=== PATIENT | male | born 1960 | race Caucasian/White ===

== ENCOUNTER 2017-03-19 20:15 | Emergency (ER) | payer OTHER ==
[2017-03-19 20:35] VITALS: RESP 20
[2017-03-19] MEDS ORDERED: KETOROLAC 60 MG/2 ML VIAL IM STA (20:54)
--- NOTE | 2017-03-19 21:03 | ED ---
Back Pain HPI - General Chief Complaint: Back Pain/Injury Stated Complaint: back pain Time Seen by Provider: 03/19/17 20:36 Source: patient, RN notes reviewed Limitations: no limitations - History of Present Illness Initial Comments: Patient is a 57-year-old male presents emergency room for evaluation of back pain. Patient states that having back pain for the past 6 months. Patient states while working today he moved to the side and felt a pop in his upper back on the right side. Patient also states he began feeling a shooting pain going down his right lower back and into his right leg. Patient does states she 's had pain similar to this before. Patient states she was told to sciatica. Patient states he's never had a upper back pain before. Patient states he is having constant pain that would not subside. Patient denies taking any Tylenol or Motrin for pain. Patient denies fecal or urinary incontinence. Patient denies any paresthesias. Patient denies saddle anesthesia. - Related Data Previous Rx's Medication Instructions Recorded Ibuprofen 600 mg PO Q6HR PRN #20 tablet 03/19/17 predniSONE 50 mg PO DAILY #5 tab 03/19/17 Allergies Allergy/AdvReac Type Severity Reaction Status Date / Time cyclobenzaprine HCl Allergy Rash/Hives Verified 03/19/17 21:00 [From Flexeril] Review of Systems ROS Statement: Those systems with pertinent positive or pertinent negative responses have been documented in the HPI. ROS Other: All systems not noted in ROS Statement are negative. Past Medical History Past Medical History: Liver Disease Additional Past Medical History / Comment(s): Hep C, chronic back pain History of Any Multi-Drug Resistant Organisms: None Reported Past Surgical History: Orthopedic Surgery Additional Past Surgical History / Comment(s): RIGHT LEG/ANKLE SURGERY, Past Anesthesia/Blood Transfusion Reactions: No Reported Reaction Past Psychological History: ADD/ADHD Additional Psychological History / Comment(s): NO ADDERAL SINCE . Smoking Status: Current every day smoker Past Alcohol Use History: None Reported Additional Past Alcohol Use History / Comment(s): No current use of ETOH since 2008. Past Drug Use History: None Reported Additional Drug Use History / Comment(s): Last use of street drugs 2 weeks ago. - Past Family History Mother Family Medical History: Cancer Additional Family Medical History / Comment(s): COLON CANCER. Sister(s) Family Medical History: Cancer Additional Family Medical History / Comment(s): COLON, BREAST General Exam - General Exam Comments Initial Comments: Sitting on exam bed, no acute distress. Limitations: no limitations General appearance: alert, in no apparent distress Head exam: Present: atraumatic, normocephalic, normal inspection Eye exam: Present: normal appearance ENT exam: Present: normal exam Neck exam: Present: normal inspection Respiratory exam: Absent: respiratory distress Back exam: Present: normal inspection, vertebral tenderness (Tenderness on palpating the thoracic spine and lumbosacral spine) Neurological exam: Present: alert, oriented X3, CN II-XII intact Psychiatric exam: Present: normal affect, normal mood Skin exam: Present: warm, dry, intact, normal color. Absent: rash Course Vital Signs 03/19/17 03/19/17 20:32 21:35 Temperature 98.5 F 98.0 F Pulse Rate 70 78 Respiratory 20 20 Rate Blood Pressure 184/86 124/77 O2 Sat by Pulse 97 98 Oximetry Medical Decision Making - Medical Decision Making Patient is a 57-year-old male presents emergency room for evaluation of back pain. Thoracic x-ray shows no acute findings. Lumbosacral spine x-ray: Moderate spondylosis at L4-5. No change compared to old exam. No fracture. Patient be placed on ibuprofen and prednisone and advised to follow-up with primary care provider. Patient has no neuro deficits. Patient states he understands everything that was discussed with him. Return parameters discussed. Case discussed with Dr. Suarez. - Radiology Data Radiology results: report reviewed, image reviewed Disposition Clinical Impression: Osteoarthritis of lumbar spine, Upper back strain Disposition: HOME SELF-CARE Condition: Good Instructions: Osteoarthritis (ED), Lumbar Radiculopathy (ED) Additional Instructions: Take medications as needed. Apply warm moist heat. Please follow up with primary care provider in 1-2 days. If any new symptom arises or symptoms worsen , return to ER as soon as possible. Prescriptions: Ibuprofen 600 mg PO Q6HR PRN #20 tablet PRN Reason: Pain predniSONE 50 mg PO DAILY #5 tab Referrals: Sky Manzano MD [Primary Care Provider] - 1-2 days Time of Disposition: 21:22
--- NOTE | 2017-03-19 21:14 | XR ---
EXAMINATION TYPE: XR lumbosacral spine min 4V DATE OF EXAM: 03/19/2017 9:09 PM COMPARISON: 08/06/2014 HISTORY: Back pain TECHNIQUE: 5 views FINDINGS: Lumbar vertebra have normal alignment. There is narrowing at L4-5 disc space. The other dis c spaces are fairly normal. There is no compression fracture. Sacroiliac joints are normal. IMPRESSION: Moderate spondylosis at L4-5. No change compared to old exam. No fracture.
--- NOTE | 2017-03-19 21:15 | XR ---
EXAMINATION TYPE: XR thoracic spine complete DATE OF EXAM: 03/19/2017 9:09 PM COMPARISON: 08/28/2014 HISTORY: Back pain TECHNIQUE: 3 views FINDINGS: Vertebra have fairly normal spacing and alignment. Posterior elements are intact. There is no paraspinal mass. There is no sign of compression fracture. IMPRESSION: Negative thoracic spine exam. No change.
[2017-03-19 21:38] VITALS: BP 124/77; PULSE 78; TEMP 98
== END 2017-03-19 21:37 | disposition home or self-care (01) ==
LOC: EC 20:15
DX: S29.012A Strain of muscle and tendon of back wall of thorax, initial encounter (principal); M47.896 Other spondylosis, lumbar region; F17.200 Nicotine dependence, unspecified, uncomplicated; Z88.8 Allergy status to other drugs, medicaments and biological substances; X50.1XXA Overexertion from prolonged static or awkward postures, initial encounter; Y93.89 Activity, other specified
CPT/HCPCS: 99283; 96372; 72072; 72110; J1885

== ENCOUNTER 2018-03-17 13:50 | Emergency (ER) | payer OTHER ==
[2018-03-17 14:05] VITALS: TEMP 98.1
[2018-03-17 15:01] LABS: Basophils % (A) 1 %; Eosinophils # (A) 0.2 k/uL (0-0.7); Eosinophils % (A) 4 %; HCT 41.6 % (39.0-53.0); HGB 14.2 gm/dL (13.0-17.5); Lymphocytes # (A) 1.3 k/uL (1.0-4.8); Lymphocytes % (A) 24 %; MCH 30.4 pg (25.0-35.0); MCV 89.5 fL (80.0-100.0); Mean Platelet Volume 7.2; Monocytes # (A) 0.3 k/uL (0-1.0); Monocytes % (A) 6 %; Neutrophils # (A) 3.3 k/uL (1.3-7.7); Neutrophils % (A) 64 %; Platelet Count 197 k/uL (150-450); RBC 4.65 m/uL (4.30-5.90); RDW 13.2 % (11.5-15.5); WBC 5.2 k/uL (3.8-10.6)
[2018-03-17 15:02] LABS: Appearance,Urine Clear (Clear); Bilirubin,Urine Negative (Negative); Blood,Urine Negative (Negative); Color,Urine Yellow; Glucose,Urine (UA) Negative (Negative); Ketones,Urine Negative (Negative); Leukocyte Esterase,Urine Negative (Negative); Nitrite,Urine Negative (Negative); Protein,Urine Negative (Negative); Specific Gravity,Urine 1.019 (1.001-1.035)
[2018-03-17 15:09] LABS: ALT 64 U/L (21-72); AST 53 U/L (17-59); Albumin 4.1 g/dL (3.5-5.0); Alkaline Phosphatase 73 U/L (38-126); Amylase 35 U/L (30-110); Anion Gap 13 mmol/L; Blood Urea Nitrogen 13 mg/dL (9-20); Calcium 9.3 mg/dL (8.4-10.2); Carbon Dioxide 30 mmol/L (22-30); Chloride 102 mmol/L (98-107); Glucose 110 mg/dL (74-99); Lipase 70 U/L (23-300); Sodium 145 mmol/L (137-145); Total Bilirubin 0.4 mg/dL (0.2-1.3); Total Protein 6.7 g/dL (6.3-8.2)
--- NOTE | 2018-03-17 19:00 | XR ---
EXAMINATION TYPE: XR KUB DATE OF EXAM: 03/17/2018 COMPARISON: 09/27/2014 HISTORY: Right lower quadrant pain and constipation TECHNIQUE: 2 views FINDINGS: The bowel gas pattern is normal. There is no sign of intestinal obstruction or pneumoperito neum. Fecal pattern is normal. There is no evidence of a mass. Lung bases are clear. There are no pat hologic calcifications over the kidneys. IMPRESSION: Nonacute abdomen. No adverse change.
[2018-03-17] MEDS ORDERED: MAGNESIUM CITRATE 296 ML BOTTLE PO ONE (19:22)
[2018-03-17] MEDS ORDERED: DOCUSATE 100 MG CAP PO STA (19:24)
--- NOTE | 2018-03-17 19:24 | ED ---
Abdominal Pain HPI - General Chief Complaint: Abdominal Pain Stated Complaint: abdominal pain/vomiting Time Seen by Provider: 03/17/18 17:08 Source: patient, RN notes reviewed, old records reviewed Mode of arrival: ambulatory Limitations: no limitations - History of Present Illness Initial Comments: 58-year-old male presents emergency department today chief complaint of lower abdominal pain for the past 5 days. He states is also had a bowel movement. Patient reports that he has had no fevers or chills. His family is concerned man other concerning signs or symptoms like a kidney stone or appendicitis. Patient states that he is having no blood in his stools. Have some vomiting earlier in the weekend but that has subsided. - Related Data Home Medications Medication Instructions Recorded Confirmed Methadone HCl [Methadone Intensol] 80 mg PO DAILY 03/17/18 03/17/18 Previous Rx's Medication Instructions Recorded Docusate [Colace] 100 mg PO DAILY #20 capsule 03/17/18 Allergies Allergy/AdvReac Type Severity Reaction Status Date / Time cyclobenzaprine HCl Allergy Rash/Hives Verified 03/17/18 18:35 [From Flexeril] Review of Systems ROS Statement: Those systems with pertinent positive or pertinent negative responses have been documented in the HPI. ROS Other: All systems not noted in ROS Statement are negative. 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 Sister(s) Family Medical History: Cancer Additional Family Medical History / Comment(s): COLON, BREAST General Exam - General Exam Comments Initial Comments: All. 58-year-old male. Resting comfortably in bed. No acute distress. Limitations: no limitations General appearance: alert, in no apparent distress Head exam: Present: atraumatic, normocephalic, normal inspection Eye exam: Present: normal appearance, PERRL, EOMI. Absent: scleral icterus, conjunctival injection, periorbital swelling ENT exam: Present: normal exam, mucous membranes moist Neck exam: Present: normal inspection. Absent: tenderness, meningismus, lymphadenopathy Respiratory exam: Present: normal lung sounds bilaterally. Absent: respiratory distress, wheezes, rales, rhonchi, stridor Cardiovascular Exam: Present: regular rate, normal rhythm, normal heart sounds. Absent: systolic murmur, diastolic murmur, rubs, gallop, clicks GI/Abdominal exam: Present: soft, normal bowel sounds. Absent: distended, tenderness, guarding, rebound, rigid Extremities exam: Present: normal inspection, full ROM, normal capillary refill. Absent: tenderness, pedal edema, joint swelling, calf tenderness Back exam: Present: normal inspection Psychiatric exam: Present: normal affect, normal mood Skin exam: Present: warm, dry, intact, normal color. Absent: rash Course Vital Signs 03/17/18 03/17/18 03/17/18 14:00 18:44 20:00 Temperature 98.1 F Pulse Rate 55 L 55 L 97 Respiratory 18 18 16 Rate Blood Pressure 179/75 190/80 157/79 O2 Sat by Pulse 98 97 98 Oximetry Medical Decision Making - Medical Decision Making 58-year-old male presents emergency department today chief complaint of lower abdominal pain for the past 5 days. He states is also had a bowel movement. Patient reports that he has had no fevers or chills. Pt labs are unremarkable. No significant tendernesss, normal bowel sounds. No pulsitile mass. Patient KUB shows non obstructive gas pattern. Discussed with normal labs patient pain is related to constipation. Discussed follow up and will place patient on stool softners and give Mag Citrate. Discussed return parameters. - Lab Data Result diagrams: 03/17/18 14:50 03/17/18 14:50 Lab Results 03/17/18 03/17/18 03/17/18 Range/Units 14:50 14:50 14:50 WBC 5.2 (3.8-10.6) k/uL RBC 4.65 (4.30-5.90) m/uL Hgb 14.2 (13.0-17.5) gm/dL Hct 41.6 (39.0-53.0) % MCV 89.5 (80.0-100.0) fL MCH 30.4 (25.0-35.0) pg MCHC 34.0 (31.0-37.0) g/dL RDW 13.2 (11.5-15.5) % Plt Count 197 (150-450) k/uL Neutrophils % 64 % Lymphocytes % 24 % Monocytes % 6 % Eosinophils % 4 % Basophils % 1 % Neutrophils # 3.3 (1.3-7.7) k/uL Lymphocytes # 1.3 (1.0-4.8) k/uL Monocytes # 0.3 (0-1.0) k/uL Eosinophils # 0.2 (0-0.7) k/uL Basophils # 0.0 (0-0.2) k/uL Sodium 145 (137-145) mmol/L Potassium 4.0 (3.5-5.1) mmol/L Chloride 102 (98-107) mmol/L Carbon Dioxide 30 (22-30) mmol/L Anion Gap 13 mmol/L BUN 13 (9-20) mg/dL Creatinine 0.80 (0.66-1.25) mg/dL Est GFR (CKD-EPI)AfAm >90 (>60 ml/min/1.73 sqM) Est GFR (CKD-EPI)NonAf >90 (>60 ml/min/1.73 sqM) Glucose 110 H (74-99) mg/dL Calcium 9.3 (8.4-10.2) mg/dL Total Bilirubin 0.4 (0.2-1.3) mg/dL AST 53 (17-59) U/L ALT 64 (21-72) U/L Alkaline Phosphatase 73 (38-126) U/L Total Protein 6.7 (6.3-8.2) g/dL Albumin 4.1 (3.5-5.0) g/dL Amylase 35 (30-110) U/L Lipase 70 (23-300) U/L Urine Color Yellow Urine Appearance Clear (Clear) Urine pH 6.0 (5.0-8.0) Ur Specific [place] 1.019 (1.001-1.035) Urine Protein Negative (Negative) Urine Glucose (UA) Negative (Negative) Urine Ketones Negative (Negative) Urine Blood Negative (Negative) Urine Nitrite Negative (Negative) Urine Bilirubin Negative (Negative) Urine Urobilinogen 4.0 (<2.0) mg/dL Ur Leukocyte Esterase Negative (Negative) - Radiology Data Radiology results: report reviewed Non obstructive BG pattern. Disposition Clinical Impression: Constipation Disposition: HOME SELF-CARE Condition: Good Instructions: Constipation (ED) Additional Instructions: Patient advised to follow-up with primary care provider. Return to the emergency department if any alarming signs or symptoms occur. Prescriptions: Docusate [Colace] 100 mg PO DAILY #20 capsule Is patient prescribed a controlled substance at d/c from ED?: No If prescribed controlled substance>3 days was MAPS reviewed?: No When asked, does pt state using other controlled substances?: No Referrals: Sky Manzano MD [Primary Care Provider] - 1-2 days Time of Disposition: 19:22
[2018-03-17 20:10] VITALS: BP 157/79; PULSE 97; RESP 16
== END 2018-03-17 20:16 | disposition home or self-care (01) ==
LOC: EC 13:50
DX: K59.00 Constipation, unspecified (principal); F17.200 Nicotine dependence, unspecified, uncomplicated; Z79.891 Long term (current) use of opiate analgesic; Z88.8 Allergy status to other drugs, medicaments and biological substances
CPT/HCPCS: 36415; 74018; 80053; 81003; 82150; 83690; 85025; 99284

== ENCOUNTER → 2018-11-18 | Outpatient (CLI) | payer OTHER ==
--- NOTE | 2018-11-18 10:27 | XR ---
EXAMINATION TYPE: XR wrist complete RT DATE OF EXAM: 11/18/2018 CLINICAL HISTORY: Metacarpal swelling per order. Pain for 5 to 6 months with 2 prior sprain injury's and repetitive work injury per patient. TECHNIQUE: Frontal, lateral, scaphoid, and oblique images of the right wrist are obtained. COMPARISON: None FINDINGS: There is no acute fracture/dislocation evident in the right wrist. Marked radiocarpal join t space loss is present with near otet-lj-liec formation and joint space sclerosis. No suspicious wid ening of scapholunate space is seen. Slight angulation on lateral view makes evaluation suboptimal. T he overlying soft tissue appears unremarkable. IMPRESSION: As above.
== END ==
LOC: RADXRMAIN 09:42
PROVIDERS: ATTEND Family Medicine
DX: R22.0 Localized swelling, mass and lump, head (principal)

== ENCOUNTER 2019-07-07 15:23 | Emergency (ER) | payer OTHER ==
[2019-07-07 15:39] VITALS: TEMP 98.3
[2019-07-07] MEDS ORDERED: SODIUM CHLORIDE 0.9% 1,000 ML IV STA ×2 (15:58)
[2019-07-07] MEDS ORDERED: THIAMINE 100 MG/ML 2 ML VIAL IM STA (15:58)
[2019-07-07] MEDS ORDERED: SODIUM CHLORIDE 0.9% 1,000 ML with MVI, ADULT NO.4 WITH VIT K 10 ML, THIAMINE 100 MG, F... IV ONE ×4 (16:01)
--- NOTE | 2019-07-07 16:11 | ED ---
General Adult HPI - General Chief complaint: Alcohol Stated complaint: Alcohol withdrawal Time Seen by Provider: 07/07/19 15:37 Source: patient, RN notes reviewed, old records reviewed Mode of arrival: ambulatory Limitations: no limitations - History of Present Illness Initial comments: 5-year-old male presents today for evaluation with chief complaint of alcohol intoxication and concerns for withdrawal. Patient reports that [facility] was [facility] He was there for methadone treatment and alcohol treatment. Patient reports that after he was discharged yesterday he returned using heroin and to use yesterday and resume drinking today. Patient states that he lives with his son. Patient reported to his son that he is having some chest pain today and son decided to call EMS. QRS emergency department extremely intoxicated. He states he did not have any chest pain at this time. Patient reports he has no suicidal homicidal ideations. Patient states she is concerned he is going to start to go through withdrawal. - Related Data Home Medications Medication Instructions Recorded Confirmed Diclofenac Sodium [Voltaren] 75 mg PO BID 07/07/19 07/07/19 Gabapentin [Neurontin] 300 mg PO BID 07/07/19 07/07/19 Montelukast Sodium [Singulair] 10 mg PO DAILY 07/07/19 07/07/19 busPIRone HCL 5 mg PO BID 07/07/19 07/07/19 Previous Rx's Medication Instructions Recorded chlordiazePOXIDE HCl [Librium] 10 mg PO QID 3 Days #12 capsule 07/07/19 Allergies Allergy/AdvReac Type Severity Reaction Status Date / Time cyclobenzaprine HCl Allergy Rash/Hives Verified 07/07/19 16:02 [From Flexeril] Review of Systems ROS Statement: Those systems with pertinent positive or pertinent negative responses have been documented in the HPI. ROS Other: All systems not noted in ROS Statement are negative. 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 Sister(s) Family Medical History: Cancer Additional Family Medical History / Comment(s): COLON, BREAST General Exam - General Exam Comments Initial Comments: Intoxicated 59-year-old male. Patient appears in no significant distress. Limitations: no limitations General appearance: alert, in no apparent distress Head exam: Present: atraumatic, normocephalic, normal inspection Eye exam: Present: normal appearance, PERRL, EOMI. Absent: scleral icterus, conjunctival injection, periorbital swelling ENT exam: Present: normal exam, mucous membranes moist Neck exam: Present: normal inspection. Absent: tenderness, meningismus, lymphadenopathy Respiratory exam: Present: normal lung sounds bilaterally. Absent: respiratory distress, wheezes, rales, rhonchi, stridor Cardiovascular Exam: Present: regular rate, normal rhythm, normal heart sounds. Absent: systolic murmur, diastolic murmur, rubs, gallop, clicks GI/Abdominal exam: Present: soft, normal bowel sounds. Absent: distended, tenderness, guarding, rebound, rigid Extremities exam: Present: normal inspection, full ROM, normal capillary refill. Absent: tenderness, pedal edema, joint swelling, calf tenderness Back exam: Present: normal inspection Course Vital Signs 07/07/19 07/07/19 07/07/19 15:32 17:26 17:30 Temperature 98.3 F Pulse Rate 84 76 74 Respiratory 18 16 16 Rate Blood Pressure 108/76 131/76 131/76 O2 Sat by Pulse 98 93 L 92 L Oximetry 07/07/19 07/07/19 07/07/19 18:00 18:30 19:00 Temperature Pulse Rate 75 79 Respiratory 13 17 Rate Blood Pressure 123/70 123/73 107/61 O2 Sat by Pulse Oximetry 07/07/19 19:18 Temperature Pulse Rate 79 Respiratory 17 Rate Blood Pressure 107/61 O2 Sat by Pulse Oximetry Medical Decision Making - Medical Decision Making She is a 5-year-old male presents emergency department today which went all contact Patient. He reported to his son that he has also chest pain and son called EMS brought the Patient in for evaluation. Patient at this time states he has no chest pain. EKG was reviewed and normal. Troponin test is negative in all of her lab work was reviewed and unremarkable. I'll call level is significantly elevated to 77. Patient was given IV fluids and banana bag. On reevaluation is resting comfortably in bed eating a sandwich. He states he has no further chest pain or any other complaints at this time. He states he preferred to be discharged home. I discussed we do not admit for alcohol withdrawal at this time and he can be discharged with outpatient referrals again and we'll discharge the Patient with a short course of Librium to help for withdrawal symptoms. He will did recently have a stay [facility] and was discharged 2 days ago. Patient is discharged in stable condition with his son. Discussed appropriate follow-up. - Lab Data Result diagrams: 07/07/19 16:10 07/07/19 16:10 Lab Results 07/07/19 07/07/19 07/07/19 Range/Units 16:10 16:10 16:10 WBC 5.5 (3.8-10.6) k/uL RBC 4.16 L (4.30-5.90) m/uL Hgb 12.9 L (13.0-17.5) gm/dL Hct 38.8 L (39.0-53.0) % MCV 93.2 (80.0-100.0) fL MCH 31.1 (25.0-35.0) pg MCHC 33.3 (31.0-37.0) g/dL RDW 13.3 (11.5-15.5) % Plt Count 236 (150-450) k/uL Neutrophils % 61 % Lymphocytes % 26 % Monocytes % 5 % Eosinophils % 5 % Basophils % 1 % Neutrophils # 3.4 (1.3-7.7) k/uL Lymphocytes # 1.5 (1.0-4.8) k/uL Monocytes # 0.3 (0-1.0) k/uL Eosinophils # 0.3 (0-0.7) k/uL Basophils # 0.0 (0-0.2) k/uL PT 9.5 (9.0-12.0) sec INR 0.9 (<1.2) APTT 26.0 (22.0-30.0) sec Sodium 148 H (137-145) mmol/L Potassium 3.7 (3.5-5.1) mmol/L Chloride 111 H (98-107) mmol/L Carbon Dioxide 28 (22-30) mmol/L Anion Gap 9 mmol/L BUN 18 (9-20) mg/dL Creatinine 0.88 (0.66-1.25) mg/dL Est GFR (CKD-EPI)AfAm >90 (>60 ml/min/1.73 sqM) Est GFR (CKD-EPI)NonAf >90 (>60 ml/min/1.73 sqM) Glucose 89 (74-99) mg/dL Calcium 8.8 (8.4-10.2) mg/dL Magnesium 2.3 (1.6-2.3) mg/dL Total Bilirubin 0.2 (0.2-1.3) mg/dL AST 39 (17-59) U/L ALT 40 (21-72) U/L Alkaline Phosphatase 66 (38-126) U/L Troponin I (0.000-0.034) ng/mL Total Protein 6.7 (6.3-8.2) g/dL Albumin 4.1 (3.5-5.0) g/dL Amylase 47 (30-110) U/L Lipase 193 (23-300) U/L Urine Color Urine Appearance (Clear) Urine pH (5.0-8.0) Ur Specific [place] (1.001-1.035) Urine Protein (Negative) Urine Glucose (UA) (Negative) Urine Ketones (Negative) Urine Blood (Negative) Urine Nitrite (Negative) Urine Bilirubin (Negative) Urine Urobilinogen (<2.0) mg/dL Ur Leukocyte Esterase (Negative) Urine Opiates Screen (NotDetected) Ur Oxycodone Screen (NotDetected) Urine Methadone Screen (NotDetected) Ur Propoxyphene Screen (NotDetected) Ur Barbiturates Screen (NotDetected) U Tricyclic Antidepress (NotDetected) Ur Phencyclidine Scrn (NotDetected) Ur Amphetamines Screen (NotDetected) U Methamphetamines Scrn (NotDetected) U Benzodiazepines Scrn (NotDetected) Urine Cocaine Screen (NotDetected) U Marijuana (THC) Screen (NotDetected) Serum Alcohol 277 H* mg/dL 07/07/19 07/07/19 Range/Units 16:10 18:13 WBC (3.8-10.6) k/uL RBC (4.30-5.90) m/uL Hgb (13.0-17.5) gm/dL Hct (39.0-53.0) % MCV (80.0-100.0) fL MCH (25.0-35.0) pg MCHC (31.0-37.0) g/dL RDW (11.5-15.5) % Plt Count (150-450) k/uL Neutrophils % % Lymphocytes % % Monocytes % % Eosinophils % % Basophils % % Neutrophils # (1.3-7.7) k/uL Lymphocytes # (1.0-4.8) k/uL Monocytes # (0-1.0) k/uL Eosinophils # (0-0.7) k/uL Basophils # (0-0.2) k/uL PT (9.0-12.0) sec INR (<1.2) APTT (22.0-30.0) sec Sodium (137-145) mmol/L Potassium (3.5-5.1) mmol/L Chloride (98-107) mmol/L Carbon Dioxide (22-30) mmol/L Anion Gap mmol/L BUN (9-20) mg/dL Creatinine (0.66-1.25) mg/dL Est GFR (CKD-EPI)AfAm (>60 ml/min/1.73 sqM) Est GFR (CKD-EPI)NonAf (>60 ml/min/1.73 sqM) Glucose (74-99) mg/dL Calcium (8.4-10.2) mg/dL Magnesium (1.6-2.3) mg/dL Total Bilirubin (0.2-1.3) mg/dL AST (17-59) U/L ALT (21-72) U/L Alkaline Phosphatase (38-126) U/L Troponin I <0.012 (0.000-0.034) ng/mL Total Protein (6.3-8.2) g/dL Albumin (3.5-5.0) g/dL Amylase (30-110) U/L Lipase (23-300) U/L Urine Color Light Yellow Urine Appearance Clear (Clear) Urine pH 6.5 (5.0-8.0) Ur Specific [place] 1.008 (1.001-1.035) Urine Protein Negative (Negative) Urine Glucose (UA) Negative (Negative) Urine Ketones Negative (Negative) Urine Blood Negative (Negative) Urine Nitrite Negative (Negative) Urine Bilirubin Negative (Negative) Urine Urobilinogen <2.0 (<2.0) mg/dL Ur Leukocyte Esterase Negative (Negative) Urine Opiates Screen Not Detected (NotDetected) Ur Oxycodone Screen Not Detected (NotDetected) Urine Methadone Screen Detected H (NotDetected) Ur Propoxyphene Screen Not Detected (NotDetected) Ur Barbiturates Screen Not Detected (NotDetected) U Tricyclic Antidepress Not Detected (NotDetected) Ur Phencyclidine Scrn Not Detected (NotDetected) Ur Amphetamines Screen Not Detected (NotDetected) U Methamphetamines Scrn Not Detected (NotDetected) U Benzodiazepines Scrn Not Detected (NotDetected) Urine Cocaine Screen Not Detected (NotDetected) U Marijuana (THC) Screen Not Detected (NotDetected) Serum Alcohol mg/dL 07/07/19 16:51 EKG performed at 1605 shows normal sinus rhythm normal EKG. Ventricular rate of 74 bpm. Was 152 ms. QRS duration is 104 ms. QT QTc is 380/4:30 milliseconds. Disposition Clinical Impression: Alcohol abuse, Alcohol intoxication, Methadone misuse Disposition: HOME SELF-CARE Condition: Good Instructions (If sedation given, give patient instructions): Alcohol Withdrawal (ED) Additional Instructions: Please use medication as discussed. Please follow up with family doctor if symptoms have not improved over the next two days. Please return to the emergency room if your symptoms increase or worsen or for any other concerns. Prescriptions: chlordiazePOXIDE HCl [Librium] 10 mg PO QID 3 Days #12 capsule Is patient prescribed a controlled substance at d/c from ED?: No Referrals: Sky Manzano MD [Primary Care Provider] - 1-2 days Time of Disposition: 20:04
[2019-07-07 16:19] LABS: Basophils % (A) 1 %; Eosinophils # (A) 0.3 k/uL (0-0.7); Eosinophils % (A) 5 %; HCT 38.8 % (39.0-53.0); HGB 12.9 gm/dL (13.0-17.5); Lymphocytes # (A) 1.5 k/uL (1.0-4.8); Lymphocytes % (A) 26 %; MCH 31.1 pg (25.0-35.0); MCHC 33.3 g/dL (31.0-37.0); MCV 93.2 fL (80.0-100.0); Mean Platelet Volume 6.5; Monocytes # (A) 0.3 k/uL (0-1.0); Monocytes % (A) 5 %; Neutrophils # (A) 3.4 k/uL (1.3-7.7); Neutrophils % (A) 61 %; Platelet Count 236 k/uL (150-450); RBC 4.16 m/uL (4.30-5.90); RDW 13.3 % (11.5-15.5); WBC 5.5 k/uL (3.8-10.6)
[2019-07-07 16:28] LABS: INR 0.9 (<1.2); Prothrombin Time 9.5 sec (9.0-12.0)
[2019-07-07 16:29] LABS: ALT 40 U/L (21-72); AST 39 U/L (17-59); African American GFR (CKD) >90 (>60 ml/min/1.73 sqM); Albumin 4.1 g/dL (3.5-5.0); Alkaline Phosphatase 66 U/L (38-126); Amylase 47 U/L (30-110); Anion Gap 9 mmol/L; Blood Urea Nitrogen 18 mg/dL (9-20); Calcium 8.8 mg/dL (8.4-10.2); Carbon Dioxide 28 mmol/L (22-30); Chloride 111 mmol/L (98-107); Glucose 89 mg/dL (74-99); Magnesium 2.3 mg/dL (1.6-2.3); Potassium 3.7 mmol/L (3.5-5.1); Sodium 148 mmol/L (137-145); Total Bilirubin 0.2 mg/dL (0.2-1.3); Total Protein 6.7 g/dL (6.3-8.2)
[2019-07-07 16:38] LABS: Alcohol 277 mg/dL
[2019-07-07 18:41] LABS: Appearance,Urine Clear (Clear); Color,Urine Light Yellow; Glucose,Urine (UA) Negative (Negative); Ketones,Urine Negative (Negative); PH, Urine 6.5 (5.0-8.0); Protein,Urine Negative (Negative); Specific Gravity,Urine 1.008 (1.001-1.035)
[2019-07-07 18:42] LABS: Bilirubin,Urine Negative (Negative); Blood,Urine Negative (Negative); Leukocyte Esterase,Urine Negative (Negative); Nitrite,Urine Negative (Negative); Urobilinogen,Urine <2.0 mg/dL (<2.0)
[2019-07-07 18:52] LABS: Amphetamine Screen,Urine Not Detected (NotDetected); Barbiturate Screen,Urine Not Detected (NotDetected); Benzodiazepines Screen,Urine Not Detected (NotDetected); Cocaine Screen,Urine Not Detected (NotDetected); Methadone Screen, Urine Detected (NotDetected); Opiate Screen,Urine Not Detected (NotDetected); Oxycodone Screen, Urine Not Detected (NotDetected); Phencyclidine Screen,Urine Not Detected (NotDetected); Tricyclic Antidepressant,Urine Not Detected (NotDetected); Urn Cannabinoid Scrn Not Detected (NotDetected)
--- NOTE | 2019-07-07 18:53 | XR ---
EXAMINATION: XR chest 2V DATE AND TIME: 07/07/2019 6:03 PM CLINICAL INDICATION: PHH; Chest Pain TECHNIQUE: Departmental protocol COMPARISON: 08/28/2014 FINDINGS: The lungs are clear. The pleural spaces are negative. The cardiac silhouette is not enlarged. The remainder of the mediastinal silhouette is unremarkable. The skeletal structures and soft tissues are negative for acute findings. IMPRESSION: NO ACUTE PROCESS.
[2019-07-07 20:12] VITALS: BP 132/87; PULSE 72; RESP 16
== END 2019-07-07 20:14 | disposition home or self-care (01) ==
LOC: EC 15:23
DX: F10.239 Alcohol dependence with withdrawal, unspecified (principal); F10.229 Alcohol dependence with intoxication, unspecified; F11.90 Opioid use, unspecified, uncomplicated; R07.9 Chest pain, unspecified; F17.200 Nicotine dependence, unspecified, uncomplicated; G89.29 Other chronic pain; M54.9 Dorsalgia, unspecified; Z79.1 Long term (current) use of non-steroidal anti-inflammatories (NSAID); Z79.899 Other long term (current) drug therapy; Z88.8 Allergy status to other drugs, medicaments and biological substances; Z53.9 Procedure and treatment not carried out, unspecified reason
CPT/HCPCS: 36415; 93005; 80053; 82150; 83690; 83735; 84484; 85025; 85610; 85730; 81003; 80306; 80320; 71046; 99285; 96365; 96366 ×3; J3411

== ENCOUNTER 2019-07-09 17:51 | Inpatient (IN) | payer OTHER ==
[2019-07-09] MEDS ORDERED: SODIUM CHLORIDE 0.9% 1,000 ML IV STA (18:12)
--- NOTE | 2019-07-09 18:16 | ED ---
General Adult HPI - General Chief complaint: Alcohol Stated complaint: Detox, chest pain Time Seen by Provider: 07/09/19 18:02 Source: patient, family Mode of arrival: ambulatory Limitations: no limitations - History of Present Illness Initial comments: 59-year-old male patient with past medical history significant for polysubstance abuse, hepatitis C, presents to the emergency department today for evaluation of chest pain and withdrawal symptoms. Patient states that he recently left [facility] facility where he was detoxing from heroin and alcohol. Patient states that he has been drinking today. States he's been having chest pain since last evening. States the pain is intermittent. He does have shortness of breath, nausea, and sweats with this. States he is also having diarrhea and abdominal discomfort. He denies any fevers. Denies any hematochezia, melena, hematemesis. Patient was seen and evaluated in this department 2 days ago for similar symptoms. He was given a prescription of Librium, states he has not started this yet. Patient denies any recent rash, shortness breath, chest pain, constipation, back pain, numbness, tingling, dizziness, weakness, hematuria, dysuria, urinary urgency, urinary frequency, headache, visual changes, or any other complaints. - Related Data Home Medications Medication Instructions Recorded Confirmed Diclofenac Sodium [Voltaren] 75 mg PO BID 07/07/19 07/07/19 Gabapentin [Neurontin] 300 mg PO BID 07/07/19 07/07/19 Montelukast Sodium [Singulair] 10 mg PO DAILY 07/07/19 07/07/19 busPIRone HCL 5 mg PO BID 07/07/19 07/07/19 Previous Rx's Medication Instructions Recorded chlordiazePOXIDE HCl [Librium] 10 mg PO QID 3 Days #12 capsule 07/07/19 Allergies Allergy/AdvReac Type Severity Reaction Status Date / Time cyclobenzaprine HCl Allergy Rash/Hives Verified 07/09/19 17:56 [From Flexeril] Review of Systems ROS Statement: Those systems with pertinent positive or pertinent negative responses have been documented in the HPI. ROS Other: All systems not noted in ROS Statement are negative. Past Medical History Past Medical History: Liver Disease Additional Past Medical History / Comment(s): Hep C, chronic back pain, pt reported using heroin (pt has been clean for 1.5 yrs/ on methadone) History of Any Multi-Drug Resistant Organisms: None Reported Past Surgical History: Orthopedic Surgery Additional Past Surgical History / Comment(s): RIGHT LEG/ANKLE SURGERY, Past Anesthesia/Blood Transfusion Reactions: No Reported Reaction Past Psychological History: ADD/ADHD Smoking Status: Current every day smoker Past Alcohol Use History: None Reported, Daily, Heavy Past Drug Use History: Heroin, Opiates - Past Family History Mother Family Medical History: Cancer Additional Family Medical History / Comment(s): COLON CANCER. Sister(s) Family Medical History: Cancer Additional Family Medical History / Comment(s): COLON, BREAST General Exam Limitations: no limitations General appearance: alert, in no apparent distress, other (Physical well- developed, well-nourished adult male patient in no acute distress. He is obviously intoxicated. Vital signs upon presentation are temperature 97.8F, pulse 96, respirations 22, blood pressure 153/97, pulse ox 96% on room air.) Eye exam: Present: normal appearance, PERRL, EOMI. Absent: scleral icterus, conjunctival injection, periorbital swelling ENT exam: Present: normal exam, normal oropharynx, mucous membranes moist Respiratory exam: Present: normal lung sounds bilaterally. Absent: respiratory distress, wheezes, rales, rhonchi, stridor Cardiovascular Exam: Present: regular rate, normal rhythm, normal heart sounds. Absent: systolic murmur, diastolic murmur, rubs, gallop, clicks GI/Abdominal exam: Present: soft, tenderness (Generalized), normal bowel sounds. Absent: distended, guarding, rebound, rigid Neurological exam: Present: alert, oriented X3, CN II-XII intact Psychiatric exam: Present: normal affect, normal mood Skin exam: Present: warm, dry, intact, normal color. Absent: rash Course Vital Signs 07/09/19 07/09/19 17:54 20:26 Temperature 97.8 F 97.6 F Pulse Rate 96 81 Respiratory 22 18 Rate Blood Pressure 153/97 130/87 O2 Sat by Pulse 96 100 Oximetry EKG Findings - EKG Comments: EKG Findings:: EKG obtained at 1838 shows normal sinus rhythm with a ventricular rate of 89, [place] interval 146, QRS duration 104, QT 352, QTc 428. No evidence of ST elevation or depression. Medical Decision Making - Medical Decision Making 59-year-old male patient presents to the emergency department today for evaluation of chest pain and withdrawal symptoms. Patient states he is withdraw ing from methadone and alcohol. Physical examination is unremarkable. Labs reviewed and did reveal increased sodium chloride. Elevate they did alcohol level at 362. Chest x-ray shows no acute cardiopulmonary process. EKG is unremarkable. Patient does not have transportation home. He'll be admitted to the hospital for alcohol intoxication, we will perform serial troponin to rule out cardiac event. Patient verbalizes understanding and agrees this plan. - Lab Data Result diagrams: 07/09/19 18:50 07/09/19 18:50 Lab Results 07/09/19 07/09/19 07/09/19 Range/Units 18:50 18:50 18:50 WBC 7.0 (3.8-10.6) k/uL RBC 4.55 (4.30-5.90) m/uL Hgb 14.5 (13.0-17.5) gm/dL Hct 42.5 (39.0-53.0) % MCV 93.3 (80.0-100.0) fL MCH 31.8 (25.0-35.0) pg MCHC 34.1 (31.0-37.0) g/dL RDW 13.2 (11.5-15.5) % Plt Count 286 (150-450) k/uL Neutrophils % 63 % Lymphocytes % 28 % Monocytes % 5 % Eosinophils % 2 % Basophils % 1 % Neutrophils # 4.4 (1.3-7.7) k/uL Lymphocytes # 1.9 (1.0-4.8) k/uL Monocytes # 0.3 (0-1.0) k/uL Eosinophils # 0.1 (0-0.7) k/uL Basophils # 0.1 (0-0.2) k/uL PT 9.7 (9.0-12.0) sec INR 0.9 (<1.2) APTT 25.3 (22.0-30.0) sec Sodium 150 H (137-145) mmol/L Potassium 3.7 (3.5-5.1) mmol/L Chloride 113 H (98-107) mmol/L Carbon Dioxide 28 (22-30) mmol/L Anion Gap 9 mmol/L BUN 12 (9-20) mg/dL Creatinine 0.65 L (0.66-1.25) mg/dL Est GFR (CKD-EPI)AfAm >90 (>60 ml/min/1.73 sqM) Est GFR (CKD-EPI)NonAf >90 (>60 ml/min/1.73 sqM) Glucose 104 H (74-99) mg/dL Calcium 8.8 (8.4-10.2) mg/dL Magnesium 2.1 (1.6-2.3) mg/dL Total Bilirubin 0.1 L (0.2-1.3) mg/dL AST 33 (17-59) U/L ALT 28 (21-72) U/L Alkaline Phosphatase 68 (38-126) U/L Troponin I (0.000-0.034) ng/mL Total Protein 6.8 (6.3-8.2) g/dL Albumin 4.1 (3.5-5.0) g/dL Lipase 87 (23-300) U/L Serum Alcohol 363 H* mg/dL 07/09/19 Range/Units 18:50 WBC (3.8-10.6) k/uL RBC (4.30-5.90) m/uL Hgb (13.0-17.5) gm/dL Hct (39.0-53.0) % MCV (80.0-100.0) fL MCH (25.0-35.0) pg MCHC (31.0-37.0) g/dL RDW (11.5-15.5) % Plt Count (150-450) k/uL Neutrophils % % Lymphocytes % % Monocytes % % Eosinophils % % Basophils % % Neutrophils # (1.3-7.7) k/uL Lymphocytes # (1.0-4.8) k/uL Monocytes # (0-1.0) k/uL Eosinophils # (0-0.7) k/uL Basophils # (0-0.2) k/uL PT (9.0-12.0) sec INR (<1.2) APTT (22.0-30.0) sec Sodium (137-145) mmol/L Potassium (3.5-5.1) mmol/L Chloride (98-107) mmol/L Carbon Dioxide (22-30) mmol/L Anion Gap mmol/L BUN (9-20) mg/dL Creatinine (0.66-1.25) mg/dL Est GFR (CKD-EPI)AfAm (>60 ml/min/1.73 sqM) Est GFR (CKD-EPI)NonAf (>60 ml/min/1.73 sqM) Glucose (74-99) mg/dL Calcium (8.4-10.2) mg/dL Magnesium (1.6-2.3) mg/dL Total Bilirubin (0.2-1.3) mg/dL AST (17-59) U/L ALT (21-72) U/L Alkaline Phosphatase (38-126) U/L Troponin I <0.012 (0.000-0.034) ng/mL Total Protein (6.3-8.2) g/dL Albumin (3.5-5.0) g/dL Lipase (23-300) U/L Serum Alcohol mg/dL - Radiology Data Radiology results: report reviewed, image reviewed Two-view x-ray of the chest is obtained. Report is reviewed in its entirety. Impression by Dr. Christine shows no active cardiopulmonary disease. No change. Disposition Clinical Impression: Alcohol intoxication, Chest pain Disposition: ADMITTED IP TO THIS [facility] Condition: Serious Referrals: Sky Manzano MD [Primary Care Provider] - 1-2 days Decision to Admit Reason: Admit from EC Decision Date: 07/09/19 Decision Time: 20:29
[2019-07-09] MEDS ORDERED: FAMOTIDINE 20 MG/2 ML VIAL IV STA (18:41)
[2019-07-09] MEDS ORDERED: ONDANSETRON 4 MG/2 ML VIAL IVP STA (18:41)
[2019-07-09 19:10] LABS: Basophils # (A) 0.1 k/uL (0-0.2); Basophils % (A) 1 %; Eosinophils # (A) 0.1 k/uL (0-0.7); Eosinophils % (A) 2 %; HCT 42.5 % (39.0-53.0); HGB 14.5 gm/dL (13.0-17.5); Lymphocytes # (A) 1.9 k/uL (1.0-4.8); Lymphocytes % (A) 28 %; MCH 31.8 pg (25.0-35.0); MCHC 34.1 g/dL (31.0-37.0); MCV 93.3 fL (80.0-100.0); Mean Platelet Volume 6.4; Monocytes # (A) 0.3 k/uL (0-1.0); Monocytes % (A) 5 %; Neutrophils # (A) 4.4 k/uL (1.3-7.7); Neutrophils % (A) 63 %; Platelet Count 286 k/uL (150-450); RBC 4.55 m/uL (4.30-5.90); RDW 13.2 % (11.5-15.5)
[2019-07-09 19:16] LABS: ALT 28 U/L (21-72); AST 33 U/L (17-59); African American GFR (CKD) >90 (>60 ml/min/1.73 sqM); Albumin 4.1 g/dL (3.5-5.0); Alkaline Phosphatase 68 U/L (38-126); Anion Gap 9 mmol/L; Blood Urea Nitrogen 12 mg/dL (9-20); Calcium 8.8 mg/dL (8.4-10.2); Carbon Dioxide 28 mmol/L (22-30); Chloride 113 mmol/L (98-107); Glucose 104 mg/dL (74-99); INR 0.9 (<1.2); Magnesium 2.1 mg/dL (1.6-2.3); Partial Thromboplastin Time 25.3 sec (22.0-30.0); Potassium 3.7 mmol/L (3.5-5.1); Prothrombin Time 9.7 sec (9.0-12.0); Sodium 150 mmol/L (137-145); Total Bilirubin 0.1 mg/dL (0.2-1.3); Total Protein 6.8 g/dL (6.3-8.2)
[2019-07-09 19:40] LABS: Alcohol 363 mg/dL
--- NOTE | 2019-07-09 19:45 | XR ---
EXAMINATION TYPE: XR chest 2V DATE OF EXAM: 07/09/2019 COMPARISON: 07/07/2019 HISTORY: Chest pain TECHNIQUE: Frontal and lateral views of the chest are obtained. FINDINGS: Heart and mediastinum are normal. Lungs are clear. Diaphragm is normal. Bony thorax is int act. There is old healed right clavicle fracture. IMPRESSION: No active cardiopulmonary disease. No change.
[2019-07-09] MEDS ORDERED: ONDANSETRON 4 MG/2 ML VIAL IVP PRN (20:26)
[2019-07-09] MEDS ORDERED: NALOXONE 0.4 MG/ML 1 ML VIAL IV PRN (20:26)
[2019-07-09 20:28] VITALS: RESP 18
[2019-07-09] MEDS ORDERED: SODIUM CHLORIDE 0.9% 1,000 ML with MVI, ADULT NO.4 WITH VIT K 10 ML, THIAMINE 100 MG, F... IV ONE ×4 (20:28)
[2019-07-09] MEDS ORDERED: LORazepam 2 MG/ML INJ IV PRN (20:28)
[2019-07-09] MEDS ORDERED: THIAMINE 100 MG/ML 2 ML VIAL IM STA (20:28)
[2019-07-09] MEDS: LORazepam 2 MG/ML INJ IV PRN ×2 (21:38→22:55)
[2019-07-09] MEDS: THIAMINE 100 MG TAB PO SCH (21:39)
[2019-07-09 22:03] VITALS: BMI 23.6
[2019-07-09] MEDS: NICOTINE 21MG/24HR PATCH TRANSDERM SCH (22:22)
[2019-07-10] MEDS: LORazepam 2 MG/ML INJ IV PRN ×8 (01:09→23:51)
[2019-07-10] MEDS: THIAMINE 100 MG TAB PO SCH (08:11)
[2019-07-10] MEDS: NICOTINE 21MG/24HR PATCH TRANSDERM SCH (08:11)
[2019-07-10] MEDS ORDERED: SODIUM CHLORIDE 0.9% 1,000 ML with MVI, ADULT NO.4 WITH VIT K 10 ML, THIAMINE 100 MG, F... IV ONE ×8 (15:42→15:45)
[2019-07-10] MEDS: PANTOPRAZOLE 40 MG/10 ML VIAL IVP SCH (18:11)
[2019-07-10] MEDS: 1: MVI, ADULT NO.4 WITH VIT K 10 ML, THIAMINE 100 MG, FOLIC ACID 1 MG in SODIUM CHLORIDE IV SCH ×8 (18:34)
--- NOTE | 2019-07-10 19:32 | HP ---
HISTORY AND PHYSICAL [id number] white male with polysubstance abuse, hepatitis C. States he he stopped his methadone mg a day 5 days ago, which he takes for heroin and alcohol withdrawal. He went back to drinking alcohol heavily since then. He came in with an alcohol level of 352. He has large amount of tremors and constipation. No chest pain or shortness of breath. No headaches or other visual complaints. HOME MEDICATIONS: Home medications include: 1. Neurontin. 2. Voltaren. 3. Singulair. 4. BuSpar. ALLERGIES: CYCLOBENZAPRINE. REVIEW OF SYSTEMS: Fourteen-point review of systems negative except for mentioned in HPI. PAST MEDICAL HISTORY: 1. Liver disease. 2. Hepatitis C. 3. Chronic back pain. 4. Right leg ankle surgery. 5. ADD. 6. Current everyday smoker. 7. Heavy alcohol. 8. Heroin and opiate abuse. FAMILY HISTORY: Mother with colon cancer. PHYSICAL EXAMINATION: Vital signs are stable. Afebrile. Temperature 97.8, pulse 81 to 96, respiratory rate 18 to 22, blood pressure 130s to 150s over 80s to 70s. Oxygen 96% to 98% on room air CARDIOVASCULAR: S1, S2. LUNGS: Clear. GI: Soft. NEUROLOGIC: Moderate amount of tremor. PSYCH: Fair mood and affect. EKG shows sinus rhythm. ASSESSMENT: 1. Acute withdrawal from methadone and alcohol with alcohol intoxication. CIWA protocol. Await psychiatric opinion. 2. Polysubstance abuse. RECOMMENDATIONS: medications. Follow up in the next 24-48 hours. Continue on CIWA protocol. MMODL / IJN: [id number] /
[2019-07-11] MEDS: LORazepam 2 MG/ML INJ IV PRN ×2 (05:01→08:12)
[2019-07-11 06:57] LABS: Basophils % (A) 1 %; Eosinophils # (A) 0.1 k/uL (0-0.7); Eosinophils % (A) 2 %; HCT 40.1 % (39.0-53.0); HGB 13.8 gm/dL (13.0-17.5); Lymphocytes # (A) 1.1 k/uL (1.0-4.8); Lymphocytes % (A) 16 %; MCH 31.7 pg (25.0-35.0); MCHC 34.5 g/dL (31.0-37.0); MCV 92.1 fL (80.0-100.0); Monocytes # (A) 0.4 k/uL (0-1.0); Monocytes % (A) 6 %; Neutrophils % (A) 74 %; Platelet Count 247 k/uL (150-450); RBC 4.35 m/uL (4.30-5.90); RDW 14.5 % (11.5-15.5); WBC 6.8 k/uL (3.8-10.6)
[2019-07-11 07:02] LABS: ALT 34 U/L (21-72); AST 35 U/L (17-59); African American GFR (CKD) >90 (>60 ml/min/1.73 sqM); Albumin 3.7 g/dL (3.5-5.0); Alkaline Phosphatase 79 U/L (38-126); Anion Gap 6 mmol/L; Blood Urea Nitrogen 10 mg/dL (9-20); Carbon Dioxide 28 mmol/L (22-30); Chloride 104 mmol/L (98-107); Glucose 103 mg/dL (74-99); Potassium 3.5 mmol/L (3.5-5.1); Sodium 138 mmol/L (137-145); Total Bilirubin 1.1 mg/dL (0.2-1.3); Total Protein 6.2 g/dL (6.3-8.2)
[2019-07-11] MEDS: NICOTINE 21MG/24HR PATCH TRANSDERM SCH (08:12)
[2019-07-11] MEDS: PANTOPRAZOLE 40 MG/10 ML VIAL IVP SCH (08:12)
[2019-07-11 09:14] VITALS: BP 161/78; PULSE 58; TEMP 98.7
== END 2019-07-11 09:57 | disposition left against medical advice (07) | DRG 894 ==
LOC: EC 17:51 → 1SOBS 20:27 → OBSVTOIN 07-10 09:49
PROVIDERS: ADMIT Family Medicine; ATTEND Family Medicine
DX: F10.129 Alcohol abuse with intoxication, unspecified (principal); F11.23 Opioid dependence with withdrawal; F17.200 Nicotine dependence, unspecified, uncomplicated; F90.9 Attention-deficit hyperactivity disorder, unspecified type; K59.00 Constipation, unspecified; Y90.8 Blood alcohol level of 240 mg/100 ml or more; Z80.0 Family history of malignant neoplasm of digestive organs; Z80.3 Family history of malignant neoplasm of breast
CPT/HCPCS: 36415; 71046; 80053; 80320; 83690; 83735; 84484; 85025; 85610; 85730; 93005; 96361; 96372; 96374; 96375; 99285

== ENCOUNTER 2019-07-12 22:59 | Emergency (ER) | payer OTHER ==
[2019-07-12 23:12] VITALS: TEMP 97.8
[2019-07-13] MEDS ORDERED: IBUPROFEN 400 MG TAB PO STA (01:01)
[2019-07-13 01:18] VITALS: RESP 18
--- NOTE | 2019-07-13 03:31 | ED ---
Alcohol HPI - General Chief Complaint: Alcohol Stated Complaint: mental health Time Seen by Provider: 07/12/19 23:17 Source: patient, EMS Mode of arrival: EMS Limitations: no limitations - History of Present Illness Initial Comments: Patient is a 59-year-old male presenting to the emergency department with a chief complaint of going through withdrawals. Patient reports he was at [facility] for methadone withdrawal. Patient reports she has been on methadone for about 10 years. Patient reports after the left [facility] he has been withdrawing. Patient reports he has been drinking intermittently over the past week. Patient reports he was admitted twice for possible chest pains this week. Prior to coming to the ED patient reports drinking about 5-6 shots of liquor. Patient reports that he feels "sick" and is requesting Ativan. Patient reports nausea but no vomiting. Patient also reports that he is undergoing delirium tremens. Patient reports that he shaking even though he is visibly not. Patient denies taking medication to alleviate the symptoms. Patient denies suicidal thoughts or ideations. - Related Data Home Medications Medication Instructions Recorded Confirmed Diclofenac Sodium [Voltaren] 75 mg PO BID 07/07/19 07/12/19 Gabapentin [Neurontin] 300 mg PO BID 07/07/19 07/12/19 Montelukast Sodium [Singulair] 10 mg PO DAILY 07/07/19 07/12/19 busPIRone HCL 5 mg PO BID 07/07/19 07/12/19 Previous Rx's Medication Instructions Recorded chlordiazePOXIDE HCl [Librium] 10 mg PO QID 3 Days #12 capsule 07/07/19 Allergies Allergy/AdvReac Type Severity Reaction Status Date / Time cyclobenzaprine HCl Allergy Rash/Hives Verified 07/12/19 23:35 [From Flexeril] Review of Systems ROS Statement: Those systems with pertinent positive or pertinent negative responses have been documented in the HPI. ROS Other: All systems not noted in ROS Statement are negative. Past Medical History Past Medical History: Liver Disease Additional Past Medical History / Comment(s): Hep C, chronic back pain, pt reported using heroin (pt has been clean for 1.5 yrs/ on methadone) methadone withdrawal History of Any Multi-Drug Resistant Organisms: None Reported Past Surgical History: Orthopedic Surgery Additional Past Surgical History / Comment(s): RIGHT LEG/ANKLE SURGERY, Past Anesthesia/Blood Transfusion Reactions: No Reported Reaction Past Psychological History: ADD/ADHD, Anxiety Smoking Status: Current every day smoker Past Alcohol Use History: Heavy Past Drug Use History: None Reported - Past Family History Mother Family Medical History: Cancer Additional Family Medical History / Comment(s): COLON CANCER. Sister(s) Family Medical History: Cancer Additional Family Medical History / Comment(s): COLON, BREAST General Exam Limitations: no limitations General appearance: alert, in no apparent distress, appears intoxicated Head exam: Present: atraumatic, normocephalic, normal inspection Eye exam: Present: normal appearance, PERRL, EOMI Pupils: Present: normal accommodation ENT exam: Present: normal exam, mucous membranes moist, normal external ear exam Neck exam: Present: normal inspection, full ROM Respiratory exam: Present: normal lung sounds bilaterally Cardiovascular Exam: Present: regular rate, normal rhythm, normal heart sounds Extremities exam: Present: normal inspection, full ROM, normal capillary refill Back exam: Present: normal inspection, full ROM Neurological exam: Present: alert, oriented X3 Psychiatric exam: Present: normal affect, normal mood Skin exam: Present: warm, intact, normal color Course Vital Signs 07/12/19 07/13/19 07/13/19 23:06 00:42 01:17 Temperature 97.8 F Pulse Rate 90 80 Respiratory 18 19 18 Rate Blood Pressure 121/79 131/80 131/77 O2 Sat by Pulse 98 98 99 Oximetry Medical Decision Making - Medical Decision Making patient is a 59-year-old male presenting to emergency Department with a chief complaint of methadone withdrawal. On arrival patient had a BAT of 0.171. Patient denies nausea vomiting diarrhea. Patient reports that he shaking but visibly no tremors were noted. Physical examination is unremarkable. Patient was given Tylenol for possible back pain. On reevaluation patient states that he was hungry and thirsty. Patient given food and drinks. Patient has no suicidal thoughts or ideations. After 5 hours from admission. Patient has below THE limit and will be discharged at this time. Patient will be given instructions and contact information to seek help for methadone withdrawal. Strict return parameters were thoroughly discussed with patient was understanding and agreeable. Case discussed with physician. Disposition Clinical Impression: Alcohol intoxication Disposition: HOME SELF-CARE Condition: Stable Instructions (If sedation given, give patient instructions): Alcohol Intoxication (ED) Additional Instructions: Please avoid drinking alcohol. Please contact rehab facilities for methadone withdrawal. Please return to emergency department if symptoms worsen. Is patient prescribed a controlled substance at d/c from ED?: No Referrals: Sky Manzano MD [Primary Care Provider] - 1-2 days Time of Disposition: 04:39
[2019-07-13 04:36] VITALS: BP 165/90; PULSE 90
== END 2019-07-13 05:04 | disposition home or self-care (01) ==
LOC: EC 22:59
DX: F10.129 Alcohol abuse with intoxication, unspecified (principal); F11.23 Opioid dependence with withdrawal; G89.29 Other chronic pain; F41.9 Anxiety disorder, unspecified; F17.200 Nicotine dependence, unspecified, uncomplicated; Z88.8 Allergy status to other drugs, medicaments and biological substances; Z79.1 Long term (current) use of non-steroidal anti-inflammatories (NSAID); Z79.899 Other long term (current) drug therapy
CPT/HCPCS: 82075; 99285

== ENCOUNTER 2019-08-15 00:15 | Emergency (ER) | payer OTHER ==
--- NOTE | 2019-08-15 01:02 | ED ---
Alcohol HPI - General Source: patient, EMS Mode of arrival: EMS Limitations: no limitations <Sonal Bull - Last Filed: 08/15/19 03:53> <Dev King - Last Filed: 08/15/19 11:09> - General Chief Complaint: Alcohol Stated Complaint: etoh Time Seen by Provider: 08/15/19 00:22 - History of Present Illness Initial Comments: 5-year-old male with history of alcohol abuse presented [facility] for chief complaint of medical intoxication, depression. Patient states that his son is currently at [facility] for liver failure and is on the vent. This caused him to have increased depression and patient to drink heavily tonight. Patient denies any suicidal or homicidal ideation. Patient is acutely intoxicated upon arrival in the emergency department. Patient has no other complaints. Patient denies any recent fever, chills, shortness of breath, chest pain, back pain, abdominal pain, nausea or vomiting, numbness or tingling, dysuria or hematuria, constipation or diarrhea, headaches or visual changes, or any other complaints. (Sonal Bull) - Related Data Home Medications Medication Instructions Recorded Confirmed No Known Home Medications 08/15/19 08/15/19 Allergies Allergy/AdvReac Type Severity Reaction Status Date / Time cyclobenzaprine HCl Allergy Rash/Hives Verified 08/15/19 08:56 [From Flexeril] Review of Systems ROS Other: All systems not noted in ROS Statement are negative. <Sonal Bull - Last Filed: 08/15/19 03:53> ROS Other: All systems not noted in ROS Statement are negative. <Dev King - Last Filed: 08/15/19 11:09> ROS Statement: Those systems with pertinent positive or pertinent negative responses have been documented in the HPI. Past Medical History Past Medical History: Liver Disease Additional Past Medical History / Comment(s): Hep C, chronic back pain, pt reported using heroin (pt has been clean for 1.5 yrs/ on methadone) methadone withdrawal History of Any Multi-Drug Resistant Organisms: None Reported Past Surgical History: Orthopedic Surgery Additional Past Surgical History / Comment(s): RIGHT LEG/ANKLE SURGERY, Past Anesthesia/Blood Transfusion Reactions: No Reported Reaction Past Psychological History: ADD/ADHD, Anxiety Smoking Status: Current every day smoker Past Alcohol Use History: Heavy Past Drug Use History: Heroin, Prescription Drug Abuse - Past Family History Mother Family Medical History: Cancer Additional Family Medical History / Comment(s): COLON CANCER. Sister(s) Family Medical History: Cancer Additional Family Medical History / Comment(s): COLON, BREAST <Sonal Bull - Last Filed: 08/15/19 03:53> General Exam Limitations: no limitations <Sonal Bull - Last Filed: 08/15/19 03:53> - General Exam Comments Initial Comments: General: The patient is awake and alert Eye: +3mm pupils are equal, round and reactive to light, extra-ocular movements are intact. No nystagmus. There is normal conjunctiva bilaterally. No signs of icterus. Ears, nose, mouth and throat: There are moist mucous membranes and no oral lesions. Neck: The neck is supple, there is no tenderness or JVD. Cardiovascular: There is a regular rate and rhythm. No murmur, rub or gallop is appreciated. Respiratory: Lungs are clear to auscultation, respirations are non-labored, breath sounds are equal. No wheezes, stridor, rales, or rhonchi. Gastrointestinal: Soft, non-distended, non-tender abdomen without masses or organomegaly noted. There is no rebound or guarding present. Musculoskeletal: Normal ROM, no tenderness. Strength 5/5. Sensation intact. Pulses equal bilaterally 2+. Neurological: A&O x 3. CN II-XII intact grossly, There are no obvious motor or sensory deficits. Coordination appears grossly intact. Speech is normal. Skin: Skin is warm and dry and no rashes or lesions are noted. Psychiatric: Cooperative (Sonal Bull) Course <Sonal Bull - Last Filed: 08/15/19 03:53> <eDv King - Last Filed: 08/15/19 11:09> Vital Signs 08/15/19 08/15/19 00:25 08:22 Temperature 98.8 F 99.0 F Pulse Rate 97 105 H Respiratory 18 16 Rate Blood Pressure 117/77 139/95 O2 Sat by Pulse 98 96 Oximetry - Reevaluation(s) Reevaluation #1: Case signed out to Dr. Baltazar-patient currently sleeping 08/15/19 03:53 (Sonal Bull) Reevaluation #2: 08/15/19 11:07 The patient was endorsed me at our shift change pending sobriety. Patient at time sobriety was recently was awake alert oriented 3 without any distress he denies any suicidal thoughts or ideation at this time. He is very cognizant of his surroundings. He will be discharged further workup is indicated at this time. I did personally evaluate the patient with a [id number] exam. (Dev King) Medical Decision Making - Lab Data Result diagrams: 08/15/19 00:33 08/15/19 00:33 <Sonal Bull - Last Filed: 08/15/19 03:53> - Lab Data Result diagrams: 08/15/19 00:33 08/15/19 00:33 <Dev King - Last Filed: 08/15/19 11:09> - Medical Decision Making Patient presented for depression and alcohol intoxication. Patient placed on ETOH withdrawal protocols. Patient has no other complaints. Will be evaluated by EPS when sober at 933AM. Medically cleared. (Sonal Bull) - Lab Data Lab Results 08/15/19 08/15/19 08/15/19 Range/Units 00:33 00:33 00:33 WBC 7.2 (3.8-10.6) k/uL RBC 4.31 (4.30-5.90) m/uL Hgb 14.1 (13.0-17.5) gm/dL Hct 40.7 (39.0-53.0) % MCV 94.5 (80.0-100.0) fL MCH 32.6 (25.0-35.0) pg MCHC 34.5 (31.0-37.0) g/dL RDW 13.3 (11.5-15.5) % Plt Count 289 (150-450) k/uL Neutrophils % 66 % Lymphocytes % 23 % Monocytes % 5 % Eosinophils % 3 % Basophils % 1 % Neutrophils # 4.7 (1.3-7.7) k/uL Lymphocytes # 1.7 (1.0-4.8) k/uL Monocytes # 0.3 (0-1.0) k/uL Eosinophils # 0.2 (0-0.7) k/uL Basophils # 0.1 (0-0.2) k/uL Sodium 144 (137-145) mmol/L Potassium 4.1 (3.5-5.1) mmol/L Chloride 109 H (98-107) mmol/L Carbon Dioxide 25 (22-30) mmol/L Anion Gap 10 mmol/L BUN 15 (9-20) mg/dL Creatinine 1.07 (0.66-1.25) mg/dL Est GFR (CKD-EPI)AfAm 88 (>60 ml/min/1.73 sqM) Est GFR (CKD-EPI)NonAf 76 (>60 ml/min/1.73 sqM) Glucose 118 H (74-99) mg/dL Calcium 9.0 (8.4-10.2) mg/dL Magnesium 2.4 H (1.6-2.3) mg/dL Total Bilirubin 0.2 (0.2-1.3) mg/dL AST 25 (17-59) U/L ALT 28 (21-72) U/L Alkaline Phosphatase 58 (38-126) U/L Total Protein 6.8 (6.3-8.2) g/dL Albumin 4.2 (3.5-5.0) g/dL Urine Opiates Screen (NotDetected) Ur Oxycodone Screen (NotDetected) Urine Methadone Screen (NotDetected) Ur Propoxyphene Screen (NotDetected) Ur Barbiturates Screen (NotDetected) U Tricyclic Antidepress (NotDetected) Ur Phencyclidine Scrn (NotDetected) Ur Amphetamines Screen (NotDetected) U Methamphetamines Scrn (NotDetected) U Benzodiazepines Scrn (NotDetected) Urine Cocaine Screen (NotDetected) U Marijuana (THC) Screen (NotDetected) Serum Alcohol 253 H* mg/dL 08/15/19 Range/Units 08:16 WBC (3.8-10.6) k/uL RBC (4.30-5.90) m/uL Hgb (13.0-17.5) gm/dL Hct (39.0-53.0) % MCV (80.0-100.0) fL MCH (25.0-35.0) pg MCHC (31.0-37.0) g/dL RDW (11.5-15.5) % Plt Count (150-450) k/uL Neutrophils % % Lymphocytes % % Monocytes % % Eosinophils % % Basophils % % Neutrophils # (1.3-7.7) k/uL Lymphocytes # (1.0-4.8) k/uL Monocytes # (0-1.0) k/uL Eosinophils # (0-0.7) k/uL Basophils # (0-0.2) k/uL Sodium (137-145) mmol/L Potassium (3.5-5.1) mmol/L Chloride (98-107) mmol/L Carbon Dioxide (22-30) mmol/L Anion Gap mmol/L BUN (9-20) mg/dL Creatinine (0.66-1.25) mg/dL Est GFR (CKD-EPI)AfAm (>60 ml/min/1.73 sqM) Est GFR (CKD-EPI)NonAf (>60 ml/min/1.73 sqM) Glucose (74-99) mg/dL Calcium (8.4-10.2) mg/dL Magnesium (1.6-2.3) mg/dL Total Bilirubin (0.2-1.3) mg/dL AST (17-59) U/L ALT (21-72) U/L Alkaline Phosphatase (38-126) U/L Total Protein (6.3-8.2) g/dL Albumin (3.5-5.0) g/dL Urine Opiates Screen Detected H (NotDetected) Ur Oxycodone Screen Not Detected (NotDetected) Urine Methadone Screen Not Detected (NotDetected) Ur Propoxyphene Screen Not Detected (NotDetected) Ur Barbiturates Screen Not Detected (NotDetected) U Tricyclic Antidepress Not Detected (NotDetected) Ur Phencyclidine Scrn Not Detected (NotDetected) Ur Amphetamines Screen Not Detected (NotDetected) U Methamphetamines Scrn Not Detected (NotDetected) U Benzodiazepines Scrn Detected H (NotDetected) Urine Cocaine Screen Not Detected (NotDetected) U Marijuana (THC) Screen Not Detected (NotDetected) Serum Alcohol mg/dL Disposition <Sonal Bull - Last Filed: 08/15/19 03:53> Is patient prescribed a controlled substance at d/c from ED?: No <Dev King - Last Filed: 08/15/19 11:09> Clinical Impression: Alcoholic intoxication, Adjustment disorder Disposition: HOME SELF-CARE Condition: Good Instructions (If sedation given, give patient instructions): Alcohol Intoxication (ED), Mood Disorders (ED) Referrals: Sky Manzano MD [Primary Care Provider] - 1-2 days
[2019-08-15] MEDS ORDERED: SODIUM CHLORIDE 0.9% 500 ML 500 ML IV STA (01:13)
[2019-08-15] MEDS ORDERED: LORazepam 2 MG/ML INJ IV STA (01:13)
[2019-08-15] MEDS ORDERED: ONDANSETRON 4 MG/2 ML VIAL IVP STA (01:14)
[2019-08-15] MEDS ORDERED: THIAMINE 100 MG/ML 2 ML VIAL IM STA (01:16)
[2019-08-15] MEDS ORDERED: LORazepam 2 MG/ML INJ IV PRN ×3 (01:16)
[2019-08-15 01:28] LABS: Basophils # (A) 0.1 k/uL (0-0.2); Basophils % (A) 1 %; Eosinophils # (A) 0.2 k/uL (0-0.7); Eosinophils % (A) 3 %; HCT 40.7 % (39.0-53.0); HGB 14.1 gm/dL (13.0-17.5); Lymphocytes # (A) 1.7 k/uL (1.0-4.8); Lymphocytes % (A) 23 %; MCH 32.6 pg (25.0-35.0); MCHC 34.5 g/dL (31.0-37.0); MCV 94.5 fL (80.0-100.0); Mean Platelet Volume 5.8; Monocytes # (A) 0.3 k/uL (0-1.0); Monocytes % (A) 5 %; Neutrophils # (A) 4.7 k/uL (1.3-7.7); Neutrophils % (A) 66 %; Platelet Count 289 k/uL (150-450); RBC 4.31 m/uL (4.30-5.90); RDW 13.3 % (11.5-15.5); WBC 7.2 k/uL (3.8-10.6)
[2019-08-15 01:42] LABS: Magnesium 2.4 mg/dL (1.6-2.3)
[2019-08-15 03:45] LABS: Albumin 4.2 g/dL (3.5-5.0); Potassium 4.1 mmol/L (3.5-5.1); Total Bilirubin 0.2 mg/dL (0.2-1.3); Total Protein 6.8 g/dL (6.3-8.2)
[2019-08-15 08:24] VITALS: TEMP 99
[2019-08-15] MEDS ORDERED: ACETAMINOPHEN TAB 325 MG TAB PO STA (08:33)
[2019-08-15 09:08] LABS: Amphetamine Screen,Urine Not Detected (NotDetected); Barbiturate Screen,Urine Not Detected (NotDetected); Benzodiazepines Screen,Urine Detected (NotDetected); Cocaine Screen,Urine Not Detected (NotDetected); Methadone Screen, Urine Not Detected (NotDetected); Opiate Screen,Urine Detected (NotDetected); Oxycodone Screen, Urine Not Detected (NotDetected); Phencyclidine Screen,Urine Not Detected (NotDetected); Tricyclic Antidepressant,Urine Not Detected (NotDetected); Urn Cannabinoid Scrn Not Detected (NotDetected)
[2019-08-15 11:15] VITALS: BP 140/88; PULSE 99; RESP 18
[2019-08-15] MEDS ORDERED: THIAMINE 100 MG TAB PO SCH (17:30)
== END 2019-08-15 11:12 | disposition home or self-care (01) ==
LOC: EC 00:15
DX: F10.129 Alcohol abuse with intoxication, unspecified (principal); F43.21 Adjustment disorder with depressed mood; K70.40 Alcoholic hepatic failure without coma; F17.200 Nicotine dependence, unspecified, uncomplicated; Z88.8 Allergy status to other drugs, medicaments and biological substances; Y90.8 Blood alcohol level of 240 mg/100 ml or more
CPT/HCPCS: 99284; 96374; 96375; 96376 ×2; 96372; 82075; 36415; 80053; 83735; 85025; 80306; G0480; J2060; J3411; J2405; 80320

== ENCOUNTER 2019-08-15 14:05 | Emergency (ER) | payer OTHER ==
[2019-08-15 14:10] VITALS: RESP 18
[2019-08-15] MEDS ORDERED: ZIPRASIDONE 20 MG VIAL IM STA (14:32)
[2019-08-15] MEDS ORDERED: LORazepam 2 MG/ML INJ IM STA (14:32)
[2019-08-15 15:02] LABS: Basophils # (A) 0.1 k/uL (0-0.2); Basophils % (A) 1 %; Eosinophils # (A) 0.1 k/uL (0-0.7); Eosinophils % (A) 2 %; HCT 42.6 % (39.0-53.0); HGB 14.3 gm/dL (13.0-17.5); Lymphocytes # (A) 1.1 k/uL (1.0-4.8); Lymphocytes % (A) 13 %; MCHC 33.6 g/dL (31.0-37.0); MCV 95.2 fL (80.0-100.0); Mean Platelet Volume 5.8; Monocytes # (A) 0.4 k/uL (0-1.0); Monocytes % (A) 4 %; Neutrophils # (A) 7.1 k/uL (1.3-7.7); Neutrophils % (A) 80 %; Platelet Count 215 k/uL (150-450); RBC 4.48 m/uL (4.30-5.90); RDW 13.4 % (11.5-15.5); WBC 8.9 k/uL (3.8-10.6)
[2019-08-15 15:14] LABS: Alcohol 249 mg/dL
--- NOTE | 2019-08-15 16:51 | ED ---
Alcohol HPI - General Source: patient, EMS, RN notes reviewed Mode of arrival: EMS Limitations: no limitations - History of Present Illness MD Complaint: alcohol intoxication <Dev King - Last Filed: 08/15/19 18:03> <Fernando Suarez - Last Filed: 08/16/19 01:42> - General Chief Complaint: Alcohol Stated Complaint: ETOH Time Seen by Provider: 08/15/19 14:05 - History of Present Illness Initial Comments: Is a 5-year-old male with a history of alcohol abuse who was discharged earlier today for this facility who went home and apparently drank a bottle of alcohol. He is back now for evaluation. He was combative and confrontational his family and with police. No trauma reported no fevers chills nausea vomiting sweats or other symptoms. (Dev King) - Related Data Home Medications Medication Instructions Recorded Confirmed No Known Home Medications 08/15/19 08/15/19 Allergies Allergy/AdvReac Type Severity Reaction Status Date / Time cyclobenzaprine HCl Allergy Rash/Hives Verified 08/15/19 14:10 [From Flexeril] Review of Systems ROS Other: All systems not noted in ROS Statement are negative. <Dev King - Last Filed: 08/15/19 18:03> ROS Other: All systems not noted in ROS Statement are negative. <Fernando Suarez - Last Filed: 08/16/19 01:42> ROS Statement: Those systems with pertinent positive or pertinent negative responses have been documented in the HPI. Past Medical History Past Medical History: Liver Disease Additional Past Medical History / Comment(s): Hep C, chronic back pain, pt reported using heroin (pt has been clean for 1.5 yrs/ on methadone) methadone withdrawal History of Any Multi-Drug Resistant Organisms: None Reported Past Surgical History: Orthopedic Surgery Additional Past Surgical History / Comment(s): RIGHT LEG/ANKLE SURGERY, Past Anesthesia/Blood Transfusion Reactions: No Reported Reaction Past Psychological History: ADD/ADHD, Anxiety Smoking Status: Current every day smoker Past Alcohol Use History: Abuse, Daily, Heavy Past Drug Use History: Heroin, Prescription Drug Abuse - Past Family History Mother Family Medical History: Cancer Additional Family Medical History / Comment(s): COLON CANCER. Sister(s) Family Medical History: Cancer Additional Family Medical History / Comment(s): COLON, BREAST <Dev Kign - Last Filed: 08/15/19 18:03> General Exam Limitations: no limitations General appearance: alert, in no apparent distress Head exam: Present: atraumatic, normocephalic, normal inspection Eye exam: Present: normal appearance, PERRL, EOMI. Absent: scleral icterus, conjunctival injection, periorbital swelling ENT exam: Present: normal exam, mucous membranes moist Neck exam: Present: normal inspection, full ROM, other (Stridor or bruits). Absent: tenderness, meningismus, lymphadenopathy Respiratory exam: Present: normal lung sounds bilaterally. Absent: respiratory distress, wheezes, rales, rhonchi, stridor Cardiovascular Exam: Present: normal rhythm, tachycardia, normal heart sounds. Absent: systolic murmur, diastolic murmur, rubs, gallop, clicks GI/Abdominal exam: Present: soft, normal bowel sounds. Absent: distended, tenderness, guarding, rebound, rigid Extremities exam: Present: normal inspection, full ROM, normal capillary refill. Absent: tenderness, pedal edema, joint swelling, calf tenderness Back exam: Present: normal inspection Neurological exam: Present: alert, oriented X3, CN II-XII intact Psychiatric exam: Present: normal affect, normal mood Skin exam: Present: warm, dry, intact, normal color. Absent: rash <Dev King - Last Filed: 08/15/19 18:03> - General Exam Comments Initial Comments: Is a well-developed well-nourished awake alert though somewhat lethargic male who does smell of alcohol conjoiners on his breath (Dev King) Course <Dev King - Last Filed: 08/15/19 18:03> Vital Signs 08/15/19 08/15/19 14:06 16:00 Temperature 98.2 F 98.2 F Pulse Rate 106 H 106 H Respiratory 18 18 Rate Blood Pressure 116/93 116/93 O2 Sat by Pulse 98 98 Oximetry - Reevaluation(s) Reevaluation #1: 08/15/19 18:03 The patient's care is endorsed Dr. Suarez at our shift change (Dev King) Medical Decision Making - Lab Data Result diagrams: 08/15/19 14:37 <Dev King - Last Filed: 08/15/19 18:03> - Lab Data Result diagrams: 08/15/19 14:37 <Fernando Suarez - Last Filed: 08/16/19 01:42> - Medical Decision Making Decision making; this is an endorsement from Dr. Jean Paul King. this is a 59-year-old male who presented to the emergency room intoxicated and stating he is suicidal. Patient is resting. Patient will be cleared at 12:30 AM for psychiatric evaluation. Dr. Suarez Patient rested until evaluated by psychiatric nurse. She discussed the case with on-call psychiatrist. Patient is denying any suicidal thoughts or intentions. Patient was encouraged to follow-up with AA or outside help. Including [facility]. Patient wants to go home. Clear to go home by psychiatrist. Diagnosis chronic alcohol abuse. (Fernando Suarez) - Lab Data Lab Results 08/15/19 08/15/19 Range/Units 14:37 14:37 WBC 8.9 (3.8-10.6) k/uL RBC 4.48 (4.30-5.90) m/uL Hgb 14.3 (13.0-17.5) gm/dL Hct 42.6 (39.0-53.0) % MCV 95.2 (80.0-100.0) fL MCH 32.0 (25.0-35.0) pg MCHC 33.6 (31.0-37.0) g/dL RDW 13.4 (11.5-15.5) % Plt Count 215 (150-450) k/uL Neutrophils % 80 % Lymphocytes % 13 % Monocytes % 4 % Eosinophils % 2 % Basophils % 1 % Neutrophils # 7.1 (1.3-7.7) k/uL Lymphocytes # 1.1 (1.0-4.8) k/uL Monocytes # 0.4 (0-1.0) k/uL Eosinophils # 0.1 (0-0.7) k/uL Basophils # 0.1 (0-0.2) k/uL Lipase 113 (23-300) U/L Serum Alcohol 249 H* mg/dL Disposition <Dev King - Last Filed: 08/15/19 18:03> Is patient prescribed a controlled substance at d/c from ED?: No Time of Disposition: 01:42 <Fernando Suarez - Last Filed: 08/16/19 01:42> Clinical Impression: Alcoholic intoxication Disposition: HOME SELF-CARE Condition: Fair Instructions (If sedation given, give patient instructions): Alcohol Intoxication (ED) Additional Instructions: Stop alcohol use. Follow-up with family doctor. Consider rehab programs as needed. Consider Alcoholics Anonymous. Return emergency room as needed. Referrals: Sky Manzano MD [Primary Care Provider] - 1-2 days
[2019-08-16 01:56] VITALS: BP 116/78; PULSE 88; TEMP 98.6
== END 2019-08-16 02:01 | disposition home or self-care (01) ==
LOC: EC 14:05
DX: F10.129 Alcohol abuse with intoxication, unspecified (principal); F17.200 Nicotine dependence, unspecified, uncomplicated; F11.23 Opioid dependence with withdrawal; Z88.8 Allergy status to other drugs, medicaments and biological substances
CPT/HCPCS: 99284 ×3; 96372 ×4; 96376; 82075; 96374; 96375; 36415; 80053; 83690; 83735; 85025; 80306; G0480; J2060; J3411; J2405; J3486; 80320

== ENCOUNTER 2019-08-30 15:49 | Emergency (ER) | payer OTHER ==
[2019-08-30 16:00] VITALS: BP 136/87; RESP 18; TEMP 97.6
--- NOTE | 2019-08-30 16:34 | ED ---
Fall HPI - General Chief Complaint: Fall Stated Complaint: Rib pain Time Seen by Provider: 08/30/19 16:01 Source: patient, EMS Mode of arrival: EMS - History of Present Illness Initial Comments: patient is 59-year-old male with history of substance and alcohol abuse is presenting to the emergency room with a chief complaint of left rib pain and testicular swelling. Patient reports that several days ago he was "play boxing"while intoxicated and was possibly hit on the left flank region which is currently causing pain. Patient reports the pain is exacerbated with full inspi ration, left and right rotation. Patient is concerned for rib fracture. Patient is also complaining of testicular swelling that he noticed 3 days ago. Patient denies any testicular pain or any penile discharge. Patient denies any trauma to the testicles. Patient is not concerned for STDs. Patient denies any erythema of the scrotum. - Related Data Home Medications Medication Instructions Recorded Confirmed No Known Home Medications 08/15/19 08/15/19 Allergies Allergy/AdvReac Type Severity Reaction Status Date / Time cyclobenzaprine HCl Allergy Rash/Hives Verified 08/15/19 14:10 [From Flexeril] Review of Systems ROS Statement: Those systems with pertinent positive or pertinent negative responses have been documented in the HPI. ROS Other: All systems not noted in ROS Statement are negative. Past Medical History Past Medical History: Liver Disease Additional Past Medical History / Comment(s): Hep C, chronic back pain, heroin user History of Any Multi-Drug Resistant Organisms: None Reported Past Surgical History: Orthopedic Surgery Additional Past Surgical History / Comment(s): RIGHT LEG/ANKLE SURGERY, Past Anesthesia/Blood Transfusion Reactions: No Reported Reaction Past Psychological History: ADD/ADHD, Anxiety Smoking Status: Current every day smoker Past Alcohol Use History: Abuse, Daily, Heavy Past Drug Use History: Heroin, Prescription Drug Abuse - Past Family History Mother Family Medical History: Cancer Additional Family Medical History / Comment(s): COLON CANCER. Sister(s) Family Medical History: Cancer Additional Family Medical History / Comment(s): COLON, BREAST General Exam Limitations: altered mental status General appearance: alert, in no apparent distress Head exam: Present: atraumatic, normocephalic, normal inspection Eye exam: Present: normal appearance Pupils: Present: normal accommodation ENT exam: Present: normal exam, mucous membranes moist, normal external ear exam Neck exam: Present: normal inspection, full ROM Respiratory exam: Present: normal lung sounds bilaterally Cardiovascular Exam: Present: regular rate, normal rhythm, normal heart sounds GI/Abdominal exam: Present: soft, tenderness (Left flank tenderness) exam: Present: normal inspection, scrotal swelling. Absent: testicular tenderness, urethral discharge, vertical testicular lie, circumcision Extremities exam: Present: normal inspection, full ROM Back exam: Present: normal inspection, full ROM Neurological exam: Present: alert, oriented X3 Psychiatric exam: Present: normal affect, normal mood Skin exam: Present: warm, intact, normal color Course Vital Signs 08/30/19 08/30/19 08/30/19 15:51 17:26 18:06 Temperature 97.6 F 97.6 F Pulse Rate 81 87 87 Respiratory 18 18 18 Rate Blood Pressure 136/87 136/87 136/87 O2 Sat by Pulse 94 L 94 L 94 L Oximetry Medical Decision Making - Medical Decision Making Patient is 59-year-old male with history of alcohol and substance abuse prese nting to emergency Department with a chief complaint of scrotal swelling and rib pain. Physical examination is indicative of a focal pain along the mid axillary line in the left flank region. There is no ecchymosis, abrasions or any signs of trauma in the region. X-rays indicative of a nondisplaced rib fracture of the left seventh rib. Patient given incentive spirometer .Physical examination of the scrotum is negative for any discharge, erythema or tenderness. Ultrasound of the scrotum is indicative of a larger hydrocele on the right testicle versus a small one on the left testicle. Patient advised to follow-up with urology for further treatment. Patient doesn't have any testicular te nderness or penile symptoms at this time. No signs of epididymitis. Strict return parameters were thoroughly discussed the patient was understanding and agreeable. Patient advised to avoid alcohol and drugs. Case discussed with physician. - Lab Data Result diagrams: 08/30/19 17:30 08/30/19 17:30 Lab Results 08/30/19 08/30/19 08/30/19 Range/Units 16:44 17:30 17:30 WBC 5.4 (3.8-10.6) k/uL RBC 4.69 (4.30-5.90) m/uL Hgb 15.1 (13.0-17.5) gm/dL Hct 44.8 (39.0-53.0) % MCV 95.7 (80.0-100.0) fL MCH 32.1 (25.0-35.0) pg MCHC 33.6 (31.0-37.0) g/dL RDW 13.3 (11.5-15.5) % Plt Count 295 (150-450) k/uL Sodium 149 H (137-145) mmol/L Potassium 4.5 (3.5-5.1) mmol/L Chloride 114 H (98-107) mmol/L Carbon Dioxide 28 (22-30) mmol/L Anion Gap 7 mmol/L BUN 7 L (9-20) mg/dL Creatinine 0.79 (0.66-1.25) mg/dL Est GFR (CKD-EPI)AfAm >90 (>60 ml/min/1.73 sqM) Est GFR (CKD-EPI)NonAf >90 (>60 ml/min/1.73 sqM) Glucose 108 H (74-99) mg/dL Calcium 9.3 (8.4-10.2) mg/dL Total Bilirubin 0.4 (0.2-1.3) mg/dL AST 35 (17-59) U/L ALT 35 (21-72) U/L Alkaline Phosphatase 66 (38-126) U/L Total Protein 7.5 (6.3-8.2) g/dL Albumin 4.5 (3.5-5.0) g/dL Urine Color Colorless Urine Appearance Clear (Clear) Urine pH 5.5 (5.0-8.0) Ur Specific [place] 1.002 (1.001-1.035) Urine Protein Negative (Negative) Urine Glucose (UA) Negative (Negative) Urine Ketones Negative (Negative) Urine Blood Negative (Negative) Urine Nitrite Negative (Negative) Urine Bilirubin Negative (Negative) Urine Urobilinogen <2.0 (<2.0) mg/dL Ur Leukocyte Esterase Negative (Negative) Disposition Clinical Impression: Rib fracture, Hydrocele in adult Disposition: HOME SELF-CARE Condition: Stable Instructions (If sedation given, give patient instructions): Rib Fracture (ED) Additional Instructions: Please follow with the urologist. Please use incentive spirometer. Alternate between Tylenol and ibuprofen for pain control. Please return to emergency department symptoms worsen. Is patient prescribed a controlled substance at d/c from ED?: No Referrals: Sky Manzano MD [Primary Care Provider] - 1-2 days Kem Raya MD [STAFF PHYSICIAN] - 1-2 days Time of Disposition: 18:01
[2019-08-30 16:47] LABS: Appearance,Urine Clear (Clear); Bilirubin,Urine Negative (Negative); Blood,Urine Negative (Negative); Color,Urine Colorless; Glucose,Urine (UA) Negative (Negative); Ketones,Urine Negative (Negative); Leukocyte Esterase,Urine Negative (Negative); Nitrite,Urine Negative (Negative); PH, Urine 5.5 (5.0-8.0); Protein,Urine Negative (Negative); Specific Gravity,Urine 1.002 (1.001-1.035); Urobilinogen,Urine <2.0 mg/dL (<2.0)
--- NOTE | 2019-08-30 17:18 | US ---
EXAMINATION TYPE: US scrotum with doppler. Grayscale and color Doppler Duplex imaging performed of darius tilley scrotum. DATE OF EXAM: 08/30/2019 COMPARISON: NONE CLINICAL HISTORY: testicular swelling. EXAM MEASUREMENTS: TESTICLES: Right Testicle: 4.1 x 2.5 x 3.7 cm Left Testicle: 5.2 x 2.1 x 2.7 cm EPIDIDYMIS HEAD: Right Epididymis: 1.0 x 0.6 cm Left Epididymis: 1.0 x 0.8 cm Doppler performed to assess for testicular vascularity; good bilateral color flow and waveforms are s een. There is no evidence of testicular torsion. Presence of hydroceles: There is a 6.7 x 2.1 x 5.5 cm septated fluid collection around right testicl e. Small amount of fluid around left testicle. IMPRESSION: There is no evidence of testicular torsion or mass. There is septated moderate size right -sided hydrocele. Minimal left-sided hydrocele.
--- NOTE | 2019-08-30 17:21 | XR ---
EXAMINATION TYPE: XR ribs LT w pa chest xray DATE OF EXAM: 08/30/2019 COMPARISON: Chest x-ray 08/28/2014 HISTORY: Left-sided rib pain TECHNIQUE: 5 views heart and mediastinum appear normal. There is no pleural effusion or pneumothorax. Left lung is clear of infiltrate. There is minimal deformity of the lateral left seventh rib. IMPRESSION: No cardiopulmonary disease. Possible nondisplaced fracture left seventh rib. This could b e an old fracture.
[2019-08-30 17:27] VITALS: PULSE 87
[2019-08-30 17:44] LABS: HCT 44.8 % (39.0-53.0); HGB 15.1 gm/dL (13.0-17.5); MCH 32.1 pg (25.0-35.0); MCHC 33.6 g/dL (31.0-37.0); MCV 95.7 fL (80.0-100.0); Mean Platelet Volume 5.5; Platelet Count 295 k/uL (150-450); RBC 4.69 m/uL (4.30-5.90); RDW 13.3 % (11.5-15.5); WBC 5.4 k/uL (3.8-10.6)
[2019-08-30 17:52] LABS: ALT 35 U/L (21-72); AST 35 U/L (17-59); African American GFR (CKD) >90 (>60 ml/min/1.73 sqM); Albumin 4.5 g/dL (3.5-5.0); Alkaline Phosphatase 66 U/L (38-126); Anion Gap 7 mmol/L; Blood Urea Nitrogen 7 mg/dL (9-20); Calcium 9.3 mg/dL (8.4-10.2); Carbon Dioxide 28 mmol/L (22-30); Chloride 114 mmol/L (98-107); Glucose 108 mg/dL (74-99); Potassium 4.5 mmol/L (3.5-5.1); Sodium 149 mmol/L (137-145); Total Bilirubin 0.4 mg/dL (0.2-1.3); Total Protein 7.5 g/dL (6.3-8.2)
== END 2019-08-30 18:07 | disposition home or self-care (01) ==
LOC: EC 15:49
DX: S22.32XA Fracture of one rib, left side, initial encounter for closed fracture (principal); N43.3 Hydrocele, unspecified; F10.129 Alcohol abuse with intoxication, unspecified; F11.10 Opioid abuse, uncomplicated; B18.2 Chronic viral hepatitis C; F17.200 Nicotine dependence, unspecified, uncomplicated; Z88.8 Allergy status to other drugs, medicaments and biological substances; W22.8XXA Striking against or struck by other objects, initial encounter; Y93.71 Activity, boxing; Y92.009 Unspecified place in unspecified non-institutional (private) residence as the place of occurrence of the external cause
CPT/HCPCS: 36415; 76870; 80053; 81003; 85027; 93975; 99284

== ENCOUNTER 2019-09-18 16:38 | Inpatient (IN) | payer MEDICAID, OTHER ==
--- NOTE | 2019-09-18 16:56 | ED ---
Psych HPI - General Source: patient, EMS, RN notes reviewed, old records reviewed Mode of arrival: EMS - History of Present Illness MD Complaint: suicidal ideation, feels depressed -: unknown Associated Psychiatric Symptoms: depression, suicidal ideation History of same: Yes Quality: constant Improves With: none Worsens With: none Context: recent alcohol abuse, recent drug abuse Associated Symptoms: denies other symptoms Treatments Prior to Arrival: placed on mental health hold If Self Harm: admits thoughts of self harm <Saji Hilton - Last Filed: 09/18/19 16:57> <Keny Baltazar - Last Filed: 09/19/19 04:25> - General Chief Complaint: Psychiatric Symptoms Stated Complaint: Mental health Time Seen by Provider: 09/18/19 16:39 - History of Present Illness Initial Comments: This is a 5-year-old male the ER for evaluation, patient's visibly intoxicated and distraught. Conscious and difficult time with father. patient himself is also a substance abuser lifelong heroin and opiate abuser currently on methadone as well as alcoholic. he also has hepatitis c. patient states his son is in the hospital is severely ill thinks he may benefit his bed which is given them significant pause for thought. patient is now depressed and suicidal (Saji Hilton) - Related Data Home Medications Medication Instructions Recorded Confirmed No Known Home Medications 08/15/19 09/18/19 Allergies Allergy/AdvReac Type Severity Reaction Status Date / Time cyclobenzaprine HCl Allergy Rash/Hives Verified 09/18/19 21:10 [From Flexeril] Review of Systems ROS Other: All systems not noted in ROS Statement are negative. <Saji Hilton - Last Filed: 09/18/19 16:57> ROS Other: All systems not noted in ROS Statement are negative. <Keny Baltazar - Last Filed: 09/19/19 04:25> ROS Statement: Those systems with pertinent positive or pertinent negative responses have been documented in the HPI. Past Medical History Past Medical History: Liver Disease Additional Past Medical History / Comment(s): Hep C, chronic back pain, heroin user History of Any Multi-Drug Resistant Organisms: None Reported Past Surgical History: Orthopedic Surgery Additional Past Surgical History / Comment(s): RIGHT LEG/ANKLE SURGERY, Past Anesthesia/Blood Transfusion Reactions: No Reported Reaction Past Psychological History: ADD/ADHD, Anxiety Smoking Status: Current every day smoker Past Alcohol Use History: Abuse, Daily, Heavy Past Drug Use History: Heroin, Prescription Drug Abuse - Past Family History Mother Family Medical History: Cancer Additional Family Medical History / Comment(s): COLON CANCER. Sister(s) Family Medical History: Cancer Additional Family Medical History / Comment(s): COLON, BREAST <Saji Hilton - Last Filed: 09/18/19 16:57> General Exam Limitations: no limitations General appearance: alert, in no apparent distress Head exam: Present: atraumatic, normocephalic, normal inspection Eye exam: Present: normal appearance, PERRL, EOMI. Absent: scleral icterus, conjunctival injection, periorbital swelling ENT exam: Present: normal exam, mucous membranes moist Neck exam: Present: normal inspection. Absent: tenderness, meningismus, lymphadenopathy Respiratory exam: Present: normal lung sounds bilaterally. Absent: respiratory distress, wheezes, rales, rhonchi, stridor Cardiovascular Exam: Present: regular rate, normal rhythm, normal heart sounds. Absent: systolic murmur, diastolic murmur, rubs, gallop, clicks GI/Abdominal exam: Present: soft, normal bowel sounds. Absent: distended, tenderness, guarding, rebound, rigid Extremities exam: Present: normal inspection, full ROM, normal capillary refill. Absent: tenderness, pedal edema, joint swelling, calf tenderness Back exam: Present: normal inspection Neurological exam: Present: alert, oriented X3, CN II-XII intact Psychiatric exam: Present: normal affect, normal mood Skin exam: Present: warm, dry, intact, normal color. Absent: rash <Saji Hilton - Last Filed: 09/18/19 16:57> Course <Saji Hilton - Last Filed: 09/18/19 16:57> Vital Signs 09/18/19 16:43 Temperature 98.0 F Pulse Rate 90 Respiratory 18 Rate Blood Pressure 132/80 O2 Sat by Pulse 96 Oximetry - Reevaluation(s) Reevaluation #1: 09/18/19 16:58 Medical record is reviewed and patient is currently intoxicated (Saji Hilton) Medical Decision Making - Lab Data Lab Results 09/18/19 Range/Units 23:50 Urine Opiates Screen Not Detected (NotDetected) Ur Oxycodone Screen Not Detected (NotDetected) Urine Methadone Screen Not Detected (NotDetected) Ur Propoxyphene Screen Not Detected (NotDetected) Ur Barbiturates Screen Not Detected (NotDetected) U Tricyclic Antidepress Not Detected (NotDetected) Ur Phencyclidine Scrn Not Detected (NotDetected) Ur Amphetamines Screen Not Detected (NotDetected) U Methamphetamines Scrn Not Detected (NotDetected) U Benzodiazepines Scrn Not Detected (NotDetected) Urine Cocaine Screen Not Detected (NotDetected) U Marijuana (THC) Screen Not Detected (NotDetected) Disposition <Saji Hilton - Last Filed: 09/18/19 16:57> Is patient prescribed a controlled substance at d/c from ED?: No <Keny Baltazar - Last Filed: 09/19/19 04:25> Clinical Impression: Mood disorder, Suicidal ideation Disposition: ADMITTED IP TO THIS HOSP Condition: Fair Referrals: Sky Manzano MD [Primary Care Provider] - 1-2 days
[2019-09-18] MEDS ORDERED: NICOTINE 21MG/24HR PATCH TRANSDERM STA (19:53)
[2019-09-18] MEDS ORDERED: LORazepam 1 MG TAB PO STA (22:19)
[2019-09-19 00:35] LABS: Amphetamine Screen,Urine Not Detected (NotDetected); Barbiturate Screen,Urine Not Detected (NotDetected); Benzodiazepines Screen,Urine Not Detected (NotDetected); Cocaine Screen,Urine Not Detected (NotDetected); Methadone Screen, Urine Not Detected (NotDetected); Opiate Screen,Urine Not Detected (NotDetected); Oxycodone Screen, Urine Not Detected (NotDetected); Phencyclidine Screen,Urine Not Detected (NotDetected); Tricyclic Antidepressant,Urine Not Detected (NotDetected); Urn Cannabinoid Scrn Not Detected (NotDetected)
[2019-09-19] MEDS ORDERED: LORazepam 1 MG TAB PO STA ×2 (04:01→15:14)
[2019-09-19] MEDS ORDERED: ZIPRASIDONE 20 MG VIAL IM PRN (05:16)
[2019-09-19] MEDS ORDERED: MAGNESIUM HYDROXIDE 2,400 MG/10 ML CUP PO PRN (05:16)
[2019-09-19] MEDS ORDERED: MAG HYDROX/AL HYDROX/SIMETH 30 ML CUP PO PRN (05:16)
[2019-09-19] MEDS ORDERED: LORazepam 1 MG TAB PO PRN (05:16)
[2019-09-19] MEDS ORDERED: LORazepam 2 MG/ML INJ IM PRN ×2 (05:23)
[2019-09-19] MEDS: ACETAMINOPHEN TAB 325 MG TAB PO PRN ×2 (05:28→12:19)
[2019-09-19 05:46] VITALS: RESP 20; TEMP 97.7; BMI 24.3
[2019-09-19] MEDS: LORazepam 1 MG TAB PO PRN ×2 (07:21→12:19)
[2019-09-19 07:41] LABS: Basophils % (A) 0 %; Eosinophils # (A) 0.2 k/uL (0-0.7); Eosinophils % (A) 3 %; HCT 38.7 % (39.0-53.0); HGB 13.5 gm/dL (13.0-17.5); Lymphocytes # (A) 1.2 k/uL (1.0-4.8); Lymphocytes % (A) 18 %; MCH 33.1 pg (25.0-35.0); MCV 94.4 fL (80.0-100.0); Mean Platelet Volume 5.5; Monocytes # (A) 0.3 k/uL (0-1.0); Monocytes % (A) 5 %; Neutrophils # (A) 4.8 k/uL (1.3-7.7); Neutrophils % (A) 72 %; Platelet Count 297 k/uL (150-450); WBC 6.6 k/uL (3.8-10.6)
[2019-09-19 07:59] LABS: ALT 37 U/L (21-72); AST 35 U/L (17-59); African American GFR (CKD) >90 (>60 ml/min/1.73 sqM); Albumin 3.9 g/dL (3.5-5.0); Alkaline Phosphatase 61 U/L (38-126); Anion Gap 8 mmol/L; Bilirubin, Delta 0.1 mg/dL (0.0-0.2); Bilirubin,Unconjugated 0.3 mg/dL (0.0-1.1); Blood Urea Nitrogen 21 mg/dL (9-20); Carbon Dioxide 27 mmol/L (22-30); Chloride 104 mmol/L (98-107); Cholesterol 143 mg/dL (<200); Glucose 99 mg/dL (74-99); HDL Cholesterol 90 mg/dL (40-60); LDL Cholesterol,Calculated 29 mg/dL (0-99); Non-African American GFR(CKD) 79 (>60 ml/min/1.73 sqM); Potassium 4.6 mmol/L (3.5-5.1); Sodium 139 mmol/L (137-145); Total Bilirubin 0.4 mg/dL (0.2-1.3); Total Protein 6.5 g/dL (6.3-8.2); Triglycerides 119 mg/dL (<150)
[2019-09-19] MEDS ORDERED: NICOTINE 14MG/24HR PATCH TRANSDERM SCH (09:00)
[2019-09-19] MEDS ORDERED: PNEUMOCOCCAL VACC-PNEUMOVAX 23 25 MCG/0.5 ML VIAL IM ONE (09:00)
[2019-09-19] MEDS ORDERED: INFLUENZA VACCINE (6 MOS+) 60 MCG/0.5 ML SYRINGE IM ONE (09:00)
[2019-09-19 11:13] LABS: Appearance,Urine Clear (Clear); Bilirubin,Urine Negative (Negative); Blood,Urine Negative (Negative); Color,Urine Light Yellow; Glucose,Urine (UA) Negative (Negative); Ketones,Urine Negative (Negative); Leukocyte Esterase,Urine Negative (Negative); Nitrite,Urine Negative (Negative); Protein,Urine Negative (Negative); Specific Gravity,Urine 1.009 (1.001-1.035); Urobilinogen,Urine <2.0 mg/dL (<2.0)
[2019-09-19] MEDS ORDERED: SERTRALINE 25 MG TAB PO SCH (14:30)
--- NOTE | 2019-09-19 14:34 | P.CN ---
Psychiatric Consult - . Consult date: 09/19/19 Consult:: 09/19/19 14:27 IDENTIFYING DATA: 59-year-old single male patient HPI: Patient admitted to the inpatient psychiatric unit [facility] with concern of depression and thoughts of suicide. Patient states he had a friend that is known for 45 years 3 days ago. He also states that 7 weeks ago his son went in the hospital with liver failure and is still in the hospital. This is a quite a bit of depression and anxiety. He says is been depressed for the past couple of months and feeling depressed just about daily. Says been self-medicating with alcohol, drinking every day about a fifth and a half of vodka. He been drinking every day for about a few months. He does admit to having had some thoughts of suicide, relays his thoughts have been on and off but is never acted on it. He states that the Ativan is helping with his withdrawals. He is still getting some withdrawal symptoms of shakiness, feeling cold and hot, stomachaches and headaches. PAST PSYCHIATRIC HISTORY: Patient has one previous admission to [facility] for he says he was admitted to get off the street and to help facilitate his admission to [facility]. He has never had any suicide attempts. He never been on medication for depression/anxiety. He is not currently seeing a counselor or psychiatrist. PMH: Hepatitis C ALLERGIES: Cyclobenzaprine MEDICATIONS: Tylenol when necessary, Maalox when necessary, Ativan when necessary, milk of magnesia when necessary, Habitrol patch, Zoloft, Geodon when necessary CHEMICAL DEPENDENCY HISTORY: Patient states that he was on methadone for approximately 10 years for history of opioid he was last on it 1-1/2-2 months ago. He says he is been on rehab 4 times to try to get off methadone. Recently he has been using alcohol every day for the past couple of months he had had about a 10 year break from alcohol but started drinking in February. No other current drug use. FAMILY PSYCHIATRIC HISTORY: Denies FAMILY CHEMICAL DEPENDENCY HISTORY: Not known at this time SOCIAL HISTORY: He currently lives in his dad's basement. He has one child who is in the hospital. He has never been , no current relationship. 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 MENTAL STATUS EXAM: She is alert and cooperative with the interview. His speech is fluent, not rapid or pressured. Thought processes are organized. His mood is described as "when I'm not withdrawing, okay." He denies any current thoughts of harm to self or others. He denies any hallucinations. Cognitively appears to be grossly intact. I do not note any significant memory disturbance or disorientation. Insight is adequate, judgment shows evidence of recent impairment. STRENGTHS/WEAKNESSES: Strengthsseeking treatment; weaknessescoping skills, substance use INTELLECTUAL FUNCTIONING: Average IMPRESSIONS: Unspecified depressive disorder; unspecified anxiety disorder; rule out major depressive disorder recurrent; alcohol use disorder; history of opioid use disorder PLAN: Patient will be admitted to the inpatient psychiatric unit [facility] on a voluntary basis. Baseline laboratory workup has been on the patient and medical consultation is ordered. He'll participate in group and activity therapies. He is currently on Ativan for alcohol withdrawal. We'll continue to monitor his vital signs. We will initiate Zoloft 25 mg daily to help with depression and anxiety. We'll monitor for any side effects and monitor his ongoing response to treatment. monitor regarding any suicidal ideations and he is on SP 15 minute precautions. We will look into any support systems. Estimated length of stay is 3-5 days. Prognosis is guarded.
[2019-09-19] MEDS ORDERED: cloNIDine HCL 0.1 MG TAB PO PRN (14:38)
[2019-09-19] MEDS ORDERED: ONDANSETRON 4 MG TAB PO PRN ×2 (14:45→14:47)
[2019-09-19 14:47] LABS: Hemoglobin A1C 4.8 % (4.0-6.0)
[2019-09-19 16:52] VITALS: BP 177/102; PULSE 97
== END 2019-09-19 17:48 | disposition short-term general hospital (02) | DRG 881 ==
LOC: EC 16:38 → 3MHU 09-19 04:24
PROVIDERS: ADMIT Psychiatry & Neurology Psychiatry; ATTEND Psychiatry & Neurology Psychiatry
DX: F32.9 Major depressive disorder, single episode, unspecified (principal); R45.851 Suicidal ideations; F10.239 Alcohol dependence with withdrawal, unspecified; B19.20 Unspecified viral hepatitis C without hepatic coma; F11.10 Opioid abuse, uncomplicated; F17.210 Nicotine dependence, cigarettes, uncomplicated; Z80.0 Family history of malignant neoplasm of digestive organs
CPT/HCPCS: 80053; 80061; 80306; 81003; 82075; 82248; 83036; 84443; 85025; 90686; 90732; 99285

== ENCOUNTER 2019-09-19 17:30 | Inpatient (IN) | payer OTHER ==
[2019-09-19] MEDS ORDERED: LORazepam 2 MG/ML INJ IV PRN (18:15)
[2019-09-19] MEDS ORDERED: ONDANSETRON 4 MG/2 ML VIAL IVP PRN (18:17)
[2019-09-19 18:41] VITALS: BMI 21.2
[2019-09-19] MEDS: cloNIDine HCL 0.1 MG TAB PO PRN (18:53)
[2019-09-19] MEDS: THIAMINE 100 MG TAB PO SCH (18:53)
[2019-09-19] MEDS: LORazepam 2 MG/ML INJ IV PRN ×2 (19:13→23:10)
--- NOTE | 2019-09-19 22:14 | HP ---
HISTORY AND PHYSICAL HISTORY OF PRESENT ILLNESS: 59-year-old white male states he has been drinking 2 pints of 100% vodka and whiskey daily. Stopped drinking 44 hours ago, came in the hospital for suicidal ideations and mood swings. He has been placed on Geodon by psychiatry due to worsening tremors and hypertension acceleration, withdrawal symptoms. We transferred him out of the psych unit to the regular medical floor. He is on no medications at home. PAST MEDICAL HISTORY: Past medical history is significant for significant alcohol use and smoking. REVIEW OF SYMPTOMS: Review of systems positive for tremors and tachycardia and hypertension. Temp 98, pulse 80s, respiratory 18-20, blood pressure 175-156/83 to 96, O2 is 94% on room air. CARDIOVASCULAR S1, S2. LUNGS clear. NEUROLOGIC: He has mild tremors of the extremities x4. PSYCH: Flat mood and affect. GI soft. ASSESSMENT AND PLAN: 1. Alcohol dependence. 2. Alcohol withdrawal. 3. Impending delirium tremens. 4. CIWA protocol was given. 5. Hypertension acceleration, continue with Catapres. 6. Depression. Psychiatry will be reconsulted for transfer back to the [facility] in a couple of days. MMODL / IJN: [id number] /
[2019-09-20] MEDS: LORazepam 2 MG/ML INJ IV PRN ×8 (01:17→22:24)
[2019-09-20 06:37] LABS: Basophils # (A) 0.1 k/uL (0-0.2); Basophils % (A) 1 %; Eosinophils # (A) 0.2 k/uL (0-0.7); Eosinophils % (A) 2 %; HGB 13.6 gm/dL (13.0-17.5); Lymphocytes # (A) 0.7 k/uL (1.0-4.8); Lymphocytes % (A) 10 %; MCH 33.2 pg (25.0-35.0); MCHC 34.9 g/dL (31.0-37.0); Mean Platelet Volume 6.3; Monocytes # (A) 0.3 k/uL (0-1.0); Monocytes % (A) 5 %; Neutrophils # (A) 5.4 k/uL (1.3-7.7); Neutrophils % (A) 81 %; Platelet Count 236 k/uL (150-450); RDW 12.9 % (11.5-15.5); WBC 6.7 k/uL (3.8-10.6)
[2019-09-20 06:51] LABS: ALT 33 U/L (21-72); AST 28 U/L (17-59); African American GFR (CKD) >90 (>60 ml/min/1.73 sqM); Albumin 3.6 g/dL (3.5-5.0); Alkaline Phosphatase 71 U/L (38-126); Anion Gap 4 mmol/L; Blood Urea Nitrogen 16 mg/dL (9-20); Calcium 8.8 mg/dL (8.4-10.2); Carbon Dioxide 30 mmol/L (22-30); Chloride 105 mmol/L (98-107); Glucose 98 mg/dL (74-99); Non-African American GFR(CKD) >90 (>60 ml/min/1.73 sqM); Sodium 139 mmol/L (137-145); Total Bilirubin 0.8 mg/dL (0.2-1.3); Total Protein 6.2 g/dL (6.3-8.2)
[2019-09-20] MEDS: THIAMINE 100 MG TAB PO SCH ×2 (07:49→16:22)
[2019-09-20] MEDS: cloNIDine HCL 0.1 MG TAB PO PRN ×2 (08:14→19:52)
--- NOTE | 2019-09-20 13:09 | P.HP ---
Psychiatric H&P - . H&P Date: 09/20/19 History & Physical: Allergies Allergy/AdvReac Type Severity Reaction Status Date / Time cyclobenzaprine HCl Allergy Rash/Hives Verified 09/19/19 05:39 [From Flexeril] Vital Signs Temp 97.6 F 09/20/19 07:55 Pulse 82 09/20/19 11:49 Resp 20 09/20/19 11:49 BP 137/91 09/20/19 11:49 Pulse Ox 98 09/20/19 11:49 Intake & Output 09/19/19 09/20/19 09/20/19 18:59 06:59 18:59 Weight 63.503 kg 72 kg Other: # Voids 0 0 Laboratory Last Values WBC 6.7 k/uL (3.8-10.6) 09/20/19 05:42 RBC 4.10 m/uL (4.30-5.90) L 09/20/19 05:42 Hgb 13.6 gm/dL (13.0-17.5) 09/20/19 05:42 Hct 39.0 % (39.0-53.0) 09/20/19 05:42 MCV 95.0 fL (80.0-100.0) 09/20/19 05:42 MCH 33.2 pg (25.0-35.0) 09/20/19 05:42 MCHC 34.9 g/dL (31.0-37.0) 09/20/19 05:42 RDW 12.9 % (11.5-15.5) 09/20/19 05:42 Plt Count 236 k/uL (150-450) 09/20/19 05:42 Neutrophils % 81 % 09/20/19 05:42 Lymphocytes % 10 % 09/20/19 05:42 Monocytes % 5 % 09/20/19 05:42 Eosinophils % 2 % 09/20/19 05:42 Basophils % 1 % 09/20/19 05:42 Neutrophils # 5.4 k/uL (1.3-7.7) 09/20/19 05:42 Lymphocytes # 0.7 k/uL (1.0-4.8) L 09/20/19 05:42 Monocytes # 0.3 k/uL (0-1.0) 09/20/19 05:42 Eosinophils # 0.2 k/uL (0-0.7) 09/20/19 05:42 Basophils # 0.1 k/uL (0-0.2) 09/20/19 05:42 Sodium 139 mmol/L (137-145) 09/20/19 05:42 Potassium 4.0 mmol/L (3.5-5.1) 09/20/19 05:42 Chloride 105 mmol/L (98-107) 09/20/19 05:42 Carbon Dioxide 30 mmol/L (22-30) 09/20/19 05:42 Anion Gap 4 mmol/L 09/20/19 05:42 BUN 16 mg/dL (9-20) 09/20/19 05:42 Creatinine 0.88 mg/dL (0.66-1.25) 09/20/19 05:42 Est GFR (CKD-EPI)AfAm >90 (>60 ml/min/1.73 sqM) 09/20/19 05:42 Est GFR (CKD-EPI)NonAf >90 (>60 ml/min/1.73 sqM) 09/20/19 05:42 Glucose 98 mg/dL (74-99) 09/20/19 05:42 Calcium 8.8 mg/dL (8.4-10.2) 09/20/19 05:42 Magnesium 1.9 mg/dL (1.6-2.3) 09/19/19 21:34 Total Bilirubin 0.8 mg/dL (0.2-1.3) 09/20/19 05:42 AST 28 U/L (17-59) 09/20/19 05:42 ALT 33 U/L (21-72) 09/20/19 05:42 Alkaline Phosphatase 71 U/L (38-126) 09/20/19 05:42 Total Protein 6.2 g/dL (6.3-8.2) L 09/20/19 05:42 Albumin 3.6 g/dL (3.5-5.0) 09/20/19 05:42 09/20/19 13:01 IDENTIFYING DATA: 59-year-old male patient HPI: Patient seen in psychiatric consultation on the medical floor. He was transferred to medical floor from the inpatient psychiatric unit yesterday with worsening alcohol withdrawal. He had been admitted to the inpatient psychiatric unit with concerns of depression and thoughts of suicide. Recent stressors of a friend of his passing away and his son being in the hospital. Today when I approached him. He was sleeping and he was woken up with the aid of staff. He reports that he is feeling a little sleepy, relays he still having some alcohol withdrawal. His mood currently appears improved and he denies any current thoughts of suicide. PAST PSYCHIATRIC HISTORY: Patient had one previous admission to [facility] for inpatient psychiatry. No history of suicide attempts. No history of medication treatment for depression and anxiety. He was started on Zoloft 25 mg daily yesterday. PMH: Hepatitis C ALLERGIES: Cyclobenzaprine MEDICATIONS: Catapres when necessary, Ativan when necessary, Zofran when necessary, vitamin B1 CHEMICAL DEPENDENCY HISTORY: Was on methadone for approximately 10 years for opioid use, last use was 1-1/2-2 months ago. He was in rehab 4 times to get off of methadone. He has been using alcohol daily for the past couple months, he went 10 years without alcohol and then started drinking again in February of this year. FAMILY PSYCHIATRIC HISTORY: Has denied FAMILY CHEMICAL DEPENDENCY HISTORY:None Known at this time SOCIAL HISTORY: Currently lives in his father . Has one child who is in the hospital. He's never been . MENTAL STATUS EXAM: He is initially sleeping, wakes up with the assistance of staff. He is alert and cooperative upon awakening. His mood appears improved and he denies any current thoughts of suicide. He does not show any agitation. No active evidence of psychosis. IMPRESSIONS: Unspecified depressive disorder, unspecified anxiety disorder, alcohol use disorder, history of opioid use disorder PLAN: Upon medical stabilization and clearance we will plan on transferring back to the inpatient psychiatric unit for stabilization of depression and monitoring regarding any suicidal ideations. Would look at reinitiation of Zoloft once he is medically stabilized.
[2019-09-20] MEDS: NICOTINE 14MG/24HR PATCH TRANSDERM SCH (16:22)
--- NOTE | 2019-09-20 21:01 | PN ---
PROGRESS NOTE 59-year-old white male. Alcohol withdrawal. Has more active shakes today. Vital signs appear to be stable. He is on Ativan and Catapres, Habitrol patch, Zofran for nausea. CARDIOVASCULAR: S1, S2. Lungs clear. GI soft. Integument no rash. Neurologic he has [id number] tremor. ASSESSMENT: 1. Alcohol withdrawal. 2. Depression. 3. Alcohol dependence. 4. Hypertension acceleration. Continue on Catapres p.r.n. for hypertension. Ativan p.r.n. for CIWA protocol. He has had got a sitter in the bedroom at this time in the patient room at this time until psychiatry takes him back to the psych [facility]. MMODL / IJN: [id number] /
[2019-09-21] MEDS: LORazepam 2 MG/ML INJ IV PRN ×5 (02:02→18:00)
[2019-09-21] MEDS: THIAMINE 100 MG TAB PO SCH ×2 (06:21→18:00)
[2019-09-21] MEDS: NICOTINE 14MG/24HR PATCH TRANSDERM SCH (09:13)
[2019-09-21] MEDS ORDERED: ACETAMINOPHEN TAB 325 MG TAB PO PRN (10:51)
[2019-09-21] MEDS ORDERED: PANTOPRAZOLE 40 MG/10 ML VIAL IVP SCH (11:15)
--- NOTE | 2019-09-21 11:30 | P.DS ---
Providers Date of admission: 09/19/19 17:54 Expected date of discharge: 09/21/19 Attending physician: Sky Manzano Consults: 09/19/19 18:17 Consult Physician Routine Consulting Provider: Sky Ventura Reason/Comments: suicide Do you want consulting provider notified?: Already Contacted Placement Type Exists?: Yes Primary care physician: Sky Manzano Hospital Course: Final Diagnoses: -alcohol dependence with DTs, improved -Suicidal -Depression -Anxiety -Accelerated hypertension -History of heroin, cocaine abuse -Recently weaned off of methadone. Hospital course is a 59-year-old gentleman, alcohol dependent, suicidal and multiple other medical issues. Suicide precautions maintained. Evaluated by psychiatry and patient is scheduled for transfer back to the psych unit, today, in a stable condition with guarded prognosis. PHYSICAL EXAM: GENERAL: Alert and oriented 3, no acute distress CARDIOVASCULAR: S1, S2 regular.. No murmur RESPIRATION: Breath sounds diminished in the bases. ABDOMEN: Soft, nontender . No guarding. no masses palpable. Bowel sounds heard. NERVOUS SYSTEM: Minimal tremors .No focal deficits. The impression and plan of care has been dictated as directed. : I performed a history and examination of this patient, discussed the same with the dictator. I agree with the dictator's note ,documented as a scribe. Any additional findings or plans will be noted. Patient Condition at Discharge: Stable Plan - Discharge Summary Discharge Rx Participant: Yes New Discharge Prescriptions: New cloNIDine HCL [Catapres] 0.1 mg PO TID PRN tab PRN Reason: Blood Pressure - High Folic Acid 1 mg PO DAILY #1 tablet Nicotine 14Mg/24Hr Patch [Habitrol] 1 patch TRANSDERM DAILY patch Multivitamins, Thera [Multivitamin (formulary)] 1 tab PO DAILY #1 tablet Acetaminophen Tab [Tylenol] 650 mg PO Q6HR PRN tab PRN Reason: Fever And/ Or Pain Thiamine [Vitamin B-1] 100 mg PO BID-W/MEALS tab LORazepam [Ativan] 1 mg PO TID PRN #1 tab PRN Reason: Anxiety Pantoprazole Sodium [Protonix] 40 mg PO DAILY #1 tablet.dr Discharge Medication List Acetaminophen Tab [Tylenol] 650 mg PO Q6HR PRN tab 09/21/19 [Rx] Folic Acid 1 mg PO DAILY #1 tablet 09/21/19 [Rx] LORazepam [Ativan] 1 mg PO TID PRN #1 tab 09/21/19 [Rx] Multivitamins, Thera [Multivitamin (formulary)] 1 tab PO DAILY #1 tablet 09/21/19 [Rx] Nicotine 14Mg/24Hr Patch [Habitrol] 1 patch TRANSDERM DAILY patch 09/21/19 [Rx] Pantoprazole Sodium [Protonix] 40 mg PO DAILY #1 tablet. 09/21/19 [Rx] Thiamine [Vitamin B-1] 100 mg PO BID-W/MEALS tab 09/21/19 [Rx] cloNIDine HCL [Catapres] 0.1 mg PO TID PRN tab 09/21/19 [Rx] Follow up Appointment(s)/Referral(s): Sky Manzano MD [Primary Care Provider] - 3 Days (after dc from [facility]) Richard Garcia DO [Doctor of Osteopathic Medicine] - 1-2 Days Activity/Diet/Wound Care/Special Instructions: To [facility] Discharge Disposition: TRANSFER TO PSYCH HOSP/UNIT
[2019-09-21] MEDS: cloNIDine HCL 0.1 MG TAB PO PRN (16:17)
[2019-09-22] MEDS: THIAMINE 100 MG TAB PO SCH (06:20)
[2019-09-22] MEDS ORDERED: PANTOPRAZOLE 40 MG TABLET PO SCH (09:00)
[2019-09-22] MEDS: NICOTINE 14MG/24HR PATCH TRANSDERM SCH (10:14)
[2019-09-22 10:21] VITALS: RESP 16; TEMP 98.2
[2019-09-22] MEDS: LORazepam 2 MG/ML INJ IV PRN ×2 (10:21→14:27)
[2019-09-22] MEDS: cloNIDine HCL 0.1 MG TAB PO PRN (12:06)
--- NOTE | 2019-09-22 13:01 | P.PN ---
Progress Note - Text Progress Note Date: 09/22/19 I reviewed the medical record and interviewed the patient. He is a 45-year-old male who has a history of alcohol and opiate use disorder. He presented to emergency room with complaints of depression and suicidal ideation. He attributes the worsening depression to the of her friend and the worsening health of his son. His son was admitted to the [facility] for both liver and kidney failure secondary to chronic alcohol use. He was drinking 1-2/5 of vodka daily since he relapsed to alcohol about 1-2 months ago. He is also used heroin "once or twice" since he was discharged from the methadone treatment program at [place] in 03 July. He was transferred to medicine service because she developed signs suggestive of severe alcohol withdrawal symptoms. He described minimal to moderate alcohol withdrawal symptoms. However, he continues to feel depressed, helpless and hopeless. He feels persistently depressed and describes several symptoms of depressive disorder including impaired sleep, anhedonia, persistent feelings of guilt, impaired concentration and decreased appetite. He remains distressed about his son and is relapsed to alcohol and heroin. He denied experiencing suicidal ideation, intent or plan but described persistent wishes. He is not currently involved in either outpatient mental health or substance use treatment. He presented as a thin, anxious and distressed appearing elderly male who is laying in bed. He made a contact and attended to the interview he was slightly tremulous but able concentrate and attend to the interview. He had a distressed facial expression. He showed psychomotor retardation but no abnormal movements. His speech was spontaneous with decreased rate, rhythm and volume. His affect was depressed and not reactive. He denied suicidal ideation but expressed wishes. He express depressive cognitions such as hopelessness, helplessness and worthlessness. He did not express ideas reference, paranoid ideation or delusions. His thinking was concrete but his associations were coherent and logical. He denied hallucinations did not appear to responding to internal stimuli. Impression: Alcohol use disorder severe, alcohol withdrawal, opiate use disorder severe, depressive disorder, rule out major depressive disorder Recommendation: Transfer back to psychiatric unit once medically stable.
[2019-09-22 13:57] VITALS: BP 128/75; PULSE 88
== END 2019-09-22 15:09 | DRG 897 ==
LOC: 3SCARD 17:54
PROVIDERS: ADMIT Family Medicine; ATTEND Family Medicine
DX: F10.231 Alcohol dependence with withdrawal delirium (principal); R45.851 Suicidal ideations; F11.90 Opioid use, unspecified, uncomplicated; F32.9 Major depressive disorder, single episode, unspecified; F41.9 Anxiety disorder, unspecified; I10 Essential (primary) hypertension; B19.20 Unspecified viral hepatitis C without hepatic coma
CPT/HCPCS: 80053; 83735; 85025

== ENCOUNTER 2019-09-22 14:50 | Inpatient (IN) | payer MEDICAID, OTHER ==
[2019-09-22] MEDS ORDERED: MAGNESIUM HYDROXIDE 2,400 MG/10 ML CUP PO PRN (16:15)
[2019-09-22] MEDS ORDERED: ACETAMINOPHEN TAB 325 MG TAB PO PRN (16:15)
[2019-09-22] MEDS ORDERED: MAG HYDROX/AL HYDROX/SIMETH 30 ML CUP PO PRN (16:15)
[2019-09-22] MEDS ORDERED: LORazepam 2 MG/ML INJ IM PRN (16:18)
[2019-09-22] MEDS: LORazepam 1 MG TAB PO PRN (22:49)
[2019-09-23] MEDS: LORazepam 1 MG TAB PO PRN ×2 (07:26→21:13)
[2019-09-23] MEDS: MULTIVITAMINS, THERA 1 EACH TAB PO SCH (08:36)
[2019-09-23] MEDS: FOLIC ACID 1 MG TAB PO SCH (08:36)
[2019-09-23] MEDS: NICOTINE 14MG/24HR PATCH TRANSDERM SCH (08:36)
[2019-09-23] MEDS: PANTOPRAZOLE 40 MG TABLET PO SCH (08:36)
[2019-09-23 08:42] LABS: Basophils # (A) 0.1 k/uL (0-0.2); Basophils % (A) 1 %; Eosinophils # (A) 0.2 k/uL (0-0.7); Eosinophils % (A) 3 %; HCT 46.5 % (39.0-53.0); HGB 15.9 gm/dL (13.0-17.5); Lymphocytes # (A) 1.1 k/uL (1.0-4.8); Lymphocytes % (A) 17 %; MCH 32.1 pg (25.0-35.0); MCHC 34.1 g/dL (31.0-37.0); MCV 94.2 fL (80.0-100.0); Monocytes # (A) 0.3 k/uL (0-1.0); Monocytes % (A) 5 %; Neutrophils # (A) 4.4 k/uL (1.3-7.7); Neutrophils % (A) 73 %; Platelet Count 305 k/uL (150-450); RBC 4.93 m/uL (4.30-5.90); RDW 12.9 % (11.5-15.5); WBC 6.1 k/uL (3.8-10.6)
[2019-09-23 09:00] LABS: ALT 42 U/L (21-72); AST 31 U/L (17-59); African American GFR (CKD) >90 (>60 ml/min/1.73 sqM); Albumin 4.5 g/dL (3.5-5.0); Alkaline Phosphatase 82 U/L (38-126); Anion Gap 8 mmol/L; Blood Urea Nitrogen 16 mg/dL (9-20); Calcium 9.8 mg/dL (8.4-10.2); Carbon Dioxide 29 mmol/L (22-30); Chloride 103 mmol/L (98-107); Cholesterol 179 mg/dL (<200); Glucose 100 mg/dL (74-99); HDL Cholesterol 92 mg/dL (40-60); LDL Cholesterol,Calculated 63 mg/dL (0-99); Non-African American GFR(CKD) 87 (>60 ml/min/1.73 sqM); Potassium 4.8 mmol/L (3.5-5.1); Sodium 140 mmol/L (137-145); Total Bilirubin 0.8 mg/dL (0.2-1.3); Total Protein 7.5 g/dL (6.3-8.2); Triglycerides 122 mg/dL (<150)
[2019-09-23] MEDS: SERTRALINE 50 MG TAB PO SCH (10:12)
[2019-09-23] MEDS: busPIRone HCl 5 MG TAB PO SCH ×3 (10:12→21:13)
--- NOTE | 2019-09-23 13:06 | P.HP ---
Psychiatric H&P - . H&P Date: 09/23/19 History & Physical: IDENTIFYING DATA: The patient is a single 59-year-old male who initially presented to emergency room acutely intoxicated from alcohol and complaining of depression and suicidal ideation. He was admitted to the psychiatric unit then transferred from medicine due to signs and symptoms of severe alcohol withdrawal. I evaluated him on the medical unit. He complained of continued depression and feelings of hopelessness and helplessness. We recommended transfer back to the psychiatric unit to initiate psychiatric treatment. HISTORY OF PRESENT ILLNESS: He has long history of opiate and alcohol use disorder. He has been in the methadone treatment program at [facility] for about 10 years. His usual doses 100 mg per day. In April he stated that he was offered a job in [place] and thought that he had arranged with the [facility] program to transfer his care to a methadone program in [place]. However, the program in [place] did not receive documents from [facility] and was apparently unable to reach the [facility] program to confirm his treatment. They prescribed only 20mg and he went into opiate withdrawal. He remained in [place] for about 3 weeks then return to [place]. When he presented to [facility] to resume methadone, he was started on 30 mg that was gradually titrated to 70 mg daily. He expressed frustration by his experience and impulsively decided to taper out of the program. He reduced his dose by 10 mg per day and left the program at 30 mg per day. After leaving the program he experienced opiate withdrawal symptoms that he attempted to treat with alcohol. He states he was drinking anywhere from 10-20 shots of vodka per day. He complained of feelings of depression, hopelessness and helplessness. He also complained of anxiety and restlessness that has not abated since he stopped methadone. He denied experiencing nausea or vomiting, rhinorrhea, sweating, diarrhea or fever consistent with acute opiate withdrawal. He has since diffi culty falling and staying asleep and experiences mild muscle aches. He attributes his depression to the of his best friend and the prolonged hospitalization of his son. His son was admitted to [facility] 7 weeks ago for alcohol induced liver failure and kidney failure. He has medical decision over his son and is in frequent contact with his son's treatment team. He describes symptoms of depression including low energy, guilt, poor sleep, poor appetite and difficulty concentrating. These symptoms have worsened since he stopped methadone. He described persistent anxiety that fluctuates in intensity. He denied experiencing periods of anxiety consistent with panic attacks. He denied obsessions or compulsions. He denied experiencing such psychotic symptoms and hallucinations, delusions or thought disturbances. PAST PSYCHIATRIC HISTORY: He had one brief psychiatric hospitalization at [facility] earlier this year prior prior to his most recent admission to [facility].. PAST MEDICAL HISTORY: hepatitis C. ALLERGIES: Cyclobenzaprine. SUBSTANCE USE HISTORY: He began using drugs when he was 14 years old. He began abusing Tylenol with Codeine when he was in her 20s and gradually transitioned to heroin. He has been drinking since adolescence and has been in multiple substance abuse treatment programs for both alcohol and opiate use. As mentioned above, he has been in the methadone program at [facility] for approximately 10 years. The highest dose prescribed with 100 mg per day. At one point during treatment he was allowed take home doses of methadone but lost the privilege because of his alcohol use problems. FAMILY PSYCHIATRIC/SUBSTANCE USE HISTORY: He described a significant history of alcohol use problems in his family involving his sister, mother, uncle and grandparents. 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 SOCIAL HISTORY: His born and raised in the [place] to an intact family. He has 3 sisters. He was never but has one child out of wedlock. The mother relinquished custody when the child was 2 years old. He is currently unemployed. He lives in the basement of his family's home. MENTAL STATUS EXAM: He presented as a thin casually groomed, short statured 15-year-old male who looked his stated age. He made eye contact and attended to the interview. He had no distinguishing features or prominent physical abnormalities. He had a anxious facial expression. He was alert and oriented to person, place and time. He showed psychomotor retardation but no abnormal appearance. He was not shaking or tremulous. His speech was spontaneous with decreased rate and volume. His affect was depressed and anxious but stable and appropriate. He described wishes but denied suicidal ideation or homicidal ideation. He expressed feelings of hopelessness, helplessness and worthlessness. He ruminated about his son and his persistent opiate use problems. He did not express ideas reference, paranoid ideation, magical ideation or delusions. His thinking was abstract but associations were coherent and logical. He denied hallucinations and did not appear to responding to internal stimuli. Global impression of intellect is average. He is aware of his substance abuse problems and need for continued treatment. STRENGTHS: Stable housing, awareness of substance use problems and need for treatment, relatively good health. WEAKNESSES: Chronic opiate use disorder, chronic alcohol use disorder, lack of income, recent interpersonal losses. IMPRESSION: He is a 59-year-old single male with long history of alcohol and opiate use disorder. [facility] ac[facility] and complaining of depression and suicidal ideation. He developed moderately severe alcohol withdrawal symptoms that resulted in a transfer to the medical unit. Once stable he was transferred back to the psychiatric unit. He complains of persistent anxiety and opiate craving since he left the methadone treatment program at [facility]. He feels depressed, hopeless and helpless. He has thoughts of but denies suicidal intent or plan. With recent stressors included the of close friend and the prolonged medical hospitalization his son. He should best be treated inpatient basis with combination of psychopharmacology and multimodal therapy. PRINCIPLE DIAGNOSIS: Mood disorder unspecified, opiate use disorder severe, alcohol use disorder severe, opiate withdrawal, alcohol withdrawal, rule out major depressive disorder RECOMMENDATION: Admitted to the psychiatric unit. Safety precautions. Consult medicine for initial physical Center medical history. deli worker completed initial psychosocial assessment. Ativan 1 mg by mouth/IM 3 times a day when necessary for anxiety or agitation. Geodon 20 mg IM twice a day for agitation or aggression. Begin Zoloft 50 mg daily for treatment of anxiety and depression and titrated according to clinical response and tolerance. Begin BuSpar 5 mg by mouth 3 times a day for treatment of anxiety. Avoid chronic dosing of benzodiazepines. Encourage participation in therapeutic groups and activities. Evaluate clinical status response to treatment daily basis. He would benefit from continued substance abuse treatment. Allergies Allergy/AdvReac Type Severity Reaction Status Date / Time cyclobenzaprine HCl Allergy Rash/Hives Verified 09/22/19 17:11 [From Flexeril] Vital Signs Temp 97.7 F 09/23/19 06:37 Pulse 70 09/23/19 06:37 Resp 16 09/23/19 06:37 BP 149/86 09/23/19 06:37 Pulse Ox 96 09/22/19 13:10 Intake & Output 09/22/19 09/23/19 09/23/19 18:59 06:59 18:59 Weight 70.845 kg Laboratory Last Values WBC 6.1 k/uL (3.8-10.6) 09/23/19 08:18 RBC 4.93 m/uL (4.30-5.90) 09/23/19 08:18 Hgb 15.9 gm/dL (13.0-17.5) 09/23/19 08:18 Hct 46.5 % (39.0-53.0) 09/23/19 08:18 MCV 94.2 fL (80.0-100.0) 09/23/19 08:18 MCH 32.1 pg (25.0-35.0) 09/23/19 08:18 MCHC 34.1 g/dL (31.0-37.0) 09/23/19 08:18 RDW 12.9 % (11.5-15.5) 09/23/19 08:18 Plt Count 305 k/uL (150-450) 09/23/19 08:18 Neutrophils % 73 % 09/23/19 08:18 Lymphocytes % 17 % 09/23/19 08:18 Monocytes % 5 % 09/23/19 08:18 Eosinophils % 3 % 09/23/19 08:18 Basophils % 1 % 09/23/19 08:18 Neutrophils # 4.4 k/uL (1.3-7.7) 09/23/19 08:18 Lymphocytes # 1.1 k/uL (1.0-4.8) 09/23/19 08:18 Monocytes # 0.3 k/uL (0-1.0) 09/23/19 08:18 Eosinophils # 0.2 k/uL (0-0.7) 09/23/19 08:18 Basophils # 0.1 k/uL (0-0.2) 09/23/19 08:18 Sodium 140 mmol/L (137-145) 09/23/19 08:18 Potassium 4.8 mmol/L (3.5-5.1) 09/23/19 08:18 Chloride 103 mmol/L (98-107) 09/23/19 08:18 Carbon Dioxide 29 mmol/L (22-30) 09/23/19 08:18 Anion Gap 8 mmol/L 09/23/19 08:18 BUN 16 mg/dL (9-20) 09/23/19 08:18 Creatinine 0.95 mg/dL (0.66-1.25) 09/23/19 08:18 Est GFR (CKD-EPI)AfAm >90 (>60 ml/min/1.73 sqM) 09/23/19 08:18 Est GFR (CKD-EPI)NonAf 87 (>60 ml/min/1.73 sqM) 09/23/19 08:18 Glucose 100 mg/dL (74-99) H 09/23/19 08:18 Calcium 9.8 mg/dL (8.4-10.2) 09/23/19 08:18 Total Bilirubin 0.8 mg/dL (0.2-1.3) 09/23/19 08:18 AST 31 U/L (17-59) 09/23/19 08:18 ALT 42 U/L (21-72) 09/23/19 08:18 Alkaline Phosphatase 82 U/L (38-126) 09/23/19 08:18 Total Protein 7.5 g/dL (6.3-8.2) 09/23/19 08:18 Albumin 4.5 g/dL (3.5-5.0) 09/23/19 08:18 Triglycerides 122 mg/dL (<150) 09/23/19 08:18 Cholesterol 179 mg/dL (<200) 09/23/19 08:18 LDL Cholesterol, Calc 63 mg/dL (0-99) 09/23/19 08:18 HDL Cholesterol 92 mg/dL (40-60) H 09/23/19 08:18 09/23/19 09:21 09/23/19 12:59
[2019-09-23 19:25] LABS: Hemoglobin A1C 4.7 % (4.0-6.0)
[2019-09-24] MEDS: busPIRone HCl 5 MG TAB PO SCH ×3 (07:59→21:36)
[2019-09-24] MEDS: FOLIC ACID 1 MG TAB PO SCH (07:59)
[2019-09-24] MEDS: NICOTINE 14MG/24HR PATCH TRANSDERM SCH (07:59)
[2019-09-24] MEDS: PANTOPRAZOLE 40 MG TABLET PO SCH (07:59)
[2019-09-24] MEDS: MULTIVITAMINS, THERA 1 EACH TAB PO SCH (07:59)
[2019-09-24] MEDS: SERTRALINE 50 MG TAB PO SCH (08:01)
[2019-09-24] MEDS: LORazepam 1 MG TAB PO PRN ×2 (08:03→21:36)
[2019-09-24] MEDS ORDERED: LORATADINE 10 MG TAB PO PRN (08:56)
--- NOTE | 2019-09-24 09:25 | P.PN ---
Progress Note - Text Progress Note Date: 09/24/19 Clinical Problems: Mood disorder unspecified, opiate use disorder severe, alcohol use disorder severe, opiate withdrawal, alcohol withdrawal, rule out major depressive disorder Interim history: I reviewed the medical record and interviewed the patient. He complained of opiate craving but denied opiate withdrawal symptoms such as nausea, vomiting, sweating, diarrhea or myalgias. He experiences continued mild anxiety and complained of insomnia. He requested a "sleep medication". He inquired about buprenorphine substitution. I gave him a list of buprenorphine prescribers from the [facility] website. He also requested a prescription for Claritin for seasonal ALLERGY symptoms He feels "somewhat" depressed but denied thoughts of or suicide. He denied experiencing hallucinations expressed no delusional thoughts. Mental status exam: He presented as a thin casually groomed, short statured 59-year-old male who looked his stated age. He made eye contact and attended to the interview. He had no distinguishing features or prominent physical abnormalities. He had a blunted facial expression. He was alert and oriented to person, place and time. He showed psychomotor retardation but no abnormal appearance. He was not shaking or tremulous. His speech was spontaneo us with decreased rate and volume. His affect was depressed. He denied wishes, suicidal ideation or homicidal ideation. He denied feeling hopelessness, helplessness and worthlessness. He did not express ideas reference, paranoid ideation, magical ideation or delusions. His thinking was abstract but associations were coherent and logical. He denied hallucinations and did not appear to responding to internal stimuli. Assessment: He has minimal symptoms of opiate withdrawal and no signs or symptoms of alcohol withdrawal. He would benefit from outpatient treatment with buprenorphine. Plan: Continue inpatient hospitalization. Continue Zoloft 50 mg daily and BuSpar 5 mg 3 times a day. Begin trazodone 100 mg at bedtime for sleep and Claritin 5 mg by mouth every 12 hours when necessary for seasonal ALLERGIC symptoms. Continue safety precautions. Encourage continued participation in therapeutic groups and activities. Evaluate clinical status response to treatment daily basis.
[2019-09-24] MEDS: traZODone HCL 100 MG TAB PO SCH (21:36)
[2019-09-25] MEDS: NICOTINE 14MG/24HR PATCH TRANSDERM SCH (07:50)
[2019-09-25] MEDS: FOLIC ACID 1 MG TAB PO SCH (07:51)
[2019-09-25] MEDS: busPIRone HCl 5 MG TAB PO SCH ×3 (07:51→21:09)
[2019-09-25] MEDS: PANTOPRAZOLE 40 MG TABLET PO SCH (07:51)
[2019-09-25] MEDS: MULTIVITAMINS, THERA 1 EACH TAB PO SCH (07:51)
[2019-09-25] MEDS: LORazepam 1 MG TAB PO PRN (07:51)
[2019-09-25] MEDS: SERTRALINE 50 MG TAB PO SCH (07:51)
--- NOTE | 2019-09-25 10:39 | P.PN ---
Progress Note - Text Progress Note Date: 09/25/19 Clinical Problems: Mood disorder unspecified, opiate use disorder severe, alcohol use disorder severe, opiate withdrawal, alcohol withdrawal, rule out major depressive disorder Interim history: I reviewed the medical record and interviewed the patient. He denied problems or concerns. He stated that he is feeling "much better" today. He denied having thoughts of or suicide. I reviewed the record and noticed that he is taking the Ativan on a regular basis. I again explained that I will not be discharging him with a prescription for Ativan and recommended to decrease the dose to half a milligram twice a day when necessary. He slept 6 hours last night. He is not attempting therapeutic groups or activities. Mental status exam: He presented as a thin casually groomed, unshaven 59-year-old male who looked his stated age. He made eye contact and attended to the interview. He had no distinguishing features or prominent physical abnormalities. He had a blunted facial expression. He was alert and oriented to person, place and time. He showed psychomotor retardation but no abnormal appearance. He was not shaking or tremulous. His speech was spontaneous with decreased rate and volume. His affect was depressed. He denied wishes, suicidal ideation or homicidal ideation. He denied feeling hopelessness, helplessness and worthlessness. He did not express ideas reference, paranoid ideation, magical ideation or delusions. His thinking was abstract but associations were coherent and logical. He denied hallucinations and did not appear to responding to internal stimuli. Assessment: He has minimal symptoms of opiate withdrawal and no signs or sy mptoms of alcohol withdrawal. He has mild depressive symptoms uncomplicated by psychosis or suicidality. He would benefit from outpatient treatment with buprenorphine. Plan: Continue inpatient hospitalization. Plan to discharge on 09/28/2019 Continue Zoloft 50 mg daily,BuSpar 5 mg 3 times a day and trazodone 100 mg at bedtime for sleep. Decrease when necessary Ativan to 0.5 mg twice a day. C ontinue safety precautions. Encourage continued participation in therapeutic groups and activities. Evaluate clinical status response to treatment daily basis.
[2019-09-25] MEDS: traZODone HCL 100 MG TAB PO SCH (21:09)
[2019-09-25] MEDS: LORazepam 0.5 MG TAB PO PRN (21:09)
[2019-09-26] MEDS: FOLIC ACID 1 MG TAB PO SCH (08:11)
[2019-09-26] MEDS: LORazepam 0.5 MG TAB PO PRN ×2 (08:11→20:19)
[2019-09-26] MEDS: SERTRALINE 50 MG TAB PO SCH (08:11)
[2019-09-26] MEDS: MULTIVITAMINS, THERA 1 EACH TAB PO SCH (08:11)
[2019-09-26] MEDS: PANTOPRAZOLE 40 MG TABLET PO SCH (08:11)
[2019-09-26] MEDS: NICOTINE 14MG/24HR PATCH TRANSDERM SCH (08:11)
[2019-09-26] MEDS: busPIRone HCl 5 MG TAB PO SCH ×3 (08:11→20:17)
--- NOTE | 2019-09-26 13:49 | P.PN ---
Progress Note - Text Progress Note Date: 09/26/19 This is a psychiatric progress note is a cross coverage for Dr. Ventura Chief complaint: "Feeling much better today " Subjective: The patient has been seen today as follow-up, chart reviewed, case discussed with the treatment team. Patient slept about 6 hours last night. Patient has been going to groups and other unit activities. Patient reports fair appetite. Patient reports feeling stable emotionally, and he denies feeling depressed, hopeless, or suicidal. He denies any severe mood swings, irritable mood, severe agitation, or homicidal ideation. He minimizes withdrawal symptoms and reports no shaking, night sweats, or stomach upset. The patient is compliant with his medications and denies any adverse reactions. The patient denies any manic symptoms including sustained period of time with elevated or irritable mood, impulsive or irrational behavior, inflated self- esteem, or absence need to sleep due to increases goal-directed activities. The patient denies any auditory or visual hallucinations. Also the patient denies any paranoid ideation. Objective: Vitals has been reviewed. Mental status examination; Appearance: The patient appears stated age, adequately groomed and dressed, no specific features. Gait/posture: Normal gait, Normal arm swinging: No abnormal movements. Attitude and behavior: engaged, cooperative, eye contact. Motor activity: Normal psychomotor activity Speech: Normal rate, tone. Mood: Anxious Affect: Constricted Thought form: goal-directed, linear, coherent. Thought content: Non-delusional, denies suicidal thoughts, denies homicidal thoughts, denies intentions or plans. Perception: Denies any auditory or visual hallucinations Attention: No impairment. Patient was able to repeat serial 5. Orientation: Patient patient was fully oriented to time place person and situation. Insight: Patient has fair insight about his psychiatric disorder. Judgment: Patient has fair judgment about his psychiatric treatment. Assessment and diagnosis: Patient reports a stabilization of his mood and his psychiatric symptoms. He reports feeling ready for discharge and shared with me that a discharge plan on Saturday was discussed with him. Unspecified mood disorder. Opioid use disorder, severe. Alcohol use disorder severe. Opioid withdrawal, resolving. Alcohol withdrawal, resolved. Rule out major depressive disorder. Plan: Continue inpatient level of care for further stabilization on medications and discharge planning. Continue treatment of disorder, and substance use disorders Precautions: Continue 15 minutes check for safety. Consider medical consultation if any acute medical issues arise. Provide the patient individual, group therapy, substance use disorder counseling to give better insight and learn coping skills. Medications: Zoloft 50 mg daily for depression and anxiety. BuSpar 5 mA 3 times a day for depression and anxiety. Trazodone 100 mg at bedtime for depression and anxiety and to help with insomnia. Continue Ativan 0.5 mg twice a day as needed for anxiety. Discharge patient to OUTPATIENT services upon a stabilization
[2019-09-26] MEDS: traZODone HCL 100 MG TAB PO SCH (20:17)
[2019-09-27] MEDS: FOLIC ACID 1 MG TAB PO SCH (08:20)
[2019-09-27] MEDS: MULTIVITAMINS, THERA 1 EACH TAB PO SCH (08:20)
[2019-09-27] MEDS: busPIRone HCl 5 MG TAB PO SCH ×3 (08:20→20:54)
[2019-09-27] MEDS: PANTOPRAZOLE 40 MG TABLET PO SCH (08:20)
[2019-09-27] MEDS: NICOTINE 14MG/24HR PATCH TRANSDERM SCH (08:20)
[2019-09-27] MEDS: SERTRALINE 50 MG TAB PO SCH (08:20)
[2019-09-27] MEDS: LORazepam 0.5 MG TAB PO PRN ×2 (08:21→20:55)
--- NOTE | 2019-09-27 10:54 | P.PN ---
Progress Note - Text Progress Note Date: 09/27/19 This is a psychiatric progress note is a cross coverage for Dr. Ventura Chief complaint: "I'm feeling very good " Subjective: The patient has been seen today as follow-up, chart reviewed, case discussed with the treatment team. Patient reports good sleep and as per chart his lips 7 hours last night. Patient continued to feel stable emotionally and he denies feeling depressed, hopeless, or suicide. He denies any mood swings, irritability, agitation, or anger problems. He denies any homicidal ideation. Patient denies any auditory or visual hallucinations, paranoid ideation, and no delusions could be elicited. He denies any manic symptoms. Patient continued his psychiatric medications and denies any side effects. Patient reports as per discussion with his primary psychiatrist that he will be discharged tomorrow. Objective: Vitals has been reviewed. Mental status examination; Appearance: The patient appears stated age, adequately groomed and dressed, no specific features. Gait/posture: Normal gait, Normal arm swinging: No abnormal movements. Attitude and behavior: engaged, cooperative, eye contact. Motor activity: Normal psychomotor activity Speech: Normal rate, tone. Mood: "Good" Affect: Constricted Thought form: goal-directed, linear, coherent. Thought content: Non-delusional, denies suicidal thoughts, denies homicidal thoughts, denies intentions or plans. Perception: Denies any auditory or visual hallucinations Attention: No impairment. Patient was able to repeat serial 5. Orientation: Patient patient was fully oriented to time place person and situation. Insight: Patient has fair insight about his psychiatric disorder. Judgment: Patient has fair judgment about his psychiatric treatment. Assessment and diagnosis: Patient continued to report stabilization of his mood and his psychiatric symptoms and he is ready for discharge. Unspecified mood disorder. Opioid use disorder, severe. Alcohol use disorder severe. Opioid withdrawal, resolving. Alcohol withdrawal, resolved. Rule out major depressive disorder. Plan: Continue inpatient level of care for further stabilization on medications and discharge planning. Continue treatment of disorder, and substance use disorders Precautions: Continue 15 minutes check for safety. Consider medical consultation if any acute medical issues arise. Provide the patient individual, group therapy, substance use disorder counseling to give better insight and learn coping skills. Medications: Zoloft 50 mg daily for depression and anxiety. BuSpar 5 mA 3 times a day for depression and anxiety. Trazodone 100 mg at bedtime for depression and anxiety and to help with insomnia. Continue Ativan 0.5 mg twice a day as needed for anxiety. Discharge patient to OUTPATIENT services upon a stabilization
[2019-09-27 13:25] LABS: Appearance,Urine Clear (Clear); Bilirubin,Urine Negative (Negative); Blood,Urine Negative (Negative); Color,Urine Yellow; Glucose,Urine (UA) Negative (Negative); Ketones,Urine Negative (Negative); Leukocyte Esterase,Urine Negative (Negative); Nitrite,Urine Negative (Negative); PH, Urine 5.5 (5.0-8.0); Protein,Urine Negative (Negative); Specific Gravity,Urine 1.016 (1.001-1.035); Urobilinogen,Urine <2.0 mg/dL (<2.0)
[2019-09-27] MEDS: traZODone HCL 100 MG TAB PO SCH (20:54)
[2019-09-28 06:42] VITALS: BP 150/75; PULSE 75; RESP 18; TEMP 98
[2019-09-28] MEDS: NICOTINE 14MG/24HR PATCH TRANSDERM SCH (08:14)
[2019-09-28] MEDS: FOLIC ACID 1 MG TAB PO SCH (08:15)
[2019-09-28] MEDS: busPIRone HCl 5 MG TAB PO SCH (08:15)
[2019-09-28] MEDS: PANTOPRAZOLE 40 MG TABLET PO SCH (08:15)
[2019-09-28] MEDS: SERTRALINE 50 MG TAB PO SCH (08:15)
[2019-09-28] MEDS: MULTIVITAMINS, THERA 1 EACH TAB PO SCH (08:15)
[2019-09-28] MEDS: LORazepam 0.5 MG TAB PO PRN (08:19)
--- NOTE | 2019-09-29 14:31 | P.DS ---
Providers Date of admission: 09/22/19 15:06 Attending physician: Sky Ventura MD Consults: 09/22/19 16:15 Consult Physician Routine Consulting Provider: Sky Manzano Consult Reason/Comments: H&P and medical and HTN Do you want consulting provider notified?: Yes Primary care physician: Sky Manzano - Discharge Diagnosis(es) (1) Alcohol use disorder, severe, dependence Status: Resolved Priority: High (2) Opioid use disorder, severe, dependence Status: Chronic Priority: High (3) Opioid withdrawal Status: Resolved Priority: Medium (4) Alcohol withdrawal Status: Resolved Priority: High (5) Mood disorder Status: Chronic Priority: Low Hospital Course: He is a 59-year-old male who has history of an opiate use disorder. He presented to the emergency room acutely intoxicated from alcohol. In complaining of depression and suicidal ideation. He was initially admitted to the medicine unit for the management of severe alcohol withdrawal and transferred to the psychiatric unit when he is medically stable. He complained of experiencing severe opiate withdrawal symptoms after he left the methadone treatment program at [facility]. He abruptly decided to leave the program and quickly tapered from his maintenance dose of 70 mg per day. He alleges that he began drinking alcohol up to 10-20 shots of vodka per day for relief of the opiate withdrawal symptoms. He complained of feeling hopeless, helpless and having thoughts of suicide after he stopped methadone and experienced severe opiate withdrawal symptoms. We admitted him to the psychiatric unit under care of this editorial writer. Provided a biopsychosocial assessment. We consulted medicine for initial physical exam and medical history. jewelry bench worker completed initial psychosocial assessment. We treated his complaints depression and anxiety with Zoloft 50 mg daily and BuSpar 5 mg by mouth 3 times a day. He received 100 mg of trazodone at bedtime for insomnia. His mood and anxiety quickly improved. He expresses interest in Suboxone and we provided him a list of Suboxone providers in the [place] area. After speaking with the social psychologist he agreed to referral to [facility] where he will be able to talk with the psychiatrist about Suboxone. At time of discharge, he presented as a casually groomed 5-year-old male who was pleasant on approach. He made eye contact and attended to interview. He had a bright facial expression. He was alert and oriented to person, place and time. He showed no abnormality of psychomotor activity. His speech was spontaneous with normal rate, rhythm and volume. His affect was bright, stable and appropriate. He denied suicidal ideation and wishes. He denied homicidal ideation. He denied feeling hopeless, helpless or worthless. He did not express ideas reference, paranoid ideation or delusional thoughts. His thinking was abstract and associations were coherent and logical. Plan - Discharge Summary New Discharge Prescriptions: New busPIRone HCl [Buspar] 5 mg PO TID 30 Days #90 tab Loratadine [Claritin] 5 mg PO Q12HR PRN 15 Days #30 tab PRN Reason: Allergy Symptoms traZODone HCL [Desyrel] 100 mg PO HS 30 Days #30 tab Sertraline [Zoloft] 50 mg PO DAILY 30 Days #30 tab Continue Folic Acid 1 mg PO DAILY #30 tablet Nicotine 14Mg/24Hr Patch [Habitrol] 1 patch TRANSDERM DAILY #30 patch Multivitamins, Thera [Multivitamin (formulary)] 1 tab PO DAILY #30 tablet Pantoprazole Sodium [Protonix] 40 mg PO DAILY #30 tablet. Thiamine [Vitamin B-1] 100 mg PO DAILY #30 tablet Discharge Medication List Folic Acid 1 mg PO DAILY #30 tablet 09/22/19 [Rx] Multivitamins, Thera [Multivitamin (formulary)] 1 tab PO DAILY #30 tablet 09/22/19 [Rx] Nicotine 14Mg/24Hr Patch [Habitrol] 1 patch TRANSDERM DAILY #30 patch 09/22/19 [Rx] Pantoprazole Sodium [Protonix] 40 mg PO DAILY #30 tablet. 09/22/19 [Rx] Thiamine [Vitamin B-1] 100 mg PO DAILY #30 tablet 09/22/19 [Rx] Loratadine [Claritin] 5 mg PO Q12HR PRN 15 Days #30 tab 09/28/19 [Rx] Sertraline [Zoloft] 50 mg PO DAILY 30 Days #30 tab 09/28/19 [Rx] busPIRone HCl [Buspar] 5 mg PO TID 30 Days #90 tab 09/28/19 [Rx] traZODone HCL [Desyrel] 100 mg PO HS 30 Days #30 tab 09/28/19 [Rx] Follow up Appointment(s)/Referral(s): [facility] [Outside] - 09/29/19 10:00 am (Appointment w/ Jadon) [facility] [NON-STAFF] - 1 Week Patient Instructions/Handouts: Mood Disorders (DC), Abuse of Alcohol (DC), Suicide Prevention (DC) Activity/Diet/Wound Care/Special Instructions: Activity and diet as tolerated. Avoid the use of street drugs and alcohol. Take all medications as prescribed. When you are in need of refills on your medications please contact your medical provider and/or outpatient psychiatrist to have this done. Please go to scheduled outpatient appointment for aftercare treatment. If symptoms return or become worse, call the crisis line at and/or go to the nearest emergency room for evaluation. Discharge Disposition: HOME SELF-CARE
== END 2019-09-28 10:02 | disposition home or self-care (01) | DRG 881 ==
LOC: 3MHU 15:06
PROVIDERS: ADMIT Psychiatry & Neurology Psychiatry; ATTEND Psychiatry & Neurology Psychiatry
DX: F32.9 Major depressive disorder, single episode, unspecified (principal); R45.851 Suicidal ideations; F10.239 Alcohol dependence with withdrawal, unspecified; F11.23 Opioid dependence with withdrawal; F41.9 Anxiety disorder, unspecified; G47.00 Insomnia, unspecified; I10 Essential (primary) hypertension; J30.2 Other seasonal allergic rhinitis; Z79.899 Other long term (current) drug therapy; Z56.0 Unemployment, unspecified; Z81.1 Family history of alcohol abuse and dependence; Z88.8 Allergy status to other drugs, medicaments and biological substances; F10.229 Alcohol dependence with intoxication, unspecified
CPT/HCPCS: 80053; 80061; 81003; 83036; 84443; 85025

== ENCOUNTER 2019-10-06 01:50 | Emergency (ER) | payer OTHER ==
--- NOTE | 2019-10-06 01:53 | ED ---
Psych HPI <Farhana Stokes - Last Filed: 10/06/19 03:57> <Leigh Farnsworth - Last Filed: 10/06/19 23:43> - General Stated Complaint: mental health Time Seen by Provider: 10/06/19 01:52 - History of Present Illness Initial Comments: Antonio is a 59-year-old male with extensive psychiatric and substance abuse history, patient is a chronic alcoholic. Patient is brought to the emergency department today by ambulance for alcohol intoxication and suicidal thoughts. Patient reports he was released from psychiatric facility a week and a half or 2 weeks ago. He states that he stopped taking his medications because he wanted to drink and uses heroin did not want to mix medications. Patient states that he wants to . He states he wakes up every morning and is upset that he woke up he wishes he would've in his sleep. Patient states that he wants to kill himself. (Farhana Stokes) - Related Data Previous Rx's Medication Instructions Recorded Folic Acid 1 mg PO DAILY #30 tablet 09/22/19 Multivitamins, Thera [Multivitamin 1 tab PO DAILY #30 tablet 09/22/19 (formulary)] Nicotine 14Mg/24Hr Patch [Habitrol] 1 patch TRANSDERM DAILY #30 patch 09/22/19 Pantoprazole Sodium [Protonix] 40 mg PO DAILY #30 tablet. 09/22/19 Thiamine [Vitamin B-1] 100 mg PO DAILY #30 tablet 09/22/19 Loratadine [Claritin] 5 mg PO Q12HR PRN 15 Days #30 tab 09/28/19 Sertraline [Zoloft] 50 mg PO DAILY 30 Days #30 tab 09/28/19 busPIRone HCl [Buspar] 5 mg PO TID 30 Days #90 tab 09/28/19 traZODone HCL [Desyrel] 100 mg PO HS 30 Days #30 tab 09/28/19 Allergies Allergy/AdvReac Type Severity Reaction Status Date / Time cyclobenzaprine HCl Allergy Rash/Hives Verified 10/06/19 08:04 [From Flexeril] Review of Systems ROS Other: All systems not noted in ROS Statement are negative. <Farhana Stokes - Last Filed: 10/06/19 03:57> ROS Other: All systems not noted in ROS Statement are negative. <DajaLeigh Keyur - Last Filed: 10/06/19 23:43> ROS Statement: Those systems with pertinent positive or pertinent negative responses have been documented in the HPI. Past Medical History Past Medical History: Liver Disease Additional Past Medical History / Comment(s): Hep C, chronic back pain, heroin user. History of Any Multi-Drug Resistant Organisms: None Reported Past Surgical History: Orthopedic Surgery Additional Past Surgical History / Comment(s): RIGHT LEG/ANKLE SURGERY, Ronny in right leg and ankle. Past Anesthesia/Blood Transfusion Reactions: No Reported Reaction Past Psychological History: ADD/ADHD, Anxiety, Depression Additional Psychological History / Comment(s): NO ADDERAL SINCE . Smoking Status: Current every day smoker Past Alcohol Use History: Abuse, Daily, Heavy Additional Past Alcohol Use History / Comment(s): Patient drinks a more than a 5th of alcohol a day. Past Drug Use History: None Reported Additional Drug Use History / Comment(s): Patient has not used street drugs in a "long time". - Past Family History Mother Family Medical History: Cancer Additional Family Medical History / Comment(s): COLON CANCER. Sister(s) Family Medical History: Cancer Additional Family Medical History / Comment(s): COLON, BREAST <Farhana Stokes P - Last Filed: 10/06/19 03:57> General Exam <Farhana Stokes - Last Filed: 10/06/19 03:57> - General Exam Comments Initial Comments: Physical Exam GENERAL: Poor personal hygiene, appears older than stated age strong odor of alcohol HENT: Normocephalic, Atraumatic. EYES: PERRL, EOMI PULMONARY: Unlabored respirations. CARDIOVASCULAR: RRR Warm and well perfused extremities ABDOMEN: Non-distended SKIN: No rashes or bruising : Deferred NEUROLOGIC: Alert and oriented MUSCULOSKELETAL: Moving all extremities with no apparent injury PSYCHIATRIC: Depressed, suicidal (Farhana Stokes) Course Vital Signs 10/06/19 10/06/19 10/06/19 02:00 09:00 10:00 Temperature 97.6 F 97.6 F Pulse Rate 62 65 Respiratory 16 18 Rate Blood Pressure 143/85 140/80 O2 Sat by Pulse 96 97 97 Oximetry 10/06/19 10/06/19 10/06/19 11:00 12:00 13:00 Temperature Pulse Rate Respiratory Rate Blood Pressure O2 Sat by Pulse 97 97 97 Oximetry 10/06/19 16:27 Temperature Pulse Rate 88 Respiratory 22 Rate Blood Pressure 138/78 O2 Sat by Pulse 98 Oximetry Medical Decision Making - Lab Data Result diagrams: 10/06/19 03:00 10/06/19 03:00 <Farhana Stokes - Last Filed: 10/06/19 03:57> - Lab Data Result diagrams: 10/06/19 03:00 10/06/19 03:00 <Leigh Farnsworth - Last Filed: 10/06/19 23:43> - Medical Decision Making The patient was seen and evaluated upon arrival history is obtained from the patient EMS This is a 59-year-old alcoholic gentleman who admits to being intoxicated this evening, patient having suicidal thoughts denies any specific plan at this time. He does report that he spends drinking to excess and using heroin hoping that he dies. At this time patient's alcohol is elevated at 235, labs were obtained, salicylate acetaminophen levels are not elevated, CBC and CMP are unremarkable Patient will be medically cleared for evaluation by psychiatry upon sobriety (Farhana Stokes) Patient evaluated by psychatry once sober. Denies SI, HI or hallucinations. He does make a safety plan. He does request to go home and feel improved at this time. He is instructed to return to the ED for any new or worsening symptoms. abtain from alcohol. Patient agreed, was requested a dose of Ativan prior to discharge. He has some mild intention tremor but no signs of impending DTs. He was given 1 mg PO and dischaged with resources. (Leigh Farnsworth) - Lab Data Lab Results 10/06/19 10/06/19 10/06/19 Range/Units 03:00 03:00 03:00 WBC 6.2 (3.8-10.6) k/uL RBC 4.23 L (4.30-5.90) m/uL Hgb 13.6 (13.0-17.5) gm/dL Hct 40.1 (39.0-53.0) % MCV 94.9 (80.0-100.0) fL MCH 32.1 (25.0-35.0) pg MCHC 33.8 (31.0-37.0) g/dL RDW 13.3 (11.5-15.5) % Plt Count 268 (150-450) k/uL Neutrophils % 56 % Lymphocytes % 35 % Monocytes % 3 % Eosinophils % 4 % Basophils % 1 % Neutrophils # 3.5 (1.3-7.7) k/uL Lymphocytes # 2.1 (1.0-4.8) k/uL Monocytes # 0.2 (0-1.0) k/uL Eosinophils # 0.2 (0-0.7) k/uL Basophils # 0.0 (0-0.2) k/uL Sodium 145 (137-145) mmol/L Potassium 3.8 (3.5-5.1) mmol/L Chloride 109 H (98-107) mmol/L Carbon Dioxide 26 (22-30) mmol/L Anion Gap 10 mmol/L BUN 13 (9-20) mg/dL Creatinine 0.77 (0.66-1.25) mg/dL Est GFR (CKD-EPI)AfAm >90 (>60 ml/min/1.73 sqM) Est GFR (CKD-EPI)NonAf >90 (>60 ml/min/1.73 sqM) Glucose 95 (74-99) mg/dL Calcium 8.7 (8.4-10.2) mg/dL Total Bilirubin 0.3 (0.2-1.3) mg/dL AST 44 (17-59) U/L ALT 41 (21-72) U/L Alkaline Phosphatase 66 (38-126) U/L Total Protein 6.7 (6.3-8.2) g/dL Albumin 4.1 (3.5-5.0) g/dL Salicylates <1.0 mg/dL Urine Opiates Screen Not Detected (NotDetected) Ur Oxycodone Screen Not Detected (NotDetected) Urine Methadone Screen Not Detected (NotDetected) Ur Propoxyphene Screen Not Detected (NotDetected) Acetaminophen <10.0 ug/mL Ur Barbiturates Screen Not Detected (NotDetected) U Tricyclic Antidepress Not Detected (NotDetected) Ur Phencyclidine Scrn Not Detected (NotDetected) Ur Amphetamines Screen Not Detected (NotDetected) U Methamphetamines Scrn Not Detected (NotDetected) U Benzodiazepines Scrn Not Detected (NotDetected) Urine Cocaine Screen Not Detected (NotDetected) U Marijuana (THC) Screen Not Detected (NotDetected) Serum Alcohol 235 H* mg/dL Disposition <Farhana Stokes - Last Filed: 10/06/19 03:57> Is patient prescribed a controlled substance at d/c from ED?: No Time of Disposition: 15:59 <Leigh Farnsworth - Last Filed: 10/06/19 23:43> Clinical Impression: Alcohol withdrawal syndrome, Alcoholic intoxication, Depression Disposition: HOME SELF-CARE Condition: Stable Instructions (If sedation given, give patient instructions): Alcohol Intoxication (ED) Additional Instructions: Please follow-up with primary care doctor in 2-4 days. Return to the emergency room if you have any new or worsening symptoms. Please stop drinking alcohol. Referrals: Sky Manzano MD [Primary Care Provider] - 1-2 days
[2019-10-06 02:33] VITALS: TEMP 97.6
[2019-10-06 03:17] LABS: Basophils % (A) 1 %; Eosinophils # (A) 0.2 k/uL (0-0.7); Eosinophils % (A) 4 %; HCT 40.1 % (39.0-53.0); HGB 13.6 gm/dL (13.0-17.5); Lymphocytes # (A) 2.1 k/uL (1.0-4.8); Lymphocytes % (A) 35 %; MCH 32.1 pg (25.0-35.0); MCHC 33.8 g/dL (31.0-37.0); MCV 94.9 fL (80.0-100.0); Mean Platelet Volume 7.7; Monocytes # (A) 0.2 k/uL (0-1.0); Monocytes % (A) 3 %; Neutrophils # (A) 3.5 k/uL (1.3-7.7); Neutrophils % (A) 56 %; Platelet Count 268 k/uL (150-450); RBC 4.23 m/uL (4.30-5.90); RDW 13.3 % (11.5-15.5); WBC 6.2 k/uL (3.8-10.6)
[2019-10-06 03:28] LABS: ALT 41 U/L (21-72); AST 44 U/L (17-59); Acetaminophen <10.0 ug/mL; African American GFR (CKD) >90 (>60 ml/min/1.73 sqM); Albumin 4.1 g/dL (3.5-5.0); Alkaline Phosphatase 66 U/L (38-126); Amphetamine Screen,Urine Not Detected (NotDetected); Anion Gap 10 mmol/L; Barbiturate Screen,Urine Not Detected (NotDetected); Benzodiazepines Screen,Urine Not Detected (NotDetected); Blood Urea Nitrogen 13 mg/dL (9-20); Calcium 8.7 mg/dL (8.4-10.2); Carbon Dioxide 26 mmol/L (22-30); Chloride 109 mmol/L (98-107); Cocaine Screen,Urine Not Detected (NotDetected); Glucose 95 mg/dL (74-99); Methadone Screen, Urine Not Detected (NotDetected); Non-African American GFR(CKD) >90 (>60 ml/min/1.73 sqM); Opiate Screen,Urine Not Detected (NotDetected); Oxycodone Screen, Urine Not Detected (NotDetected); Phencyclidine Screen,Urine Not Detected (NotDetected); Potassium 3.8 mmol/L (3.5-5.1); Salicylate <1.0 mg/dL; Sodium 145 mmol/L (137-145); Total Bilirubin 0.3 mg/dL (0.2-1.3); Total Protein 6.7 g/dL (6.3-8.2); Tricyclic Antidepressant,Urine Not Detected (NotDetected); Urn Cannabinoid Scrn Not Detected (NotDetected)
[2019-10-06 03:35] LABS: Alcohol 235 mg/dL
[2019-10-06] MEDS ORDERED: LORazepam 1 MG TAB PO STA (15:57)
[2019-10-06 16:29] VITALS: BP 138/78; PULSE 88; RESP 22
== END 2019-10-06 16:27 | disposition home or self-care (01) ==
LOC: EC 01:50
DX: F10.239 Alcohol dependence with withdrawal, unspecified (principal); Y90.7 Blood alcohol level of 200-239 mg/100 ml; F10.229 Alcohol dependence with intoxication, unspecified; R45.851 Suicidal ideations; B19.20 Unspecified viral hepatitis C without hepatic coma; G89.29 Other chronic pain; R25.1 Tremor, unspecified; Z88.8 Allergy status to other drugs, medicaments and biological substances
CPT/HCPCS: 82075; 36415; 80053; 85025; 80306; 83520; 99285; G0480 ×2; 80320; 80329

== ENCOUNTER 2019-11-25 04:19 | Emergency (ER) | payer OTHER ==
[2019-11-25 04:28] VITALS: RESP 18; TEMP 98
--- NOTE | 2019-11-25 05:02 | ED ---
Psych HPI <Dev King - Last Filed: 11/25/19 16:38> - General Source: patient Mode of arrival: ambulatory <Farhana Stokes - Last Filed: 11/26/19 04:47> - General Chief Complaint: Psychiatric Symptoms Stated Complaint: Suicidal Time Seen by Provider: 11/25/19 04:48 - History of Present Illness Initial Comments: Antonio is a 59-year-old gentleman with a history of alcohol abuse who presents to the ER today for evaluation of depression and alcohol intoxication. On arrival the patient is heavily intoxicated after admittedly drinking excessive amounts of alcohol. Patient reports he feels like he wants to . (Farhana Stokes) - Related Data Previous Rx's Medication Instructions Recorded Folic Acid 1 mg PO DAILY #30 tablet 09/22/19 Multivitamins, Thera [Multivitamin 1 tab PO DAILY #30 tablet 09/22/19 (formulary)] Nicotine 14Mg/24Hr Patch [Habitrol] 1 patch TRANSDERM DAILY #30 patch 09/22/19 Pantoprazole Sodium [Protonix] 40 mg PO DAILY #30 tablet.dr 09/22/19 Thiamine [Vitamin B-1] 100 mg PO DAILY #30 tablet 09/22/19 Loratadine [Claritin] 5 mg PO Q12HR PRN 15 Days #30 tab 09/28/19 Sertraline [Zoloft] 50 mg PO DAILY 30 Days #30 tab 09/28/19 busPIRone HCl [Buspar] 5 mg PO TID 30 Days #90 tab 09/28/19 traZODone HCL [Desyrel] 100 mg PO HS 30 Days #30 tab 09/28/19 Allergies Allergy/AdvReac Type Severity Reaction Status Date / Time cyclobenzaprine HCl Allergy Rash/Hives Verified 11/25/19 08:36 [From Flexeril] Review of Systems ROS Other: All systems not noted in ROS Statement are negative. <Dev King - Last Filed: 11/25/19 16:38> ROS Other: All systems not noted in ROS Statement are negative. <Farhana Stokes - Last Filed: 11/26/19 04:47> ROS Statement: Those systems with pertinent positive or pertinent negative responses have been documented in the HPI. Past Medical History Past Medical History: Liver Disease Additional Past Medical History / Comment(s): Hep C, chronic back pain, heroin user last was this past saturday, ETOH History of Any Multi-Drug Resistant Organisms: None Reported Past Surgical History: Orthopedic Surgery Additional Past Surgical History / Comment(s): RIGHT LEG/ANKLE SURGERY, Ronny in right leg and ankle. Past Anesthesia/Blood Transfusion Reactions: No Reported Reaction Past Psychological History: ADD/ADHD, Anxiety, Depression Smoking Status: Current every day smoker Past Alcohol Use History: Abuse, Daily, Heavy Past Drug Use History: None Reported - Past Family History Mother Family Medical History: Cancer Additional Family Medical History / Comment(s): COLON CANCER. Sister(s) Family Medical History: Cancer Additional Family Medical History / Comment(s): COLON, BREAST <Farhana Stokes - Last Filed: 11/26/19 04:47> General Exam Limitations: no limitations <Farhana Stokes - Last Filed: 11/26/19 04:47> - General Exam Comments Initial Comments: Physical Exam GENERAL: Patient is well-developed and well-nourished. Patient is nontoxic and well-hydrated and is in no distress. HENT: Normocephalic, Atraumatic. EYES: PERRL, EOMI PULMONARY: Unlabored respirations. CARDIOVASCULAR: RRR Warm and well perfused extremities ABDOMEN: Non-distended SKIN: No rashes or bruising : Deferred NEUROLOGIC: Alert and oriented Normal speech Normal gait MUSCULOSKELETAL: Moving all extremities with no apparent injury PSYCHIATRIC: Suicidal ideation (Farhana Stokes) Course Vital Signs 11/25/19 11/25/19 11/25/19 04:24 11:40 16:41 Temperature 98 F Pulse Rate 88 78 75 Respiratory 18 18 18 Rate Blood Pressure 127/78 150/81 148/78 O2 Sat by Pulse 96 98 98 Oximetry Medical Decision Making - Lab Data Result diagrams: 11/25/19 05:05 11/25/19 05:05 <Dev King - Last Filed: 11/25/19 16:38> - Lab Data Result diagrams: 11/25/19 05:05 11/25/19 05:05 <Farhana Stokes - Last Filed: 11/26/19 04:47> - Medical Decision Making The patient came in with alcohol intoxication was feeling depressed and suicidal he is resting comfortably throughout the day and is sobered up. He currently is not suicidal he will be discharged. He is not currently wrist himself. (Dev King) The patient was seen and evaluated, history is obtained from the patient who is heavily intoxicated and reports he wants to . The patient's significantly elevated alcohol level we will plan to place him in observation unit until sober. Psychiatry will be consult at. This plan was discussed with patient's primary care physician Dr. Manzano who agrees. (Farhana Stokes) - Lab Data Lab Results 11/25/19 11/25/19 11/25/19 Range/Units 04:44 05:05 05:05 WBC 6.4 (3.8-10.6) k/uL RBC 4.91 (4.30-5.90) m/uL Hgb 15.4 (13.0-17.5) gm/dL Hct 46.8 (39.0-53.0) % MCV 95.2 (80.0-100.0) fL MCH 31.3 (25.0-35.0) pg MCHC 32.8 (31.0-37.0) g/dL RDW 13.1 (11.5-15.5) % Plt Count 339 (150-450) k/uL Neutrophils % 58 % Lymphocytes % 28 % Monocytes % 6 % Eosinophils % 3 % Basophils % 3 % Neutrophils # 3.7 (1.3-7.7) k/uL Lymphocytes # 1.8 (1.0-4.8) k/uL Monocytes # 0.4 (0-1.0) k/uL Eosinophils # 0.2 (0-0.7) k/uL Basophils # 0.2 (0-0.2) k/uL Sodium 148 H (137-145) mmol/L Potassium 4.5 (3.5-5.1) mmol/L Chloride 114 H (98-107) mmol/L Carbon Dioxide 22 (22-30) mmol/L Anion Gap 12 mmol/L BUN 14 (9-20) mg/dL Creatinine 0.63 L (0.66-1.25) mg/dL Est GFR (CKD-EPI)AfAm >90 (>60 ml/min/1.73 sqM) Est GFR (CKD-EPI)NonAf >90 (>60 ml/min/1.73 sqM) Glucose 88 (74-99) mg/dL Calcium 8.7 (8.4-10.2) mg/dL Total Bilirubin 0.7 (0.2-1.3) mg/dL AST 45 (17-59) U/L ALT 31 (4-49) U/L Alkaline Phosphatase 62 (38-126) U/L Total Protein 7.6 (6.3-8.2) g/dL Albumin 4.6 (3.5-5.0) g/dL Urine Opiates Screen Not Detected (NotDetected) Ur Oxycodone Screen Not Detected (NotDetected) Urine Methadone Screen Not Detected (NotDetected) Ur Propoxyphene Screen Not Detected (NotDetected) Ur Barbiturates Screen Not Detected (NotDetected) U Tricyclic Antidepress Not Detected (NotDetected) Ur Phencyclidine Scrn Not Detected (NotDetected) Ur Amphetamines Screen Not Detected (NotDetected) U Methamphetamines Scrn Not Detected (NotDetected) U Benzodiazepines Scrn Not Detected (NotDetected) Urine Cocaine Screen Not Detected (NotDetected) U Marijuana (THC) Screen Not Detected (NotDetected) Serum Alcohol 274 H* mg/dL Disposition Is patient prescribed a controlled substance at d/c from ED?: No <Dev King - Last Filed: 11/25/19 16:38> Is patient prescribed a controlled substance at d/c from ED?: No <Farhana Stokes - Last Filed: 11/26/19 04:47> Clinical Impression: Alcohol intoxication, Adjustment reaction of adult life Disposition: HOME SELF-CARE Condition: Good Instructions (If sedation given, give patient instructions): Mood Disorders (ED), Alcohol Intoxication (ED) Referrals: Sky Manzano MD [Primary Care Provider] - 1-2 days
[2019-11-25 05:05] LABS: Amphetamine Screen,Urine Not Detected (NotDetected); Barbiturate Screen,Urine Not Detected (NotDetected); Benzodiazepines Screen,Urine Not Detected (NotDetected); Cocaine Screen,Urine Not Detected (NotDetected); Methadone Screen, Urine Not Detected (NotDetected); Opiate Screen,Urine Not Detected (NotDetected); Phencyclidine Screen,Urine Not Detected (NotDetected); Tricyclic Antidepressant,Urine Not Detected (NotDetected); Urn Cannabinoid Scrn Not Detected (NotDetected)
[2019-11-25 05:06] LABS: Oxycodone Screen, Urine Not Detected (NotDetected)
[2019-11-25 05:30] LABS: Basophils # (A) 0.2 k/uL (0-0.2); Basophils % (A) 3 %; Eosinophils # (A) 0.2 k/uL (0-0.7); Eosinophils % (A) 3 %; HCT 46.8 % (39.0-53.0); HGB 15.4 gm/dL (13.0-17.5); Lymphocytes # (A) 1.8 k/uL (1.0-4.8); Lymphocytes % (A) 28 %; MCH 31.3 pg (25.0-35.0); MCHC 32.8 g/dL (31.0-37.0); MCV 95.2 fL (80.0-100.0); Mean Platelet Volume 7.9; Monocytes # (A) 0.4 k/uL (0-1.0); Monocytes % (A) 6 %; Neutrophils # (A) 3.7 k/uL (1.3-7.7); Neutrophils % (A) 58 %; Platelet Count 339 k/uL (150-450); RBC 4.91 m/uL (4.30-5.90); RDW 13.1 % (11.5-15.5); WBC 6.4 k/uL (3.8-10.6)
[2019-11-25 05:34] LABS: ALT 31 U/L (4-49); AST 45 U/L (17-59); African American GFR (CKD) >90 (>60 ml/min/1.73 sqM); Albumin 4.6 g/dL (3.5-5.0); Alkaline Phosphatase 62 U/L (38-126); Anion Gap 12 mmol/L; Blood Urea Nitrogen 14 mg/dL (9-20); Calcium 8.7 mg/dL (8.4-10.2); Carbon Dioxide 22 mmol/L (22-30); Chloride 114 mmol/L (98-107); Glucose 88 mg/dL (74-99); Non-African American GFR(CKD) >90 (>60 ml/min/1.73 sqM); Potassium 4.5 mmol/L (3.5-5.1); Sodium 148 mmol/L (137-145); Total Bilirubin 0.7 mg/dL (0.2-1.3); Total Protein 7.6 g/dL (6.3-8.2)
[2019-11-25 05:46] LABS: Alcohol 274 mg/dL
[2019-11-25] MEDS ORDERED: NALOXONE 0.4 MG/ML 1 ML VIAL IV PRN (07:53)
[2019-11-25] MEDS ORDERED: LORazepam 2 MG/ML INJ IV STA (11:34)
[2019-11-25 16:47] VITALS: BP 148/78; PULSE 75
== END 2019-11-25 16:41 | disposition home or self-care (01) ==
LOC: EC 04:19
DX: F10.129 Alcohol abuse with intoxication, unspecified (principal); F43.20 Adjustment disorder, unspecified; F32.9 Major depressive disorder, single episode, unspecified; R45.851 Suicidal ideations; F17.200 Nicotine dependence, unspecified, uncomplicated; Z88.8 Allergy status to other drugs, medicaments and biological substances; Y90.9 Presence of alcohol in blood, level not specified
CPT/HCPCS: 82075; 36415; 80053; 85025; 80306; 99285; 96374; G0480; J2060; 80320

== ENCOUNTER 2019-11-30 21:17 | Inpatient (IN) | payer OTHER ==
--- NOTE | 2019-11-30 21:54 | ED ---
Psych HPI <Keny Baltazar - Last Filed: 12/01/19 05:17> - General Source: patient, police, RN notes reviewed, old records reviewed Mode of arrival: ambulatory - History of Present Illness MD Complaint: suicidal ideation, feels depressed -: month(s) Associated Psychiatric Symptoms: depression, suicidal ideation History of same: Yes Quality: intermittent, getting worse Improves With: none Worsens With: alcohol Context: recent alcohol abuse Associated Symptoms: denies other symptoms Treatments Prior to Arrival: placed on mental health hold <Saji Hilton - Last Filed: 12/01/19 16:41> - General Chief Complaint: Psychiatric Symptoms Stated Complaint: ETOH Time Seen by Provider: 11/30/19 21:32 - History of Present Illness Initial Comments: This is a 5-year-old male DF for evaluation. Patient is a for evaluation regarding not feeling good, weakness, alcohol intoxication patient admits to increased alcohol use today feeling depressed and suicidal he is having significant stress in his life including the illness of his son. Patient denies any other drugs/alcohol today (Saji Hilton) - Related Data Home Medications Medication Instructions Recorded Confirmed Metoprolol Tartrate 25 mg PO BID 11/30/19 11/30/19 Allergies Allergy/AdvReac Type Severity Reaction Status Date / Time cyclobenzaprine HCl Allergy Rash/Hives Verified 11/30/19 23:28 [From Flexeril] Review of Systems ROS Other: All systems not noted in ROS Statement are negative. <Keny Baltazar - Last Filed: 12/01/19 05:17> ROS Other: All systems not noted in ROS Statement are negative. <Saji Hilton - Last Filed: 12/01/19 16:41> ROS Statement: Those systems with pertinent positive or pertinent negative responses have been documented in the HPI. Past Medical History Past Medical History: Liver Disease Additional Past Medical History / Comment(s): Hep C, chronic back pain, heroin user last was this past saturday, ETOH History of Any Multi-Drug Resistant Organisms: None Reported Past Surgical History: Orthopedic Surgery Additional Past Surgical History / Comment(s): RIGHT LEG/ANKLE SURGERY, Ronny in right leg and ankle. Past Anesthesia/Blood Transfusion Reactions: No Reported Reaction Past Psychological History: ADD/ADHD, Anxiety, Depression Smoking Status: Current every day smoker Past Alcohol Use History: Abuse, Daily, Heavy Past Drug Use History: None Reported - Past Family History Mother Family Medical History: Cancer Additional Family Medical History / Comment(s): COLON CANCER. Sister(s) Family Medical History: Cancer Additional Family Medical History / Comment(s): COLON, BREAST <Saji Hilton - Last Filed: 12/01/19 16:41> General Exam Limitations: no limitations General appearance: alert, in no apparent distress Head exam: Present: atraumatic, normocephalic, normal inspection Eye exam: Present: normal appearance, PERRL, EOMI. Absent: scleral icterus, conjunctival injection, periorbital swelling ENT exam: Present: normal exam, mucous membranes moist Neck exam: Present: normal inspection. Absent: tenderness, meningismus, lymphadenopathy Respiratory exam: Present: normal lung sounds bilaterally. Absent: respiratory distress, wheezes, rales, rhonchi, stridor Cardiovascular Exam: Present: regular rate, normal rhythm, normal heart sounds. Absent: systolic murmur, diastolic murmur, rubs, gallop, clicks GI/Abdominal exam: Present: soft, normal bowel sounds. Absent: distended, tenderness, guarding, rebound, rigid Extremities exam: Present: normal inspection, full ROM, normal capillary refill. Absent: tenderness, pedal edema, joint swelling, calf tenderness Back exam: Present: normal inspection Neurological exam: Present: alert, oriented X3, CN II-XII intact Psychiatric exam: Present: normal affect, normal mood Skin exam: Present: warm, dry, intact, normal color. Absent: rash <Saji Hilton - Last Filed: 12/01/19 16:41> Course <Saji Hilton - Last Filed: 12/01/19 16:41> Vital Signs 11/30/19 12/01/19 21:19 02:00 Temperature 97.9 F 98 F Pulse Rate 69 78 Respiratory 18 18 Rate Blood Pressure 89/60 153/83 O2 Sat by Pulse 98 97 Oximetry - Reevaluation(s) Reevaluation #1: 11/30/19 21:53 medical records is reviewed (Saji Hilton) Medical Decision Making - Lab Data Result diagrams: 12/01/19 12:46 12/01/19 12:46 <Saji Hilton Last Filed: 12/01/19 16:41> - Medical Decision Making 59 male to the ER alcohol intoxication and depression. Patient was medically clear for psychiatric evaluation patient will be admitted for psychiatric evaluation and treatment (Saji Hilton) Disposition Is patient prescribed a controlled substance at d/c from ED?: No <Keny Baltazar - Last Filed: 12/01/19 05:17> Is patient prescribed a controlled substance at d/c from ED?: No <Saji Hilton - Last Filed: 12/01/19 16:41> Clinical Impression: Mood disorder, Alcohol withdrawal, Suicidal ideation, Alcohol intoxication, Depression Disposition: ADMITTED IP TO THIS HOSP Condition: Fair
[2019-12-01] MEDS ORDERED: LORazepam 1 MG TAB PO STA (02:34)
[2019-12-01] MEDS ORDERED: NALOXONE 0.4 MG/ML 1 ML VIAL IV PRN (05:13)
[2019-12-01] MEDS ORDERED: THIAMINE 100 MG/ML 2 ML VIAL IM STA (05:17)
[2019-12-01] MEDS ORDERED: LORazepam 2 MG/ML INJ IV PRN ×2 (05:17)
[2019-12-01] MEDS: SODIUM CHLORIDE 0.9% 1,000 ML IV SCH ×2 (07:38→20:24)
[2019-12-01] MEDS: METOPROLOL TARTRATE 25 MG TAB PO SCH ×2 (07:38→20:41)
[2019-12-01] MEDS: LORazepam 2 MG/ML INJ IV PRN ×4 (07:46→17:23)
[2019-12-01] MEDS: NICOTINE 7MG/24HR PATCH TRANSDERM SCH (12:43)
--- NOTE | 2019-12-01 12:53 | P.HPIM ---
History of Present Illness 59-year-old male was admitted to medical floor for management of alcohol withdrawal. Patient actually came to ER with depression and possible suicidal ideation although he denied any suicidal ideations to my eye to the psychiatric rest and psychiatrist valid the patient and discontinuing sitter. Patient last drinkwas on Saturday but again patient said she is not sure patient is not a reliable historian patient was using crack cocaine patient used to use IV drugs in the past to smoke. Patient denied any complaints at this time. During his previous hospitalization to psychiatric floor there was a concern about alcohol withdrawal and the patient has to be transferred to medical floor because of which are the psychiatrist has concerns of having these alcohol withdrawals again because of which will monitor him overnight if he doesn't have any significant alcohol withdrawals patient will be transferred to psychiatric floor tomorrow. Patient has been binge drinking quit alcohol started drinking about a week ago didn't support one and half pint of alcohol a day. As mentioned above patient is not a very reliable historian because of his memory issues from chronic alcoholism as well as psychiatric issues Review of Systems REVIEW OF SYSTEMS: CONSTITUTIONAL: No fever, no malaise, no fatigue. HEENT: No recent visual problems or hearing problems. Denied any sore throat. CARDIOVASCULAR: No chest pain, orthopnea, PND, no palpitations, no syncope. PULMONARY: No shortness of breath, no cough, no hemoptysis. GASTROINTESTINAL: No diarrhea, no nausea, no vomiting, no abdominal pain. NEUROLOGICAL: No headaches, no weakness, no numbness. HEMATOLOGICAL: Denies any bleeding or petechiae. GENITOURINARY: Denies any burning micturition, frequency, or urgency. MUSCULOSKELETAL/RHEUMATOLOGICAL: Denies any joint pain, swelling, or any muscle pain. ENDOCRINE: Denies any polyuria or polydipsia. The rest of the 14-point review of systems is negative. Past Medical History Past Medical History: Liver Disease Additional Past Medical History / Comment(s): Hep C, chronic back pain, heroin user last was this past saturday11-27-19, ETOH History of Any Multi-Drug Resistant Organisms: None Reported Past Surgical History: Orthopedic Surgery Additional Past Surgical History / Comment(s): RIGHT LEG/ANKLE SURGERY, Ronny in right leg and ankle. Past Anesthesia/Blood Transfusion Reactions: No Reported Reaction Past Psychological History: ADD/ADHD, Anxiety, Depression Additional Psychological History / Comment(s): NO ADDERAL SINCE . Smoking Status: Current every day smoker Past Alcohol Use History: Abuse, Daily, Heavy Additional Past Alcohol Use History / Comment(s): Patient drinks a more than a 5th of alcohol a day. Past Drug Use History: None Reported Additional Drug Use History / Comment(s): Patient has not used street drugs in a "long time". - Past Family History Mother Family Medical History: Cancer Additional Family Medical History / Comment(s): COLON CANCER. Sister(s) Family Medical History: Cancer Additional Family Medical History / Comment(s): COLON, BREAST Medications and Allergies Home Medications Medication Instructions Recorded Confirmed Type Metoprolol Tartrate 25 mg PO BID 11/30/19 11/30/19 History Allergies Allergy/AdvReac Type Severity Reaction Status Date / Time cyclobenzaprine HCl Allergy Rash/Hives Verified 11/30/19 23:28 [From Flexeril] Physical Exam Vitals: Vital Signs Temp Pulse Pulse Resp BP BP Pulse Ox 12/01/19 07:00 98.4 F 90 16 165/89 95 12/01/19 06:17 98.6 F 92 155/87 94 L 12/01/19 02:00 98 F 78 18 153/83 97 11/30/19 21:19 97.9 F 69 18 89/60 98 Intake and Output 11/30/19 12/01/19 12/01/19 22:59 06:59 14:59 Intake Total 600 Balance 600 Intake: IV 600 Sodium Chloride 0.9% 1, 600 000 ml @ 75 mls/hr IV . [id number] [facility] Rx#:[id number] Other: Weight 72.575 kg 72.575 kg PHYSICAL EXAMINATION: GENERAL: The patient is alert and oriented x3, not in any acute distress. Well developed, well nourished. HEENT: Pupils are round and equally reacting to light. EOMI. No scleral icterus. No conjunctival pallor. Normocephalic, atraumatic. No pharyngeal erythema. No thyromegaly. CARDIOVASCULAR: S1 and S2 present. No murmurs, rubs, or gallops. PULMONARY: Chest is clear to auscultation, no wheezing or crackles. ABDOMEN: Soft, nontender, nondistended, normoactive bowel sounds. No palpable organomegaly. MUSCULOSKELETAL: No joint swelling or deformity. EXTREMITIES: No cyanosis, clubbing, or pedal edema. NEUROLOGICAL: Gross neurological examination did not reveal any focal deficits. SKIN: No rashes. Thrombosis Risk Factor Assmnt - Choose All That Apply Each Factor Represents 1 point: Age 41-60 years Thrombosis Risk Factor Assessment Total Risk Factor Score: 1 Thrombosis Risk Factor Assessment Level: Low Risk Assessment and Plan Plan: -alcohol withdrawal: Patient will be monitored will be treated accordingly will follow CIWA protocol and Ativan for withdrawal -alcohol abuse: Counseling was provided -crack cocaine use counseling was provided since he had history ofIV drug use a , I will obtain acute hepatitis panel and do not see any hepatitis C testing available from his previous hospitalizations. -Hypertension: Continue with metoprolol -G GI prophylaxis with Protonix Hypertensive depression : Transferred to psychiatric floor most probably tomorrow if he doesn't have any withdrawals
[2019-12-01 13:06] LABS: Basophils # (A) 0.1 k/uL (0-0.2); Basophils % (A) 1 %; Eosinophils # (A) 0.2 k/uL (0-0.7); Eosinophils % (A) 2 %; HCT 40.8 % (39.0-53.0); HGB 13.4 gm/dL (13.0-17.5); Lymphocytes # (A) 1.4 k/uL (1.0-4.8); Lymphocytes % (A) 14 %; MCH 31.3 pg (25.0-35.0); MCHC 32.9 g/dL (31.0-37.0); Mean Platelet Volume 7.7; Monocytes # (A) 0.4 k/uL (0-1.0); Monocytes % (A) 4 %; Neutrophils # (A) 7.7 k/uL (1.3-7.7); Neutrophils % (A) 78 %; Platelet Count 247 k/uL (150-450); RBC 4.29 m/uL (4.30-5.90); RDW 12.8 % (11.5-15.5)
[2019-12-01 13:17] LABS: ALT 26 U/L (4-49); AST 36 U/L (17-59); African American GFR (CKD) >90 (>60 ml/min/1.73 sqM); Albumin 3.9 g/dL (3.5-5.0); Alkaline Phosphatase 59 U/L (38-126); Anion Gap 5 mmol/L; Blood Urea Nitrogen 20 mg/dL (9-20); Calcium 8.6 mg/dL (8.4-10.2); Carbon Dioxide 29 mmol/L (22-30); Chloride 102 mmol/L (98-107); Glucose 99 mg/dL (74-99); Non-African American GFR(CKD) >90 (>60 ml/min/1.73 sqM); Sodium 136 mmol/L (137-145); Total Bilirubin 0.8 mg/dL (0.2-1.3); Total Protein 6.4 g/dL (6.3-8.2)
--- NOTE | 2019-12-01 14:30 | P.CN ---
Psychiatric Consult - . Consult date: 12/01/19 Consult:: IDENTIFYING DATA: He is a 59-year-old male who has history of an alcohol use disorder. He presented to the ED on 11/30/19 compliant that he was "not feeling good, week and feeling depressed and experiencing suicidal thoughts . The EPS nurse evaluated him yesterday and recommended medical admission with a history of complicated withdrawal. The hospitalist submitted a consult after he was admitted to the medical floor. HISTORY OF PRESENT ILLNESS: I reviewed the medical record, interviewed the patient and spoke to the hospitalist. He is known to psychiatry service from his admission last year. He was initially admitted August with depression, suicidal ideation and history of alcohol use disorder. He experienced worsening tremors, withdrawal symptoms and accelerated hypertension and we transferred him to the medical unit for treatment of impending DTs. After he was medically stabilized she was transferred back to the psychiatric unit and discharged on 09/29/2019 with the diagnoses of alcohol use disorder severe, opiate use disorder severe, opiate withdrawal, alcohol withdrawal, and a mood disorder secondary to alcohol and opiate use disorder. He alleged that he followed through with weekly therapy sessions at [facility]. However he relapsed to alcohol and was on a "5 day sanon" prior to his presentation to the ED. He was drinking approximately 1/2 gallon of vodka per day. He presented to the ED because to experience increasing depression and thoughts of suicide. He again talked about the stress of being the medical decision-maker for his terminally ill son. He was also briefly responsible for caring to his other sons and one daughter. He perseverated about his distress over his son, his alcohol use and his "need to talk to somebody" when he becomes distress. He described mild withdrawal symptoms including tremor, insomnia, nausea and anxiety. He was not tachycardia(pulse 90), agitated or experience visual, tactile or auditory. hallucinations. PAST PSYCHIATRIC HISTORY: Other than the 2 admissions to our unit in 2019 he was admitted briefly to [facility] in 2018. PAST MEDICAL HISTORY: Hepatitis C. ALLERGIES: Cyclobenzaprine. SUBSTANCE USE HISTORY: He began using drugs when he was 14 years old. He began abusing Tylenol with Codeine when he was in her 20s and gradually transitioned to heroin. He has been drinking since adolescence and has been in multiple substance abuse treatment programs for both alcohol and opiate use. As mentioned above, he has been in the methadone program at [facility] for approximately 10 years. The highest dose prescribed with 100 mg per day. At one point during treatment he was allowed take home doses of methadone but lost the privilege because of his alcohol use problems. FAMILY PSYCHIATRIC/SUBSTANCE USE HISTORY: He described a significant history of alcohol use problems in his family involving his sister, mother, uncle and grandparents. SOCIAL HISTORY: His born and raised in the [place] to an intact family. He has 3 sisters. He was never but has one child out of wedlock. The mother relinquished custody when the child was 2 years old. He is currently unemployed. He lives in the basement of his family's home. 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 He made eye contact and attended to the interview. He had no distinguishing features or prominent physical abnormalities. He had a anxious facial expression. He was alert and oriented to person, place and time. He showed psychomotor retardation but no abnormal appearance. He was not shaking or tremulous. His speech was spontaneous with decreased rate and volume. His affect was depressed and anxious but stable and appropriate. He described wishes but denied suicidal ideation or homicidal ideation. He expressed feelings of hopelessness, helplessness and worthlessness. He ruminated about his son and his persistent opiate use problems. He did not express ideas reference, paranoid ideation, magical ideation or delusions. His thinking was abstract but associations were coherent and logical. He denied hallucinations and did not appear to responding to internal stimuli. Global impression of intellect is average. He is aware of his substance abuse problems and need for continued treatment. IMPRESSIONS: Alcohol withdrawal, rule out alcohol withdrawal delirium, alcohol use disorder severe, opiate use disorder severe, lack of income PLAN: Discontinue the one-to-one sitter. Transfer to the psychiatric unit when medically stable. 12/01/19 14:04 12/01/19 14:28
[2019-12-01] MEDS: THIAMINE 100 MG TAB PO SCH (17:19)
[2019-12-01 19:18] LABS: Hepatitis A Antibody IgM Non-Reactive (Non-Reactive); Hepatitis B Core IgM Non-Reactive (Non-Reactive); Hepatitis B Surface Antigen Non-Reactive (Non-Reactive); Hepatitis C IgG Antibody Reactive (Non-Reactive)
[2019-12-01] MEDS: FAMOTIDINE 20 MG TAB PO SCH (20:40)
[2019-12-02] MEDS: LORazepam 2 MG/ML INJ IV PRN ×5 (01:57→22:37)
[2019-12-02] MEDS: SODIUM CHLORIDE 0.9% 1,000 ML IV SCH ×2 (02:02→21:11)
[2019-12-02] MEDS: NICOTINE 7MG/24HR PATCH TRANSDERM SCH (09:27)
[2019-12-02] MEDS: METOPROLOL TARTRATE 25 MG TAB PO SCH ×2 (09:27→19:39)
[2019-12-02] MEDS: THIAMINE 100 MG TAB PO SCH ×2 (09:27→16:10)
[2019-12-02] MEDS: FAMOTIDINE 20 MG TAB PO SCH ×2 (09:27→19:39)
--- NOTE | 2019-12-02 16:11 | P.PN ---
Subjective Progress Note Date: 12/02/19 Principal diagnosis: 59-year-old male was admitted to medical floor for management of alcohol withdrawal. Patient actually came to ER with depression and possible suicidal ideation although he denied any suicidal ideations to my eye to the psychiatric rest and psychiatrist valid the patient and discontinuing sitter. Patient last drinkwas on Saturday but again patient said she is not sure patient is not a reliable historian patient was using crack cocaine patient used to use IV drugs in the past to smoke. Patient denied any complaints at this time. During his previous hospitalization to psychiatric floor there was a concern about alcohol withdrawal and the patient has to be transferred to medical floor because of which are the psychiatrist has concerns of having these alcohol withdrawals again because of which will monitor him overnight if he doesn't have any signifi cant alcohol withdrawals patient will be transferred to psychiatric floor tomorrow. Patient has been binge drinking quit alcohol started drinking about a week ago didn't support one and half pint of alcohol a day. As mentioned above patient is not a very reliable historian because of his memory issues from chronic alcoholism as well as psychiatric issues 12/02/2019 Patient is lying in bed and continues to have some mild nausea with shaking and unsteady gait today. Patient is maintained on CIWA and requiring Ativan. Patient was seen and evaluated by psychiatry and will be going to the inpatient psychiatric unit once stabilized and medically cleared. Patient currently denies any suicidal ideation or thoughts of harming himself or others. Patient denies any chest pain, shortness of breath, or palpitations. Patient is afebrile. Patient denies any vomiting but is having occasional nausea and not much of an appetite at this time. Will continue to monitor closely. Objective - Vital Signs Vital signs: Vital Signs Temp 97.9 F 12/02/19 15:00 Pulse 66 12/02/19 15:00 Resp 16 12/02/19 15:00 BP 176/89 12/02/19 15:00 Pulse Ox 95 12/02/19 15:00 Intake & Output 12/01/19 12/02/19 12/02/19 18:59 06:59 18:59 Intake Total 600 Balance 600 Weight 72.575 kg Intake: IV 600 Sodium Chloride 0.9% 1, 600 000 ml @ 75 mls/hr IV . [id number] [facility] Rx#:[id number] Other: # Voids 1 - Exam GENERAL: The patient is alert and oriented x3, not in any acute distress. Well developed, well nourished. HEENT: Pupils are round and equally reacting to light. EOMI. No scleral icterus. No conjunctival pallor. Normocephalic, atraumatic. No pharyngeal erythema. No thyromegaly. CARDIOVASCULAR: S1 and S2 present. No murmurs, rubs, or gallops. PULMONARY: Chest is clear to auscultation, no wheezing or crackles. ABDOMEN: Soft, nontender, nondistended, normoactive bowel sounds. No palpable organomegaly. MUSCULOSKELETAL: No joint swelling or deformity. EXTREMITIES: No cyanosis, clubbing, or pedal edema. NEUROLOGICAL: Gross neurological examination did not reveal any focal deficits. SKIN: No rashes. - Labs CBC & Chem 7: 12/01/19 12:46 12/01/19 12:46 Labs: Abnormal Lab Results - Last 24 Hours (Table) 12/01/19 Range/Units 12:46 Hep C IgG Ab Reactive H (Non-Reactive) Assessment and Plan Assessment: -alcohol withdrawal: Patient will be monitored will be treated accordingly will follow CIWA protocol and Ativan for withdrawal. -alcohol abuse: Counseling was provided -crack cocaine use counseling was provided since he had history of IV drug use. Hepatitis C IgG positive -Hypertension: Continue with metoprolol -GI prophylaxis with Protonix -depression: Patient seen and evaluated by psychiatry and will be discharged to inpatient psych once medically cleared. Plan: Recommend to maintain CIWA at this time and monitor closely for alcohol withdrawal. Encourage the patient to increase oral intake as tolerated and increase activity as tolerated. Will continue to monitor closely. Sitter was discontinued as patient is not suicidal at this time. Further recommendations to follow. Possible discharge in the a.m. to inpatient psychiatric facility.
[2019-12-03] MEDS: LORazepam 2 MG/ML INJ IV PRN ×4 (02:26→10:08)
[2019-12-03] MEDS: FAMOTIDINE 20 MG TAB PO SCH ×2 (09:32→21:26)
[2019-12-03] MEDS: THIAMINE 100 MG TAB PO SCH ×2 (09:34→17:01)
[2019-12-03] MEDS: NICOTINE 7MG/24HR PATCH TRANSDERM SCH (09:34)
[2019-12-03] MEDS: METOPROLOL TARTRATE 25 MG TAB PO SCH ×2 (09:34→21:26)
[2019-12-03] MEDS ORDERED: LORazepam 1 MG TAB PO PRN (12:59)
--- NOTE | 2019-12-03 13:54 | P.CON ---
Consult Note - . Consult date: 12/03/19 Assessment/Plan:: Clinical Problems: Alcohol withdrawal, alcohol use disorder severe, unspecified depressive disorder, rule out alcohol abuse depressive disorder, rule out major depressive disorder Interim history: Due to medical record and interviewed the patient. He remains on medicine unit for management of acute alcohol withdrawal. He complains of alcohol withdrawal symptoms including nausea, vomiting, diarrhea, sweating and tremulousness. He has light and sound sensitivity but denied experiencing auditory or visual hallucinations. He is not had a alcohol withdrawal seizure and denied periods of confusion suggestive of delirium. His CIWA scores have ranged from 0-9 indicating minimal to moderate alcohol withdrawal symptoms. He received 1 mg of Ativan IV yesterday and this morning. Mental status exam: He presented as a thin somewhat disheveled appearing elderly man who was pleasant on approach. He insists that we keep the lights off during the interview. He was laying curled in a position on his bed. He made eye contact and appeared to attend to the interview. He had a slight tremor but was not restless. His speech was spontaneous with decreased volume and rhythm. His affect was depressed. He expressed feelings of hopelessness, helplessness and worthlessness.. He denied suicidal ideation without intent or plan. He did not express ideas reference, paranoid ideation or delusional thoughts. His thinking was concrete but his associations are coherent and goal directed. He denied hallucinations and did not appear to be responding to internal stimuli. Assessment: He has minimal to moderate alcohol withdrawal symptoms uncomplicated by delirium or seizures. Plan: Transfer to the psychiatric unit when medically stable.
[2019-12-03] MEDS: chlordiazePOXIDE 25 MG CAP PO SCH ×2 (14:34→21:26)
--- NOTE | 2019-12-03 15:49 | P.PN ---
Subjective Progress Note Date: 12/03/19 Principal diagnosis: 59-year-old male was admitted to medical floor for management of alcohol withdrawal. Patient actually came to ER with depression and possible suicidal ideation although he denied any suicidal ideations to my eye to the psychiatric rest and psychiatrist valid the patient and discontinuing sitter. Patient last drinkwas on Saturday but again patient said she is not sure patient is not a reliable historian patient was using crack cocaine patient used to use IV drugs in the past to smoke. Patient denied any complaints at this time. During his previous hospitalization to psychiatric floor there was a concern about alcohol withdrawal and the patient has to be transferred to medical floor because of which are the psychiatrist has concerns of having these alcohol withdrawals again because of which will monitor him overnight if he doesn't have any signifi cant alcohol withdrawals patient will be transferred to psychiatric floor tomorrow. Patient has been binge drinking quit alcohol started drinking about a week ago didn't support one and half pint of alcohol a day. As mentioned above patient is not a very reliable historian because of his memory issues from chronic alcoholism as well as psychiatric issues 12/02/2019 Patient is lying in bed and continues to have some mild nausea with shaking and unsteady gait today. Patient is maintained on CIWA and requiring Ativan. Patient was seen and evaluated by psychiatry and will be going to the inpatient psychiatric unit once stabilized and medically cleared. Patient currently denies any suicidal ideation or thoughts of harming himself or others. Patient denies any chest pain, shortness of breath, or palpitations. Patient is afebrile. Patient denies any vomiting but is having occasional nausea and not much of an appetite at this time. Will continue to monitor closely. 12/03/2019 In follow-up today patient states that he continues to have some mild shaking and no reports of nausea at this time. Ativan is being discontinued and Librium will be ordered. Patient is having some mild back pain and Toradol will be ordered. Patient being followed by psychiatry and will be going to inpatient psych possibly tomorrow. Patient denies any suicidal ideation at this time. No reports of chest pain or palpitations. Patient is afebrile. No reports of nausea or vomiting and is tolerating diet. Objective - Vital Signs Vital signs: Vital Signs Temp 98.2 F 12/03/19 08:29 Pulse 82 12/03/19 08:29 Resp 16 12/03/19 11:49 BP 154/81 12/03/19 09:30 Pulse Ox 96 12/03/19 01:08 Intake & Output 12/02/19 12/03/19 12/03/19 18:59 06:59 18:59 Intake Total 400 Balance 400 Intake: Oral 400 Other: Voiding Method Toilet Toilet Urinal Urinal # Voids 1 2 2 - Exam GENERAL: The patient is alert and oriented x3, not in any acute distress. Well developed, well nourished. HEENT: Pupils are round and equally reacting to light. EOMI. No scleral icterus. No conjunctival pallor. Normocephalic, atraumatic. No pharyngeal erythema. No thyromegaly. CARDIOVASCULAR: S1 and S2 present. No murmurs, rubs, or gallops. PULMONARY: Chest is clear to auscultation, no wheezing or crackles. ABDOMEN: Soft, nontender, nondistended, normoactive bowel sounds. No palpable organomegaly. MUSCULOSKELETAL: No joint swelling or deformity. EXTREMITIES: No cyanosis, clubbing, or pedal edema. NEUROLOGICAL: Gross neurological examination did not reveal any focal deficits. SKIN: No rashes. - Labs CBC & Chem 7: 12/01/19 12:46 12/01/19 12:46 Assessment and Plan Assessment: -alcohol withdrawal: Will continue to monitor for signs of withdrawal. Mild shaking at times noted. Librium is being started. -alcohol abuse: Counseling was provided -crack cocaine use counseling was provided since he had history of IV drug use. Hepatitis C IgG positive -Hypertension: Continue with metoprolol -GI prophylaxis with Protonix -depression: psychiatry following and will be discharged to inpatient psych tomorrow. Plan: Recommend to monitor closely for alcohol withdrawal. Librium is being ordered. Ativan discontinued. Encourage the patient to increase oral intake as john erated and increase activity as tolerated. Will continue to monitor closely. Psychiatry following. Further recommendations to follow. Probable discharge in the a.m. to inpatient psychiatric facility if a bed is available.
[2019-12-03] MEDS: KETOROLAC 30 MG/ML 1 ML VIAL IVP SCH ×2 (17:01→23:11)
[2019-12-03] MEDS: SODIUM CHLORIDE 0.9% 1,000 ML IV SCH ×2 (19:36→23:11)
[2019-12-04] MEDS: KETOROLAC 30 MG/ML 1 ML VIAL IVP SCH (05:14)
[2019-12-04 07:29] VITALS: BP 162/94; PULSE 97; RESP 15; TEMP 97.5
[2019-12-04] MEDS: FAMOTIDINE 20 MG TAB PO SCH (08:52)
[2019-12-04] MEDS: METOPROLOL TARTRATE 25 MG TAB PO SCH (08:52)
[2019-12-04] MEDS: NICOTINE 7MG/24HR PATCH TRANSDERM SCH (08:52)
[2019-12-04] MEDS: THIAMINE 100 MG TAB PO SCH (08:53)
[2019-12-04] MEDS: chlordiazePOXIDE 25 MG CAP PO SCH (08:53)
== END 2019-12-04 12:39 | DRG 897 ==
LOC: EC 21:17 → 4SSUR 12-01 05:17
PROVIDERS: ADMIT Hospitalist; ATTEND Hospitalist
DX: F10.239 Alcohol dependence with withdrawal, unspecified (principal); F17.200 Nicotine dependence, unspecified, uncomplicated; F32.9 Major depressive disorder, single episode, unspecified; F41.9 Anxiety disorder, unspecified; F90.9 Attention-deficit hyperactivity disorder, unspecified type; F14.90 Cocaine use, unspecified, uncomplicated; B19.20 Unspecified viral hepatitis C without hepatic coma; I10 Essential (primary) hypertension; Z79.899 Other long term (current) drug therapy; Z80.0 Family history of malignant neoplasm of digestive organs; Z98.890 Other specified postprocedural states; Z80.3 Family history of malignant neoplasm of breast; Z88.8 Allergy status to other drugs, medicaments and biological substances
CPT/HCPCS: 80053; 80074; 82075; 85025; 99285

== ENCOUNTER 2019-12-04 12:51 | Inpatient (IN) | payer MEDICAID ==
[2019-12-04] MEDS ORDERED: MAGNESIUM HYDROXIDE 2,400 MG/10 ML CUP PO PRN (12:54)
[2019-12-04] MEDS ORDERED: MAG HYDROX/AL HYDROX/SIMETH 30 ML CUP PO PRN (12:54)
[2019-12-04] MEDS ORDERED: ZIPRASIDONE 20 MG VIAL IM PRN (12:54)
[2019-12-04] MEDS: LORazepam 1 MG TAB PO PRN ×2 (14:04→21:06)
--- NOTE | 2019-12-04 14:40 | P.HP ---
Psychiatric H&P - . H&P Date: 12/04/19 History & Physical: Allergies Allergy/AdvReac Type Severity Reaction Status Date / Time cyclobenzaprine HCl Allergy Rash/Hives Verified 11/30/19 23:28 From Flexeril Vital Signs Temp 97.5 F L 12/04/19 13:28 Pulse 71 12/04/19 13:28 Resp 18 12/04/19 13:28 BP 161/81 12/04/19 13:28 Pulse Ox 98 12/04/19 13:28 Intake & Output 12/03/19 12/04/19 12/04/19 18:59 06:59 18:59 Weight 72.57 kg 12/04/19 14:12 IDENTIFYING DATA: Patient is a 59-year-old male with a chronic history of alcohol use disorder. HISTORY OF PRESENT ILLNESS: Patient presented to the hospital on 11/30/19 with the compliant that he was feeling unwell was experienced weakness, and depressed with suicidal thoughts. The EPS nurse evaluated him yesterday and recommended medical admission with a history of complicated withdrawal. The hospitalist submitted a consult after he was admitted to the medical floor. He is known to psychiatry service from his admission last year 4 alcohol and opioid use along with depression . He experienced worsening tremors, withdrawal symptoms and accelerated hypertension and we transferred him to the medical unit for treatment of impending DTs at that time in August when he was last admitted. Patient states that he followed through with weekly therapy sessions at [facility]. However he relapsed to alcohol and was on a "5 day sanon" prior to his presentation to the ED. He was drinking approxima a fifth of vodka per day. He presented to the ED because to experience increasing depression and thoughts of suicide. Patient spoke about dealing with stressors at home and using alcohol as an "escape" from his stressors and states that his son has been experiencing multiple medical problems and was on dialysis. He perseverated about his distress over his son, his alcohol use and stated that he was in rehab "all summer". At this time patient describes mild withdrawal symptoms including mild shaking in his hands however denies any other symptoms and denies any seizures or any auditory hallucinations. Vital signs are reviewed. Patient admits to occasional heroin use starting approximately $20 at a time. At this time patient denies any tiffani tory or visual hallucinations and does not endorse any paranoia or delusions. He denies any suicidal or homicidal ideations intent or plan. Patient admits to prominent anxiety during the day. PAST PSYCHIATRIC HISTORY: Other than the 2 admissions to our unit in 2019 he was admitted briefly to [facility] in 2018. PAST MEDICAL HISTORY: Hepatitis C. ALLERGIES: As per EMR SUBSTANCE USE HISTORY: He began using drugs when he was 14 years old. He began abusing Tylenol with Codeine when he was in her 20s and gradually transitioned to heroin. He has been drinking since adolescence and has been in multiple substance abuse treatment programs for both alcohol and opiate use. As mentioned above, he has been in the methadone program at [facility] for approximately 10 years. The highest dose prescribed with 100 mg per day. At one point during treatment he was allowed take home doses of methadone but lost the privilege because of his alcohol use problems. FAMILY PSYCHIATRIC/SUBSTANCE USE HISTORY: He described a significant history of alcohol use problems in his family involving his sister, mother, uncle and grandparents. SOCIAL HISTORY: [place] intact family. He has 3 sisters. He was never but has one child out of wedlock. The mother relinquished custody when the child was 1 years old. He is currently unemployed. He lives in the basement of his family's home. 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 She is dressed in hospital gown unshaven. He was alert and oriented to person, place and time. He showed no psychomotor retardation but no abnormal appearance. He had mild shaking In his hands bilaterally. . His speech was spontaneous with decreased rate and volume. His affect was depressed and anxious but stable and appropriate. He denied suicidal ideation or homicidal ideation. He did not express ideas reference, paranoid ideation, magical ideation or delusions. His thinking was abstract but associations were coherent and logical. He denied hallucinations and did not appear to responding to internal stimuli. Intellect is average. Patient's strength is that he is resilient, weaknesses that he has poor coping skills and is impulsive. IMPRESSIONS: Depressive disorder unspecified, rule out secondary to substance use Anxiety disorder unspecified. Alcohol use disorder severe Opiate use disorder Nicotine dependence PLAN: -Patient is admitted under voluntary status to [facility] for stabilization of psychiatric symptoms and safety. Patient signed adult voluntary form and medication consent and is placed in patient's chart. -Medications : Will start patient on Effexor 37.5 mg daily for mood/anxiety, trazodone 100 mg daily at bedtime for insomnia/mood. Will also start BuSpar 10 mg twice a day for anxiety. -Ativan and Geodon PRN for agitation/aggression -Started thiamine, MVM for etoh use -CIWA protocol with Ativan PRN for ETOH withdrawal. Vital signs reviewed. -Patient was counselled on substance abuse and desired to cut back on use. We'll continue speaking with patient about different options for substance use disorder as at this time patient is declining rehab. -Patient was informed of the risks, benefits and side effects of the medication and patient verbally consented to taking the medications. Patient signed med consent form and was placed in chart. -Internal Medicine consult to perform medical evaluation and physical. -NRT - nicotine patch -SW on board for discharge planning. Encourage patient to participate in groups to work on coping skills. 12/04/19 14:29
--- NOTE | 2019-12-04 14:41 | P.DS ---
Providers Date of admission: 12/04/19 13:15 Expected date of discharge: 12/04/19 Attending physician: Silvestre Morin MD Consults: 12/04/19 12:54 Consult Physician Routine Consulting Provider: Sky Manzano Consult Reason/Comments: medical management Do you want consulting provider notified?: Yes Primary care physician: [facility] Course: Final diagnosis Alcohol withdrawal Alcohol abuse Chronic cocaine use Hepatitis C Hypertension GI prophylaxis Depression Discharge disposition Patient is being discharged in stable condition with guarded prognosis to the inpatient psychiatric unit. Total time taken is 35 minutes History of present illness This is a 59-year-old male who was recently admitted for alcohol withdrawal and was being closely monitored. Was maintained on the CIWA protocol. Upon admission patient had reports of depression with possible suicidal ideation and was evaluated and seen by psychiatrist. Psychiatry recommended inpatient admission once medically stable. Today patient is medically stable and clear for discharge to the inpatient psychiatric facility. Denies any chest pain, shortness of breath, or palpitations. Patient is afebrile. Patient denies any nausea or vomiting and is tolerating diet. On exam vital signs are stable. Cardio S1, S2 are present. Respiratory shows clear to auscultation. Abdomen is soft and nontender. Nervous system shows no focal deficits. Please refer to medication reconciliation sheet for a list of medications. Patient Condition at Discharge: Stable Plan - Discharge Summary Discharge Rx Participant: No New Discharge Prescriptions: No Action Metoprolol Tartrate 25 mg PO BID Nicotine 7Mg/24Hr Patch [Habitrol] 1 patch TRANSDERM DAILY patch chlordiazePOXIDE HCl [Librium] 25 mg PO TID PRN #12 cap PRN Reason: Alcohol Withdrawal Famotidine [Pepcid] 20 mg PO BID tab Thiamine [Vitamin B-1] 100 mg PO BID-W/MEALS 30 Days #60 tab Discharge Medication List Metoprolol Tartrate 25 mg PO BID 11/30/19 [History] Famotidine [Pepcid] 20 mg PO BID tab 12/04/19 [Rx] Nicotine 7Mg/24Hr Patch [Habitrol] 1 patch TRANSDERM DAILY patch 12/04/19 [Rx] Thiamine [Vitamin B-1] 100 mg PO BID-W/MEALS 30 Days #60 tab 12/04/19 [Rx] chlordiazePOXIDE HCl [Librium] 25 mg PO TID PRN #12 cap 12/04/19 [Rx]
[2019-12-04] MEDS: MULTIVITAMINS, THERA 1 EACH TAB PO SCH (17:07)
[2019-12-04] MEDS: busPIRone HCl 10 MG TAB PO SCH ×2 (17:07→21:06)
[2019-12-04] MEDS: FOLIC ACID 1 MG TAB PO SCH (17:08)
[2019-12-04] MEDS: ACETAMINOPHEN TAB 325 MG TAB PO PRN ×2 (17:08→18:09)
[2019-12-04] MEDS: FAMOTIDINE 20 MG TAB PO SCH (21:02)
[2019-12-04] MEDS: traZODone HCL 100 MG TAB PO SCH (21:02)
[2019-12-04] MEDS: THIAMINE 100 MG TAB PO SCH (21:02)
[2019-12-05] MEDS: MULTIVITAMINS, THERA 1 EACH TAB PO SCH (08:20)
[2019-12-05] MEDS: NICOTINE 7MG/24HR PATCH TRANSDERM SCH (08:20)
[2019-12-05] MEDS: THIAMINE 100 MG TAB PO SCH ×2 (08:21→20:52)
[2019-12-05] MEDS: FAMOTIDINE 20 MG TAB PO SCH ×2 (08:21→20:52)
[2019-12-05] MEDS: busPIRone HCl 10 MG TAB PO SCH ×2 (08:21→20:52)
[2019-12-05] MEDS: METOPROLOL TARTRATE 25 MG TAB PO SCH (08:21)
[2019-12-05] MEDS: VENLAFAXINE HCL 37.5 MG TAB PO SCH (08:21)
[2019-12-05] MEDS: FOLIC ACID 1 MG TAB PO SCH (08:21)
[2019-12-05] MEDS: LORazepam 1 MG TAB PO PRN ×3 (08:23→22:31)
[2019-12-05 09:25] LABS: Cholesterol 173 mg/dL (<200); HDL Cholesterol 67 mg/dL (40-60); LDL Cholesterol,Calculated 79 mg/dL (0-99); Triglycerides 137 mg/dL (<150)
--- NOTE | 2019-12-05 14:23 | P.PN ---
Progress Note - Text Progress Note Date: 12/05/19 Clinical Problems: Unspecified depressive disorder, rule out alcohol induced mood disorder, alcohol use disorder severe, opiate use disorder, tobacco use Interim history: I reviewed the medical record and interviewed the patient. He is transferred from medicine unit yesterday where he was treated for acute alcohol withdrawal uncomplicated by delirium or seizures. He currently has "mild" alcohol withdrawal symptoms such as a slight tremor, anxiety but no agitation, sweating or tactile, auditory or visual disturbances. She denied feeling depressed or having thoughts of or suicide. He denied side effects to his current medications. He attended one therapeutic groups since admission and slept 6 hours last night. Mental status exam: He presented as a pale appearing 59-year-old male who was resting comfortably in his room. He made eye contact and attended to the interview. He had a fine hand tremor. Speech was spontaneous with normal rate and rhythm. His affect was blunted but stable and appropriate. He denied suicidal ideation, wishes or homicidal ideation. He denied feeling hopeless, helpless or worthless. He did not express ideas reference, paranoid ideation or delusions. His thinking was concrete. Associations were coherent and logical. He denied hallucinations and did not appear to be responding to internal stimuli. Assessment: He has minimal signs or symptoms of alcohol withdrawal. He is slightly anxious but denying current depression or suicidal ideation. Plan: Continue current treatment plan. Continue [facility] monitoring of alcohol withdrawal symptoms. Continue BuSpar 10 mg grams twice a day, Habitrol, this will 100 mg at bedtime and Effexor 37.5 mg daily. 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
[2019-12-05] MEDS: LORATADINE 10 MG TAB PO PRN (14:53)
[2019-12-05] MEDS: MENTHOL (NICE) LOZENGE MUCOUS MEM PRN ×2 (15:22→22:30)
[2019-12-05] MEDS: ACETAMINOPHEN TAB 325 MG TAB PO PRN (19:00)
[2019-12-05 19:48] LABS: Hemoglobin A1C 4.9 % (4.0-6.0)
[2019-12-05] MEDS: traZODone HCL 100 MG TAB PO SCH (21:30)
--- NOTE | 2019-12-05 23:01 | P.CON ---
Consult Note - . Consult date: 12/05/19 Assessment/Plan:: Reason for consult -medical evaluation . Mr. Rosado is a 59-year-old male with a past medical history of hypertension, hepatitis C, alcohol abuse who is currently in the psychiatric unit for depression and suicidal thoughts. Patient was recently admitted to the hospital for alcohol intoxication and withdrawal. At the time of admission patient was having delirium tremens and his blood pressure was high so he was in the medical unit. He was maintained on CIWA protocol and his symptoms resolved after which he was transferred to the psychiatric unit. Today the patient states that he is doing okay. He mentions that he quit alcohol on and off but the recent episode of intoxication was because he was worried about his 33-year-old son who has liver and kidney failure and is at [facility]. Patient denies having any active complaints. He denies having any chest pain or palpitations. No cough or difficulty breathing. No abdominal pain nausea vomiting or diarrhea. No dysuria or hematuria. REVIEW OF SYSTEMS: NEURO:No c/o weakness of the extremties, No facial droop, No speech abnormalities. VASCULAR: no edema HEMATOLOGIC: No history of easy bleeding and bruising . No recent infections . RESPIRATORY: No cough, No SOB, No chest discomfort. IMMUNE: No infections INTEGUMENT: no rashes OPHTHALMOLOGIC: No blurry vision and no eye discharge : No dysuria or hematuria CARDIAC: No chest pain , shortness of breath , paroxysmal nocturnal dyspnea MUSCULOSKELETAL : No Aches or pains in the joints or muscles. GI: No abdominal pain, Nausea or vomiting. No constipation or diarrhea. 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 Past Anesthesia/Blood Transfusion Reactions: No Reported Reaction Smoking Status: Current every day smoker - Past Family History Mother Family Medical History: Cancer Additional Family Medical History / Comment(s): COLON CANCER. Sister(s) Family Medical History: Cancer Additional Family Medical History / Comment(s): COLON, BREAST Medications and Allergies Home Medications Medication Instructions Recorded Confirmed Type Metoprolol Tartrate 25 mg PO BID 11/30/19 12/04/19 History Famotidine [Pepcid] 20 mg PO BID tab 12/04/19 12/04/19 Rx Nicotine 7Mg/24Hr Patch [Habitrol] 1 patch TRANSDERM DAILY patch 12/04/19 12/04/19 Rx Thiamine [Vitamin B-1] 100 mg PO BID-W/MEALS 30 Days #60 12/04/19 12/04/19 Rx tab chlordiazePOXIDE HCl [Librium] 25 mg PO TID PRN #12 cap 12/04/19 12/04/19 Rx Allergies Allergy/AdvReac Type Severity Reaction Status Date / Time cyclobenzaprine HCl Allergy Rash/Hives Verified 12/04/19 15:22 [From Flexeril] Physical Exam Vitals: Vital Signs Temp Pulse Resp BP 12/05/19 15:20 66 187/84 12/05/19 08:20 99 133/75 12/05/19 06:28 97.9 F 83 16 143/79 GEN. APPEARANCE: alert, in no apparent distress HEENT - no pallor, no icterus, No JVD or Thyromegaly. RESPIRATORY EXAM: normal lung sounds bilaterally. No wheezes or crackles CARDIOVASCULAR EXAM: regular rate, normal rhythm, normal heart sounds. GI/ABDOMINAL EXAM: soft, normal bowel sounds. EXTREMITIES EXAM: no pedal edema, joint swelling, calf tendernes NEUROLOGICAL EXAM: alert, oriented X3, no focal deficits SKIN EXAM: warm, dry, intact, normal color. Absent: rash Results Labs: Abnormal Lab Results - Last 24 Hours (Table) 12/05/19 Range/Units 08:18 HDL Cholesterol 67 H (40-60) mg/dL Thrombosis Risk Factor Assmnt - Choose All That Apply Any of the Below Risk Factors Present?: No Other Risk Factors: No Other congenital or acquired thrombophilia - If yes, enter type in comment: No Thrombosis Risk Factor Assessment Level: Very Low Risk ASSESSMENT Depressive disorder Alcohol abuse Crack cocaine use Hepatitis C Hypertension PLAN: Management of depression as per psychiatric. Patient's blood pressure is being maintained on Lopressor. Follow-up with GI for hepatitis C management as outpatient. We will follow the patient on a as needed basis. Thank you for the consult.
[2019-12-06] MEDS: FAMOTIDINE 20 MG TAB PO SCH ×2 (08:45→21:36)
[2019-12-06] MEDS: NICOTINE 7MG/24HR PATCH TRANSDERM SCH (08:45)
[2019-12-06] MEDS: busPIRone HCl 10 MG TAB PO SCH ×2 (08:45→21:36)
[2019-12-06] MEDS: VENLAFAXINE HCL 37.5 MG TAB PO SCH (08:46)
[2019-12-06] MEDS: FOLIC ACID 1 MG TAB PO SCH (08:46)
[2019-12-06] MEDS: THIAMINE 100 MG TAB PO SCH ×2 (08:46→21:36)
[2019-12-06] MEDS: MULTIVITAMINS, THERA 1 EACH TAB PO SCH (08:46)
[2019-12-06] MEDS: LORazepam 1 MG TAB PO PRN ×3 (08:46→22:50)
[2019-12-06] MEDS: METOPROLOL TARTRATE 25 MG TAB PO SCH (08:46)
[2019-12-06] MEDS: ACETAMINOPHEN TAB 325 MG TAB PO PRN (08:47)
[2019-12-06] MEDS: MENTHOL (NICE) LOZENGE MUCOUS MEM PRN (09:04)
[2019-12-06] MEDS: LORATADINE 10 MG TAB PO PRN (09:04)
--- NOTE | 2019-12-06 16:08 | P.PN ---
Progress Note - Text Progress Note Date: 12/06/19 Clinical Problems: Unspecified depressive disorder, rule out alcohol induced mood disorder, alcohol use disorder, opiate use disorder, tobacco use Interim history: I reviewed the medical record and interviewed the patient. He denied feeling depressed or having thoughts of or suicide. He feels more upbeat because his son is recovering. He is no longer on a respirator, he is eating for himself, walking and is able to communicate. After his last discharge he was unable to start Suboxone because his blood pressure was uncontrolled with diastolic of 200. He has a another appointment scheduled with Dr. Pope to be evaluated to begin Suboxone. He is hopeful because he only drinks when he is unable to obtain heroin or other opiates. He denied alcohol withdrawal symptoms. Note that he developed abdominal distress and diarrhea with Zoloft. He is denying side effects to current dose of Effexor. Mental status exam: He presented as a thin and pale appearing 5-year-old male who looked his stated age. He is pleasant and cooperative. He is able to attend to the interview. He reported a bright facial expression. He denied suicidal or homicidal ideation. His thinking was organized, coherent and goal directed. Assessment: He is much improved from admission Plan: Consider discharge on 12/07/2019. Continue current treatment and treatment plan.
[2019-12-06] MEDS: traZODone HCL 100 MG TAB PO SCH (21:37)
[2019-12-07] MEDS: busPIRone HCl 10 MG TAB PO SCH ×2 (08:33→21:45)
[2019-12-07] MEDS: NICOTINE 7MG/24HR PATCH TRANSDERM SCH (08:33)
[2019-12-07] MEDS: FOLIC ACID 1 MG TAB PO SCH (08:34)
[2019-12-07] MEDS: VENLAFAXINE HCL 37.5 MG TAB PO SCH (08:34)
[2019-12-07] MEDS: THIAMINE 100 MG TAB PO SCH ×2 (08:34→21:45)
[2019-12-07] MEDS: FAMOTIDINE 20 MG TAB PO SCH ×2 (08:34→21:45)
[2019-12-07] MEDS: MULTIVITAMINS, THERA 1 EACH TAB PO SCH (08:34)
[2019-12-07] MEDS: METOPROLOL TARTRATE 25 MG TAB PO SCH (08:34)
[2019-12-07] MEDS: LORATADINE 10 MG TAB PO PRN ×2 (08:34→21:44)
[2019-12-07] MEDS: LORazepam 1 MG TAB PO PRN (08:35)
[2019-12-07] MEDS ORDERED: cloNIDine 0.2 MG/24HR PATCH TRANSDERM SCH (12:15)
--- NOTE | 2019-12-07 14:11 | PN ---
PROGRESS NOTE DATE OF SERVICE: 12/07/2019 CHIEF COMPLAINT: The patient was depressed, he had suicide thoughts. He was initially admitted to the Medical Floor due to complications relating to alcohol withdrawal. INTERVAL HISTORY: The patient has been doing fair. He had a quiet evening last night. He has been attending groups. He functions appropriately in groups. Staff noted, as example, that he appeared attentive, concrete, high energy and appropriate. Noted that other than one CIWA score of 7 at 7:00 pm on the , his CIWA scores have been essentially zero. On the other hand, he has had elevated systolic blood pressure with his vital signs this morning at 6:42 am including BP 162/84, pulse 69 and regular, temp 98.8, respirations 18, oxygen saturation 96. It is noted that yesterday he received Ativan 1 mg at 8:46 am, 1 mg at 4:06 pm and 1 mg at 10:50 pm. This morning he received 1 mg at 8:35 am. The patient continues on Effexor and BuSpar. He appears to tolerate his medications well. MENTAL STATUS: Patient gave fairly good eye contact. Psychomotor activity was somewhat restless. He answered questions with brief responses. His thoughts were clear, coherent, and goal directed. His affect was anxious. His mood somewhat down. He voiced no thoughts of harm to self or others. He appeared somewhat distressed. There was no indication of thought disorder. Cognition was clear. ASSESSMENT: I will continue the current diagnosis and treatment plan. We will continue to engage the patient in individual and group therapeutic activities. I will continue psychotropic medications the same including Effexor 37.5 mg a day, BuSpar 10 mg twice a day, Trazodone 100 mg at bedtime. It is noted that his CIWA scores have been negligible. I will reduce his Ativan to 0.5 mg 3 times a day p.r.n. I will start the patient on Catapres 0.2 mg patch for continued signs of alcohol withdrawal, primarily elevated systolic blood pressure. The patient is out of the time period for risk for developing delirium tremens. He has not shown high risk signs including diaphoresis and elevated temperature. However, this morning at 6 in the morning, his temperature was up to 98.8 and does need to be monitored. I will have vital signs done three times a day. We will continue to focus on stabilization and discharge planning. MMODL / IJN: [id number] /
[2019-12-07] MEDS: LORazepam 0.5 MG TAB PO PRN ×2 (14:29→22:20)
[2019-12-07] MEDS: ACETAMINOPHEN TAB 325 MG TAB PO PRN (16:47)
[2019-12-07] MEDS: traZODone HCL 100 MG TAB PO SCH (21:45)
[2019-12-08] MEDS: METOPROLOL TARTRATE 25 MG TAB PO SCH (08:28)
[2019-12-08] MEDS: NICOTINE 7MG/24HR PATCH TRANSDERM SCH (08:28)
[2019-12-08] MEDS: MULTIVITAMINS, THERA 1 EACH TAB PO SCH (08:28)
[2019-12-08] MEDS: FOLIC ACID 1 MG TAB PO SCH (08:28)
[2019-12-08] MEDS: FAMOTIDINE 20 MG TAB PO SCH ×2 (08:29→21:08)
[2019-12-08] MEDS: THIAMINE 100 MG TAB PO SCH ×2 (08:29→21:08)
[2019-12-08] MEDS: VENLAFAXINE HCL 37.5 MG TAB PO SCH (08:29)
[2019-12-08] MEDS: busPIRone HCl 10 MG TAB PO SCH ×2 (08:29→21:08)
[2019-12-08] MEDS: LORazepam 0.5 MG TAB PO PRN ×3 (08:32→21:10)
[2019-12-08] MEDS: LORATADINE 10 MG TAB PO PRN (08:32)
--- NOTE | 2019-12-08 10:22 | PN ---
PROGRESS NOTE DATE OF SERVICE: 12/08/2019. CHIEF COMPLAINT: The patient was depressed, he had suicide thoughts. He was initially admitted to the medical floor due to complications related to alcohol withdrawal. INTERVAL HISTORY: Patient has been doing fair. He had a quiet evening last night. He comes out on the unit. He will interact some with others, though he tends to have a quiet manner. He has been attending groups and shows appropriate interactions there. He slept fairly well last night. Today he has been up, he comes out in the day area. His mood is fair. He is focused on discharge. It is noted that his vital signs have been somewhat unstable. He had a blood pressure last evening of 186/99. His pressures have been fluctuating, though most of the time his systolic pressure is elevated to 150 or above. Yesterday at 6:42 am in the morning, his temperature had gone up to 98.8, but since then, it has stabilized. His last vital sign readings at 0700 this morning included BP 149/75, pulse 75 and regular, temperature 98.5, respirations 16, oxygen saturation 99. Patient tolerates his psychotropic medications. Patient indicated today that his recent drinking pattern has been about 2 times a week. He says that overall he drinks intermittently, though not on a daily basis. He says he may go up to 2 weeks without drinking. He seemed to indicate that a twice a week drinking pattern would have been common for him at least over the last month or 2. I discussed with the patient that would be a drinking pattern that would put him at risk for DTs or seizures in withdrawal. The patient indicates that he has not had any past issues with withdrawal related DTs or seizures. He also has tolerated the initiation of Catapres patch in addition to his Lopressor. MENTAL STATUS EXAM: Patient gave fairly good eye contact. Psychomotor activity was slowed. Speech was monotone. He answered questions with brief responses. His thoughts were clear. His affect was blunted, his mood reserved. He did not seem to be significantly distressed. There was no indication of thought disorder. Cognition was clear. ASSESSMENT: I will continue the current diagnosis and treatment plan. I had an extensive discussion with the patient regarding risks for serious withdrawal issues. Discussed with the patient that I would aim for a discharge tomorrow with their needing to monitor vital signs, especially for another day to see that he is showing some stabilization. We talked about getting him in for outpatient followup ALVERTO on discharge to continue to monitor for early withdrawal issues and also to address issues of hypertension. We will focus on stabilization and discharge planning. KANE / BETIN: [id number] /
[2019-12-08] MEDS: traZODone HCL 100 MG TAB PO SCH (21:09)
[2019-12-09 06:25] VITALS: RESP 15; TEMP 98.2
[2019-12-09] MEDS: NICOTINE 7MG/24HR PATCH TRANSDERM SCH (08:19)
[2019-12-09] MEDS: busPIRone HCl 10 MG TAB PO SCH (08:20)
[2019-12-09] MEDS: METOPROLOL TARTRATE 25 MG TAB PO SCH (08:20)
[2019-12-09] MEDS: FOLIC ACID 1 MG TAB PO SCH (08:20)
[2019-12-09] MEDS: THIAMINE 100 MG TAB PO SCH (08:20)
[2019-12-09] MEDS: MULTIVITAMINS, THERA 1 EACH TAB PO SCH (08:20)
[2019-12-09] MEDS: FAMOTIDINE 20 MG TAB PO SCH (08:20)
[2019-12-09] MEDS: VENLAFAXINE HCL 37.5 MG TAB PO SCH (08:20)
[2019-12-09] MEDS: LORATADINE 10 MG TAB PO PRN (08:21)
[2019-12-09] MEDS: LORazepam 0.5 MG TAB PO PRN (08:21)
[2019-12-09 09:14] VITALS: BP 130/64; PULSE 75
--- NOTE | 2019-12-09 11:15 | P.DS ---
Providers Date of admission: 12/04/19 13:15 Expected date of discharge: 12/09/19 Attending physician: Silvestre Morin MD Consults: 12/04/19 12:54 Consult Physician Routine Consulting Provider: Sky Manzano Consult Reason/Comments: medical management Do you want consulting provider notified?: Yes Primary care physician: Sky Manzano - Discharge Diagnosis(es) (1) Major depressive disorder, recurrent, unspecified Current Visit: Yes Status: Acute Priority: High (2) Alcohol dependence Current Visit: Yes Status: Acute Priority: High (3) History of opioid abuse Current Visit: Yes Status: Acute Priority: Medium (4) Anxiety disorder, unspecified Current Visit: Yes Status: Acute Priority: Medium (5) Nicotine dependence Current Visit: Yes Status: Acute Priority: Low Hospital Course: Admission HPI: Patient is a 59-year-old male with a chronic history of alcohol use disorder. Patient presented to the hospital on 11/30/19 with the compliant that he was feeling unwell was experienced weakness, and depressed with suicidal thoughts. The EPS nurse evaluated him yesterday and recommended medical admission with a history of complicated withdrawal. The hospitalist submitted a consult after he was admitted to the medical floor. He is known to psychiatry service from his admission last year 4 alcohol and opioid use along with depression . He experienced worsening tremors, withdrawal symptoms and accelerated hypertension and we transferred him to the medical unit for t reatment of impending DTs at that time in August when he was last admitted. Patient states that he followed through with weekly therapy sessions at [facility] [place]. However he relapsed to alcohol and was on a "5 day sanon" prior to his presentation to the ED. He was drinking approxima a fifth of vodka per day. He presented to the ED because to experience increasing depression and thoughts of suicide. Patient spoke about dealing with stressors at home and using alcohol as an "escape" from his stressors and states that his son has been experiencing multiple medical problems and was on dialysis. He perseverated about his distress over his son, his alcohol use and stated that he was in rehab "all summer". At this time patient describes mild withdrawal symptoms including mild shaking in his hands however denies any other symptoms and denies any seizures or any auditory hallucinations. Vital signs are reviewed. Patient admits to occasional heroin use starting approximately $20 at a time. At this time patient denies any auditory or visual hallucinations and does not endorse any paranoia or delusions. He denies any suicidal or homicidal ideations intent or plan. Patient admits to prominent anxiety during the day. Hospital course: Upon admission to the unit patient was initially depressed and withdrawing from alcohol. Patient was however directable and agreeable to commence treatment. Patient got along well with other patients on the unit and followed unit protocol. Patient was compliant with the medications and denied any side effects throughout hospital course. Patient was started on Effexor 37.5 mg daily for mood/anxiety. Patient was also started on BuSpar and titrated up to a dose of 15 mg twice a day for anxiety. Patient was also started on trazodone and titrated up to a dose of 100 mg daily at bedtime for insomnia/mood. Patient was placed on CIWA for alcohol withdrawal and given Ativan when necessary for signs and symptoms of withdrawal. Patient had elevated blood pressure and was started on antihypertensives and also a GI consult was placed for hepatitis who recommended that patient follow up as an outpatient once he is stable for hepatitis treatment. Patient spoke of his stressors and engaged in therapy both group and individual. Patient was also seen by medical team for history and physical exam. Throughout the course of the hospitalization patient gradually improved with regards to mood, anxiety, withdrawal symptoms, sleep and became future oriented with improved insight and judgment. On the day of discharge patient denied any suicidal or homicidal ideations intent or plan denied any auditory or visual hallucinations. Patient endorsed wanting to live for his health and his son. Patient denied any paranoia and did not endorse any delusions. Patient does have a significant history of substance abuse and was counseled on abstaining from all substances including alcohol and marijuana. Patient was offered inpatient rehab for substance abuse however patient declined at this time as he needs to take care of his son who is in the hospital. Patient was agreeable to follow up with [facility] for outpatient substance abuse treatment including AA meetings/groups and also see a provider for Suboxone. Patient was also counseled on the medications and need for regular compliance and was encouraged to follow-up with their outpatient appointment for mental health and also for primary care. Prior to discharge a family meeting will be arranged by social media analyst to answer any questions and ensure safety upon discharge. Mental status exam: General Appearance: Patient appears to be stated age is alert, directable and cooperative. Patient is in no acute distress and has fair hygiene and grooming Behavior: Patient is calmly seated without any agitated behavior. Speech: Patient's speech is fluent and nonpressured. Mood/Affect: Patient reports their mood is "better", affect is congruent and euthymic. Suicidality/Homicidality: Patient denies having any suicidal or homicidal ideation intent or plan. Perceptions: Patient denies any auditory or visual hallucinations. Though content/process: There is no evidence of any delusional thought content and thought process is linear and goal-directed. More future oriented. Memory and concentration: AOX3, grossly intact for the purposes of this session. Can spell "WORLD" backwards correctly. Judgment and insight: improved with guarded prognosis. Impression: Depressive disorder unspecified rule out substance-induced depressive disorder Alcohol dependence History of opioid abuse Anxiety disorder unspecified Nicotine dependence Plan: -Continue with discharge today as patient has improved and stabilized psychiatrically and is not currently an imminent threat to himself and/or others. -Continue medications: Effexor 37.5 mg daily for mood/anxiety, BuSpar 15 mg twice a day for anxiety, trazodone 100 mg daily at bedtime for sleep/mood. -Patient was counseled on the need for medication compliance and appropriate follow-up at mental health and also primary care for medical issues. Patient verbalized understanding and agreed. -Social work to arrange for and conduct family meeting to ensure safety upon discharge and answer any questions/concerns. Social work also to arrange for patients follow up appointments with [facility] for psychiatric care along with follow up with primary care provider. Patient was advised to follow-up with GI doctor for treatment of his hepatitis. -Patient counseled on abstaining from recreational drugs and marijuana and alcohol. Was informed/educated on the adverse effects on their physical and mental health. Patient verbally agreed and understood. Patient was offered substance abuse treatment however declined at this time. Patient claimed that he would like to do AA meetings in the community and groups/treatment at [facility] for substance abuse. Patient also will be given a list of providers for Suboxone treatment. -Patient was instructed to return to the hospital or seek immediate medical care if their psychiatric or medical symptoms do worsen or reoccur. Allergies Allergy/AdvReac Type Severity Reaction Status Date / Time cyclobenzaprine HCl Allergy Rash/Hives Verified 02/07/20 15:22 [From Flexeril] Laboratory Results Estimated Ave Glu mg/dL 94 12/05/19 08:18 Hemoglobin A1c 4.9 % (4.0-6.0) 12/05/19 08:18 Triglycerides 137 mg/dL (<150) 12/05/19 08:18 Cholesterol 173 mg/dL (<200) 12/05/19 08:18 LDL Cholesterol, Calc 79 mg/dL (0-99) 12/05/19 08:18 HDL Cholesterol 67 mg/dL (40-60) H 12/05/19 08:18 Vital Signs Temp 98.2 F 12/09/19 05:52 Pulse 75 12/09/19 08:15 Resp 15 12/09/19 05:52 BP 130/64 12/09/19 08:15 Pulse Ox 97 12/07/19 18:56 Patient Condition at Discharge: Stable Plan - Discharge Summary Discharge Rx Participant: No New Discharge Prescriptions: New busPIRone HCL [Buspar] 15 mg PO BID 28 Days tab Loratadine [Claritin] 5 mg PO Q12HR PRN tab PRN Reason: Allergy Symptoms traZODone HCL [Desyrel] 100 mg PO HS 28 Days tab Venlafaxine HCl [Effexor] 37.5 mg PO DAILY 28 Days tab Folic Acid 1 mg PO DAILY 28 Days tab Nicotine 7Mg/24Hr Patch [Habitrol] 1 patch TRANSDERM DAILY 14 Days patch Metoprolol Tartrate [Lopressor] 25 mg PO DAILY 28 Days tab Multivitamins, Thera [Multivitamin (formulary)] 1 each PO DAILY 28 Days tab Famotidine [Pepcid] 20 mg PO BID 28 Days tab Acetaminophen Tab [Tylenol] 650 mg PO Q4HR PRN tab PRN Reason: Pain/Discomfort Thiamine [Vitamin B-1] 100 mg PO BID 28 Days tab Discontinued Metoprolol Tartrate 25 mg PO BID Nicotine 7Mg/24Hr Patch [Habitrol] 1 patch TRANSDERM DAILY patch chlordiazePOXIDE HCl [Librium] 25 mg PO TID PRN #12 cap PRN Reason: Alcohol Withdrawal Famotidine [Pepcid] 20 mg PO BID tab Thiamine [Vitamin B-1] 100 mg PO BID-W/MEALS 30 Days #60 tab Discharge Medication List Acetaminophen Tab [Tylenol] 650 mg PO Q4HR PRN tab 12/09/19 [Rx] Famotidine [Pepcid] 20 mg PO BID 28 Days tab 12/09/19 [Rx] Folic Acid 1 mg PO DAILY 28 Days tab 12/09/19 [Rx] Loratadine [Claritin] 5 mg PO Q12HR PRN tab 12/09/19 [Rx] Metoprolol Tartrate [Lopressor] 25 mg PO DAILY 28 Days tab 12/09/19 [Rx] Multivitamins, Thera [Multivitamin (formulary)] 1 each PO DAILY 28 Days tab 12/09/19 [Rx] Nicotine 7Mg/24Hr Patch [Habitrol] 1 patch TRANSDERM DAILY 14 Days patch 12/09/19 [Rx] Thiamine [Vitamin B-1] 100 mg PO BID 28 Days tab 12/09/19 [Rx] Venlafaxine HCl [Effexor] 37.5 mg PO DAILY 28 Days tab 12/09/19 [Rx] busPIRone HCL [Buspar] 15 mg PO BID 28 Days tab 12/09/19 [Rx] traZODone HCL [Desyrel] 100 mg PO HS 28 Days tab 12/09/19 [Rx] Activity/Diet/Wound Care/Special Instructions: Activity and diet as tolerated. Avoid the use of street drugs and alcohol. Take all medications as prescribed. When you are in need of refills on your medications please contact your medical provider and/or outpatient psychiatrist to have this done. Please go to scheduled outpatient appointment for aftercare treatment. If symptoms return or become worse, call the crisis line at and/or go to the nearest emergency room for evaluation. Discharge Disposition: HOME SELF-CARE
[2019-12-09] MEDS ORDERED: busPIRone HCl 5 MG TAB PO SCH (21:00)
== END 2019-12-09 13:30 | disposition home or self-care (01) | DRG 885 ==
LOC: 3MHU 13:15
PROVIDERS: ADMIT Psychiatry & Neurology Psychiatry; ATTEND Psychiatry & Neurology Psychiatry
DX: F33.9 Major depressive disorder, recurrent, unspecified (principal); F10.239 Alcohol dependence with withdrawal, unspecified; R45.851 Suicidal ideations; B19.20 Unspecified viral hepatitis C without hepatic coma; F11.10 Opioid abuse, uncomplicated; F14.90 Cocaine use, unspecified, uncomplicated; F17.200 Nicotine dependence, unspecified, uncomplicated; F41.9 Anxiety disorder, unspecified; G47.00 Insomnia, unspecified; I10 Essential (primary) hypertension; G89.29 Other chronic pain; M54.9 Dorsalgia, unspecified; Z79.899 Other long term (current) drug therapy; Z88.8 Allergy status to other drugs, medicaments and biological substances; Z80.0 Family history of malignant neoplasm of digestive organs; Z80.3 Family history of malignant neoplasm of breast
CPT/HCPCS: 80061; 83036

== ENCOUNTER 2019-12-20 18:54 | Inpatient (IN) | payer OTHER ==
[2019-12-20] MEDS ORDERED: PANTOPRAZOLE 40 MG/10 ML VIAL IVP STA (19:07)
[2019-12-20] MEDS ORDERED: SODIUM CHLORIDE 0.9% 1,000 ML IV STA (19:07)
--- NOTE | 2019-12-20 19:10 | ED ---
General Adult HPI - General Chief complaint: GI Bleed Stated complaint: blood in stool Time Seen by Provider: 12/20/19 19:03 Source: patient Mode of arrival: wheelchair Limitations: no limitations - History of Present Illness Initial comments: Patient presents the ED complaining of having 3 bloody bowel movements over the past hour or so. Patient also states that he has felt slightly lightheaded while standing and slightly dyspneic with exertion this evening. Patient admits to having right upper quadrant abdominal pain, but he states that he has had the pain for several months and it is chronic and unchanged. Patient denies any other site of pain. Patient also admits to feeling somewhat nauseated. Patient denies anticoagulant medication use. Patient denies fever or chills, headache, chest pain, cough or cold symptoms, palpitations, syncope, back or flank pain, vomiting, diarrhea/constipation, rectal pain, dysuria/hematuria/urinary symp toms, leg or calf swelling or pain, or any other symptoms or complaints. Patient has a history of alcoholism, but he states that he has not drank in the past 10 days. - Related Data Previous Rx's Medication Instructions Recorded Acetaminophen Tab [Tylenol] 650 mg PO Q4HR PRN tab 12/09/19 Famotidine [Pepcid] 20 mg PO BID 28 Days tab 12/09/19 Folic Acid 1 mg PO DAILY 28 Days tab 12/09/19 Loratadine [Claritin] 5 mg PO Q12HR PRN tab 12/09/19 Metoprolol Tartrate [Lopressor] 25 mg PO DAILY 28 Days tab 12/09/19 Multivitamins, Thera [Multivitamin 1 each PO DAILY 28 Days tab 12/09/19 (formulary)] Nicotine 7Mg/24Hr Patch [Habitrol] 1 patch TRANSDERM DAILY 14 Days 12/09/19 patch Thiamine [Vitamin B-1] 100 mg PO BID 28 Days tab 12/09/19 Venlafaxine HCl [Effexor] 37.5 mg PO DAILY 28 Days tab 12/09/19 busPIRone HCL [Buspar] 15 mg PO BID 28 Days tab 12/09/19 traZODone HCL [Desyrel] 100 mg PO HS 28 Days tab 12/09/19 Allergies Allergy/AdvReac Type Severity Reaction Status Date / Time cyclobenzaprine HCl Allergy Rash/Hives Verified 12/04/19 15:22 [From Flexeril] Review of Systems ROS Statement: Those systems with pertinent positive or pertinent negative responses have been documented in the HPI. ROS Other: All systems not noted in ROS Statement are negative. 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 Past Anesthesia/Blood Transfusion Reactions: No Reported Reaction Past Psychological History: ADD/ADHD, Anxiety, Depression Smoking Status: Current every day smoker Past Alcohol Use History: Occasional - Past Family History Mother Family Medical History: Cancer Additional Family Medical History / Comment(s): COLON CANCER. Sister(s) Family Medical History: Cancer Additional Family Medical History / Comment(s): COLON, BREAST General Exam Limitations: no limitations General appearance: alert, in no apparent distress Head exam: Present: atraumatic, normocephalic Eye exam: Present: normal appearance, EOMI ENT exam: Present: mucous membranes moist Neck exam: Present: other (Trachea is in midline) Respiratory exam: Present: normal lung sounds bilaterally. Absent: respiratory distress, wheezes, rales, rhonchi Cardiovascular Exam: Present: normal rhythm, tachycardia, normal heart sounds, other (Normal radial pulses bilaterally) GI/Abdominal exam: Present: soft. Absent: distended, tenderness, guarding Rectal exam: Present: normal rectal tone, other (Dark red stool was present in rectal vault). Absent: tenderness Extremities exam: Absent: pedal edema Neurological exam: Present: alert, oriented X3. Absent: motor sensory deficit Psychiatric exam: Present: normal affect, normal mood Skin exam: Present: warm, dry, intact, normal color Course Vital Signs 12/20/19 12/20/19 18:58 20:33 Temperature 97.2 F L Pulse Rate 119 H 90 Respiratory 19 16 Rate Blood Pressure 84/50 100/63 O2 Sat by Pulse 92 L 99 Oximetry - Reevaluation(s) Reevaluation #1: 12/20/19 20:23 Case, H&P, test results and ED management thus far were discussed with Dr. Sky Manzano. He accepts hospital admission. He requests general surgery cons ultation with Dr. Guy's group. He has no further recommendations at this time. 12/20/19 20:25 Case, H&P, test results and ED management thus far were discussed with Dr. Pop (general surgery). He agrees to see the patient in consultation. He has no further recommendations at this time. 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 Patient denies development of any new symptoms while in the ED. Patient's abdomen remains soft and nontender on exam. Patient and parents are aware of the patient's test results and my discussions as above. Patient agrees with hospital admission at this time. EKG Findings - EKG Comments: EKG Findings:: Sinus tachycardia, no ectopy, ventricular rate of 115 bpm, normal LA and QRS intervals, normal QT interval, normal axis, nonspecific ST abnormality Medical Decision Making - Medical Decision Making I suspect the patient likely has a lower GI bleed given that he reports bright red blood in his stool at home. Patient has not had a bowel movement while in the ED. Patient's blood pressure and heart rate have now improved. Patient's hemoglobin is 9.1. Dr. Sky Manzano has accepted hospital admission. Dr. Pop (general surgery) has agreed to see the patient in consultation. - Lab Data Result diagrams: 12/20/19 19:18 12/20/19 19:18 Lab Results 12/20/19 12/20/19 12/20/19 Range/Units 19:18 19:18 19:18 WBC 9.7 (3.8-10.6) k/uL RBC 2.94 L (4.30-5.90) m/uL Hgb 9.1 L D (13.0-17.5) gm/dL Hct 27.9 L (39.0-53.0) % MCV 94.8 (80.0-100.0) fL MCH 30.9 (25.0-35.0) pg MCHC 32.5 (31.0-37.0) g/dL RDW 13.1 (11.5-15.5) % Plt Count 303 (150-450) k/uL Neutrophils % 73 % Lymphocytes % 19 % Monocytes % 4 % Eosinophils % 2 % Basophils % 0 % Neutrophils # 7.1 (1.3-7.7) k/uL Lymphocytes # 1.9 (1.0-4.8) k/uL Monocytes # 0.4 (0-1.0) k/uL Eosinophils # 0.2 (0-0.7) k/uL Basophils # 0.0 (0-0.2) k/uL PT 10.1 (9.0-12.0) sec INR 1.0 (<1.2) APTT 21.1 L (22.0-30.0) sec Sodium 138 (137-145) mmol/L Potassium 4.0 (3.5-5.1) mmol/L Chloride 107 (98-107) mmol/L Carbon Dioxide 21 L (22-30) mmol/L Anion Gap 10 mmol/L BUN 40 H (9-20) mg/dL Creatinine 1.03 (0.66-1.25) mg/dL Est GFR (CKD-EPI)AfAm >90 (>60 ml/min/1.73 sqM) Est GFR (CKD-EPI)NonAf 79 (>60 ml/min/1.73 sqM) Glucose 173 H (74-99) mg/dL Plasma Lactic Acid Leeroy (0.7-2.0) mmol/L Calcium 8.2 L (8.4-10.2) mg/dL Total Bilirubin 0.6 (0.2-1.3) mg/dL AST 32 (17-59) U/L ALT 24 (4-49) U/L Alkaline Phosphatase 43 (38-126) U/L Troponin I (0.000-0.034) ng/mL NT-Pro-B Natriuret Pep pg/mL Total Protein 5.2 L (6.3-8.2) g/dL Albumin 3.1 L (3.5-5.0) g/dL Lipase 60 (23-300) U/L Stool Occult Blood (Negative) Serum Alcohol <10 mg/dL Blood Type Blood Type Recheck Bld Type Recheck Status Antibody Screen Spec Expiration Date 12/20/19 12/20/19 12/20/19 Range/Units 19:18 19:18 19:18 WBC (3.8-10.6) k/uL RBC (4.30-5.90) m/uL Hgb (13.0-17.5) gm/dL Hct (39.0-53.0) % MCV (80.0-100.0) fL MCH (25.0-35.0) pg MCHC (31.0-37.0) g/dL RDW (11.5-15.5) % Plt Count (150-450) k/uL Neutrophils % % Lymphocytes % % Monocytes % % Eosinophils % % Basophils % % Neutrophils # (1.3-7.7) k/uL Lymphocytes # (1.0-4.8) k/uL Monocytes # (0-1.0) k/uL Eosinophils # (0-0.7) k/uL Basophils # (0-0.2) k/uL PT (9.0-12.0) sec INR (<1.2) APTT (22.0-30.0) sec Sodium (137-145) mmol/L Potassium (3.5-5.1) mmol/L Chloride (98-107) mmol/L Carbon Dioxide (22-30) mmol/L Anion Gap mmol/L BUN (9-20) mg/dL Creatinine (0.66-1.25) mg/dL Est GFR (CKD-EPI)AfAm (>60 ml/min/1.73 sqM) Est GFR (CKD-EPI)NonAf (>60 ml/min/1.73 sqM) Glucose (74-99) mg/dL Plasma Lactic Acid Leeroy (0.7-2.0) mmol/L Calcium (8.4-10.2) mg/dL Total Bilirubin (0.2-1.3) mg/dL AST (17-59) U/L ALT (4-49) U/L Alkaline Phosphatase (38-126) U/L Troponin I <0.012 (0.000-0.034) ng/mL NT-Pro-B Natriuret Pep 84 pg/mL Total Protein (6.3-8.2) g/dL Albumin (3.5-5.0) g/dL Lipase (23-300) U/L Stool Occult Blood (Negative) Serum Alcohol mg/dL Blood Type O Positive Blood Type Recheck No Previous Record Bld Type Recheck Status CABO Indicated Antibody Screen NEGATIVE Spec Expiration Date 12/23/2019231712/20/19 12/20/19 Range/Units 19:24 19:55 WBC (3.8-10.6) k/uL RBC (4.30-5.90) m/uL Hgb (13.0-17.5) gm/dL Hct (39.0-53.0) % MCV (80.0-100.0) fL MCH (25.0-35.0) pg MCHC (31.0-37.0) g/dL RDW (11.5-15.5) % Plt Count (150-450) k/uL Neutrophils % % Lymphocytes % % Monocytes % % Eosinophils % % Basophils % % Neutrophils # (1.3-7.7) k/uL Lymphocytes # (1.0-4.8) k/uL Monocytes # (0-1.0) k/uL Eosinophils # (0-0.7) k/uL Basophils # (0-0.2) k/uL PT (9.0-12.0) sec INR (<1.2) APTT (22.0-30.0) sec Sodium (137-145) mmol/L Potassium (3.5-5.1) mmol/L Chloride (98-107) mmol/L Carbon Dioxide (22-30) mmol/L Anion Gap mmol/L BUN (9-20) mg/dL Creatinine (0.66-1.25) mg/dL Est GFR (CKD-EPI)AfAm (>60 ml/min/1.73 sqM) Est GFR (CKD-EPI)NonAf (>60 ml/min/1.73 sqM) Glucose (74-99) mg/dL Plasma Lactic Acid Leeroy 3.3 H* (0.7-2.0) mmol/L Calcium (8.4-10.2) mg/dL Total Bilirubin (0.2-1.3) mg/dL AST (17-59) U/L ALT (4-49) U/L Alkaline Phosphatase (38-126) U/L Troponin I (0.000-0.034) ng/mL NT-Pro-B Natriuret Pep pg/mL Total Protein (6.3-8.2) g/dL Albumin (3.5-5.0) g/dL Lipase (23-300) U/L Stool Occult Blood Positive (Negative) Serum Alcohol mg/dL Blood Type Blood Type Recheck Bld Type Recheck Status Antibody Screen Spec Expiration Date - Radiology Data Radiology results: image reviewed (Chest x-ray is negative) Critical Care Time Critical Care Time: Yes (GI bleed with transient hypotension) Total Critical Care Time: 60 Disposition Clinical Impression: GI bleed Disposition: ADMITTED IP TO THIS [facility] Condition: Stable Is patient prescribed a controlled substance at d/c from ED?: No Referrals: Sky Manzano MD [Primary Care Provider] - 1-2 days Time of Disposition: 20:26
[2019-12-20] MEDS ORDERED: ONDANSETRON 4 MG/2 ML VIAL IVP STA (19:21)
[2019-12-20 19:29] LABS: Basophils % (A) 0 %; Eosinophils # (A) 0.2 k/uL (0-0.7); Eosinophils % (A) 2 %; HCT 27.9 % (39.0-53.0); Lymphocytes # (A) 1.9 k/uL (1.0-4.8); Lymphocytes % (A) 19 %; MCH 30.9 pg (25.0-35.0); MCHC 32.5 g/dL (31.0-37.0); MCV 94.8 fL (80.0-100.0); Mean Platelet Volume 7.9; Monocytes # (A) 0.4 k/uL (0-1.0); Monocytes % (A) 4 %; Neutrophils # (A) 7.1 k/uL (1.3-7.7); Neutrophils % (A) 73 %; Platelet Count 303 k/uL (150-450); RBC 2.94 m/uL (4.30-5.90); RDW 13.1 % (11.5-15.5); WBC 9.7 k/uL (3.8-10.6)
[2019-12-20 19:39] LABS: ALT 24 U/L (4-49); AST 32 U/L (17-59); African American GFR (CKD) >90 (>60 ml/min/1.73 sqM); Albumin 3.1 g/dL (3.5-5.0); Alcohol <10 mg/dL; Alkaline Phosphatase 43 U/L (38-126); Anion Gap 10 mmol/L; Blood Urea Nitrogen 40 mg/dL (9-20); Calcium 8.2 mg/dL (8.4-10.2); Carbon Dioxide 21 mmol/L (22-30); Chloride 107 mmol/L (98-107); Glucose 173 mg/dL (74-99); Non-African American GFR(CKD) 79 (>60 ml/min/1.73 sqM); Sodium 138 mmol/L (137-145); Total Bilirubin 0.6 mg/dL (0.2-1.3); Total Protein 5.2 g/dL (6.3-8.2)
[2019-12-20 19:42] LABS: HGB 9.1 gm/dL (13.0-17.5)
[2019-12-20 19:43] LABS: Partial Thromboplastin Time 21.1 sec (22.0-30.0); Prothrombin Time 10.1 sec (9.0-12.0)
--- NOTE | 2019-12-20 20:06 | XR ---
EXAMINATION TYPE: XR chest 2V DATE OF EXAM: 12/20/2019 COMPARISON: 08/30/2019 HISTORY: Short of breath. Syncope. TECHNIQUE: FINDINGS: Heart is normal. Lungs are clear. Diaphragm is normal. Bony thorax is intact. There are juan st leads. IMPRESSION: Normal chest. No change.
[2019-12-20] MEDS ORDERED: ONDANSETRON 4 MG/2 ML VIAL IVP PRN (20:27)
[2019-12-20] MEDS ORDERED: SODIUM CHLORIDE 0.9% 1,000 ML IV ONE (20:38)
[2019-12-20] MEDS: SODIUM CHLORIDE 0.9% 1,000 ML IV SCH (21:23)
[2019-12-21] MEDS: SODIUM CHLORIDE 0.9% 1,000 ML IV SCH ×3 (04:52→20:38)
[2019-12-21 06:48] LABS: Basophils % (A) 0 %; Eosinophils # (A) 0.1 k/uL (0-0.7); Eosinophils % (A) 2 %; HCT 21.1 % (39.0-53.0); Lymphocytes # (A) 1.5 k/uL (1.0-4.8); Lymphocytes % (A) 27 %; MCH 31.1 pg (25.0-35.0); MCV 94.3 fL (80.0-100.0); Mean Platelet Volume 8.4; Monocytes # (A) 0.2 k/uL (0-1.0); Monocytes % (A) 3 %; Neutrophils # (A) 3.6 k/uL (1.3-7.7); Neutrophils % (A) 66 %; Platelet Count 213 k/uL (150-450); RBC 2.24 m/uL (4.30-5.90); RDW 13.3 % (11.5-15.5); WBC 5.5 k/uL (3.8-10.6)
[2019-12-21 07:05] LABS: ALT 22 U/L (4-49); AST 26 U/L (17-59); African American GFR (CKD) >90 (>60 ml/min/1.73 sqM); Albumin 2.7 g/dL (3.5-5.0); Alkaline Phosphatase 44 U/L (38-126); Anion Gap 2 mmol/L; Blood Urea Nitrogen 31 mg/dL (9-20); Calcium 7.5 mg/dL (8.4-10.2); Carbon Dioxide 25 mmol/L (22-30); Chloride 113 mmol/L (98-107); Glucose 95 mg/dL (74-99); Non-African American GFR(CKD) >90 (>60 ml/min/1.73 sqM); Potassium 3.5 mmol/L (3.5-5.1); Sodium 140 mmol/L (137-145); Total Bilirubin 0.5 mg/dL (0.2-1.3); Total Protein 4.8 g/dL (6.3-8.2)
[2019-12-21] MEDS ORDERED: PEG 3350-NA SULF,BICARB,CL/KCL 4,000 ML BOTTLE PO ONE (11:36)
--- NOTE | 2019-12-21 13:22 | P.GSCN ---
History of Present Illness Consult date: 12/21/19 Reason for Consult: GI Bleed Requesting physician: Sky Manzano History of present illness: CHIEF COMPLAINT: GI bleed HISTORY OF PRESENT ILLNESS: 59-year-old male who presents to emergency room secondary to rectal bleeding. Patient reports he has noticed bright red blood and also dark tarry stools coming from his rectum since yesterday. He reports taking Aleve occasionally for a headache. Denies use of anticoagulation. He reports having a colonoscopy in the past but does not remember who performed it. He believes it was normal at that time. He does report a family history of colon cancer. PAST MEDICAL HISTORY: See list. PAST SURGICAL HISTORY: See list. SOCIAL HISTORY: No illicit drug use. REVIEW OF SYSTEMS: CONSTITUTIONAL: Denies fever or chills. HEENT: Denies blurred vision, vision changes, or eye pain. Denies hemoptysis CARDIOVASCULAR: Denies chest pain or pressure. RESPIRATORY: No shortness of breath. GASTROINTESTINAL: Refer to HPI for pertinent findings HEMATOLOGIC: Denies bleeding disorders. GENITOURINARY: Denies any blood in urine. SKIN: Denies pruitis. Denies rash. PHYSICAL EXAM: VITAL SIGNS: Reviewed. GENERAL: Well-developed in no acute distress. Appears pale. HEENT: No sclera icterus. Extraocular movements grossly intact. Moist buccal mucosa. Head is atraumatic, normocephalic. ABDOMEN: Soft. Nondistended. Nontender. NEUROLOGIC: Alert and oriented. Cranial nerves II through XII grossly intact. LABORATORY DATA: Hemoglobin 9.1 on admission. Repeat 7.0. ASSESSMENT: 1. GI bleed PLAN: Clear liquid diet. Nothing by mouth at midnight Protonix 40 mg IV twice a day Miriam bowel prep today EGD and colonoscopy scheduled tomorrow with Dr. Beckman Nurse practitioner note has been reviewed by physician. Signing provider agrees with the documented findings, assessment, and plan of care. 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 Past Anesthesia/Blood Transfusion Reactions: No Reported Reaction Past Psychological History: ADD/ADHD, Anxiety, Depression Additional Psychological History / Comment(s): NO ADDERAL SINCE . Smoking Status: Current every day smoker Past Alcohol Use History: Occasional Additional Past Alcohol Use History / Comment(s): Patient drinks a more than a 5th of alcohol a day. Past Drug Use History: None Reported Additional Drug Use History / Comment(s): Patient has not used street drugs in a "long time". - Past Family History Mother Family Medical History: Cancer Additional Family Medical History / Comment(s): COLON CANCER. Sister(s) Family Medical History: Cancer Additional Family Medical History / Comment(s): COLON, BREAST Medications and Allergies Home Medications Medication Instructions Recorded Confirmed Type Folic Acid 1 mg PO DAILY 28 Days tab 12/09/19 12/21/19 Rx Multivitamins, Thera [Multivitamin 1 each PO DAILY 28 Days tab 12/09/19 12/21/19 Rx (formulary)] Nicotine 7Mg/24Hr Patch [Habitrol] 1 patch TRANSDERM DAILY 14 Days 12/09/19 12/21/19 Rx patch Thiamine [Vitamin B-1] 100 mg PO BID 28 Days tab 12/09/19 12/21/19 Rx Venlafaxine HCl [Effexor] 37.5 mg PO DAILY 28 Days tab 12/09/19 12/21/19 Rx busPIRone HCL [Buspar] 15 mg PO BID 28 Days tab 12/09/19 12/21/19 Rx traZODone HCL [Desyrel] 100 mg PO HS 28 Days tab 12/09/19 12/21/19 Rx Metoprolol Tartrate [Lopressor] 25 mg PO BID 12/21/19 12/21/19 History Allergies Allergy/AdvReac Type Severity Reaction Status Date / Time cyclobenzaprine HCl Allergy Rash/Hives Verified 12/21/19 09:46 [From Flexeril] Surgical - Exam Vital Signs Temp Pulse Resp BP Pulse Ox 97.2 F L 119 H 19 84/50 92 L 12/20/19 18:58 12/20/19 18:58 12/20/19 18:58 12/20/19 18:58 12/20/19 18:58 Results - Labs 12/21/19 06:30 12/21/19 06:30 Abnormal Lab Results - Last 24 Hours (Table) 12/20/19 12/20/19 12/20/19 Range/Units 19:18 19:18 19:18 RBC 2.94 L (4.30-5.90) m/uL Hgb 9.1 L D (13.0-17.5) gm/dL Hct 27.9 L (39.0-53.0) % APTT 21.1 L (22.0-30.0) sec Chloride (98-107) mmol/L Carbon Dioxide 21 L (22-30) mmol/L BUN 40 H (9-20) mg/dL Glucose 173 H (74-99) mg/dL Plasma Lactic Acid Eleroy (0.7-2.0) mmol/L Calcium 8.2 L (8.4-10.2) mg/dL Total Protein 5.2 L (6.3-8.2) g/dL Albumin 3.1 L (3.5-5.0) g/dL Crossmatch 12/20/19 12/20/19 12/21/19 Range/Units 19:18 19:55 06:30 RBC 2.24 L (4.30-5.90) m/uL Hgb 7.0 L D (13.0-17.5) gm/dL Hct 21.1 L (39.0-53.0) % APTT (22.0-30.0) sec Chloride (98-107) mmol/L Carbon Dioxide (22-30) mmol/L BUN (9-20) mg/dL Glucose (74-99) mg/dL Plasma Lactic Acid Leeroy 3.3 H* (0.7-2.0) mmol/L Calcium (8.4-10.2) mg/dL Total Protein (6.3-8.2) g/dL Albumin (3.5-5.0) g/dL Crossmatch See Detail 12/21/19 Range/Units 06:30 RBC (4.30-5.90) m/uL Hgb (13.0-17.5) gm/dL Hct (39.0-53.0) % APTT (22.0-30.0) sec Chloride 113 H (98-107) mmol/L Carbon Dioxide (22-30) mmol/L BUN 31 H (9-20) mg/dL Glucose (74-99) mg/dL Plasma Lactic Acid Leeroy (0.7-2.0) mmol/L Calcium 7.5 L (8.4-10.2) mg/dL Total Protein 4.8 L (6.3-8.2) g/dL Albumin 2.7 L (3.5-5.0) g/dL Crossmatch Diabetes panel 12/20/19 12/21/19 Range/Units 19:18 06:30 Sodium 138 140 (137-145) mmol/L Potassium 4.0 3.5 (3.5-5.1) mmol/L Chloride 107 113 H (98-107) mmol/L Carbon Dioxide 21 L 25 (22-30) mmol/L BUN 40 H 31 H (9-20) mg/dL Creatinine 1.03 0.76 (0.66-1.25) mg/dL Glucose 173 H 95 (74-99) mg/dL Calcium 8.2 L 7.5 L (8.4-10.2) mg/dL AST 32 26 (17-59) U/L ALT 24 22 (4-49) U/L Alkaline Phosphatase 43 44 (38-126) U/L Total Protein 5.2 L 4.8 L (6.3-8.2) g/dL Albumin 3.1 L 2.7 L (3.5-5.0) g/dL Calcium panel 12/20/19 12/21/19 Range/Units 19:18 06:30 Calcium 8.2 L 7.5 L (8.4-10.2) mg/dL Albumin 3.1 L 2.7 L (3.5-5.0) g/dL Pituitary panel 12/20/19 12/21/19 Range/Units 19:18 06:30 Sodium 138 140 (137-145) mmol/L Potassium 4.0 3.5 (3.5-5.1) mmol/L Chloride 107 113 H (98-107) mmol/L Carbon Dioxide 21 L 25 (22-30) mmol/L BUN 40 H 31 H (9-20) mg/dL Creatinine 1.03 0.76 (0.66-1.25) mg/dL Glucose 173 H 95 (74-99) mg/dL Calcium 8.2 L 7.5 L (8.4-10.2) mg/dL Adrenal panel 12/20/19 12/21/19 Range/Units 19:18 06:30 Sodium 138 140 (137-145) mmol/L Potassium 4.0 3.5 (3.5-5.1) mmol/L Chloride 107 113 H (98-107) mmol/L Carbon Dioxide 21 L 25 (22-30) mmol/L BUN 40 H 31 H (9-20) mg/dL Creatinine 1.03 0.76 (0.66-1.25) mg/dL Glucose 173 H 95 (74-99) mg/dL Calcium 8.2 L 7.5 L (8.4-10.2) mg/dL Total Bilirubin 0.6 0.5 (0.2-1.3) mg/dL AST 32 26 (17-59) U/L ALT 24 22 (4-49) U/L Alkaline Phosphatase 43 44 (38-126) U/L Total Protein 5.2 L 4.8 L (6.3-8.2) g/dL Albumin 3.1 L 2.7 L (3.5-5.0) g/dL
[2019-12-21 16:52] LABS: Basophils % (A) 0 %; Eosinophils # (A) 0.1 k/uL (0-0.7); Eosinophils % (A) 1 %; HGB 8.7 gm/dL (13.0-17.5); Lymphocytes % (A) 20 %; MCH 31.2 pg (25.0-35.0); MCHC 33.6 g/dL (31.0-37.0); MCV 92.8 fL (80.0-100.0); Mean Platelet Volume 7.5; Monocytes # (A) 0.3 k/uL (0-1.0); Monocytes % (A) 5 %; Neutrophils # (A) 3.7 k/uL (1.3-7.7); Neutrophils % (A) 72 %; Platelet Count 231 k/uL (150-450); RDW 13.8 % (11.5-15.5); WBC 5.2 k/uL (3.8-10.6)
--- NOTE | 2019-12-21 18:20 | HP ---
HISTORY AND PHYSICAL CHIEF COMPLAINT: A 59-year-old white male who came to the ER with rectal bleeding of bright red blood and some dark tarry stools from the rectum since yesterday. He has been taking Aleve for headaches. Denies any anticoagulation. He had colonoscopy about 2 to 3 years ago; did not find anything wrong at that point, which is what he says. No history of colitis. Possible history of diverticulitis, but not sure. PAST MEDICAL HISTORY: Past medical history of alcohol abuse and nicotine addiction. SURGICAL HISTORY: See old chart. REVIEW OF SYSTEMS: Fourteen-point review of systems negative except for mentioned in HPI except for fatigue. PHYSICAL EXAMINATION: VITAL SIGNS: Stable, reviewed. CARDIOVASCULAR: S1, S2. LUNGS: Transmitted upper airway sounds. GI: Soft. Increased bowel sounds x4. NEUROLOGIC: Cranial nerves intact. PSYCH: Fair mood and affect. OPHTHALMOLOGIC: Pupils equal, round, reactive to light and accommodation. LABS: Hemoglobin 9.1, repeat is 7. ASSESSMENT: 1. Acute gastrointestinal bleed, unclear etiology, possible diverticular bleed. EGD, colonoscopy being given in the morning due to acute bleeding and hemoglobin of 7. He is being transfused one unit of blood. He was getting a bowel prep. 2. Hepatitis C history. 3. Chronic back pain. 4. Heroin abuse. 5. Alcohol abuse. He says he has been in remission and just has smoking as a bad habit at this point. 6. Anxiety and depression have been stable, also. As mentioned, his hemoglobin was down to 7, and one unit of blood was given. Repeat. Medication has been ordered. His depression medicines are Effexor, BuSpar. Desyrel has been ordered, Nicotine patch. MMODL / IJN: [id number] /
[2019-12-21] MEDS: busPIRone HCl 5 MG TAB PO SCH (20:37)
[2019-12-21] MEDS: METOPROLOL TARTRATE 25 MG TAB PO SCH (20:37)
[2019-12-21] MEDS: PANTOPRAZOLE 40 MG/10 ML VIAL IVP SCH (20:37)
[2019-12-21] MEDS: THIAMINE 100 MG TAB PO SCH (20:37)
[2019-12-21] MEDS ORDERED: traZODone HCL 100 MG TAB PO SCH (21:00)
[2019-12-21 23:46] LABS: Basophils % (A) 1 %; Eosinophils # (A) 0.2 k/uL (0-0.7); Eosinophils % (A) 3 %; HCT 23.4 % (39.0-53.0); HGB 7.5 gm/dL (13.0-17.5); Hypochromasia Slight; Lymphocytes # (A) 1.4 k/uL (1.0-4.8); Lymphocytes % (A) 28 %; MCH 31.2 pg (25.0-35.0); MCHC 31.9 g/dL (31.0-37.0); Mean Platelet Volume 7.7; Monocytes # (A) 0.2 k/uL (0-1.0); Monocytes % (A) 4 %; Neutrophils # (A) 3.2 k/uL (1.3-7.7); Neutrophils % (A) 63 %; Platelet Count 204 k/uL (150-450); RBC 2.39 m/uL (4.30-5.90); RDW 13.9 % (11.5-15.5); WBC 5.2 k/uL (3.8-10.6)
[2019-12-22] MEDS ORDERED: LACTATED RINGERS 1,000 ML IV SCH (03:30)
[2019-12-22 06:13] LABS: HCT 22.3 % (39.0-53.0); HGB 7.4 gm/dL (13.0-17.5); MCH 30.9 pg (25.0-35.0); MCHC 33.1 g/dL (31.0-37.0); MCV 93.2 fL (80.0-100.0); Mean Platelet Volume 7.8; Platelet Count 193 k/uL (150-450); RBC 2.39 m/uL (4.30-5.90); RDW 14.1 % (11.5-15.5); WBC 4.2 k/uL (3.8-10.6)
[2019-12-22] MEDS: SODIUM CHLORIDE 0.9% 1,000 ML IV SCH ×2 (06:45→14:11)
[2019-12-22] MEDS: busPIRone HCl 5 MG TAB PO SCH (07:36)
[2019-12-22] MEDS: THIAMINE 100 MG TAB PO SCH (07:37)
[2019-12-22] MEDS: METOPROLOL TARTRATE 25 MG TAB PO SCH (07:37)
[2019-12-22] MEDS: PANTOPRAZOLE 40 MG/10 ML VIAL IVP SCH (07:39)
[2019-12-22] MEDS ORDERED: FOLIC ACID 1 MG TAB PO SCH (09:00)
[2019-12-22] MEDS ORDERED: VENLAFAXINE HCL 37.5 MG TAB PO SCH (09:00)
[2019-12-22] MEDS ORDERED: MULTIVITAMINS, THERA 1 EACH TAB PO SCH (09:00)
[2019-12-22] MEDS ORDERED: NICOTINE 7MG/24HR PATCH TRANSDERM SCH (09:00)
[2019-12-22 09:32] VITALS: RESP 20; TEMP 98.2
[2019-12-22] MEDS ORDERED: IV FLUID CONTINUATION 600 ML IV ONE (10:54)
--- NOTE | 2019-12-22 11:20 | P.OP ---
Date of Procedure: 12/22/19 Preoperative Diagnosis: GI bleed Postoperative Diagnosis: Duodenal ulcer Procedure(s) Performed: EGD Colonoscopy Anesthesia: MAC Surgeon: Ike Beckman Pathology: other (Antrum, duodenal ulcer) Condition: stable Disposition: PACU Description of Procedure: PROCEDURE: The patient was placed on the endoscopy table in the lateral position. Digital rectal examination was performed which revealed no abnormalities. The prostate was symmetrical without nodules. Flexible colonoscope was then placed in the patient's anus and passed throughout the entire colon. The ileocecal valve was visualized. The cecum, ascending, transverse, descending and sigmoid colon were normal. The rectum was normal as well. There were no masses, polyps or diverticula noted in the entire colon. Next, the gastroscope placed oropharynx passed in the esophagus and into the stomach. Scope was then placed through the pylorus. The first and second portion of the duodenum appeared inflamed. Scope was brought back and there was evidence of duodenitis. This area is biopsied. In the first part of the duodenum there was a duodenal ulcer seen. There is evidence of inflammation. There is no active bleeding. This area was biopsied. Scope was then brought back to the antrum. This appeared inflamed. A biopsies performed. Scope was then retroflexed and remainder of the stomach appeared normal. The GE junction was at 47 is. There is no evidence of hiatal hernia. Distal esophagus appeared normal. Proximal esophagus appeared normal. Scope was withdrawn for patient. The patient's GI bleed was presumed to be due to his duodenal ulcer.
[2019-12-22] MEDS ORDERED: PANTOPRAZOLE 40 MG TABLET PO STA (11:27)
[2019-12-22 13:51] VITALS: BP 99/56; PULSE 63
[2019-12-22] MEDS ORDERED: PANTOPRAZOLE 40 MG TABLET PO SCH (17:30)
== END 2019-12-22 17:54 | disposition home or self-care (01) | DRG 379 ==
LOC: EC 18:54 → 3SCARD 20:27
PROVIDERS: ADMIT Family Medicine; ATTEND Family Medicine
PROC: 30233N1 Transfusion of Nonautologous Red Blood Cells into Peripheral Vein, Percutaneous Approach (ICD-10-PCS; 2019-12-21)
PROC: 0DJD8ZZ Inspection of Lower Intestinal Tract, Via Natural or Artificial Opening Endoscopic (ICD-10-PCS; principal; 2019-12-22 10:15)
PROC: 0DB98ZX Excision of Duodenum, Via Natural or Artificial Opening Endoscopic, Diagnostic (ICD-10-PCS; principal; 2019-12-22 10:15)
PROC: 0DB58ZX Excision of Esophagus, Via Natural or Artificial Opening Endoscopic, Diagnostic (ICD-10-PCS; principal; 2019-12-22 10:15)
DX: K26.4 Chronic or unspecified duodenal ulcer with hemorrhage (principal); K29.80 Duodenitis without bleeding; F10.20 Alcohol dependence, uncomplicated; B19.20 Unspecified viral hepatitis C without hepatic coma; G89.29 Other chronic pain; M54.9 Dorsalgia, unspecified; F32.9 Major depressive disorder, single episode, unspecified; F41.9 Anxiety disorder, unspecified; F90.9 Attention-deficit hyperactivity disorder, unspecified type; F11.10 Opioid abuse, uncomplicated; F17.210 Nicotine dependence, cigarettes, uncomplicated; Z71.6 Tobacco abuse counseling; Z79.899 Other long term (current) drug therapy; Z88.8 Allergy status to other drugs, medicaments and biological substances; Z80.0 Family history of malignant neoplasm of digestive organs; Z80.3 Family history of malignant neoplasm of breast
CPT/HCPCS: 36415; 43239; 45378; 71046; 80053; 80320; 82272; 83605; 83690; 83880; 84484; 85025; 85027; 85610; 85730; 86850; 86900; 86901; 86920; 88305; 93005; 96361; 96374; 96375; 99291

== ENCOUNTER → 2020-02-27 | Outpatient (CLI) | payer OTHER | END | disposition home or self-care (01) | LOC: LABWHC1 08:55 | PROVIDERS: ATTEND Surgery | DX: U07.1 COVID-19 (principal) | CPT/HCPCS: 87635 ==

== ENCOUNTER 2020-02-29 08:19 | Day surgery (SDC) | payer OTHER ==
[2020-02-26 10:14] VITALS: BMI 24.3
[~2020-02-29 08:19] MED LIST: LACTATED RINGERS 1,000 ML IV SCH; LIDOCAINE 1% (10MG/ML) FOR IV START INTRADERMA PRN
[2020-02-29 09:04] VITALS: TEMP 97.7
[2020-02-29] MEDS ORDERED: PROPOFOL 10 MG/ML 20 ML VIAL IV ONE (09:53)
--- NOTE | 2020-02-29 09:55 | P.GSHP ---
History of Present Illness H&P Date: 02/29/20 Chief Complaint: Peptic ulcer disease Is a 60-year-old male history of peptic she's. Patient's liquid epigastric pain. He presents today for EGD. Past Medical History Past Medical History: Liver Disease Additional Past Medical History / Comment(s): Hep C, chronic back pain, heroin use 11/30/19, ETOH 11/30/19-NO USE SINCE THEN PER PT History of Any Multi-Drug Resistant Organisms: None Reported Past Surgical History: Orthopedic Surgery Additional Past Surgical History / Comment(s): RIGHT LEG/ANKLE SURGERY, Ronny in right leg and ankle. Past Anesthesia/Blood Transfusion Reactions: No Reported Reaction Smoking Status: Current every day smoker - Past Family History Mother Family Medical History: Cancer Additional Family Medical History / Comment(s): COLON CANCER. Sister(s) Family Medical History: Cancer Additional Family Medical History / Comment(s): COLON, BREAST Medications and Allergies Home Medications Medication Instructions Recorded Confirmed Type traZODone HCL [Desyrel] 100 mg PO HS 28 Days tab 12/09/19 02/26/20 Rx Metoprolol Tartrate [Lopressor] 25 mg PO BID 12/21/19 02/29/20 History Pantoprazole [Protonix] 40 mg PO DAILY #90 tab 12/22/19 02/26/20 Rx Buprenorphine HCl/Naloxone HCl 1 each SL DAILY 02/26/20 02/26/20 History [Suboxone 8 mg-2 mg Sl Film] Allergies Allergy/AdvReac Type Severity Reaction Status Date / Time cyclobenzaprine HCl Allergy Rash/Hives Verified 02/29/20 08:52 [From Flexeril] Surgical - Exam Vital Signs Temp Pulse Resp BP Pulse Ox 97.7 F 69 17 166/73 96 02/29/20 09:02 02/29/20 09:02 02/29/20 09:02 02/29/20 09:02 02/29/20 09:02 - General well developed, well nourished, no distress - Eyes PERRL - ENT normal pinna - Neck no masses - Respiratory normal expansion - Cardiovascular Rhythm: regular - Abdomen Abdomen: soft, non tender Assessment and Plan Assessment: History of peptic ulcer disease. We'll perform EGD.
--- NOTE | 2020-02-29 10:10 | P.OP ---
Date of Procedure: 02/29/20 Preoperative Diagnosis: History of pepticulcer disease Postoperative Diagnosis: Mild antral gastritis Hiatal hernia Mild esophagitis Procedure(s) Performed: EGD Anesthesia: MAC Surgeon: Ike Beckman Pathology: other (Antrum, esophagus) Condition: stable Disposition: PACU Description of Procedure: The patient's placed on the endoscopy table in the lateral position. He received IV sedation. The gastroscope placed oropharynx and passed in the esophagus and into the stomach. Scope was then placed through the pylorus. The first and second portion of the duodenum appeared normal. Scope was then brought back and the antrum this. Mildly inflamed. A random biopsy performed. Scope was then retroflexed and there was a small hiatal hernia. The GE junction was at 38 cm. The distal esophagus appeared mildly inflamed a biopsies performed. The proximal esophagus appeared normal. Scope was withdrawn from patient.
[2020-02-29 10:12] VITALS: RESP 16
[2020-02-29 10:37] VITALS: BP 149/69; PULSE 62
== END 2020-02-29 11:11 | disposition home or self-care (01) ==
LOC: ORWHC2ENDO 08:19
PROVIDERS: ATTEND Surgery
DX: K29.50 Unspecified chronic gastritis without bleeding (principal); K21.0 Gastro-esophageal reflux disease with esophagitis; K44.9 Diaphragmatic hernia without obstruction or gangrene; I10 Essential (primary) hypertension; F17.210 Nicotine dependence, cigarettes, uncomplicated; G89.29 Other chronic pain; Z87.11 Personal history of peptic ulcer disease; Z79.899 Other long term (current) drug therapy; Z98.890 Other specified postprocedural states; Z80.0 Family history of malignant neoplasm of digestive organs; Z80.3 Family history of malignant neoplasm of breast; Z88.8 Allergy status to other drugs, medicaments and biological substances; Z86.19 Personal history of other infectious and parasitic diseases
CPT/HCPCS: 88305; 87635; 43239; J2704

== ENCOUNTER 2020-08-06 13:38 | Emergency (ER) | payer OTHER ==
[2020-08-06 13:59] VITALS: TEMP 98.1
[2020-08-06] MEDS ORDERED: ACET/COD 300 MG/30 MG STARTER PACK 6 TAB BTL PO STA (14:19)
[2020-08-06] MEDS ORDERED: LIDOCAINE 5% PATCH TOPICAL STA (14:19)
[2020-08-06] MEDS ORDERED: KETOROLAC 15 MG/ML 1 ML VIAL IM STA (14:20)
--- NOTE | 2020-08-06 14:21 | ED ---
Back Pain HPI - General Chief Complaint: Back Pain/Injury Stated Complaint: Back Injury Time Seen by Provider: 08/06/20 14:03 Source: patient Limitations: no limitations - History of Present Illness Initial Comments: 60yo male presenting today for chief complaint of right-sided back pain. Patient states that he was lifting a heavy piece of carpeting he states it was 100 the pounds with a friend when he twisted he felt a tearing sensation the right side of his back. Patient states he feels like he strained something. He denies any midline back pain denies any weakness of the legs loss of sensation loss of bowel bladder control urinary retention. He denies IV drug use currently has a previous past. Patient denies falls or direct trauma. Denies chest pain, abdominal pain, nausea, vomiting, dysuria, hematuria. Patient denies fevers, hx of cancer. Patient denies additional complaints. He is ambulatory upon arrival. - Related Data Home Medications Medication Instructions Recorded Confirmed Metoprolol Tartrate [Lopressor] 25 mg PO BID 12/21/19 02/29/20 Buprenorphine HCl/Naloxone HCl 1 each SL DAILY 02/26/20 02/26/20 [Suboxone 8 mg-2 mg Sl Film] Previous Rx's Medication Instructions Recorded traZODone HCL [Desyrel] 100 mg PO HS 28 Days tab 12/09/19 Pantoprazole [Protonix] 40 mg PO DAILY #90 tab 12/22/19 Baclofen 10 mg PO BID PRN 3 Days #6 tab 08/06/20 Allergies Allergy/AdvReac Type Severity Reaction Status Date / Time cyclobenzaprine HCl Allergy Rash/Hives Verified 08/06/20 13:59 [From Flexeril] Review of Systems ROS Statement: Those systems with pertinent positive or pertinent negative responses have been documented in the HPI. ROS Other: All systems not noted in ROS Statement are negative. 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 Past Anesthesia/Blood Transfusion Reactions: No Reported Reaction Past Psychological History: ADD/ADHD, Anxiety, Depression Smoking Status: Current every day smoker Past Alcohol Use History: Occasional Past Drug Use History: None Reported - Past Family History Mother Family Medical History: Cancer Additional Family Medical History / Comment(s): COLON CANCER. Sister(s) Family Medical History: Cancer Additional Family Medical History / Comment(s): COLON, BREAST General Exam - General Exam Comments Initial Comments: General: The patient is awake and alert, in no distress, and does not appear acutely ill. Eye: +3 mm pupils are equal, round and reactive to light, extra-ocular movements are intact. No nystagmus. There is normal conjunctiva bilaterally. No signs of icterus. Ears, nose, mouth and throat: There are moist mucous membranes and no oral lesions. Neck: The neck is supple, there is no tenderness or JVD. Cardiovascular: There is a regular rate and rhythm. No murmur, rub or gallop is appreciated. Respiratory: Lungs are clear to auscultation, respirations are non-labored, breath sounds are equal. No wheezes, stridor, rales, or rhonchi. Gastrointestinal: Soft, non-distended, non-tender abdomen without masses or organomegaly noted. There is no rebound or guarding present. Musculoskeletal: Normal inspection of the cervical thoracic and lumbar spine no midline tenderness patient has latissimus dorsi tenderness to palpation winces when is palpated no ecchymosis noted. Normal ROM, of the LE b/l. Strength 5/5 of the LE b/ l. Sensation intact of the upper and lower extremity including the saddle region. Radial pulses equal bilaterally 2+. Neurological: A&O x 3. CN II-XII intact grossly, There are no obvious motor or sensory deficits. Coordination appears grossly intact. Speech is normal. Skin: Skin is warm and dry and no rashes or lesions are noted. Psychiatric: Cooperative, appropriate mood & affect, normal judgment. Limitations: no limitations Course Vital Signs 08/06/20 08/06/20 13:54 15:36 Temperature 98.1 F Pulse Rate 74 78 Respiratory 16 18 Rate Blood Pressure 97/65 141/75 O2 Sat by Pulse 96 99 Oximetry Medical Decision Making - Medical Decision Making This a 60-year-old male presented for right-sided back pain occurred after lifting a heavy piece of carpeting. He mostly over the right latissimus dorsi. Patient history concerning for strain. Patient will be treated symptomatically. Patient is agreeable to care plan and discharge. Dr. Chino is agreeable to care plan. Disposition Clinical Impression: Back strain Disposition: HOME SELF-CARE Condition: Good Instructions (If sedation given, give patient instructions): Muscle Strain (ED) Additional Instructions: Please use medication as discussed. Please follow-up with family doctor in the next 2 days. Please return to emergency room if the symptoms increase or worsen or for any other concerns. Prescriptions: Baclofen 10 mg PO BID PRN 3 Days #6 tab PRN Reason: Muscle Spasm Is patient prescribed a controlled substance at d/c from ED?: No Referrals: Sky Manzano MD [Primary Care Provider] - 1-2 days Time of Disposition: 14:20
[2020-08-06 15:38] VITALS: BP 141/75; PULSE 78; RESP 18
== END 2020-08-06 15:36 | disposition home or self-care (01) ==
LOC: EC 13:38
DX: S39.012A Strain of muscle, fascia and tendon of lower back, initial encounter (principal); F17.200 Nicotine dependence, unspecified, uncomplicated; Z79.899 Other long term (current) drug therapy; Z79.891 Long term (current) use of opiate analgesic; Z88.8 Allergy status to other drugs, medicaments and biological substances; X50.0XXA Overexertion from strenuous movement or load, initial encounter
CPT/HCPCS: 99283; 96372; J1885

== ENCOUNTER 2020-10-03 18:43 | Inpatient (IN) | payer OTHER ==
[2020-10-03] MEDS ORDERED: PANTOPRAZOLE 40 MG/10 ML VIAL IVP STA (19:13)
[2020-10-03] MEDS ORDERED: ONDANSETRON 4 MG/2 ML VIAL IVP STA (19:13)
[2020-10-03] MEDS ORDERED: SODIUM CHLORIDE 0.9% 1,000 ML IV STA (19:13)
[2020-10-03] MEDS ORDERED: THIAMINE 100 MG/ML 2 ML VIAL IM STA (19:14)
--- NOTE | 2020-10-03 19:33 | ED ---
Alcohol HPI - General Chief Complaint: Alcohol Stated Complaint: Abd Pain Time Seen by Provider: 10/03/20 18:51 Source: patient Mode of arrival: ambulatory Limitations: no limitations - History of Present Illness Initial Comments: Patient is a 60-year-old male, with history of alcohol abuse, heroin use, presenting to the emergency Department with complaints of alcohol withdrawal, abdominal pain for the past 2 days. Patient states he was sober for about 4 months and then it went down to work with a friend in [place] who was drinking daily so patient started drinking again for the last 3 months. Patient states he just returned from [place] 3 days ago and has not been drinking. Patient states he drank one beer before he came into the ER because he was shaking so bad. Patient states he is not taking any medications, no drug use. Patient states he is having some pain on the right side of his belly, he is nauseous, no vomiting. Patient also is complaining of blood in his stools for the past 2 days. He denies any diarrhea but states his stool is dark, black. He states he does have a history of a bleeding ulcer in the past. He denies any chest pain or shortness of breath. He denies any fever or chills. Patient denies any suicidal or homicidal thoughts, but does state he is having "bad thoughts and feels depressed that he started drinking again." - Related Data Home Medications Medication Instructions Recorded Confirmed No Known Home Medications 10/03/20 10/03/20 Allergies Allergy/AdvReac Type Severity Reaction Status Date / Time cyclobenzaprine HCl Allergy Rash/Hives Verified 10/03/20 19:11 [From Flexeril] Review of Systems ROS Statement: Those systems with pertinent positive or pertinent negative responses have been documented in the HPI. ROS Other: All systems not noted in ROS Statement are negative. 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 Past Anesthesia/Blood Transfusion Reactions: No Reported Reaction Past Psychological History: ADD/ADHD, Anxiety, Depression Smoking Status: Current every day smoker Past Alcohol Use History: Abuse Past Drug Use History: None Reported - Past Family History Mother Family Medical History: Cancer Additional Family Medical History / Comment(s): COLON CANCER. Sister(s) Family Medical History: Cancer Additional Family Medical History / Comment(s): COLON, BREAST General Exam - General Exam Comments Initial Comments: GENERAL: Patient is well-developed and well-nourished. Patient is nontoxic and in no acute distress. HEAD: Atraumatic, normocephalic. EYES: Pupils equal round and reactive to light, extraocular movements intact, sclera anicteric, conjunctiva are normal. Eyelids were unremarkable. ENT: TMs normal, nares patent, oropharynx clear without exudates. Moist mucous membranes. NECK: Normal range of motion, supple without lymphadenopathy or JVD. LUNGS: Unlabored respirations. Breath sounds clear to auscultation bilaterally and equal. No wheezes rales or rhonchi. HEART: Regular rate and rhythm without murmurs, rubs or gallops. ABDOMEN: Mildly tender in the right side of the abdomen, Soft, normoactive bowel sounds. No guarding, no rebound. No masses appreciated. : Deferred MUSCULOSKELETAL: Normal extremities with adequate strength and normal range of motion, no pitting or edema. No clubbing or cyanosis. NEUROLOGICAL: Patient is alert and oriented x 3. Motor and sensory are also intact. Cranial nerves II through XII grossly intact. Symmetrical smile. Normal speech, normal gait. PSYCH: Normal mood, normal affect. SKIN: Warm, Dry, normal turgor, no rashes or lesions noted. Limitations: no limitations Rectal exam: Present: normal inspection, normal rectal tone Course Vital Signs 10/03/20 18:44 Temperature 98.1 F Pulse Rate 95 Respiratory 18 Rate Blood Pressure 147/92 O2 Sat by Pulse 99 Oximetry Medical Decision Making - Medical Decision Making Patient is a 60-year-old male with history of alcohol abuse presenting with alcohol withdrawal as well as black stools for 2 days. Patient's vital signs are stable upon arrival. Reasons white count and hemoglobin are stable, his coags are normal. CMP is normal, urine is negative for infection, positive for benzos. His stool occult blood is positive, his serum alcohol is 112. Patient will be admitted for alcohol withdrawal, GI bleed. [facility] protocol in place. GI consult as well as a psych consult secondary to patient stating he is having "bad thoughts and depression". Patient was accepted by Dr. Manzano. Case discussed with Dr. Amezquita. - Lab Data Result diagrams: 10/03/20 19:22 10/03/20 19:22 Lab Results 10/03/20 10/03/20 10/03/20 Range/Units 19:22 19:22 19:22 WBC 7.2 (3.8-10.6) k/uL RBC 4.74 (4.30-5.90) m/uL Hgb 15.3 (13.0-17.5) gm/dL Hct 44.6 (39.0-53.0) % MCV 94.0 (80.0-100.0) fL MCH 32.2 (25.0-35.0) pg MCHC 34.3 (31.0-37.0) g/dL RDW 13.7 (11.5-15.5) % Plt Count 245 (150-450) k/uL MPV 6.8 Neutrophils % 73 % Lymphocytes % 18 % Monocytes % 5 % Eosinophils % 2 % Basophils % 1 % Neutrophils # 5.3 (1.3-7.7) k/uL Lymphocytes # 1.3 (1.0-4.8) k/uL Monocytes # 0.3 (0-1.0) k/uL Eosinophils # 0.2 (0-0.7) k/uL Basophils # 0.0 (0-0.2) k/uL PT 9.7 (9.0-12.0) sec INR 0.9 (<1.2) APTT 24.9 (22.0-30.0) sec Sodium (137-145) mmol/L Potassium (3.5-5.1) mmol/L Chloride (98-107) mmol/L Carbon Dioxide (22-30) mmol/L Anion Gap mmol/L BUN (9-20) mg/dL Creatinine (0.66-1.25) mg/dL Est GFR (CKD-EPI)AfAm (>60 ml/min/1.73 sqM) Est GFR (CKD-EPI)NonAf (>60 ml/min/1.73 sqM) Glucose (74-99) mg/dL Plasma Lactic Acid Leeroy (0.7-2.0) mmol/L Calcium (8.4-10.2) mg/dL Total Bilirubin (0.2-1.3) mg/dL AST (17-59) U/L ALT (4-49) U/L Alkaline Phosphatase (38-126) U/L Total Protein (6.3-8.2) g/dL Albumin (3.5-5.0) g/dL Amylase (30-110) U/L Lipase (23-300) U/L Urine Color Colorless Urine Appearance Clear (Clear) Urine pH 5.0 (5.0-8.0) Ur Specific [place] 1.002 (1.001-1.035) Urine Protein Negative (Negative) Urine Glucose (UA) Negative (Negative) Urine Ketones Negative (Negative) Urine Blood Negative (Negative) Urine Nitrite Negative (Negative) Urine Bilirubin Negative (Negative) Urine Urobilinogen <2.0 (<2.0) mg/dL Ur Leukocyte Esterase Negative (Negative) Stool Occult Blood (Negative) Urine Opiates Screen (NotDetected) Ur Oxycodone Screen (NotDetected) Urine Methadone Screen (NotDetected) Ur Propoxyphene Screen (NotDetected) Ur Barbiturates Screen (NotDetected) U Tricyclic Antidepress (NotDetected) Ur Phencyclidine Scrn (NotDetected) Ur Amphetamines Screen (NotDetected) U Methamphetamines Scrn (NotDetected) U Benzodiazepines Scrn (NotDetected) Urine Cocaine Screen (NotDetected) U Marijuana (THC) Screen (NotDetected) Serum Alcohol mg/dL 10/03/20 10/03/20 10/03/20 Range/Units 19:22 19:22 19:22 WBC (3.8-10.6) k/uL RBC (4.30-5.90) m/uL Hgb (13.0-17.5) gm/dL Hct (39.0-53.0) % MCV (80.0-100.0) fL MCH (25.0-35.0) pg MCHC (31.0-37.0) g/dL RDW (11.5-15.5) % Plt Count (150-450) k/uL MPV Neutrophils % % Lymphocytes % % Monocytes % % Eosinophils % % Basophils % % Neutrophils # (1.3-7.7) k/uL Lymphocytes # (1.0-4.8) k/uL Monocytes # (0-1.0) k/uL Eosinophils # (0-0.7) k/uL Basophils # (0-0.2) k/uL PT (9.0-12.0) sec INR (<1.2) APTT (22.0-30.0) sec Sodium 142 (137-145) mmol/L Potassium 3.7 (3.5-5.1) mmol/L Chloride 111 H (98-107) mmol/L Carbon Dioxide 22 (22-30) mmol/L Anion Gap 9 mmol/L BUN 8 L (9-20) mg/dL Creatinine 0.99 (0.66-1.25) mg/dL Est GFR (CKD-EPI)AfAm >90 (>60 ml/min/1.73 sqM) Est GFR (CKD-EPI)NonAf 82 (>60 ml/min/1.73 sqM) Glucose 93 (74-99) mg/dL Plasma Lactic Acid Leeroy 1.8 (0.7-2.0) mmol/L Calcium 9.1 (8.4-10.2) mg/dL Total Bilirubin 0.5 (0.2-1.3) mg/dL AST 33 (17-59) U/L ALT 33 (4-49) U/L Alkaline Phosphatase 73 (38-126) U/L Total Protein 7.0 (6.3-8.2) g/dL Albumin 4.2 (3.5-5.0) g/dL Amylase 41 (30-110) U/L Lipase 65 (23-300) U/L Urine Color Urine Appearance (Clear) Urine pH (5.0-8.0) Ur Specific [place] (1.001-1.035) Urine Protein (Negative) Urine Glucose (UA) (Negative) Urine Ketones (Negative) Urine Blood (Negative) Urine Nitrite (Negative) Urine Bilirubin (Negative) Urine Urobilinogen (<2.0) mg/dL Ur Leukocyte Esterase (Negative) Stool Occult Blood Positive (Negative) Urine Opiates Screen (NotDetected) Ur Oxycodone Screen (NotDetected) Urine Methadone Screen (NotDetected) Ur Propoxyphene Screen (NotDetected) Ur Barbiturates Screen (NotDetected) U Tricyclic Antidepress (NotDetected) Ur Phencyclidine Scrn (NotDetected) Ur Amphetamines Screen (NotDetected) U Methamphetamines Scrn (NotDetected) U Benzodiazepines Scrn (NotDetected) Urine Cocaine Screen (NotDetected) U Marijuana (THC) Screen (NotDetected) Serum Alcohol 112 mg/dL 10/03/20 Range/Units 19:22 WBC (3.8-10.6) k/uL RBC (4.30-5.90) m/uL Hgb (13.0-17.5) gm/dL Hct (39.0-53.0) % MCV (80.0-100.0) fL MCH (25.0-35.0) pg MCHC (31.0-37.0) g/dL RDW (11.5-15.5) % Plt Count (150-450) k/uL MPV Neutrophils % % Lymphocytes % % Monocytes % % Eosinophils % % Basophils % % Neutrophils # (1.3-7.7) k/uL Lymphocytes # (1.0-4.8) k/uL Monocytes # (0-1.0) k/uL Eosinophils # (0-0.7) k/uL Basophils # (0-0.2) k/uL PT (9.0-12.0) sec INR (<1.2) APTT (22.0-30.0) sec Sodium (137-145) mmol/L Potassium (3.5-5.1) mmol/L Chloride (98-107) mmol/L Carbon Dioxide (22-30) mmol/L Anion Gap mmol/L BUN (9-20) mg/dL Creatinine (0.66-1.25) mg/dL Est GFR (CKD-EPI)AfAm (>60 ml/min/1.73 sqM) Est GFR (CKD-EPI)NonAf (>60 ml/min/1.73 sqM) Glucose (74-99) mg/dL Plasma Lactic Acid Leeroy (0.7-2.0) mmol/L Calcium (8.4-10.2) mg/dL Total Bilirubin (0.2-1.3) mg/dL AST (17-59) U/L ALT (4-49) U/L Alkaline Phosphatase (38-126) U/L Total Protein (6.3-8.2) g/dL Albumin (3.5-5.0) g/dL Amylase (30-110) U/L Lipase (23-300) U/L Urine Color Urine Appearance (Clear) Urine pH (5.0-8.0) Ur Specific [place] (1.001-1.035) Urine Protein (Negative) Urine Glucose (UA) (Negative) Urine Ketones (Negative) Urine Blood (Negative) Urine Nitrite (Negative) Urine Bilirubin (Negative) Urine Urobilinogen (<2.0) mg/dL Ur Leukocyte Esterase (Negative) Stool Occult Blood (Negative) Urine Opiates Screen Not Detected (NotDetected) Ur Oxycodone Screen Not Detected (NotDetected) Urine Methadone Screen Not Detected (NotDetected) Ur Propoxyphene Screen Not Detected (NotDetected) Ur Barbiturates Screen Not Detected (NotDetected) U Tricyclic Antidepress Not Detected (NotDetected) Ur Phencyclidine Scrn Not Detected (NotDetected) Ur Amphetamines Screen Not Detected (NotDetected) U Methamphetamines Scrn Not Detected (NotDetected) U Benzodiazepines Scrn Detected H (NotDetected) Urine Cocaine Screen Not Detected (NotDetected) U Marijuana (THC) Screen Not Detected (NotDetected) Serum Alcohol mg/dL Disposition Clinical Impression: Alcohol withdrawal, GI bleed Disposition: ADMITTED IP TO THIS [facility] Condition: Stable Referrals: Sky Manzano MD [Primary Care Provider] - 1-2 days Decision Date: 10/03/20 Decision Time: 21:10
[2020-10-03 19:44] LABS: Basophils % (A) 1 %; Eosinophils # (A) 0.2 k/uL (0-0.7); Eosinophils % (A) 2 %; HCT 44.6 % (39.0-53.0); HGB 15.3 gm/dL (13.0-17.5); Lymphocytes # (A) 1.3 k/uL (1.0-4.8); Lymphocytes % (A) 18 %; MCH 32.2 pg (25.0-35.0); MCHC 34.3 g/dL (31.0-37.0); Mean Platelet Volume 6.8; Monocytes # (A) 0.3 k/uL (0-1.0); Monocytes % (A) 5 %; Neutrophils # (A) 5.3 k/uL (1.3-7.7); Neutrophils % (A) 73 %; Platelet Count 245 k/uL (150-450); RBC 4.74 m/uL (4.30-5.90); RDW 13.7 % (11.5-15.5); WBC 7.2 k/uL (3.8-10.6)
[2020-10-03] MEDS: LORazepam 2 MG/ML INJ IV PRN ×2 (19:45→21:56)
[2020-10-03 19:58] LABS: INR 0.9 (<1.2); Partial Thromboplastin Time 24.9 sec (22.0-30.0); Prothrombin Time 9.7 sec (9.0-12.0)
[2020-10-03 20:03] LABS: ALT 33 U/L (4-49); AST 33 U/L (17-59); African American GFR (CKD) >90 (>60 ml/min/1.73 sqM); Albumin 4.2 g/dL (3.5-5.0); Alkaline Phosphatase 73 U/L (38-126); Amylase 41 U/L (30-110); Anion Gap 9 mmol/L; Blood Urea Nitrogen 8 mg/dL (9-20); Calcium 9.1 mg/dL (8.4-10.2); Carbon Dioxide 22 mmol/L (22-30); Chloride 111 mmol/L (98-107); Glucose 93 mg/dL (74-99); Lipase 65 U/L (23-300); Non-African American GFR(CKD) 82 (>60 ml/min/1.73 sqM); Potassium 3.7 mmol/L (3.5-5.1); Sodium 142 mmol/L (137-145); Total Bilirubin 0.5 mg/dL (0.2-1.3)
[2020-10-03 20:11] LABS: Amphetamine Screen,Urine Not Detected (NotDetected); Barbiturate Screen,Urine Not Detected (NotDetected); Benzodiazepines Screen,Urine Detected (NotDetected); Cocaine Screen,Urine Not Detected (NotDetected); Methadone Screen, Urine Not Detected (NotDetected); Opiate Screen,Urine Not Detected (NotDetected); Oxycodone Screen, Urine Not Detected (NotDetected); Phencyclidine Screen,Urine Not Detected (NotDetected); Tricyclic Antidepressant,Urine Not Detected (NotDetected); Urn Cannabinoid Scrn Not Detected (NotDetected)
[2020-10-03 20:12] LABS: Appearance,Urine Clear (Clear); Bilirubin,Urine Negative (Negative); Blood,Urine Negative (Negative); Color,Urine Colorless; Glucose,Urine (UA) Negative (Negative); Ketones,Urine Negative (Negative); Leukocyte Esterase,Urine Negative (Negative); Nitrite,Urine Negative (Negative); Protein,Urine Negative (Negative); Specific Gravity,Urine 1.002 (1.001-1.035); Urobilinogen,Urine <2.0 mg/dL (<2.0)
[2020-10-03 20:17] LABS: Alcohol 112 mg/dL
[2020-10-03] MEDS ORDERED: NALOXONE 0.4 MG/ML 1 ML VIAL IV PRN (21:08)
[2020-10-03] MEDS ORDERED: ONDANSETRON 4 MG/2 ML VIAL IVP PRN (21:08)
[2020-10-03] MEDS ORDERED: ACETAMINOPHEN TAB 325 MG TAB PO PRN (21:08)
[2020-10-04] MEDS: LORazepam 2 MG/ML INJ IV PRN ×9 (00:44→22:08)
[2020-10-04] MEDS: KETOROLAC 15 MG/ML 1 ML VIAL IM SCH ×3 (04:36→19:37)
--- NOTE | 2020-10-04 05:12 | CT ---
EXAM: CT Abdomen and Pelvis Without Intravenous Contrast CLINICAL HISTORY: ITS.REASON CT Reason: Abdominal pain TECHNIQUE: Axial computed tomography images of the abdomen and pelvis without intravenous contrast. CTDI is 7.97 mGy and DLP is 424.7 mGy-cm. This CT exam was performed using one or more of the following dose reduction techniques: automated exposure control, adjustment of the mA and/or kV according to patient size, and/or use of iterative reconstruction technique. COMPARISON: 04/16/2015 FINDINGS: Lung bases: No mass. No consolidation. ABDOMEN: Liver: Unremarkable. Gallbladder and bile ducts: Unremarkable. Pancreas: No ductal dilation. Spleen: Unremarkable. Adrenals: Unremarkable. Kidneys and ureters: No obstructing stones. No hydronephrosis. Stomach and bowel: No bowel obstruction. No bowel wall thickening. PELVIS: Appendix: No evidence of appendicitis. Bladder: No stones. Mildly distended bladder without wall thickening. Reproductive: Unremarkable. ABDOMEN and PELVIS: Intraperitoneal space: Unremarkable. Bones/joints: No acute fractures. Moderate degenerative changes from L4-S1. Soft tissues: Unremarkable. Vasculature: No abdominal aortic aneurysm. Lymph nodes: No enlarged lymph nodes. IMPRESSION: No acute findings.
[2020-10-04] MEDS ORDERED: PANTOPRAZOLE 40 MG/10 ML VIAL IV SCH (09:00)
[2020-10-04] MEDS: THIAMINE 100 MG TAB PO SCH ×2 (09:40→19:37)
--- NOTE | 2020-10-04 12:56 | P.CN ---
Psychiatric Consult - . Consult date: 10/04/20 Consult:: IDENTIFYING DATA: This patient is a single, unemployed, 60-year-old male who was admitted for alcohol withdrawal. HISTORY OF PRESENT ILLNESS: The patient presented to the hospital on 10/03/2020 with complaints of alcohol withdrawal and abdominal pain. Patient reports that his last drink was just before going to the emergency department. He reports consuming one alcoholic beverage at that time. He states he drank in order to deal with his withdrawal symptoms. He states it has been since returning to [place] from [place] a few days ago that he has cut down on his drinking significantly. Prior to coming back from [place], the patient reports drinking a half gallon of hard liquor daily. The patient reports that he is been feeling increasingly depressed and anxious due to his alcohol use. He expresses anhedonia, poor sleep, low mood, and excessive feelings of guilt. He reports suicidal ideation but denies any intention or plan. He reports no prior attempts at suicide. He denies any homicidal ideation, intention, and/or plan. He is not reporting any auditory or visual hallucinations. The patient reports that he was sober for 1 month and decided to work with a friend down in [place], but found out that his friend was an alcoholic himself and the patient relapsed into alcohol use. He reports that he has not had any of his medications for the past few months. He did state that he receives Suboxone from [facility], with his last dose being this past Saturday. He is not reporting any symptoms of thomas/hypomania. He reports no delusions. He does state that he has gone to multiple traumas in his life but is currently not reporting any significant symptoms of PTSD. PAST PSYCHIATRIC HISTORY: Patient has a a history of depression, anxiety, alcohol use disorder, opiate use disorder, and nicotine dependence. He was most recently prescribed Effexor, BuSpar, and trazodone during his last inpatient psychiatric admission to [facility] in November of 2019. He has had 2 admissions on [facility] in 2019. He was also [facility] to [facility]. He reports that he was previously open with [facility] but has not seen them in months. He denies any prior attempts of suicide. PAST MEDICAL HISTORY: Hepatitis C. ALLERGIES: Cyclobenzaprine CHEMICAL DEPENDENCY HISTORY: Patient reports drinking up to a half gallon of hard liquor daily up until this past weekend. He again using the drugs since he was 14. He has a history of opiate use disorder, using IV heroin. He was enrolled in a methadone program with a highest prescribed dose of 100 mg per day. He reports that he was receiving Suboxone through [facility]. He is not reporting any opiate withdrawal symptoms aside from cravings at this time. FAMILY PSYCHIATRIC/SUBSTANCE USE HISTORY: Patient reports significant history of alcohol use problems in his family. He lists his sister, mother, maternal uncle, and grandparents as alcoholics. SOCIAL HISTORY: Patient was born and raised in [place]. Patient is single, never , but has one child out of wedlock. He is currently living in the basement of his parents home. He is currently unemployed. MENTAL STATUS EXAM: General Appearance: Patient appears to be stated age is alert, pleasant, and cooperative. Eye contact is fair. Patient appears to be disheveled. Behavior: Patient is calmly lying in bed without any agitated behavior. Psychomotor activity appears to be slightly elevated. Speech: Patient's speech is fluent and nonpressured. Mood/Affect: Patient reports their mood is "depressed and anxious", affect is congruent, with appropriate range, nervous. Suicidality/Homicidality: Patient reports suicidal ideation but no intention or plan. He reports no homicidal ideation, intention, and/or plan. Perceptions: Patient denies any visual hallucinations and denies any auditory hallucinations Though content/process: There is no evidence of any delusional thought content and thought process is linear and goal-directed. Memory and concentration: AOX3, grossly intact for the purposes of this session. Can spell "WORLD" backwards Judgment and insight: Very poor IMPRESSIONS: Depressive disorder, unspecified, likely secondary to substance use Alcohol use disorder Opiate use disorder Nicotine dependence PLAN: -At this time patient DOES meet criteria for inpatient psychiatric admission. The patient is requesting inpatient psychiatric hospitalization to restart medications and to deal with his current suicidal ideation. The patient reports that he does not feel like he would be safe if he was to return home. -[facility] protocol. Ativan PRN for Alcohol withdrawal -Would recommend the following medication changes/additions: We will start Effexor XR 37.5 mg by mouth daily for depression/anxiety Start trazodone 100 mg by mouth at bedtime for insomnia/depression We will consider the initiation of naltrexone 50 mg by mouth daily for alcohol use disorder -Cannot leave AMA at this time. Patient will need a petition and certification if attempting to leave AMA. -Will continue to follow along -When medically stable, patient is eligible for transfer to a psych bed when available. 10/04/20 12:33
[2020-10-04] MEDS ORDERED: traZODone HCL 100 MG TAB PO SCH (21:00)
[2020-10-04 23:20] VITALS: RESP 16
--- NOTE | 2020-10-04 23:36 | HP ---
HISTORY AND PHYSICAL This patient is a 60-year-old male with a history of alcohol abuse. He presents to the ER complaining of alcohol withdrawal and abdominal pain for the last 2 days with positive Hemoccult stool, dark stools for the last couple of days. He came back from [place], where he was working. Nauseous. No vomiting. He had for the past 2 days. Denies any fever, chills, homicidal thoughts, bad thoughts, feels depressed, started drinking again. MEDICATIONS AT HOME: None. ALLERGIES: FLEXERIL. REVIEW OF SYSTEMS: Fourteen-point review of systems negative; otherwise as mentioned above. PAST MEDICAL HISTORY: Liver disease, hepatitis C, chronic back pain, heroin abuse, alcohol abuse. PAST SURGICAL HISTORY: Right ankle surgery, right leg and ankle. PSYCH HISTORY: ADHD, anxiety, depression. SOCIAL HISTORY: Current everyday smoker. Alcohol abuse. FAMILY MEDICAL HISTORY: Mother with cancer of the colon. Sister with cancer of the breast. PHYSICAL EXAMINATION: Vital signs are stable. Afebrile. CARDIOVASCULAR: S1, S2. LUNGS: Clear. PSYCH: Poor mood and affect. Fair mood and affect. NEUROLOGIC: Alert and oriented x3. ABDOMEN: Distended. Diffuse large swelling. Increased bowel sounds x4. NEUROLOGIC: Alert and oriented x3. ASSESSMENT: 1. Alcohol abuse. 2. Alcohol withdrawal. Rule out varices. 3. Gastrointestinal bleed. 4. Alcohol intoxication 112. Repeat CBC. Continue current treatment. Follow up in the next 24 to 48 hours. MMODL / IJN: [id number] /
[2020-10-05] MEDS: LORazepam 2 MG/ML INJ IV PRN ×6 (03:06→18:05)
[2020-10-05] MEDS: KETOROLAC 15 MG/ML 1 ML VIAL IM SCH ×3 (08:00→18:14)
[2020-10-05] MEDS: THIAMINE 100 MG TAB PO SCH ×2 (08:27→18:08)
[2020-10-05 09:00] LABS: HCT 43.8 % (39.0-53.0); HGB 15.3 gm/dL (13.0-17.5); MCH 32.7 pg (25.0-35.0); MCHC 34.9 g/dL (31.0-37.0); MCV 93.8 fL (80.0-100.0); Mean Platelet Volume 6.7; Platelet Count 259 k/uL (150-450); RBC 4.67 m/uL (4.30-5.90); RDW 13.5 % (11.5-15.5)
[2020-10-05] MEDS ORDERED: PANTOPRAZOLE 40 MG/10 ML VIAL IV SCH (09:00)
[2020-10-05] MEDS ORDERED: VENLAFAXINE HCL ER 37.5 MG CAP PO SCH (09:00)
[2020-10-05] MEDS ORDERED: NICOTINE 21MG/24HR PATCH TRANSDERM SCH (10:15)
--- NOTE | 2020-10-05 12:53 | P.PN ---
Progress Note - Text Progress Note Date: 10/05/20 Interval History: Patient was seen resting in bed and was directable and agreeable to speak with the sign writer letterer or painter. Patient reports that he is feeling better. He is not reporting any suicidal or homicidal ideation, intention, and/or plan at this time. He reports no auditory or visual hallucinations. He is denying any side effects of the medications prescribed. He reports no issues with sleep or appetite. He does report that his withdrawal symptoms appeared to be improving. Mental Status Exam: General Appearance: Patient appears to be stated age is alert, directable, and cooperative. Behavior: Patient is lying in bed comfortably without any agitated behavior. Speech: Patient's speech is fluent and nonpressured. Nonspontaneous. Low in volume. Mood/Affect: Mood is improving mildly, affect is congruent and constricted. Suicidality/Homicidality: Patient denies having any suicidal or homicidal ideation, intention, and/or plan. Perceptions: Patient denies any visual hallucinations and denies any auditory hallucinations Though content/process: There is no evidence of any delusional thought content and thought process is linear and goal-directed. Memory and concentration: AOX3, grossly intact for the purposes of this session Judgment and insight: Improving mildly Assessment Depressive disorder, unspecified, likely secondary to substance use Alcohol use disorder Opiate use disorder Nicotine dependence Plan: -Once medically stable, transfer to the inpatient psychiatric unit. -Medications: Increase Effexor XR to 75 mg by mouth daily her depression/anxiety Continue trazodone 100 mg by mouth daily at bedtime for insomnia/depression -CIWA protocol, Ativan PRN for withdrawal symptoms. -Psychiatry will sign off at this point. Please call if there are any questions.
[2020-10-05 14:33] VITALS: BP 139/74; PULSE 65; TEMP 97.9
--- NOTE | 2020-10-05 16:27 | PN ---
PROGRESS NOTE A 60-year-old white male going through alcohol withdrawal, has auditory and visual hallucinations, [id number] tremor. No signs of GI bleeding, positive stool. Hemoglobin stable at 15.3. LUNGS: Scattered wheeze x4. PSYCH: Please see psych eval. CARDIOVASCULAR: S1, S2. Mild tachy. ASSESSMENT: Depression, alcohol use disorder, opiate use disorder, GI bleed, which appears to be stable with hemoglobin stable, nicotine addiction. Continue CIWA protocol. Possibly discharge to psych almaguer when his withdrawals appear to be better. I consulted GI, but there is no consult in the chart. MMODL / IJN: [id number] /
[2020-10-06] MEDS ORDERED: VENLAFAXINE HCL ER 75 MG CAP PO SCH (09:00)
== END 2020-10-05 18:35 | DRG 897 ==
LOC: EC 18:43 → 5NMEDONC 20:37 → 6NMEDSUR 22:42 → 4SSUR 22:43 → 1SOBS 10-04 09:39 → OBSVTOIN 10-05 08:39
PROVIDERS: ADMIT Family Medicine; ATTEND Family Medicine
DX: F10.139 Alcohol abuse with withdrawal, unspecified (principal); K92.2 Gastrointestinal hemorrhage, unspecified; F11.10 Opioid abuse, uncomplicated; F10.129 Alcohol abuse with intoxication, unspecified; F10.14 Alcohol abuse with alcohol-induced mood disorder; B18.2 Chronic viral hepatitis C; Z20.828 Contact with and (suspected) exposure to other viral communicable diseases; F41.9 Anxiety disorder, unspecified; F90.9 Attention-deficit hyperactivity disorder, unspecified type; G89.29 Other chronic pain; M54.9 Dorsalgia, unspecified; F17.200 Nicotine dependence, unspecified, uncomplicated; Z88.8 Allergy status to other drugs, medicaments and biological substances; Z80.0 Family history of malignant neoplasm of digestive organs; Z80.3 Family history of malignant neoplasm of breast; Y90.5 Blood alcohol level of 100-119 mg/100 ml
CPT/HCPCS: 36415; 74176; 80053; 80306; 80320; 81003; 82150; 82272; 83605; 83690; 85025; 85027; 85610; 85730; 87635; 96361; 96372; 96374; 96375; 96376; 99285

== ENCOUNTER 2020-10-05 18:28 | Inpatient (IN) | payer MEDICAID ==
[2020-10-05] MEDS ORDERED: ACETAMINOPHEN TAB 325 MG TAB PO PRN (18:32)
[2020-10-05] MEDS ORDERED: MAG HYDROX/AL HYDROX/SIMETH 30 ML CUP PO PRN (18:32)
[2020-10-05] MEDS ORDERED: MAGNESIUM HYDROXIDE 2,400 MG/10 ML CUP PO PRN (18:32)
[2020-10-05] MEDS: LORazepam 1 MG TAB PO PRN (19:46)
[2020-10-05] MEDS ORDERED: traZODone HCL 100 MG TAB PO SCH (21:00)
[2020-10-06] MEDS: LORazepam 1 MG TAB PO PRN ×4 (02:49→16:05)
[2020-10-06] MEDS: NICOTINE 14MG/24HR PATCH TRANSDERM SCH (07:38)
[2020-10-06 08:20] LABS: Cholesterol 161 mg/dL (<200); HDL Cholesterol 59 mg/dL (40-60); LDL Cholesterol,Calculated 82 mg/dL (0-99); Triglycerides 100 mg/dL (<150)
[2020-10-06] MEDS ORDERED: VENLAFAXINE HCL ER 75 MG CAP PO SCH (09:00)
[2020-10-06] MEDS: NALTREXONE HCL 50 MG TAB PO SCH (09:40)
--- NOTE | 2020-10-06 10:12 | P.HP ---
Psychiatric H&P - . H&P Date: 10/06/20 History & Physical: Allergies Allergy/AdvReac Type Severity Reaction Status Date / Time cyclobenzaprine HCl Allergy Rash/Hives Verified 10/05/20 18:37 From Flexeril Vital Signs Temp 97.7 F 10/05/20 19:08 Pulse 106 H 10/06/20 07:40 Resp 18 10/06/20 07:40 BP 134/73 10/06/20 07:40 Pulse Ox 99 10/05/20 19:08 Intake & Output 10/05/20 10/06/20 10/06/20 18:59 06:59 18:59 Weight 72.575 kg 70.76 kg Laboratory Last Values Triglycerides 100 mg/dL (<150) 10/06/20 07:23 Cholesterol 161 mg/dL (<200) 10/06/20 07:23 LDL Cholesterol, Calc 82 mg/dL (0-99) 10/06/20 07:23 HDL Cholesterol 59 mg/dL (40-60) 10/06/20 07:23 10/06/20 10:02 IDENTIFYING DATA: Patient is a single, unemployed, 60-year-old male who was admitted for alcohol withdrawal and depression. HPI: Patient presented to the hospital on 10/03/2020 with complaints of alcohol withdrawal and abdominal pain. Patient reported drinking 1 alcoholic beverage just before going to the emergency department. He was previously drinking heavily until recently returning from [place] to [place] earlier in September. He reported drinking up to half gallon of hard liquor daily. Patient reportedly went to [place] to work with his friend whom he believed was sober, but states that his friend was alcoholic and that caused him to relapse into alcohol use after 3 months of sobriety. In regards to mood, the patient reports that he has been feeling increasingly depressed and anxious due to his alcohol use. Endorses significant symptoms of anhedonia, poor sleep, low mood, excessive feelings of guilt, as well as suicidal ideation. He reported no intention or plan for suicide. He reports no prior attempts at suicide. He reports no homicidal ideation, intention, and/or plan. The patient denies any significant history of auditory or visualizations. He denies any paranoia or other delusions. The patient has been previously treated for depression and alcohol use in the past, but states that he has not had any of his previous prescribed medications for the past few months. The patient does not report any significant symptoms of thomas/hypomania. He reports multiple traumas that have occurred in his life but is denying any significant symptoms of PTSD. The patient is currently living in his parent's basement, and helps them with their chores. PAST PSYCHIATRIC HISTORY: Patient states that he has a history of depression, anxiety, alcohol use disorder, opiate use disorder, and nicotine dependence.. He was most recent prescribed Effexor, BuSpar, and trazodone during his last inpatient psychiatric admission to [facility] this past November. He has had 2 admissions to 3 [facility] in 2019 and was in [facility] in 2018. Patient reports that he was previously open with [facility] but has not followed up in months since moving down to [place]. Patient denies any history of suicide attempts in the past. PMH: Hepatitis C ALLERGIES: Cyclobenzaprine CHEMICAL DEPENDENCY HISTORY: Patient reported drinking up to a half gallon of hard liquor daily up until this past weekend. He began using drugs since he was 14. He has a history of opiate use disorder, and has engaged in IV heroin use. He was enrolled in a methadone program and was previous to prescribed a dose of 100 mg per day. He reports that he was receiving Suboxone through [facility] earlier this year. He is not reporting any opioid withdrawal symptoms aside from cravings at this time. He smokes one to 2 packs per day of tobacco. FAMILY PSYCHIATRIC/SUBSTANCE USE HISTORY: Patient reports significant history of alcohol use problems in his family including his sister, mother, maternal uncle, and grandparents. SOCIAL HISTORY: Patient was born and raised in [place]. Patient is single, never , but has one child out of wedlock. He is currently living in the basement of his parents home. He is currently unemployed. He reports that he stays at home and supports his family by doing the chores that they are unable to do due to their old age. MENTAL STATUS EXAM: General Appearance: Patient appears to be stated age is alert, directable, and attempts to cooperate. Patient appears to have fair hygiene and grooming. Patient is dressed in multiple layers of clothing including hospital gown and his own sweater. Behavior: Patient is seated without any agitated behavior. Normal psychomotor activity. Speech: Patient's speech is fluent and nonpressured. Spontaneous. Mood/Affect: Patient reports their mood is "feeling a little better," affect is congruent and constricted. Suicidality/Homicidality: Patient is currently denying any suicidal or homicidal ideation, intention, and/or plan. Perceptions: Patient denies any visual hallucinations and denies any auditory hallucinations Though content/process: There is no evidence of any delusional thought content and thought process is linear and goal-directed. Memory and concentration: AOX3, grossly intact for the purposes of this session. Can spell "WORLD" backwards Judgment and insight: Fair STRENGTHS/WEAKNESSES: strength is that patient is future oriented and resilient.. Weakness is that patient has significant history of alcohol use disorder. INTELLECT: average IMPRESSIONS: Depressive disorder, unspecified, likely secondary to substance use Alcohol use disorder Opiate use disorder Nicotine dependence PLAN: -Patient is admitted under voluntary status to MHU for stabilization of psychiatric symptoms and safety. Patient signed adult voluntary form and medication consent and is placed in patient's chart. -Medications : Will start patient on Effexor XR 75 mg by mouth daily for depression/anxiety Increase trazodone to 150 mg by mouth at bedtime for insomnia/depression Start naltrexone 50 mg by mouth daily for alcohol use disorder -Ativan and Haldol PRN for agitation/aggression -Started thiamine, MVM for etoh use -CIWA protocol with Ativan PRN for ETOH withdrawal -Patient was counselled on substance abuse and desired to cut back on use -Patient was informed of the risks, benefits and side effects of the medication and patient verbally consented to taking the medications. Patient signed med consent form and was placed in chart. -Internal Medicine consult to perform medical evaluation and physical. -NRT - nicotine patch -SW on board for discharge planning. Encourage patient to participate in groups to work on coping skills.
[2020-10-06 14:44] LABS: Hemoglobin A1C 4.7 % (4.0-6.0)
[2020-10-06] MEDS ORDERED: cloNIDine HCL 0.2 MG TAB PO STA (18:15)
[2020-10-06] MEDS ORDERED: LORazepam 1 MG TAB PO STA (18:15)
[2020-10-06] MEDS ORDERED: traZODone HCL 50 MG TAB PO SCH (21:00)
[2020-10-06] MEDS: amLODIPine 5 MG TAB PO SCH (21:49)
[2020-10-07 05:21] VITALS: TEMP 97.3
[2020-10-07] MEDS: NALTREXONE HCL 50 MG TAB PO SCH (08:36)
[2020-10-07] MEDS: amLODIPine 5 MG TAB PO SCH ×2 (08:36→08:41)
[2020-10-07] MEDS: NICOTINE 14MG/24HR PATCH TRANSDERM SCH (08:36)
[2020-10-07 08:43] VITALS: BP 104/74; PULSE 114; RESP 20
[2020-10-07] MEDS ORDERED: VENLAFAXINE HCL ER 150 MG CAP PO SCH (09:00)
--- NOTE | 2020-10-07 10:44 | P.DS ---
Providers Date of admission: 10/05/20 18:28 Expected date of discharge: 10/07/20 Attending physician: Fernando Alonso MD Consults: 10/05/20 18:32 Consult Physician Routine Consulting Provider: Sky Manzano Consult Reason/Comments: medical management Do you want consulting provider notified?: Yes Primary care physician: Sky Manzano - Discharge Diagnosis(es) (1) Major depressive disorder, recurrent, unspecified Current Visit: Yes Status: Acute Priority: High (2) Nicotine dependence Current Visit: Yes Status: Acute Priority: Medium (3) Alcohol use disorder, severe, dependence Current Visit: Yes Status: Resolved Priority: Medium Hospital Course: Admission HPI: Patient is a single, unemployed, 60-year-old male who was admitted for alcohol withdrawal and depression. Patient presented to the hospital on 10/03/2020 with complaints of alcohol withdrawal and abdominal pain. Patient reported drinking 1 alcoholic beverage just before going to the emergency department. He was previously drinking heavily until recently returning from [place] to [place] earlier in September. He reported drinking up to half gallon of hard liquor daily. Patient reportedly went to [place] to work with his friend whom he believed was sober, but states that his friend was alcoholic and that caused him to relapse into alcohol use after 3 months of sobriety. In regards to mood, the patient reports that he has been feeling increasingly depressed and anxious due to his alcohol use. Endorses significant symptoms of anhedonia, poor sleep, low mood, excessive feelings of guilt, as well as suicidal ideation. He reported no intention or plan for suicide. He reports no prior attempts at suicide. He reports no homicidal ideation, intention, and/or plan. The patient denies any significant history of auditory or visualizations. He denies any paranoia or other delusions. The patient has been previously treated for depression and alcohol use in the past, but states that he has not had any of his previous prescribed medications for the past few months. The patient does not report any significant symptoms of thomas/hypomania. He reports multiple traumas that have occurred in his life but is denying any significant symptoms of PTSD. The patient is currently living in his parent's basement, and helps them with their chores. Hospital course: Patient was seen initially in the emergency department while he was waiting for a medical bed for treatment for alcohol withdrawal. Upon medical clearance, the patient was transferred reported to the inpatient psychiatric unit for depression and suicidal ideation. The patient was agreeable to commence treatment. While in the emergency department, Effexor and trazodone were initiated. Naltrexone was added while the patient was admitted to the psychiatric floor. His medications were titrated to their appropriate and final doses. Patient got along well with other patients on the unit and followed unit protocol. Patient was compliant with the medications and denied any side e ffects throughout hospital course. Patient spoke of his stressors and engaged in therapy both group and individual. Patient was also seen by medical team for history and physical exam. Although brief, the patient gradually improved during the course of his hospitalization. He displayed future orientation, better insight, and was not endorsing any suicidal or homicidal ideation, intention, and/or plan. On the day of discharge, the patient expressed that he was feeling ready to go. He is not endorsing any auditory or visual hallucinations. Patient endorsed wanting to live for his health and family. The patient denied any access to guns or weapons. Patient denied any paranoia and did not endorse any delusions. Patient does have a significant history of substance abuse however was counseled on abstaining from all substances including alcohol and marijuana. Patient was offered however declined inpatient substance-abuse rehab. Patient was also counseled on the medications and need fo r regular compliance and was encouraged to follow-up with their outpatient appointment for mental health and also for primary care. Prior to discharge a family meeting will be arranged by social sciences chair to answer any questions and ensure safety upon discharge. Mental status exam: General Appearance: Patient appears to be stated age is alert, pleasant, and cooperative. Patient is in no acute distress and has fair hygiene and grooming Behavior: Patient is calmly seated without any agitated behavior. Speech: Patient's speech is fluent and nonpressured. Mood/Affect: Patient reports their mood is "much better", affect is congruent and euthymic to bright. Suicidality/Homicidality: Patient denies having any suicidal or homicidal ideation intent or plan. Perceptions: Patient denies any auditory or visual hallucinations. Though content/process: There is no evidence of any delusional thought content and thought process is linear and goal-directed and future oriented. Memory and concentration: AOX3, grossly intact for the purposes of this session. Can spell "WORLD" backwards correctly. Judgment and insight: Improved with guarded prognosis Impression: Depressive disorder, unspecified, likely secondary to substance use Alcohol use disorder Opiate use disorder Nicotine dependence Plan: -Continue with discharge today as patient has improved and stabilized psychiatrically and is not currently an imminent threat to himself and/or others. Patient will remain at chronically elevated risk for harm to self and/or others due to his alcohol abuse. -Continue medications: Effexor XR 150 mg by mouth daily for depression/anxiety Trazodone 150 mg by mouth at bedtime for depression/insomnia Naltrexone 50 mg by mouth daily for alcohol cravings. -Patient was counseled on the need for medication compliance and appropriate follow-up at mental health and also primary care for medical issues. Patient verbalized understanding and agreed. -Social work to arrange for and conduct family meeting to ensure safety upon discharge and answer any questions/concerns. Social work also to arrange for patients follow up appointments with [facility] for psychiatric care along with follow up with primary care provider. -Patient counseled on abstaining from recreational drugs and marijuana and alcohol. Was informed/educated on the adverse effects on their physical and mental health. Patient verbally agreed and understood. Patient was offered substance abuse treatment however declined at this time. -Patient was instructed to return to the hospital or seek immediate medical care if their psychiatric or medical symptoms do worsen or reoccur. -Psychoeducation and supportive therapy provided to patient. Risks and benefits of pharmacological treatment versus the risks and benefits of nontreatment conner ght and discussed. Informed consent discussion held. Common side effects of psychotropics discussed such as, but not limited to headache, GI disturbance, sexual dysfunction, movement disorders, sedation, and orthostatic hypotension. Life threatening and blackbox warnings of prescribed medications also discussed. Potential risks of operating a vehicle or heavy machinery discussed with patient at length. Advised on importance of compliance and a reliable and responsible manner. Patient advised to review FDA consumer labeling of all medications prior to taking. Patient verbalized understanding of potential risks, and agrees with current treatment plan. Patient advised to medically contact physician/emergency personnel if any acute changes in condition occur. Vital Signs Temp 97.3 F L 10/07/20 05:19 Pulse 114 H 10/07/20 08:42 Resp 20 10/07/20 08:42 BP 104/74 10/07/20 08:42 Pulse Ox 96 10/07/20 05:[address] Glu mg/dL 88 10/06/20 07:23 Hemoglobin A1c 4.7 % (4.0-6.0) 10/06/20 07:23 Triglycerides 100 mg/dL (<150) 10/06/20 07:23 Cholesterol 161 mg/dL (<200) 10/06/20 07:23 LDL Cholesterol, Calc 82 mg/dL (0-99) 10/06/20 07:23 HDL Cholesterol 59 mg/dL (40-60) 10/06/20 07:23 Allergies Allergy/AdvReac Type Severity Reaction Status Date / Time cyclobenzaprine HCl Allergy Rash/Hives Verified 10/05/20 18:37 [facility] Patient Condition at Discharge: Stable Plan - Discharge Summary Discharge Rx Participant: Yes New Discharge Prescriptions: New traZODone HCL [Desyrel] 150 mg PO HS 30 Days tab Venlafaxine HCl ER [Effexor XR] 150 mg PO DAILY 30 Days cap.er.24h Nicotine 14Mg/24Hr Patch [Habitrol] 1 patch TRANSDERM DAILY 30 Days patch amLODIPine [Norvasc] 5 mg PO BID 30 Days tab Naltrexone HCl [Revia] 50 mg PO DAILY 30 Days tab Discharge Medication List Naltrexone HCl [Revia] 50 mg PO DAILY 30 Days tab 10/07/20 [Rx] Nicotine 14Mg/24Hr Patch [Habitrol] 1 patch TRANSDERM DAILY 30 Days patch 10/07/20 [Rx] Venlafaxine HCl ER [Effexor XR] 150 mg PO DAILY 30 Days cap.er.24h 10/07/20 [Rx] amLODIPine [Norvasc] 5 mg PO BID 30 Days tab 10/07/20 [Rx] traZODone HCL [Desyrel] 150 mg PO HS 30 Days tab 10/07/20 [Rx] Follow up Appointment(s)/Referral(s): [facility] [Outside] - 10/10/20 12:30 pm (w/Maxine by phone ) Patient Instructions/Handouts: Depression (DC), Alcohol Intoxication (DC) Activity/Diet/Wound Care/Special Instructions: Activity and diet as tolerated. Avoid the use of street drugs and alcohol. Take all medications as prescribed. When you are in need of refills on your medications please contact your medical provider and/or outpatient psychiatrist to have this done. Please go to scheduled outpatient appointment for aftercare treatment. If symptoms return or become worse, call the crisis line at [phone] and/or go to the nearest emergency room for evaluation. Discharge Disposition: HOME SELF-CARE
== END 2020-10-07 12:55 | disposition home or self-care (01) | DRG 885 ==
LOC: 3MHU 18:28
PROVIDERS: ADMIT Psychiatry & Neurology Psychiatry; ATTEND Psychiatry & Neurology Psychiatry
DX: F33.9 Major depressive disorder, recurrent, unspecified (principal); R45.851 Suicidal ideations; F41.9 Anxiety disorder, unspecified; G47.00 Insomnia, unspecified; B19.20 Unspecified viral hepatitis C without hepatic coma; F11.90 Opioid use, unspecified, uncomplicated; F17.210 Nicotine dependence, cigarettes, uncomplicated; F10.20 Alcohol dependence, uncomplicated; Z56.0 Unemployment, unspecified
CPT/HCPCS: 80061; 83036; 93005

== ENCOUNTER 2020-10-15 21:33 | Emergency (ER) | payer OTHER ==
[~2020-10-15 21:33] MED LIST changes: -LACTATED RINGERS 1,000 ML IV SCH; -LIDOCAINE 1% (10MG/ML) FOR IV START INTRADERMA PRN; +THIAMINE 100 MG TAB PO SCH
[2020-10-15 21:47] VITALS: BP 148/87; RESP 18
[2020-10-15] MEDS ORDERED: LORazepam 2 MG/ML INJ IV PRN ×3 (21:57)
[2020-10-15] MEDS ORDERED: THIAMINE 100 MG/ML 2 ML VIAL IM STA (21:57)
[2020-10-15 22:24] LABS: Basophils # (A) 0.1 k/uL (0-0.2); Basophils % (A) 1 %; Eosinophils # (A) 0.1 k/uL (0-0.7); Eosinophils % (A) 2 %; HCT 44.5 % (39.0-53.0); HGB 15.1 gm/dL (13.0-17.5); Lymphocytes # (A) 1.4 k/uL (1.0-4.8); Lymphocytes % (A) 18 %; MCH 31.9 pg (25.0-35.0); MCHC 33.9 g/dL (31.0-37.0); MCV 94.1 fL (80.0-100.0); Mean Platelet Volume 6.6; Monocytes # (A) 0.3 k/uL (0-1.0); Monocytes % (A) 4 %; Neutrophils # (A) 5.9 k/uL (1.3-7.7); Neutrophils % (A) 73 %; Platelet Count 292 k/uL (150-450); RBC 4.73 m/uL (4.30-5.90); RDW 13.5 % (11.5-15.5)
[2020-10-15 22:32] LABS: ALT 24 U/L (4-49); AST 29 U/L (17-59); African American GFR (CKD) >90 (>60 ml/min/1.73 sqM); Albumin 4.4 g/dL (3.5-5.0); Alkaline Phosphatase 54 U/L (38-126); Anion Gap 8 mmol/L; Blood Urea Nitrogen 6 mg/dL (9-20); Calcium 9.5 mg/dL (8.4-10.2); Carbon Dioxide 29 mmol/L (22-30); Chloride 112 mmol/L (98-107); Glucose 102 mg/dL (74-99); Lipase 125 U/L (23-300); Non-African American GFR(CKD) 89 (>60 ml/min/1.73 sqM); Potassium 3.5 mmol/L (3.5-5.1); Sodium 149 mmol/L (137-145); Total Bilirubin 0.3 mg/dL (0.2-1.3); Total Protein 7.1 g/dL (6.3-8.2)
[2020-10-15 22:36] LABS: Amphetamine Screen,Urine Not Detected (NotDetected); Barbiturate Screen,Urine Not Detected (NotDetected); Benzodiazepines Screen,Urine Detected (NotDetected); Cocaine Screen,Urine Not Detected (NotDetected); Methadone Screen, Urine Not Detected (NotDetected); Opiate Screen,Urine Not Detected (NotDetected); Oxycodone Screen, Urine Not Detected (NotDetected); Phencyclidine Screen,Urine Not Detected (NotDetected); Tricyclic Antidepressant,Urine Not Detected (NotDetected); Urn Cannabinoid Scrn Not Detected (NotDetected)
--- NOTE | 2020-10-15 22:49 | ED ---
Psych HPI - General Source: patient, EMS Mode of arrival: EMS <Sonal Bull - Last Filed: 10/15/20 22:47> <Keny Baltazar - Last Filed: 10/16/20 04:20> - General Chief Complaint: Psychiatric Symptoms Stated Complaint: ETOH Time Seen by Provider: 10/15/20 21:50 - History of Present Illness Initial Comments: 60yo male presenting for cc of abdominal pain, psych evaluation. pt brought in by [facility]. he states he is suicidal and has no where to go. pt admits to abdominal pain all over x 3 days as well. denies nausea, vomiting. admits to heavy alcohol use including today chronically. pt denies suicide attempt. denies chest pain, SOB, diarrhea, fevers, chest pain, URI symptoms. pt apears nontoxic in no distress. smells of alcohol. denies homicidal ideations. (Sonal Bull) - Related Data Previous Rx's Medication Instructions Recorded Naltrexone HCl [Revia] 50 mg PO DAILY 30 Days tab 10/07/20 Nicotine 14Mg/24Hr Patch [Habitrol] 1 patch TRANSDERM DAILY 30 Days 10/07/20 patch Venlafaxine HCl ER [Effexor XR] 150 mg PO DAILY 30 Days cap.er.24h 10/07/20 amLODIPine [Norvasc] 5 mg PO BID 30 Days tab 10/07/20 traZODone HCL [Desyrel] 150 mg PO HS 30 Days tab 10/07/20 Allergies Allergy/AdvReac Type Severity Reaction Status Date / Time cyclobenzaprine HCl Allergy Rash/Hives Verified 10/15/20 23:24 [From Flexeril] Review of Systems ROS Other: All systems not noted in ROS Statement are negative. <Sonal Bull - Last Filed: 10/15/20 22:47> ROS Other: All systems not noted in ROS Statement are negative. <Keny Baltazar - Last Filed: 10/16/20 04:20> ROS Statement: Those systems with pertinent positive or pertinent negative responses have been documented in the HPI. 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 Past Anesthesia/Blood Transfusion Reactions: No Reported Reaction Past Psychological History: ADD/ADHD, Anxiety, Depression Smoking Status: Current every day smoker Past Alcohol Use History: Abuse, Daily Past Drug Use History: None Reported - Past Family History Mother Family Medical History: Cancer Additional Family Medical History / Comment(s): COLON CANCER. Sister(s) Family Medical History: Cancer Additional Family Medical History / Comment(s): COLON, BREAST <Sonal Bull - Last Filed: 10/15/20 22:47> General Exam Limitations: no limitations <Sonal Bull - Last Filed: 10/15/20 22:47> Course Vital Signs 10/15/20 21:42 Temperature 98.5 F Pulse Rate 85 Respiratory 18 Rate Blood Pressure 148/87 O2 Sat by Pulse 96 Oximetry Medical Decision Making - Lab Data Result diagrams: 10/15/20 22:14 10/15/20 22:14 <Sonal Bull - Last Filed: 10/15/20 22:47> - Lab Data Result diagrams: 10/15/20 22:14 10/15/20 22:14 <Keny Baltazar - Last Filed: 10/16/20 04:20> - Lab Data Lab Results 10/15/20 10/15/20 10/15/20 Range/Units 22:14 22:14 22:14 WBC 8.0 (3.8-10.6) k/uL RBC 4.73 (4.30-5.90) m/uL Hgb 15.1 (13.0-17.5) gm/dL Hct 44.5 (39.0-53.0) % MCV 94.1 (80.0-100.0) fL MCH 31.9 (25.0-35.0) pg MCHC 33.9 (31.0-37.0) g/dL RDW 13.5 (11.5-15.5) % Plt Count 292 (150-450) k/uL MPV 6.6 Neutrophils % 73 % Lymphocytes % 18 % Monocytes % 4 % Eosinophils % 2 % Basophils % 1 % Neutrophils # 5.9 (1.3-7.7) k/uL Lymphocytes # 1.4 (1.0-4.8) k/uL Monocytes # 0.3 (0-1.0) k/uL Eosinophils # 0.1 (0-0.7) k/uL Basophils # 0.1 (0-0.2) k/uL Sodium 149 H (137-145) mmol/L Potassium 3.5 (3.5-5.1) mmol/L Chloride 112 H (98-107) mmol/L Carbon Dioxide 29 (22-30) mmol/L Anion Gap 8 mmol/L BUN 6 L (9-20) mg/dL Creatinine 0.93 (0.66-1.25) mg/dL Est GFR (CKD-EPI)AfAm >90 (>60 ml/min/1.73 sqM) Est GFR (CKD-EPI)NonAf 89 (>60 ml/min/1.73 sqM) Glucose 102 H (74-99) mg/dL Calcium 9.5 (8.4-10.2) mg/dL Total Bilirubin 0.3 (0.2-1.3) mg/dL AST 29 (17-59) U/L ALT 24 (4-49) U/L Alkaline Phosphatase 54 (38-126) U/L Troponin I (0.000-0.034) ng/mL Total Protein 7.1 (6.3-8.2) g/dL Albumin 4.4 (3.5-5.0) g/dL Lipase 125 (23-300) U/L Urine Opiates Screen Not Detected (NotDetected) Ur Oxycodone Screen Not Detected (NotDetected) Urine Methadone Screen Not Detected (NotDetected) Ur Propoxyphene Screen Not Detected (NotDetected) Ur Barbiturates Screen Not Detected (NotDetected) U Tricyclic Antidepress Not Detected (NotDetected) Ur Phencyclidine Scrn Not Detected (NotDetected) Ur Amphetamines Screen Not Detected (NotDetected) U Methamphetamines Scrn Not Detected (NotDetected) U Benzodiazepines Scrn Detected H (NotDetected) Urine Cocaine Screen Not Detected (NotDetected) U Marijuana (THC) Screen Not Detected (NotDetected) 10/15/20 Range/Units 22:14 WBC (3.8-10.6) k/uL RBC (4.30-5.90) m/uL Hgb (13.0-17.5) gm/dL Hct (39.0-53.0) % MCV (80.0-100.0) fL MCH (25.0-35.0) pg MCHC (31.0-37.0) g/dL RDW (11.5-15.5) % Plt Count (150-450) k/uL MPV Neutrophils % % Lymphocytes % % Monocytes % % Eosinophils % % Basophils % % Neutrophils # (1.3-7.7) k/uL Lymphocytes # (1.0-4.8) k/uL Monocytes # (0-1.0) k/uL Eosinophils # (0-0.7) k/uL Basophils # (0-0.2) k/uL Sodium (137-145) mmol/L Potassium (3.5-5.1) mmol/L Chloride (98-107) mmol/L Carbon Dioxide (22-30) mmol/L Anion Gap mmol/L BUN (9-20) mg/dL Creatinine (0.66-1.25) mg/dL Est GFR (CKD-EPI)AfAm (>60 ml/min/1.73 sqM) Est GFR (CKD-EPI)NonAf (>60 ml/min/1.73 sqM) Glucose (74-99) mg/dL Calcium (8.4-10.2) mg/dL Total Bilirubin (0.2-1.3) mg/dL AST (17-59) U/L ALT (4-49) U/L Alkaline Phosphatase (38-126) U/L Troponin I <0.012 (0.000-0.034) ng/mL Total Protein (6.3-8.2) g/dL Albumin (3.5-5.0) g/dL Lipase (23-300) U/L Urine Opiates Screen (NotDetected) Ur Oxycodone Screen (NotDetected) Urine Methadone Screen (NotDetected) Ur Propoxyphene Screen (NotDetected) Ur Barbiturates Screen (NotDetected) U Tricyclic Antidepress (NotDetected) Ur Phencyclidine Scrn (NotDetected) Ur Amphetamines Screen (NotDetected) U Methamphetamines Scrn (NotDetected) U Benzodiazepines Scrn (NotDetected) Urine Cocaine Screen (NotDetected) U Marijuana (THC) Screen (NotDetected) Disposition <Sonal Bull - Last Filed: 10/15/20 22:47> Is patient prescribed a controlled substance at d/c from ED?: No <Keny Baltazar - Last Filed: 10/16/20 04:20> Clinical Impression: Mood disorder Disposition: HOME SELF-CARE Condition: Fair Instructions (If sedation given, give patient instructions): Mood Disorders (ED) Referrals: Sky Manzano MD [Primary Care Provider] - 1-2 days
[2020-10-16 06:33] VITALS: PULSE 95; TEMP 97.5
== END 2020-10-16 06:33 | disposition home or self-care (01) ==
LOC: EC 21:33
DX: F39 Unspecified mood [affective] disorder (principal); F17.200 Nicotine dependence, unspecified, uncomplicated; Z88.8 Allergy status to other drugs, medicaments and biological substances
CPT/HCPCS: 99285; 96372; 82075; 36415; 93005; 80053; 83690; 84484; 85025; 80306; J3411

== ENCOUNTER 2020-10-16 15:08 | Emergency (ER) | payer OTHER ==
[2020-10-16 15:18] VITALS: RESP 18; TEMP 98
--- NOTE | 2020-10-16 15:34 | ED ---
Psych HPI - General Source: patient Mode of arrival: ambulatory <Celestino Mercado - Last Filed: 10/16/20 19:16> <Dev Padilla - Last Filed: 10/16/20 20:05> - General Chief Complaint: Psychiatric Symptoms Stated Complaint: Mental Health Time Seen by Provider: 10/16/20 15:25 - History of Present Illness Initial Comments: Patient is 60-year-old male with history of alcohol abuse presenting to the emergency department with a chief complaint of alcohol intoxication. Patient was brought to the ED via [facility]. Patient was intoxicated on arrival with a breath alcohol of 0.130. Patient did become sober at 1830. I did evaluate the patient and he stated that he has been drinking today. States he was at his house while he was drinking vodka. patient reports a lot of stress in his life at the moment. While sober, patient did report suicidal thoughts by wanting to "slit his throat". He denies any homicidal thoughts. (Celestino Mercado) Patient had reported suicidal thoughts and was intoxicated at the time of initial evaluation. (Dev Padilla) - Related Data Previous Rx's Medication Instructions Recorded Naltrexone HCl [Revia] 50 mg PO DAILY 30 Days tab 10/07/20 Nicotine 14Mg/24Hr Patch [Habitrol] 1 patch TRANSDERM DAILY 30 Days 10/07/20 patch Venlafaxine HCl ER [Effexor XR] 150 mg PO DAILY 30 Days cap.er.24h 10/07/20 amLODIPine [Norvasc] 5 mg PO BID 30 Days tab 10/07/20 traZODone HCL [Desyrel] 150 mg PO HS 30 Days tab 10/07/20 Allergies Allergy/AdvReac Type Severity Reaction Status Date / Time cyclobenzaprine HCl Allergy Rash/Hives Verified 10/16/20 15:15 [From Flexeril] Review of Systems ROS Other: All systems not noted in ROS Statement are negative. <Celestino Mercado - Last Filed: 10/16/20 19:16> ROS Other: All systems not noted in ROS Statement are negative. <Dev Padilla - Last Filed: 10/16/20 20:05> ROS Statement: Those systems with pertinent positive or pertinent negative responses have been documented in the HPI. 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 Past Anesthesia/Blood Transfusion Reactions: No Reported Reaction Past Psychological History: ADD/ADHD, Anxiety, Depression Smoking Status: Current every day smoker Past Alcohol Use History: Abuse, Daily Past Drug Use History: None Reported - Past Family History Mother Family Medical History: Cancer Additional Family Medical History / Comment(s): COLON CANCER. Sister(s) Family Medical History: Cancer Additional Family Medical History / Comment(s): COLON, BREAST <Celestino Mercado - Last Filed: 10/16/20 19:16> General Exam Limitations: no limitations General appearance: alert, in no apparent distress Head exam: Present: atraumatic, normocephalic, normal inspection Eye exam: Present: normal appearance, PERRL, EOMI Pupils: Present: normal accommodation ENT exam: Present: normal exam, normal oropharynx, mucous membranes dry, TM's normal bilaterally, normal external ear exam Neck exam: Present: normal inspection, full ROM Respiratory exam: Present: normal lung sounds bilaterally. Absent: respiratory distress, wheezes Cardiovascular Exam: Present: regular rate, normal rhythm, normal heart sounds GI/Abdominal exam: Present: soft. Absent: distended, tenderness Extremities exam: Present: normal inspection, full ROM, normal capillary refill Back exam: Present: normal inspection, full ROM Neurological exam: Present: alert, oriented X3 Psychiatric exam: Present: normal affect, depressed Skin exam: Present: warm, dry, intact, normal color <Celestino Mercado - Last Filed: 10/16/20 19:16> Course Vital Signs 10/16/20 10/16/20 15:16 18:37 Temperature 98 F Pulse Rate 95 104 H Respiratory 18 18 Rate Blood Pressure 153/98 136/66 O2 Sat by Pulse 98 98 Oximetry Medical Decision Making <Celestino Mercado Last Filed: 10/16/20 19:16> <Dev Padilla - Last Filed: 10/16/20 20:05> - Medical Decision Making 60-year-old male with history of alcohol abuse presenting to the emergency [facility] with chief complaint alcohol intoxication. Patient was initially intoxicated with alcohol level 0.130. I follow the patient once he became sober. He did report that he was having suicidal thoughts but wanting to "slit his throat". EPS to evaluate the patient. case signed off to Dr Padilla (Celestino Mercado) Patient had been evaluated by EPS after he was sober. No longer had suicidal thoughts. He admits that he was homeless and was requesting custodial information. He was evaluated by EPS and felt to be safe for discharge. (Dev Padilla) - Lab Data Lab Results 10/16/20 Range/Units 16:38 Urine Opiates Screen Not Detected (NotDetected) Ur Oxycodone Screen Not Detected (NotDetected) Urine Methadone Screen Not Detected (NotDetected) Ur Propoxyphene Screen Not Detected (NotDetected) Ur Barbiturates Screen Not Detected (NotDetected) U Tricyclic Antidepress Not Detected (NotDetected) Ur Phencyclidine Scrn Not Detected (NotDetected) Ur Amphetamines Screen Not Detected (NotDetected) U Methamphetamines Scrn Not Detected (NotDetected) U Benzodiazepines Scrn Detected H (NotDetected) Urine Cocaine Screen Not Detected (NotDetected) U Marijuana (THC) Screen Not Detected (NotDetected) Disposition <Celestino Mercado - Last Filed: 10/16/20 19:16> Is patient prescribed a controlled substance at d/c from ED?: No Time of Disposition: 20:05 <Dev Padilla - Last Filed: 10/16/20 20:05> Clinical Impression: Depression, Alcohol intoxication Disposition: HOME SELF-CARE Condition: Fair Instructions (If sedation given, give patient instructions): Depression (ED), Alcohol Intoxication (ED) Referrals: Sky Manzano MD [Primary Care Provider] - 1-2 days
[2020-10-16 16:57] LABS: Amphetamine Screen,Urine Not Detected (NotDetected); Barbiturate Screen,Urine Not Detected (NotDetected); Benzodiazepines Screen,Urine Detected (NotDetected); Cocaine Screen,Urine Not Detected (NotDetected); Methadone Screen, Urine Not Detected (NotDetected); Opiate Screen,Urine Not Detected (NotDetected); Oxycodone Screen, Urine Not Detected (NotDetected); Phencyclidine Screen,Urine Not Detected (NotDetected); Tricyclic Antidepressant,Urine Not Detected (NotDetected); Urn Cannabinoid Scrn Not Detected (NotDetected)
[2020-10-16] MEDS ORDERED: LORazepam 2 MG/ML INJ IV PRN ×2 (18:17)
[2020-10-16] MEDS ORDERED: THIAMINE 100 MG/ML 2 ML VIAL IM STA (18:17)
[2020-10-16 18:38] VITALS: BP 136/66; PULSE 104
[2020-10-16] MEDS: LORazepam 2 MG/ML INJ IV PRN ×2 (18:40→19:53)
[2020-10-17] MEDS ORDERED: THIAMINE 100 MG TAB PO SCH (07:30)
== END 2020-10-16 20:42 | disposition home or self-care (01) ==
LOC: EC 15:08
DX: F32.9 Major depressive disorder, single episode, unspecified (principal); F10.129 Alcohol abuse with intoxication, unspecified; R45.851 Suicidal ideations; F17.200 Nicotine dependence, unspecified, uncomplicated; Y90.0 Blood alcohol level of less than 20 mg/100 ml; Z59.0 Homelessness; Z88.8 Allergy status to other drugs, medicaments and biological substances
CPT/HCPCS: 82075; 80306; 96374; 96372; 99284; J2060; J3411

== ENCOUNTER 2020-12-29 22:55 | Inpatient (IN) | payer MEDICAID, OTHER ==
--- NOTE | 2020-12-29 23:18 | ED ---
Psych HPI - General Source: patient Mode of arrival: EMS Limitations: no limitations - History of Present Illness MD Complaint: suicidal ideation, feels depressed Onset/Timin -: year(s) Associated Psychiatric Symptoms: depression, suicidal ideation History of same: Yes Quality: getting worse Improves With: none Worsens With: alcohol, drug use Context: recent alcohol abuse, recent drug abuse Associated Symptoms: denies other symptoms <Keny Baltazar - Last Filed: 12/29/20 23:20> <Dev King - Last Filed: 12/30/20 12:54> - General Stated Complaint: mental health Time Seen by Provider: 12/29/20 22:57 - History of Present Illness Initial Comments: This patient is 60-year-old man who presents to be evaluated for depression and suicidal ideation. Patient states that he had been drinking tonight and the symptoms were worse. (Keny Baltazar) - Related Data Previous Rx's Medication Instructions Recorded Naltrexone HCl [Revia] 50 mg PO DAILY 30 Days tab 10/07/20 Nicotine 14Mg/24Hr Patch [Habitrol] 1 patch TRANSDERM DAILY 30 Days 10/07/20 patch Venlafaxine HCl ER [Effexor XR] 150 mg PO DAILY 30 Days cap.er.24h 10/07/20 amLODIPine [Norvasc] 5 mg PO BID 30 Days tab 10/07/20 traZODone HCL [Desyrel] 150 mg PO HS 30 Days tab 10/07/20 Allergies Allergy/AdvReac Type Severity Reaction Status Date / Time cyclobenzaprine HCl Allergy Rash/Hives Verified 12/30/20 09:59 [From Flexeril] Review of Systems ROS Other: All systems not noted in ROS Statement are negative. Constitutional: Denies: fever, chills Respiratory: Denies: cough, dyspnea Cardiovascular: Denies: chest pain, palpitations, syncope Gastrointestinal: Denies: abdominal pain, nausea, vomiting Genitourinary: Denies: dysuria, hematuria Musculoskeletal: Denies: back pain Skin: Denies: rash Neurological: Denies: headache, weakness Psychiatric: Reports: depression, suicidal thoughts. Denies: auditory hallucin ations, visual hallucinations, homicidal thoughts <Keny Baltazar - Last Filed: 12/29/20 23:20> ROS Other: All systems not noted in ROS Statement are negative. <Dev King - Last Filed: 12/30/20 12:54> ROS Statement: Those systems with pertinent positive or pertinent negative responses have been documented in the HPI. 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 Past Anesthesia/Blood Transfusion Reactions: No Reported Reaction Past Psychological History: ADD/ADHD, Anxiety, Depression Smoking Status: Current every day smoker Past Alcohol Use History: Abuse, Daily Past Drug Use History: None Reported - Past Family History Mother Family Medical History: Cancer Additional Family Medical History / Comment(s): COLON CANCER. Sister(s) Family Medical History: Cancer Additional Family Medical History / Comment(s): COLON, BREAST <GiovannyKeny - Last Filed: 12/29/20 23:20> General Exam General appearance: alert, in no apparent distress, appears intoxicated Head exam: Present: atraumatic, normocephalic Eye exam: Present: normal appearance. Absent: scleral icterus, conjunctival injection Respiratory exam: Present: normal lung sounds bilaterally. Absent: respiratory distress, wheezes, rales, rhonchi, stridor Cardiovascular Exam: Present: regular rate, normal rhythm, normal heart sounds. Absent: systolic murmur, diastolic murmur, rubs, gallop GI/Abdominal exam: Present: soft. Absent: distended, tenderness, guarding, rebound, rigid, mass Extremities exam: Present: normal inspection, normal capillary refill. Absent: pedal edema, calf tenderness Back exam: Present: normal inspection Neurological exam: Present: alert Psychiatric exam: Present: depressed, suicidal ideation. Absent: agitated, anxious, flat affect, manic, homicidal ideation Skin exam: Present: warm, dry, intact, normal color. Absent: rash <GiovannyKeny - Last Filed: 12/29/20 23:20> Course Vital Signs 12/29/20 12/30/20 12/30/20 23:05 06:52 08:00 Temperature 98 F Pulse Rate 90 80 Respiratory 18 17 18 Rate Blood Pressure 136/83 164/90 O2 Sat by Pulse 98 100 Oximetry 12/30/20 12/30/20 12/30/20 09:00 10:00 11:00 Temperature 98.3 F Pulse Rate 92 Respiratory 18 18 18 Rate Blood Pressure 164/93 O2 Sat by Pulse 96 Oximetry Medical Decision Making <Dev King - Last Filed: 12/30/20 12:54> - Medical Decision Making The patient was endorsed me by Dr. Baltazar at her shift change pending EPS evaluation. Patient did have a redraw of his alcohol which was 17 patient does not have a safety plan and does have access to firearms. He will be admitted for inpatient evaluation and treatment (Dev King) - Lab Data Lab Results 12/30/20 12/30/20 Range/Units 02:07 09:35 Urine Color Yellow Urine Appearance Clear (Clear) Urine pH 5.0 (5.0-8.0) Ur Specific [place] 1.017 (1.001-1.035) Urine Protein Trace H (Negative) Urine Glucose (UA) Negative (Negative) Urine Ketones Negative (Negative) Urine Blood Negative (Negative) Urine Nitrite Negative (Negative) Urine Bilirubin Negative (Negative) Urine Urobilinogen <2.0 (<2.0) mg/dL Ur Leukocyte Esterase Negative (Negative) Urine Opiates Screen Not Detected (NotDetected) Ur Oxycodone Screen Not Detected (NotDetected) Urine Methadone Screen Not Detected (NotDetected) Ur Propoxyphene Screen Not Detected (NotDetected) Ur Barbiturates Screen Not Detected (NotDetected) U Tricyclic Antidepress Not Detected (NotDetected) Ur Phencyclidine Scrn Not Detected (NotDetected) Ur Amphetamines Screen Detected H (NotDetected) U Methamphetamines Scrn Not Detected (NotDetected) U Benzodiazepines Scrn Not Detected (NotDetected) Urine Cocaine Screen Not Detected (NotDetected) U Marijuana (THC) Screen Not Detected (NotDetected) Serum Alcohol 17 mg/dL Disposition <Keny Baltazar - Last Filed: 12/29/20 23:20> <Dev King - Last Filed: 12/30/20 12:54> Clinical Impression: Suicidal ideation, Depression Disposition: TRANSFER TO PSYCH HOSP/UNIT Condition: Fair Referrals: Sky Manzano MD [Primary Care Provider] - 1-2 days
[2020-12-30 02:14] LABS: Appearance,Urine Clear (Clear); Bilirubin,Urine Negative (Negative); Blood,Urine Negative (Negative); Color,Urine Yellow; Glucose,Urine (UA) Negative (Negative); Ketones,Urine Negative (Negative); Leukocyte Esterase,Urine Negative (Negative); Nitrite,Urine Negative (Negative); Protein,Urine Trace (Negative); Specific Gravity,Urine 1.017 (1.001-1.035); Urobilinogen,Urine <2.0 mg/dL (<2.0)
[2020-12-30] MEDS ORDERED: LORazepam 1 MG TAB PO STA ×4 (02:21→15:02)
[2020-12-30 02:47] LABS: Amphetamine Screen,Urine Detected (NotDetected); Barbiturate Screen,Urine Not Detected (NotDetected); Benzodiazepines Screen,Urine Not Detected (NotDetected); Cocaine Screen,Urine Not Detected (NotDetected); Methadone Screen, Urine Not Detected (NotDetected); Opiate Screen,Urine Not Detected (NotDetected); Oxycodone Screen, Urine Not Detected (NotDetected); Phencyclidine Screen,Urine Not Detected (NotDetected); Tricyclic Antidepressant,Urine Not Detected (NotDetected); Urn Cannabinoid Scrn Not Detected (NotDetected)
[2020-12-30] MEDS ORDERED: MAGNESIUM HYDROXIDE 2,400 MG/10 ML CUP PO PRN (16:05)
[2020-12-30] MEDS ORDERED: MAG HYDROX/AL HYDROX/SIMETH 30 ML CUP PO PRN (16:05)
[2020-12-30] MEDS ORDERED: LORazepam 2 MG/ML INJ IM PRN ×2 (16:18)
[2020-12-30] MEDS ORDERED: haloperidoL 5 MG TAB PO PRN (16:29)
[2020-12-30] MEDS ORDERED: HALOPERIDOL LACTATE 5 MG/ML 1 ML VIAL IM PRN (16:29)
[2020-12-30] MEDS: traZODone HCL 50 MG TAB PO SCH (20:09)
[2020-12-30] MEDS: amLODIPine 5 MG TAB PO SCH (20:09)
[2020-12-30] MEDS: LORazepam 1 MG TAB PO PRN (20:14)
[2020-12-31] MEDS: LORazepam 1 MG TAB PO PRN ×3 (08:23→21:54)
[2020-12-31] MEDS: NALTREXONE HCL 50 MG TAB PO SCH (08:23)
[2020-12-31] MEDS: amLODIPine 5 MG TAB PO SCH ×2 (08:23→21:54)
[2020-12-31] MEDS: ACETAMINOPHEN TAB 325 MG TAB PO PRN ×2 (08:23→17:57)
[2020-12-31] MEDS: NICOTINE 14MG/24HR PATCH TRANSDERM SCH (08:23)
[2020-12-31] MEDS: VENLAFAXINE HCL ER 150 MG CAP PO SCH (08:24)
--- NOTE | 2020-12-31 09:21 | P.HP ---
Psychiatric H&P - . H&P Date: 12/31/20 History & Physical: IDENTIFYING DATA: He is a 60-year-old single unemployed male admitted to the psychiatric unit voluntarily with complaints of alcohol intoxication, depression and suicidal ideation. HISTORY OF PRESENT ILLNESS: I reviewed the medical record and interviewed the patient. He is well known to the psychiatric unit from his multiple past psychiatric hospitalizations. He was last discharged in September 2020 with the diagnoses of major depressive disorder, alcohol use disorder severe and nicotine dependence. His aftercare included referral to community mental health for both substance use and mental health treatment. He declined referral for residential substance abuse treatment. After he left the unit he alleged that he went to live with a friend in [place]. He returned when the friend returned back to [place]. He stated that he has been drinking daily since his last discharge. He usually imbibes 1/5 of vodka per day. He was unable to explain the reason that he called EMS but acknowledged that unless he told emergency room personnel that he was "suicidal" then he would not be admitted to the hospital. He talked about alcohol doing "something" to my brain where "I don't think right." During our i nterview she denied having suicidal thoughts, plan or intent. His primary concern was alcohol withdrawal and alcohol withdrawal symptoms. He denied history of delirium tremens but has a history of alcohol withdrawal seizures. On presentation to the ED his breath alcohol level was 0.154. His UDS was positive for amphetamines. The only other drug use recently was methadone that he purchased on the black market. He talked about opiates being his drug of choice but he is not able to obtain "quality" heroin in the [place] area and is unwilling to go to [place] where better quality product is available. PAST PSYCHIATRIC HISTORY: There is at least since fifth psychiatric hospitalization since 2019. In addition, he has had multiple admissions to medicine for the treatment of alcohol intoxication or medical complications from chronic alcohol use. His also had multiple presentations the ED for alcohol intoxication and withdrawal. A psychiatric diagnoses include major depressive disorder and unspecified anxiety disorder. He's been prescribed primarily antidepressants for the treatment of depressive symptoms. PAST MEDICAL HISTORY: He has a history of hepatitis C ALLERGIES: Cyclobenzaprine SUBSTANCE USE HISTORY: He began using drugs when he was 14 years old. He began abusing Tylenol with Codeine when he was in her 20s and eventually transitioned to heroin. He has been drinking since adolescence and has been in multiple substance abuse treatment programs for both alcohol and opiate use. He has been in the methadone program at [place] for approximately 10 years. The highest dose prescribed with 100 mg per day. At one point during treatment he was allowed take home doses of methadone but lost the privilege because of his alcohol use problems. FAMILY PSYCHIATRIC/SUBSTANCE USE HISTORY: He described a significant history of alcohol use problems in his family involving his son, sister, mother, uncle and grandparents. 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 SOCIAL HISTORY: His last discharge from [facility]. He has been living with a friend for "a couple months [place]" or in the basement of his parents home with his 35-year-old son. He is unemployed and has no income. He is planning to apply for so security on his 61nd birthday. MENTAL STATUS EXAM: He presented as a thin casually groomed, short statured 60-year-old male who looked his stated age. He made eye contact and attended to the interview. He had no distinguishing features or prominent physical abnormalities. He had a anxious facial expression. He was alert and oriented to person, place and time. He showed psychomotor retardation but no abnormal appearance. He was tremulous. His speech was spontaneous with decreased rate and volume. His affect was anxious. He denied suicidal ideation or homicidal ideation. He did not express feelings of hopelessness, helplessness or worthlessness. He ruminated about a friend who has a chronic and severe alcohol use problems. He did not express ideas reference, paranoid ideation, magical ideation or delusions. His thinking was abstract but associations were coherent and logical. He denied hallucinations and did not appear to responding to internal stimuli. Global impression of intellect is average. He is aware of his substance abuse problems and need for continued treatment. We completed the Mini-Mental State Examination. His total score was 30/30. He was fully oriented and showed no impairment in short-term memory, attention, concentration or language. STRENGTHS: Stable housing, awareness of substance use problems and need for treatment, relatively good health. WEAKNESSES: Chronic opiate use disorder, chronic alcohol use disorder, lack of income, recent interpersonal losses. IMPRESSION: He is a 60-year-old male who has a long history of opiate and alcohol use problems. [facility] complaining of depression and suicidal ideation. Since his admission to unit he has not had moderate alcohol withdrawal symptoms uncomplicated by delirium or seizures. He should be treated inpatient basis, psychopharmacology and multimodal therapy. PRINCIPLE DIAGNOSIS: Acute alcohol intoxication, suicidal ideation, alcohol withdrawal, rule out alcohol withdrawal delirium, alcohol use disorder severe, alcohol induced mood disorder opiate use disorder severe, rule out amphetamine use disorder, rule out major depressive disorder RECOMMENDATION: Admits to psychiatric unit. Safety precautions. Consult medicine for initial physical exam and medical history. propagation worker to complete his initial psychosocial assessment coordinate discharge and aftercare. Resume Effexor XR 150 mg daily, Desyrel 150 mg at bedtime, ReVia 50 mg daily and Habitrol 14 mg patch daily. Continue Norvasc 5 mg twice a day for treatment of hypertension. Librium 50 mg 4 times a day. CIWA every 4 hours and administer Ativan 1 or 2 mg based on the severity of the CIWA score. Encourage participation in therapeutic groups and activities. Evaluate clinical status response to treatment daily basis. Allergies Allergy/AdvReac Type Severity Reaction Status Date / Time cyclobenzaprine HCl Allergy Rash/Hives Verified 12/30/20 09:59 [From Flexeril] Vital Signs Temp 98.1 F 12/31/20 06:11 Pulse 100 12/31/20 08:20 Resp 18 12/30/20 20:05 BP 154/87 12/31/20 08:20 Pulse Ox 97 12/30/20 17:10 Intake & Output 12/30/20 12/31/20 12/31/20 18:59 06:59 18:59 Weight 72.575 kg Laboratory Last Values Urine Color Yellow 12/30/20 02:07 Urine Appearance Clear (Clear) 12/30/20 02:07 Urine pH 5.0 (5.0-8.0) 12/30/20 02:07 Ur Specific [place] 1.017 (1.001-1.035) 12/30/20 02:07 Urine Protein Trace (Negative) H 12/30/20 02:07 Urine Glucose (UA) Negative (Negative) 12/30/20 02:07 Urine Ketones Negative (Negative) 12/30/20 02:07 Urine Blood Negative (Negative) 12/30/20 02:07 Urine Nitrite Negative (Negative) 12/30/20 02:07 Urine Bilirubin Negative (Negative) 12/30/20 02:07 Urine Urobilinogen <2.0 mg/dL (<2.0) 12/30/20 02:07 Ur Leukocyte Esterase Negative (Negative) 12/30/20 02:07 Urine Opiates Screen Not Detected (NotDetected) 12/30/20 02:07 Ur Oxycodone Screen Not Detected (NotDetected) 12/30/20 02:07 Urine Methadone Screen Not Detected (NotDetected) 12/30/20 02:07 Ur Propoxyphene Screen Not Detected (NotDetected) 12/30/20 02:07 Ur Barbiturates Screen Not Detected (NotDetected) 12/30/20 02:07 U Tricyclic Antidepress Not Detected (NotDetected) 12/30/20 02:07 Ur Phencyclidine Scrn Not Detected (NotDetected) 12/30/20 02:07 Ur Amphetamines Screen Detected (NotDetected) H 12/30/20 02:07 U Methamphetamines Scrn Not Detected (NotDetected) 12/30/20 02:07 U Benzodiazepines Scrn Not Detected (NotDetected) 12/30/20 02:07 Urine Cocaine Screen Not Detected (NotDetected) 12/30/20 02:07 U Marijuana (THC) Screen Not Detected (NotDetected) 12/30/20 02:07 Serum Alcohol 17 mg/dL 12/30/20 09:35 Coronavirus (PCR) Not Detected (Not Detectd) 12/30/20 13:57 12/31/20 08:57
[2020-12-31] MEDS: chlordiazePOXIDE 25 MG CAP PO SCH ×4 (09:31→21:54)
[2020-12-31 10:00] LABS: Basophils % (A) 0 %; Eosinophils # (A) 0.1 k/uL (0-0.7); Eosinophils % (A) 2 %; HGB 13.9 gm/dL (13.0-17.5); Lymphocytes # (A) 0.9 k/uL (1.0-4.8); Lymphocytes % (A) 13 %; MCHC 33.9 g/dL (31.0-37.0); MCV 94.4 fL (80.0-100.0); Mean Platelet Volume 6.8; Monocytes # (A) 0.3 k/uL (0-1.0); Monocytes % (A) 5 %; Neutrophils # (A) 5.8 k/uL (1.3-7.7); Neutrophils % (A) 80 %; Platelet Count 236 k/uL (150-450); RBC 4.34 m/uL (4.30-5.90); RDW 13.6 % (11.5-15.5); WBC 7.2 k/uL (3.8-10.6)
[2020-12-31 10:03] LABS: ALT 28 U/L (4-49); AST 24 U/L (17-59); African American GFR (CKD) >90 (>60 ml/min/1.73 sqM); Albumin 3.7 g/dL (3.5-5.0); Alkaline Phosphatase 57 U/L (38-126); Anion Gap 6 mmol/L; Blood Urea Nitrogen 15 mg/dL (9-20); Calcium 9.2 mg/dL (8.4-10.2); Carbon Dioxide 28 mmol/L (22-30); Chloride 105 mmol/L (98-107); Cholesterol 154 mg/dL (<200); Glucose 180 mg/dL (74-99); HDL Cholesterol 78 mg/dL (40-60); LDL Cholesterol,Calculated 54 mg/dL (0-99); Non-African American GFR(CKD) >90 (>60 ml/min/1.73 sqM); Potassium 3.6 mmol/L (3.5-5.1); Sodium 139 mmol/L (137-145); Total Bilirubin 0.9 mg/dL (0.2-1.3); Total Protein 6.2 g/dL (6.3-8.2); Triglycerides 111 mg/dL (<150)
--- NOTE | 2020-12-31 21:29 | CONS ---
CONSULTATION 60-year-old white male admitted to the psych unit for alcohol intoxication, depression, suicidal ideation. He has had multiple past psychiatric hospitalizations. He has had history of alcohol abuse, which he takes Naltrexone at home. Major depression, severe, nicotine addiction, [facility] substance abuse treatments. He went and lived in [place], came back to [place]. He has been drinking daily since his discharge. He imbibes a 5th of vodka per day. He told the ER he was suicidal. He was admitted to the hospital. He says alcohol is messing with his brain. He can not get something right. He bought some methadone on the black market. He says opiates is his drug of choice. He is unable to obtain quality heroin in [facility]. He goes to [place]. PAST MEDICAL HISTORY: Hepatitis C. ALLERGIES: CYCLOBENZAPRINE. PHYSICAL EXAMINATION: Cardiovascular S1-S2. LUNGS clear. GI soft. INTEGUMENT: No rash, excoriations or bruises. ASSESSMENT: 1. Alcohol intoxication. 2. Suicidal ideation. 3. Alcohol withdrawal. 4. Alcohol induced mood disorder. 5. Opiate use. 6. Major depression. Going to the psych unit. Psych will need to rearrange all his medications and get him into some substance abuse counseling and his addiction medications. Methamphetamine and amphetamine screen are positive. Continue current treatments for severe depression, anxiety. Please see psych. He has no major medical problems. MMODL / IJN: [id number] /
[2020-12-31] MEDS: traZODone HCL 50 MG TAB PO SCH (21:55)
[2020-12-31] MEDS ORDERED: IBUPROFEN 600 MG TAB PO STA (22:46)
[2021-01-01] MEDS: ACETAMINOPHEN TAB 325 MG TAB PO PRN ×3 (06:42→17:03)
[2021-01-01] MEDS: LORazepam 1 MG TAB PO PRN ×2 (06:43→15:10)
[2021-01-01] MEDS: NICOTINE 14MG/24HR PATCH TRANSDERM SCH (08:07)
[2021-01-01] MEDS: chlordiazePOXIDE 25 MG CAP PO SCH ×4 (08:07→20:46)
[2021-01-01] MEDS: NALTREXONE HCL 50 MG TAB PO SCH (08:07)
[2021-01-01] MEDS: VENLAFAXINE HCL ER 150 MG CAP PO SCH (08:07)
[2021-01-01] MEDS: amLODIPine 5 MG TAB PO SCH ×2 (08:07→20:46)
--- NOTE | 2021-01-01 15:18 | P.PN ---
Progress Note - Text Progress Note Date: 01/01/21 Clinical Problems: Suicidal ideation, alcohol withdrawal, rule out alcohol withdrawal delirium, alcohol use disorder severe, alcohol induced mood disorder, opiate use disorder severe, rule out amphetamine use disorder, rule out major depressive disorder Interim history: I reviewed the medical record and interviewed the patient. He reported continued alcohol withdrawal symptoms including nausea, restlessness, sweating and diarrhea. He denied vomiting was visual, olfactory or tactile disturbances. His CIWA scores ranged from 0-14 over the last 24 hours. In addition to Librium 50 mg 4 times a day he is receiving when necessary doses of Ativan 2 mg and 1 mg. Mental status exam: He presented as a thin casually groomed elderly male who was pleasant on approach. He made eye contact and attended to the interview. He was tremulous. His speech was spontaneous with decreased rate and volume. His affect was blunted but appropriate. He denied current suicidal ideation or wishes. He did not express ideas reference, paranoid ideation or delusions. His thinking was concrete but his associations were coherent, logical and goal directed. He denied hallucinations did not appear to responding to internal stimuli. Assessment: He continues to have mild to moderate alcohol withdrawal symptoms uncomplicated by delirium or seizures. Plan: Continue inpatient treatment. Safety precautions. Continue Librium 50 mg 4 times a day. Continue CIWA with Ativan. Continue with Effexor XR 150 mg daily and trazodone 100 mg at bedtime. Review of 50 mg for alcohol use disorder. Habitrol for smoking cessation. Encourage participation in therapeutic groups and activities as tolerated. Lately clinical status response to treatment daily basis.
[2021-01-01] MEDS: traZODone HCL 50 MG TAB PO SCH (20:46)
[2021-01-02] MEDS: LORazepam 1 MG TAB PO PRN ×3 (02:33→18:33)
[2021-01-02] MEDS: ACETAMINOPHEN TAB 325 MG TAB PO PRN (02:33)
[2021-01-02] MEDS: amLODIPine 5 MG TAB PO SCH ×2 (08:59→21:14)
[2021-01-02] MEDS: chlordiazePOXIDE 25 MG CAP PO SCH ×3 (08:59→21:15)
[2021-01-02] MEDS: NICOTINE 14MG/24HR PATCH TRANSDERM SCH (08:59)
[2021-01-02] MEDS: VENLAFAXINE HCL ER 150 MG CAP PO SCH (09:00)
[2021-01-02] MEDS: NALTREXONE HCL 50 MG TAB PO SCH (09:00)
--- NOTE | 2021-01-02 10:06 | P.PN ---
Progress Note - Text Progress Note Date: 01/02/21 Interval History: Patient was seen resting in bed and was directable and agreeable to speak with verse writer in the office. The patient reports that his mood has been low secondary to his alcohol use. She reports that once he drinks significant alcohol he begins feeling suicidal. Currently, the patient is endorsing low mood and depression but is denying any suicidal or homicidal ideation, intention, and/or plan. He is not reporting any auditory or visual hallucinations. He is denying any paranoia or delusions. He does report elevated anxiety. He states his primary concern at this time is withdrawal. The patient states that he has been staying with his son and that his son will help him remain sober. He does appear to be medication seeking today asking if he can be placed on Adderall as this medication was the one that would treat his depression the best. This provider discussed with the patient at length that controlled medications such as lack be difficult to prescribe given his use of illicit substances such as illicit methadone and illicit Adderall. He does report sleep has been difficult. Mental Status Exam: General Appearance: Patient appears to be stated age is alert, directable, and cooperative. Patient has a normal build, short cut hair, dressed in his home clothes. Behavior: Patient is calmly seated without any agitated behavior. Psychomotor activity appears slightly elevated. Speech: Patient's speech is fluent and nonpressured. Mood/Affect: Mood is improving mildly, affect is congruent and constricted. Suicidality/Homicidality: Patient denies having any suicidal or homicidal ideation intent or plan. Perceptions: Patient denies any visual hallucinations and denies any auditory hallucinations Though content/process: There is no evidence of any delusional thought content and thought process is linear and goal-directed. Memory and concentration: AOX3, grossly intact for the purposes of this session Judgment and insight: Improving mildly Assessment Major depressive disorder, recurrent, severe Alcohol use disorder, severe Amphetamine use disorder Opiate use disorder Nicotine dependence Plan: -Patient continues to meet criteria for inpatient psychiatric admission for symptom stabilization and safety. Patient has signed adult voluntary form and medication consent and was placed in patient's chart. -Medications: Decrease Librium to 50 mg by mouth 3 times a day as we taper off diazepam for alcohol withdrawal Continue ReVia 50 mg by mouth daily for alcohol use disorder Increase trazodone to 200 mg by mouth at bedtime for depression/insomnia Continue Effexor 150 mg by mouth daily for depression/anxiety -When necessary Ativan and Haldol for agitation/aggression. -NRT - nicotine patch -SW on board for discharge planning. Encouraged the patient to participate in milieu.
[2021-01-02] MEDS ORDERED: traZODone HCL 100 MG TAB PO SCH (21:00)
[2021-01-03 07:14] VITALS: RESP 17; TEMP 98.2
[2021-01-03] MEDS: NICOTINE 14MG/24HR PATCH TRANSDERM SCH (08:06)
[2021-01-03] MEDS: NALTREXONE HCL 50 MG TAB PO SCH (08:41)
[2021-01-03] MEDS: VENLAFAXINE HCL ER 150 MG CAP PO SCH (08:41)
[2021-01-03] MEDS: amLODIPine 5 MG TAB PO SCH (08:41)
[2021-01-03] MEDS: chlordiazePOXIDE 25 MG CAP PO SCH (08:42)
[2021-01-03] MEDS ORDERED: LORATADINE 10 MG TAB PO STA (08:53)
[2021-01-03 11:05] VITALS: BP 119/57; PULSE 92
--- NOTE | 2021-01-03 11:17 | P.DS ---
Providers Date of admission: 12/30/20 16:02 Expected date of discharge: 01/03/21 Attending physician: Fernando Alonso MD Consults: 12/30/20 16:05 Consult Physician Routine Consulting Provider: Sky Manzano Consult Reason/Comments: medical management Do you want consulting provider notified?: Yes Primary care physician: Sky Manzano - Discharge Diagnosis(es) (1) Major depressive disorder, recurrent severe without psychotic features Current Visit: Yes Status: Acute Priority: High (2) Alcohol use disorder, severe, dependence Current Visit: Yes Status: Chronic Priority: High (3) Amphetamine abuse Current Visit: Yes Status: Chronic Priority: Medium (4) History of opioid abuse Current Visit: No Status: Chronic Priority: Medium (5) Nicotine dependence Current Visit: Yes Status: Chronic Priority: Medium Hospital Course: Admission HPI: Initial psychiatric evaluation was completed by Dr. Ventura on 12/31/2020 who wrote: "He is a 60-year-old single unemployed male admitted to the psychiatric unit voluntarily with complaints of alcohol intoxication, depression and suicidal ideation. I reviewed the medical record and interviewed the patient. He is well known to the psychiatric unit from his multiple past psychiatric hospitalizations. He was last discharged in September 2020 with the diagnoses of major depressive disorder, alcohol use disorder severe and nicotine dependence. His aftercare included referral to community mental health for both substance use and mental health treatment. He declined referral for residential substance abuse treatment. After he left the unit he alleged that he went to live with a friend in [place]. He returned when the friend returned back to [place]. He stated that he has been drinking daily since his last discharge. He usually imbibes 1/5 of vodka per day. He was unable to explain the reason that he called EMS but acknowledged that unless he told emergency room personnel that he was "suicidal" then he would not be admitted to the hospital. He talked about alcohol doing "something" to my brain where "I don't think right." During our interview she denied having suicidal thoughts, plan or intent. His primary concern was alcohol withdrawal and alcohol withdrawal symptoms. He denied history of delirium tremens but has a history of alcohol withdrawal seizures. On presentation to the ED his breath alcohol level was 0.154. His UDS was positive for amphetamines. The only other drug use recently was methadone that he purchased on the [employer] market. He talked about opiates being his drug of choice but he is not able to obtain "quality" heroin in the [place] area and is unwilling to go to [place] where better quality product is available." Hospital course: Upon admission to the unit patient was initially presenting as anxious, tremulous, and in active withdrawal from alcohol. Patient was however directable and agreeable to commence treatment. Patient got along well with other patients on the unit and followed unit protocol. The patient's home medications of Effexor, trazodone, ReVia, and Habitrol are restarted. The patient was also placed on Librium 50 mg by mouth 4 times a day for alcohol withdrawal. During this hospitalization, the patient spoke of his stressors and engaged in both group and individual therapy. He was also examined by the medical team for history and physical exam and prior to discharge was cleared medically. The patient was medication seeking at times often asking for controlled substances such as Adderall stating that this is the medication that would most benefit his depression. The patient was provided with psychoeducation on substance use and abuse. Patient's trazodone was gradually increased to a final dose of 200 mg by mouth at bedtime for depression/insomnia. The patient's Librium was gradually tapered off and the patient will be discharged with 2 doses of Librium for 2 days. The patient was counseled at great length that he should not mix Librium with any controlled substances including opiates, alcohol, other benzodiazepines, barbiturates, or other illicit substances. The patient acknowledged understanding. The patient acknowledged that he would risk respiratory depression if he was to do so which may lead to . Prior to discharge the patient CIWA score was noted to be 3at 10:57 am and 13 the night before. On the day of discharge, the patient is not reporting any suicidal or homicidal ideation, intention, and/or plan. He is not reporting any auditory or visual halPatient appears to be stated age is alert, pleasant, and cooperative. Patient is in no acute distress and has fair hygiene and grooming Behavior: Patient is calmly seated without any agitated behavior. Psychomotor activity is normal. Speech: Patient's speech is fluent and nonpressured. Mood/Affect: Patient reports their mood is "much better", affect is congruent and euthymic. Suicidality/Homicidality: Patient denies having any suicidal or homicidal ideation intent or plan. Perceptions: Patient denies any auditory or visual hallucinations. Though content/process: There is no evidence of any delusional thought content and thought process is linear and goal-directed. Patient is future oriented. Memory and concentration: AOX3, grossly intact for the purposes of this session. Can spell "WORLD" backwards correctly. Judgment and insight: Improved with guarded prognosis Impression: Major depressive disorder, recurrent, severe Alcohol use disorder, severe Amphetamine use disorder Opiate use disorder Nicotine dependence Plan: -Continue with discharge today as patient has improved and stabilized psychiatrically and is not currently an imminent threat to himself and/or others. Patient will remain at chronically elevated risk for harm to self and/or others due to his impulsivity and polysubstance abuse. -Continue medications: We will provide Librium 50 mg daily for 2 days for alcohol withdrawal. Continue ReVia 50 mg by mouth daily for alcohol use disorder Continue trazodone 200 mg by mouth at bedtime for depression/insomnia Continue Effexor XR 150 mg daily for depression/anxiety -Patient was counseled on the need for medication compliance and appropriate follow-up at mental health and also primary care for medical issues. Patient verbalized understanding and agreed. -Social work to arrange for and conduct family meeting to ensure safety upon discharge and answer any questions/concerns. Social work also to arrange for patients follow up appointments for psychiatric care along with follow up with primary care provider. -Patient counseled on abstaining from recreational drugs and marijuana and alcohol. Was informed/educated on the adverse effects on their physical and mental health. Patient verbally agreed and understood. Patient was offered substance abuse treatment however declined at this time. -Patient was instructed to return to the hospital or seek immediate medical care if their psychiatric or medical symptoms do worsen or reoccur. -Psychoeducation and supportive therapy provided to patient. Risks and benefits of pharmacological treatment versus the risks and benefits of nontreatment weight and discussed. Informed consent discussion held. Common side effects of psychotropics discussed such as, but not limited to headache, GI disturbance, sexual dysfunction, movement disorders, sedation, and orthostatic hypotension. Life threatening and blackbox warnings of prescribed medications also discussed. Potential risks of operating a vehicle or heavy machinery discussed with patient at length. Advised on importance of compliance and a reliable and responsible manner. Patient advised to review FDA consumer labeling of all medications prior to taking. Patient verbalized understanding of potential risks, and agrees with current treatment plan. Patient advised to medically contact physician/emergency personnel if any acute changes in condition occur. Vital Signs Temp 98.2 F 01/03/21 07:13 Pulse 92 01/03/21 11:00 Resp 17 01/03/21 07:13 BP 119/57 01/03/21 11:00 Pulse Ox 97 01/03/21 07:13 Laboratory Results WBC 7.2 k/uL (3.8-10.6) 12/31/20 09:37 RBC 4.34 m/uL (4.30-5.90) 12/31/20 09:37 Hgb 13.9 gm/dL (13.0-17.5) 12/31/20 09:37 Hct 41.0 % (39.0-53.0) 12/31/20 09:37 MCV 94.4 fL (80.0-100.0) 12/31/20 09:37 MCH 32.0 pg (25.0-35.0) 12/31/20 09:37 MCHC 33.9 g/dL (31.0-37.0) 12/31/20 09:37 RDW 13.6 % (11.5-15.5) 12/31/20 09:37 Plt Count 236 k/uL (150-450) 12/31/20 09:37 MPV 6.8 12/31/20 09:37 Neutrophils % 80 % 12/31/20 09:37 Lymphocytes % 13 % 12/31/20 09:37 Monocytes % 5 % 12/31/20 09:37 Eosinophils % 2 % 12/31/20 09:37 Basophils % 0 % 12/31/20 09:37 Neutrophils # 5.8 k/uL (1.3-7.7) 12/31/20 09:37 Lymphocytes # 0.9 k/uL (1.0-4.8) L 12/31/20 09:37 Monocytes # 0.3 k/uL (0-1.0) 12/31/20 09:37 Eosinophils # 0.1 k/uL (0-0.7) 12/31/20 09:37 Basophils # 0.0 k/uL (0-0.2) 12/31/20 09:37 Sodium 139 mmol/L (137-145) 12/31/20 09:37 Potassium 3.6 mmol/L (3.5-5.1) 12/31/20 09:37 Chloride 105 mmol/L (98-107) 12/31/20 09:37 Carbon Dioxide 28 mmol/L (22-30) 12/31/20 09:37 Anion Gap 6 mmol/L 12/31/20 09:37 BUN 15 mg/dL (9-20) 12/31/20 09:37 Creatinine 0.85 mg/dL (0.66-1.25) 12/31/20 09:37 Est GFR (CKD-EPI)AfAm >90 (>60 ml/min/1.73 sqM) 12/31/20 09:37 Est GFR (CKD-EPI)NonAf >90 (>60 ml/min/1.73 sqM) 12/31/20 09:37 Glucose 180 mg/dL (74-99) H 12/31/20 09:[address] Glu mg/dL 100 12/31/20 09:37 Hemoglobin A1c 5.1 % (4.0-6.0) 12/31/20 09:37 Calcium 9.2 mg/dL (8.4-10.2) 12/31/20 09:37 Total Bilirubin 0.9 mg/dL (0.2-1.3) 12/31/20 09:37 AST 24 U/L (17-59) 12/31/20 09:37 ALT 28 U/L (4-49) 12/31/20 09:37 Alkaline Phosphatase 57 U/L (38-126) 12/31/20 09:37 Total Protein 6.2 g/dL (6.3-8.2) L 12/31/20 09:37 Albumin 3.7 g/dL (3.5-5.0) 12/31/20 09:37 Triglycerides 111 mg/dL (<150) 12/31/20 09:37 Cholesterol 154 mg/dL (<200) 12/31/20 09:37 LDL Cholesterol, Calc 54 mg/dL (0-99) 12/31/20 09:37 HDL Cholesterol 78 mg/dL (40-60) H 12/31/20 09:37 TSH 0.361 mIU/L (0.465-4.680) L 12/31/20 09:37 Urine Color Yellow 12/30/20 02:07 Urine Appearance Clear (Clear) 12/30/20 02:07 Urine pH 5.0 (5.0-8.0) 12/30/20 02:07 Ur Specific [place] 1.017 (1.001-1.035) 12/30/20 02:07 Urine Protein Trace (Negative) H 12/30/20 02:07 Urine Glucose (UA) Negative (Negative) 12/30/20 02:07 Urine Ketones Negative (Negative) 12/30/20 02:07 Urine Blood Negative (Negative) 12/30/20 02:07 Urine Nitrite Negative (Negative) 12/30/20 02:07 Urine Bilirubin Negative (Negative) 12/30/20 02:07 Urine Urobilinogen <2.0 mg/dL (<2.0) 12/30/20 02:07 Ur Leukocyte Esterase Negative (Negative) 12/30/20 02:07 Urine Opiates Screen Not Detected (NotDetected) 12/30/20 02:07 Ur Oxycodone Screen Not Detected (NotDetected) 12/30/20 02:07 Urine Methadone Screen Not Detected (NotDetected) 12/30/20 02:07 Ur Propoxyphene Screen Not Detected (NotDetected) 12/30/20 02:07 Ur Barbiturates Screen Not Detected (NotDetected) 12/30/20 02:07 U Tricyclic Antidepress Not Detected (NotDetected) 12/30/20 02:07 Ur Phencyclidine Scrn Not Detected (NotDetected) 12/30/20 02:07 Ur Amphetamines Screen Detected (NotDetected) H 12/30/20 02:07 U Methamphetamines Scrn Not Detected (NotDetected) 12/30/20 02:07 U Benzodiazepines Scrn Not Detected (NotDetected) 12/30/20 02:07 Urine Cocaine Screen Not Detected (NotDetected) 12/30/20 02:07 U Marijuana (THC) Screen Not Detected (NotDetected) 12/30/20 02:07 Serum Alcohol 17 mg/dL 12/30/20 09:35 Coronavirus (PCR) Not Detected (Not Detectd) 12/30/20 13:57 Allergies Allergy/AdvReac Type Severity Reaction Status Date / Time cyclobenzaprine HCl Allergy Rash/Hives Verified 12/30/20 09:59 [From Flexeril] Patient Condition at Discharge: Stable Plan - Discharge Summary Discharge Rx Participant: No New Discharge Prescriptions: New traZODone HCL [Desyrel] 200 mg PO HS 30 Days tab Venlafaxine HCl ER [Effexor XR] 150 mg PO DAILY 30 Days cap.er.24h Nicotine 14Mg/24Hr Patch [Habitrol] 1 patch TRANSDERM DAILY 30 Days patch chlordiazePOXIDE HCl [Librium] 25 mg PO DAILY #2 cap amLODIPine [Norvasc] 5 mg PO BID 30 Days tab Naltrexone HCl [Revia] 50 mg PO DAILY 30 Days tab Discontinued traZODone HCL [Desyrel] 150 mg PO HS 30 Days tab Venlafaxine HCl ER [Effexor XR] 150 mg PO DAILY 30 Days cap.er.24h Nicotine 14Mg/24Hr Patch [Habitrol] 1 patch TRANSDERM DAILY 30 Days patch amLODIPine [Norvasc] 5 mg PO BID 30 Days tab Naltrexone HCl [Revia] 50 mg PO DAILY 30 Days tab Discharge Medication List Naltrexone HCl [Revia] 50 mg PO DAILY 30 Days tab 01/03/21 [Rx] Nicotine 14Mg/24Hr Patch [Habitrol] 1 patch TRANSDERM DAILY 30 Days patch 01/03/21 [Rx] Venlafaxine HCl ER [Effexor XR] 150 mg PO DAILY 30 Days cap.er.24h 01/03/21 [Rx] amLODIPine [Norvasc] 5 mg PO BID 30 Days tab 01/03/21 [Rx] chlordiazePOXIDE HCl [Librium] 25 mg PO DAILY #2 cap 01/03/21 [Rx] traZODone HCL [Desyrel] 200 mg PO HS 30 Days tab 01/03/21 [Rx] Follow up Appointment(s)/Referral(s): Sky Manzano MD [Primary Care Provider] - 1-2 days Discharge Disposition: HOME SELF-CARE
== END 2021-01-03 13:52 | disposition home or self-care (01) | DRG 885 ==
LOC: EC 22:55 → 3MHU 12-30 16:02
PROVIDERS: ADMIT Psychiatry & Neurology Psychiatry; ATTEND Psychiatry & Neurology Psychiatry
DX: F33.2 Major depressive disorder, recurrent severe without psychotic features (principal); F10.239 Alcohol dependence with withdrawal, unspecified; F10.24 Alcohol dependence with alcohol-induced mood disorder; R45.851 Suicidal ideations; F15.10 Other stimulant abuse, uncomplicated; F17.210 Nicotine dependence, cigarettes, uncomplicated; F10.229 Alcohol dependence with intoxication, unspecified; F11.10 Opioid abuse, uncomplicated; F41.9 Anxiety disorder, unspecified; G47.00 Insomnia, unspecified; R56.9 Unspecified convulsions; Y90.6 Blood alcohol level of 120-199 mg/100 ml; Z56.0 Unemployment, unspecified; Z79.899 Other long term (current) drug therapy; Z80.0 Family history of malignant neoplasm of digestive organs; Z80.3 Family history of malignant neoplasm of breast; Z88.8 Allergy status to other drugs, medicaments and biological substances; Z20.822 Contact with and (suspected) exposure to COVID-19; F90.9 Attention-deficit hyperactivity disorder, unspecified type; Z86.19 Personal history of other infectious and parasitic diseases; Z65.3 Problems related to other legal circumstances
CPT/HCPCS: 36415; 80053; 80061; 80306; 80320; 81003; 82075; 83036; 84443; 85025; 87635; 99285